=== PATIENT | female | born 1960 | race Caucasian/White ===

== ENCOUNTER 2020-02-15 17:53 | Outpatient (CLI) | payer MEDICAID, SELFPAY ==
[2020-02-15 18:37] LABS: Basophils # 0.1 10^3/uL (0.0-0.1); Basophils % 0.8 %; Eosinophils # 0.3 10^3/uL (0.0-0.8); Eosinophils % 3.3 %; Hematocrit 49.4 % (37.0-47.0); Hemoglobin 15.7 g/dL (11.5-15.3); Lymphocytes # 3.9 10^3/uL (0.8-4.8); Lymphocytes % 45.8 %; Mean Corpuscular HGB Conc 31.8 g/dL (30.0-36.0); Mean Corpuscular Hemoglobin 28.3 pg (28.0-34.0); Mean Platelet Volume 11.1 fL (7.4-10.4); Monocytes # 0.6 10^3/uL (0.2-0.9); Monocytes % 6.5 %; Neutrophils # 3.7 10^3/uL (1.8-7.7); Neutrophils % 43.5 %; Nucleated Red Blood Cells % 0 %; Platelet Count 261 10^3/cmm (130-400); Red Blood Count 5.55 10^6/uL (4.1-5.3); Red Cell Distribution Width 14.4 % (12.1-15.1); White Blood Count 8.5 10^3/uL (4.0-10.0)
[2020-02-15 19:16] LABS: C Reactive Protein 3.8 mg/L (0.0-4.9)
[2020-02-15 23:21] LABS: Erythrocyte Sedimentation Rate 16 mm/hr (0-15)
== END 2020-02-15 17:54 | disposition home or self-care (01) ==
LOC: LAB 17:53
PROVIDERS: PCP Family Medicine; Visit Provider Internal Medicine Infectious Disease
DX: M46.20 Osteomyelitis of vertebra, site unspecified (principal); I07.9 Rheumatic tricuspid valve disease, unspecified; R78.81 Bacteremia; B95.62 Methicillin resistant Staphylococcus aureus infection as the cause of diseases classified elsewhere
CPT/HCPCS: 36415; 85025; 85651; 86140; 87040

== ENCOUNTER 2020-05-22 16:10 | Inpatient (IN) | payer MEDICAID, SELFPAY ==
[2020-05-22] VITALS (8 sets, daily range): BP systolic 120–138; BP diastolic 80–84; PULSE 74–115; RESP 14–18; TEMP 36.5–37.1; O2SAT 92–100; BMI 26.2
--- NOTE | 2020-05-22 16:39 | CTR_ITS ---
PROCEDURE INFORMATION: Exam: CT Chest With Contrast Exam date and time: 05/22/2020 4:58 PM Age: 60 years old Clinical indication: Abdominal pain; Chest pain; Prior surgery; Surgery type: Cabg, appy; Additional info: Epigastric pain, unable to swallow TECHNIQUE: Imaging protocol: Computed tomography of the chest with intravenous contrast. Radiation optimization: All CT scans at this facility use at least one of these dose optimization techniques: automated exposure control; mA and/or kV adjustment per patient size (includes targeted exams where dose is matched to clinical indication); or iterative reconstruction. Contrast material: OMNI 300; Contrast volume: 95 ml; Contrast route: INTRAVENOUS (IV); COMPARISON: CTA Chest-Pulmonary Emb [id number] 06/28/2015 10:11:21 AM RADIATION DOSE METRICS: Total DLP (mGy-cm): 614.93 FINDINGS: Lungs: Tracheobronchial structures are patent. Stable mild to moderate paraseptal and centrilobular emphysematous changes in the upper lobes with bulla formation in the right upper lobe. No focal consolidation. No pulmonary edema. Interval development of a noncalcified nodule in the left lower lobe with an average measurement of 5 mm (series 3, image 29). Pleural space: No pleural effusion. No pneumothorax. Heart: Interval development of focal pericardial calcification over the left atrium (series 2, image 32). Stable moderate enlargement of the heart. Pulmonary arteries: Stable enlargement of the central pulmonary arteries, this may suggest pulmonary hypertension. Aorta: Mild atherosclerotic changes in the visualized arteries. No evidence for aortic aneurysm or aortic dissection. 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 Other arteries: The pulmonary arteries are unremarkable. Other veins: The pulmonary veins are unremarkable. Lymph nodes: Interval development of a large left supraclavicular lymph node mass in the left supraclavicular region that is partially visualized. This is anteriorly displacing the left internal jugular vein and medially displacing the left common carotid artery (series 2, image 3). This measures at least 2.7 cm in length and 2.7 x 3.7 cm in AP and transverse dimensions, respectively (series 602, image 34 and series 2, image 3). Enlarged subclavicular lymph nodes, the largest measures 3.0 x 2.1 cm (series 2, image 9). Enlarged left axillary lymph node measures 1.7 x 1.5 cm (series 2, image 14). Enlarged AP window measures 1.2 cm in short axis, and an enlarged lymph node posterior to the left mainstem bronchus measures 1.2 cm in short axis (series 2, images 16 and 23). Bones/joints: Multilevel degenerative changes of varying severity in the visualized spine. Stable old, mild compression deformity of T3. Mild kyphoscoliosis in the thoracic spine. No lytic or sclerotic bony lesions. Soft tissues: No acute abnormality in the extrathoracic soft tissues. IMPRESSION: 1. No acute cardiopulmonary process. 2. Interval development of enlarged left supraclavicular, left subclavicular, left axillary, and mediastinal lymph nodes concerning for metastatic foci. 3. Interval development of a noncalcified nodule in the left lower lobe with an average measurement of 5 mm. [facility] for incidental nodules are not indicated. Follow up per patient's medical condition. 4. Interval development of focal pericardial calcification over the left atrium. 5. Incidental/nonacute findings are listed in the report. COMMENTS: Urgent results were discussed with Rajni Bauman on 05/22/2020 at 8:08 PM CDT. PROCEDURE INFORMATION: Exam: CT Abdomen And Pelvis With Contrast Exam date and time: 05/22/2020 4:58 PM Age: 60 years old Clinical indication: Abdominal pain; Chest pain; Prior surgery; Surgery type: Cabg, appy; Additional info: Epigastric pain, unable to swallow TECHNIQUE: Imaging protocol: Computed tomography of the abdomen and pelvis with intravenous contrast. Sagittal and coronal reformatted images were created and reviewed. Radiation optimization: All CT scans at this facility use at least one of these dose optimization techniques: automated exposure control; mA and/or kV adjustment per patient size (includes targeted exams where dose is matched to clinical indication); or iterative reconstruction. Contrast material: OMNI 300; Contrast volume: 95 ml; Contrast route: INTRAVENOUS (IV); COMPARISON: CT abdomen pelvis w con* [id number] 07/12/2014 4:37 PM RADIATION DOSE METRICS: Total DLP (mGy-cm): 687.29 FINDINGS: Liver: Interval development of a mildly nodular contour of the liver, concerning for mild cirrhosis. Interval development of multiple hypodense lesions in all 8 segments of the liver. The largest lesion is at the junction of segments 4A and 4B in the medial left lobe of the liver, this measures 4.2 by 4.6 x 4.4 cm (series 601, image 44 and series 2, image 17). Gallbladder and bile ducts: The gallbladder is unremarkable. No biliary ductal dilatation. Pancreas: The pancreas is unremarkable. No pancreatic ductal dilatation. Spleen: The spleen is unremarkable. Adrenals: Interval development of a small lesion in the right adrenal gland suspicious for a metastatic focus measuring 1.1 x 0.9 cm (series 2, image 15). The left adrenal gland is unremarkable. Kidneys and ureters: Interval development of a small hypodense focus in the right kidney that is too small to characterize, however likely represents a small cyst. Indeterminate hyperdense focus in the right kidney. Hounsfield units show density greater than expected for simple fluid. This measures 1.5 x 1.8 cm, previously 1.1 x 0.9 cm (series 2, image 31). The left kidney is unremarkable. The right and left kidneys are unremarkable. The right and left ureters are unremarkable. Stomach and bowel: The stomach is collapsed, which can limit evaluation. There is focal asymmetric thickening with a masslike appearance along the wall of the lesser curvature of the stomach however, this extends superiorly to the level of the GE junction and inferiorly to just above the pancreas. Findings are concerning for a possible gastric neoplasm versus invasion of the stomach wall from lymphadenopathy in the lesser sac. This measures 5.9 x 4.4 x 3.3 cm (series 602, image 30, series 601, image 32, and series 2, image 14). Appendix: Appendix not definitely visualized. No inflammatory changes in the pericecal region however. Intraperitoneal space: There is diffuse bowel wall thickening, likely secondary to edema from ascites. Interval development of thickening of the peritoneal lining with extensive omental caking in the anterior abdomen, suspicious for metastatic deposits. There is also interval development of large volume ascites, findings may be due to portal hypertension. Possible malignant ascites cannot be ruled out. No free intraperitoneal air. No loculated fluid collections to suggest an abscess. Vasculature: Moderate atherosclerotic changes in the visualized arteries. No evidence for aortic aneurysm or aortic dissection. Hepatic veins, portal veins, splenic vein, and SMV are patent. Interval development of small caliber varices in the upper abdomen. Lymph nodes: Interval development of multiple enlarged lymph nodes in the abdomen. A lora hepatis lymph node measures up to 1.4 x 3.3 cm in diameter (series 2, image 20). Multiple enlarged retroperitoneal lymph nodes, the largest measures 1.8 x 2.0 cm (series 2, image 23). Bladder: The bladder is incompletely filled, which can limit evaluation. No focal abnormality in the bladder however. Reproductive: The uterus, right ovary, and left ovary are unremarkable. Stable findings consistent with a previous bilateral tubal ligation. Bones/joints: Mild degenerative changes at both the right and left hips. Moderate degenerative changes of the right and left sacroiliac joints. Multilevel degenerative changes of varying severity in the visualized spine. New sclerotic lesion in the left ischium concerning for a metastatic focus. Multilevel degenerative changes of varying severity in the visualized spine. Mild to moderate age-indeterminate compression deformities of the superior endplates of L4 and L5. Findings are new at L4 and have worsened at L5. Soft tissues: No acute abnormality in the extra-abdominal soft tissues. CT/CT chest abd pel w con* IMPRESSION: 1. Interval development of a masslike focus along the lesser curvature of the stomach, this could represent a primary gastric neoplasm versus invasion of the wall of the stomach from in the enlarged lesser sac lymph node. There is also interval development of additional lymphadenopathy in the abdomen, multiple hepatic lesions, a right adrenal lesion, and peritoneal thickening/omental caking. Findings are suspicious for a diffuse metastatic process. 2. Interval development of large volume ascites, this could be due to cirrhosis and portal hypertension, possible malignant ascites cannot be ruled out. 3. Interval development of a mildly nodular contour of the liver, concerning for mild cirrhosis. Interval development of small caliber varices in the upper abdomen suggesting portal hypertension. 4. Increase in size of an indeterminate hyperdense focus in the right kidney. Recommend attention to this area on follow-up imaging studies. 5. There is diffuse bowel wall thickening, likely secondary to edema from ascites. 6. New sclerotic lesion in the left ischium concerning for a metastatic focus. Recommend further evaluation with bone scan if this has not recently been performed. 7. Mild to moderate age-indeterminate compression deformities of the superior endplates of L4 and L5. Findings are new at L4 and have worsened at L5. Recommend correlation with symptoms of pain in these areas. 8. Incidental/nonacute findings are listed in the report. COMMENTS: 1. Urgent results were discussed with Rajni Bauman on 05/22/2020 at 8:08 PM CDT. 2. Consistent with the [employer]'s Incidental Findings Committee white paper (J Am Andrés Radiol 2018): Any incidental renal lesion less than 1.0 cm or classified as too small to characterize, or any incidental cystic renal lesion characterized as simple-appearing, is likely benign. No follow-up imaging is recommended for these lesions per consensus recommendations based on imaging criteria. Radiation Dose CTDIVOL = (mGy): DLP = 687.29~614.93 (mGy-cm)
--- NOTE | 2020-05-22 16:40 | ECG_ITS ---
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 Measurements Intervals [place] Rate: 106 P: 74 [place]: 144 QRS: 19 QRSD: 111 T: 67 QT: 329 QTc: 438 Interpretive Statements SINUS TACHYCARDIA LOW QRS VOLTAGE IN PRECORDIAL LEADS [QRS DEFLECTION < 1.0 mV IN CHEST LEADS] INCOMPLETE RIGHT BUNDLE BRANCH BLOCK [90+ ms QRS DURATION, TERMINAL R IN V1/V2, 40+ ms S IN I/aVL/V4/V5/V6] MODERATE ST DEPRESSION [0.05+ mV ST DEPRESSION] No previous ECG available for comparison Electronically Signed On 05-23-2020 17:24:55 CDT by Paula Neal M.D. [id number]
--- NOTE | 2020-05-22 16:40 | XRR_ITS ---
PROCEDURE INFORMATION: Exam: XR Chest, 1 View Exam date and time: 05/22/2020 5:32 PM Age: 60 years old Clinical indication: Other: Epigastric; Patient HX: Abd pain and swelling; Additional info: Epigastric pain TECHNIQUE: Imaging protocol: XR of the chest Views: Frontal portable upright view of the chest. COMPARISON: CR Chest 2 views* [id number] 12/09/2014 2:47 PM FINDINGS: Lungs: 9 cm right apical bulla redemonstrated. The lungs are otherwise peripherally clear bilaterally size. The pulmonary vasculature is normal. Pleural space: No pleural effusion. No pneumothorax. Heart/Mediastinum: InStable borderline cardiomegaly. Mediastinum: Stable. Diaphragm: The diaphragm is excluded bilaterally. Bones/joints: Stable. XR/XR chest 1V portable [id number] IMPRESSION: 1. Pulmonary emphysema. 2. The diaphragm is excluded, limiting assessment for pneumoperitoneum.
--- NOTE | 2020-05-22 16:41 | ED_ITS ---
HPI - Abdominal Pain General: Chief Complaint: Abdominal Pain Stated Complaint: sent by doc Time Seen by Provider: 05/22/20 16:27 History of Present Illness: HPI narrative: This patient is a 60-year-old female presenting with abdominal pain and vomiting. She said she has been having symptoms for a month. It started with nausea and dry heaves. She said she was trying to throw up so hard that she felt like she ripped something in her epigastric area. Since that time she is had progressive worsening of her symptoms where she is no longer able to tolerate anything including water. She said when she tries to drink water she feels like it gets down to her xiphoid area and get stuck. Within a short time she throws it back up. She has noticed a decrease in urination which she thinks is because she is not taking in very much. She has had bloating and distention of her abdomen. She has been very weak and tired. She denies fevers or cough. She denies chest pain. She said her doctor had ordered an ultrasound for later this week but she called them today because of the worsening symptoms and they told her to come to the ER. She denies any history of stomach problems or liver problems. She does say that she had hepatitis C but got treated for it several years ago. MD elicited complaint: abdominal pain Pertinent past history: other (Hep C, treated) Onset (ago): week(s) (4) Pain Consistency: constant Location: Epigastric Severity: moderate Quality: aching and fullness Associated Symptoms: Reports bloating, heartburn and vomiting (Unable to swallow); Denies chills and fever(s) Review of Systems General: Reports: 10 or more systems reviewed and unremarkable except in HPI and below Const: Reports: fatigue; Denies: fever(s), chills or malaise Eyes: Denies: change in vision ENMT: Denies: odynophagia Card: Denies: chest pain or swelling of feet/ankles Resp: Denies: dyspnea, productive cough or non-productive cough GI: Reports: vomiting (Unable to swallow), heartburn, early satiety and bloating : Reports: oliguria; Denies: flank pain or difficulty voiding Musc: Denies: neck pain or back pain Skin/Breast: Denies: rash Neuro: Denies: headache(s), numbness in extremities or weakness in extremities Donald/Lymph: Denies: easy bruising or easy bleeding PFS ED PFSH: Medical History Anxiety COPD (chronic obstructive pulmonary disease) Depression Gastric reflux Hepatitis C History of endocarditis History of MRSA infection HECTOR (obstructive sleep apnea) Pulmonary hypertension Sacral osteomyelitis Surgical History H/O foot surgery History of appendectomy Hx of tonsillectomy S/P CABG (coronary artery bypass graft) Family History Other CAD (coronary artery disease) Hypertension Social History Smoking and tobacco status: current every day smoker Alcohol intake: never Current gender identity: Female Physical Exam Const: COMMON NORMALS: no acute distress, patient oriented x3, no limitations and alert GENERAL APPEARANCE: cooperative and comfortable HENMT: HEAD & SCALP: normal to inspection FACE & SINUS: normal facial exam Eye: GENERAL EYE: appearance normal, both eyes and all related structures Neck/C-Spine: COMMON NORMALS: supple, no meningeal signs and no JVD Chest: COMMONS NORMALS: normal inspection of the chest Resp: COMMON NORMALS: normal respiratory effort, No use of accessory muscles and clear to auscultation bilaterally AUSCULTATION: clear to auscultation bilaterally Cardio: COMMON NORMALS: no JVD, regular rate, regular rhythm and No murmurs present (Cardio) RATE: regular rate RHYTHM: regular rhythm GI: INSPECTION: Yes abdominal distension and Yes Fluid wave present AUSCULTATION: Yes Hypoactive bowel sounds present PALPATION: Yes Firmness to palpation present (GI) and Yes Tenderness to palpation present (GI) PERCUSSION: Fluid wave present Back/Pelvis: COMMON NORMALS: thoracic and lumbar spine normal to inspection Extremity: COMMON NORMALS: normal to inspection Neuro: COMMON NORMALS: patient oriented x3, moves all extremities, no focal motor deficits and no sensory deficits noted SENSORIUM/ORIENTATION: Yes alert MENINGEAL SIGNS: Yes no meningeal signs Psych: COMMON NORMALS: mental status grossly normal, cooperative and normal affect Skin: COMMON NORMALS: no rashes or lesions noted and turgor normal GENERAL SKIN EXAM: no rashes or lesions noted and turgor normal Course ED course: Patient was given pain medicine and rested in the ED. She continued to have discomfort in her epigastrium. CT was done and I discussed the findings with the radiologist. She appears to have a metastatic process with no obvious primary. The stomach does have some thickening which could be a primary versus lymph node invasion of the stomach wall. There are extensive mets in the liver, adrenal, lymph nodes with omental caking and ascites. There is also some degree of portal hypertension. There is a small nodule in the left lower lobe of the lung. There are potentially lesions in the bone and kidney as well. She also has compression fractures at L4 and L5. 1 of those was present on a prior CT but is more advanced today. I told the patient of these findings and she got very upset. She is unable to have a calm discussion about it at this time. Order some Ativan and she understands that she will be admitted for further work-up. Vital Signs: Vital signs: Vital Signs Temperature 98.8 F 05/23/20 11:27 Pulse Rate 104 H 05/23/20 11:27 Respiratory Rate 20 H 05/23/20 13:22 Blood Pressure 123/86 05/23/20 11:27 Pulse Oximetry 88 L 05/23/20 11:27 MDM - Abdominal Pain MDM Narrative: Medical decision making narrative: Incarcerated hiatal hernia, esophageal stricture, ascites likely related to liver disease, Romana-Law tear, other mediastinal or abdominal mass, pancreatitis, bowel obstruction, cardiac, neoplastic. Lab Data: Labs: Lab Results 05/22/20 05/22/20 05/22/20 Range/Units 18:13 18:19 18:19 WBC 11.6 H (4.0-10.0) 10^3/ uL RBC 4.50 (4.1-5.3) 10^6/u L Hgb 12.5 (11.5-15.3) g/dL Hct 40.8 (37.0-47.0) % MCV 90.7 (81-99) fL MCH 27.8 L (28.0-34.0) pg MCHC 30.6 (30.0-36.0) g/dL RDW 13.0 (12.1-15.1) % Plt Count 440 H (130-400) 10^3/c mm MPV 10.0 (7.4-10.4) fL Neut % (Auto) 72.6 % Lymph % (Auto) 14.8 % Izard % (Auto) 8.3 % Eos % (Auto) 2.7 % Baso % (Auto) 0.6 % Neut # (Auto) 8.41 H (1.8-7.7) 10^3/u L Lymph # (Auto) 1.7 (0.8-4.8) 10^3/u L Izard # (Auto) 1.0 H (0.2-0.9) 10^3/u L Eos # (Auto) 0.3 (0.0-0.8) 10^3/u L Baso # (Auto) 0.1 (0.0-0.1) 10^3/u L Nucleated RBC % (a uto) 0 % Nucleated RBCs # 0.0 /100WBC Sodium 135 L (136-145) mmol/L Potassium 3.5 (3.5-5.1) mmol/L Chloride 95 L (98-107) mmol/L Carbon Dioxide 30 H (22-29) mmol/L Anion Gap 13.5 (5-19) BUN 6 (6-20) mg/dL Creatinine 0.9 (0.5-0.9) mg/dL GFR Calculation 64.3 L (90-130) mL/min Glucose 92 (65-115) mg/dL Calculated Osmolal ity 275 L (285-295) mOsm/k g Lactic Acid (0.5-2.2) mmol/L Calcium 8.7 (8.5-10.5) mg/dL Total Bilirubin 0.4 (0.15-1.2) mg/dL AST 43 H (0-32) U/L ALT 10 (0-33) U/L Alkaline Phosphata se 147 H (35-105) IU/L Troponin T Baselin e (0-10) ng/L Total Protein 6.4 L (6.6-8.7) g/dL Albumin 3.2 L (3.5-5.2) g/dL Globulin 3.2 (1.3-4.6) g/dL Lipase 14 (13-60) U/L Urine Color Dark yellow (Yellow) Urine Appearance Clear (CLEAR) Urine pH 5 (5-7) Ur Specific Gravit y 1.005 (1.005-1.030) Urine Protein Neg (Negative) Urine Glucose (UA) Norm (Normal) Urine Ketones Negative (Negative) Urine Blood Neg (Negative) Urine Nitrate Negative (Negative) Urine Bilirubin Neg (NEGATIVE) Urine Urobilinogen 1 H (Negative) mg/dL Ur Leukocyte Monique ase Negative (Negative) Ethyl Alcohol < 10 (0-10) mg/dL 05/22/20 05/22/20 Range/Units 18:19 18:19 WBC (4.0-10.0) 10^3/ uL RBC (4.1-5.3) 10^6/u L Hgb (11.5-15.3) g/dL Hct (37.0-47.0) % MCV (81-99) fL MCH (28.0-34.0) pg MCHC (30.0-36.0) g/dL RDW (12.1-15.1) % Plt Count (130-400) 10^3/c mm MPV (7.4-10.4) fL Neut % (Auto) % Lymph % (Auto) % Izard % (Auto) % Eos % (Auto) % Baso % (Auto) % Neut # (Auto) (1.8-7.7) 10^3/u L Lymph # (Auto) (0.8-4.8) 10^3/u L Izard # (Auto) (0.2-0.9) 10^3/u L Eos # (Auto) (0.0-0.8) 10^3/u L Baso # (Auto) (0.0-0.1) 10^3/u L Nucleated RBC % (a uto) % Nucleated RBCs # /100WBC Sodium (136-145) mmol/L Potassium (3.5-5.1) mmol/L Chloride (98-107) mmol/L Carbon Dioxide (22-29) mmol/L Anion Gap (5-19) BUN (6-20) mg/dL Creatinine (0.5-0.9) mg/dL GFR Calculation (90-130) mL/min Glucose (65-115) mg/dL Calculated Osmolal ity (285-295) mOsm/k g Lactic Acid 1.5 (0.5-2.2) mmol/L Calcium (8.5-10.5) mg/dL Total Bilirubin (0.15-1.2) mg/dL AST (0-32) U/L ALT (0-33) U/L Alkaline Phosphata se (35-105) IU/L Troponin T Baselin e 9 (0-10) ng/L Total Protein (6.6-8.7) g/dL Albumin (3.5-5.2) g/dL Globulin (1.3-4.6) g/dL Lipase (13-60) U/L Urine Color (Yellow) Urine Appearance (CLEAR) Urine pH (5-7) Ur Specific Gravit y (1.005-1.030) Urine Protein (Negative) Urine Glucose (UA) (Normal) Urine Ketones (Negative) Urine Blood (Negative) Urine Nitrate (Negative) Urine Bilirubin (NEGATIVE) Urine Urobilinogen (Negative) mg/dL Ur Leukocyte Monique ase (Negative) Ethyl Alcohol (0-10) mg/dL Discharge Plan Discharge Patient Disposition: Admitted As Inpatient Admit Provider: Paula Kahn Discharge Date/Time: 05/22/20 21:44 Coding Level of Care Code ED Cardiac Catheterization Technologist for [employer] Fwd Exam Comprehensive
[2020-05-22] MEDS: lactated ringers 500 ML 999 ML IV (17:23)
[2020-05-22] MEDS: morphine 4 mg/mL SDV 1 mL IVP (17:26)
[2020-05-22] MEDS: ondansetron 2 mg/ML SDV 2 mL 4 MG IVP (17:26)
[2020-05-22] MEDS: iohexol 300 mg/mL 100 mL Btl IV (17:35)
[2020-05-22] MEDS: HYDROmorphone 1 mg/mL INJ 1 mL 0.5 MG IVP (18:08)
[2020-05-22 18:25] LABS: Basophils # 0.1 10^3/uL (0.0-0.1); Basophils % 0.6 %; Eosinophils # 0.3 10^3/uL (0.0-0.8); Eosinophils % 2.7 %; Hematocrit 40.8 % (37.0-47.0); Hemoglobin 12.5 g/dL (11.5-15.3); Lymphocytes # 1.7 10^3/uL (0.8-4.8); Lymphocytes % 14.8 %; Mean Corpuscular HGB Conc 30.6 g/dL (30.0-36.0); Mean Corpuscular Hemoglobin 27.8 pg (28.0-34.0); Mean Corpuscular Volume 90.7 fL (81-99); Monocytes % 8.3 %; Neutrophils # 8.41 10^3/uL (1.8-7.7); Neutrophils % 72.6 %; Nucleated Red Blood Cells % 0 %; Platelet Count 440 10^3/cmm (130-400); White Blood Count 11.6 10^3/uL (4.0-10.0)
[2020-05-22] MEDS: iodixanol 320 mg/mL 100mL Btl IV (18:25)
[2020-05-22 18:26] LABS: Add Urine Microscopic? NO
[2020-05-22 18:29] LABS: Bilirubin Urine Neg (NEGATIVE); Blood Urine Neg (Negative); Glucose Urine UA Norm (Normal); Ketones Urine Negative (Negative); Leukocyte Esterase Urine Negative (Negative); Nitrate Urine Negative (Negative); Protein Urine Neg (Negative); Specific Gravity, Urine 1.005 (1.005-1.030); Urine Appearance Clear (CLEAR); Urine Color Dark Yellow (Yellow); Urobilinogen Urine 1 mg/dL (Negative); pH Urine 5 (5-7)
--- NOTE | 2020-05-22 18:40 | ECG_ITS ---
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 Measurements Intervals [place] Rate: 97 P: 75 SC: 145 QRS: 24 QRSD: 118 T: 73 QT: 349 QTc: 445 Interpretive Statements SINUS RHYTHM LOW QRS VOLTAGE IN PRECORDIAL LEADS [QRS DEFLECTION < 1.0 mV IN CHEST LEADS] INCOMPLETE RIGHT BUNDLE BRANCH BLOCK [90+ ms QRS DURATION, TERMINAL R IN V1/V2, 40+ ms S IN I/aVL/V4/V5/V6] MODERATE ST DEPRESSION [0.05+ mV ST DEPRESSION] Compared to ECG 05/22/2020 17:13:40 Sinus tachycardia no longer present ST (T wave) deviation still present Electronically Signed On 05-23-2020 17:29:10 CDT by Paula Neal M.D. [id number]
[2020-05-22 18:48] LABS: Lactic Sepsis W/Reflex 1.5 mmol/L (0.5-2.2)
[2020-05-22 18:49] LABS: Alanine Aminotransferase 10 U/L (0-33); Albumin Level 3.2 g/dL (3.5-5.2); Alkaline Phosphatase 147 IU/L (35-105); Anion Gap 13.5 (5-19); Aspartate Amino Transferase 43 U/L (0-32); Blood Urea Nitrogen 6 mg/dL (6-20); Calcium 8.7 mg/dL (8.5-10.5); Carbon Dioxide 30 mmol/L (22-29); Chloride 95 mmol/L (98-107); Globulin 3.2 g/dL (1.3-4.6); Glomerular Filtration Rate 64.3 mL/min (90-130); Glucose 92 mg/dL (65-115); Lipase 14 U/L (13-60); Osmolality Calculated 275 mOsm/kg (285-295); Potassium 3.5 mmol/L (3.5-5.1); Sodium 135 mmol/L (136-145); Total Bilirubin 0.4 mg/dL (0.15-1.2); Total Protein 6.4 g/dL (6.6-8.7)
[2020-05-22 18:50] LABS: Troponin(5th) Baseline 9 ng/L (0-10)
[2020-05-22 18:58] LABS: Alcohol Level < 10 mg/dL (0-10)
--- NOTE | 2020-05-22 20:36 | P.HP_ITS ---
Providers/Chief Complaint Primary Care Provider: Aury Carlos MD Chief Complaint: sent by doc History of Present Illness Sarahi Mneon is a 60 year old female who carries history of MRSA bacteremia, endocarditis with sacral osteomyelitis, hypertension, hepatitis C(treated remotely), smoker, CABG came in with chief complaint of painful swallowing. Patient is stating that since beginning of this year she has been feeling very lethargic and tired, normally she does not follow-up with PCPs, she has never undergone colonoscopy or screening mammograms. She was in her usual state of health until about 3 to 4 weeks ago when she started experiencing painful swallowing to solids food which gradually got worse and now she is not able to swallow anything(liquid plus solid), she has experienced weight loss, her last proper meal was about 2 to 3 weeks ago, she decided to come to the hospital because of worsening abdominal pain which she is describing in her epigastric region, it gets worse on intake of liquids as well, low urine output, she is feeling very dehydrated. She did not notice any swelling around her neck area. She has not noticed any blood in her stool. She is denying history of GI cancer in her family. She is stating that her swallowing is fine, she could swallow and chew her food without any difficulty but as soon as it reaches around her epigastric region it starts hurting and she regurgitates her food. when she arrived to the ED she was anticipating hiatal hernia surgical intervention but was devastated when she was told about the CT abdomen results. Patient wanted some time to wrap her head around the diagnosis of cancer and metastases, she went outside for a while with her son and came back in the room in 5 to 10 minutes, she was given 1 mg of IV Ativan, 2 mg of IV Dilaudid, she is very emotional, son is at the bedside as well. Dr. Walters and Dr. Yun consulted. Review of Systems Const: Reports: chills, body aches, change in appetite, change in weight, fatigue and malaise; Denies: fever(s) Eyes: Denies: change in vision ENMT: Reports: throat pain Card: Reports: chest pain; Denies: irregular heart rhythm, edema, lightheadedness, dyspnea on exertion or orthopnea Resp: Denies: dyspnea GI: Reports: abdominal pain, nausea, vomiting, dysphagia, heartburn, early satiety, constipation and bloating; Denies: diarrhea : Denies: flank pain Musc: Reports: neck pain Skin/Breast: Reports: lesions Neuro: Denies: headache(s) Psych: Reports: anxiety, depression, mood swings, panic attacks and irritability Endo: Denies: polyuria Donald/Lymph: Denies: easy bruising All/Imm: Denies: urticaria Medications/Allergies Home Medications Medication Instructions Recorded Confirmed Last Taken Type albuterol sulfate 2.5 mg INHALATION QID PRN #90 ml 05/09/20 05/22/20 Unknown Rx albuterol sulfate 90 mcg/actuation 2 puff INHALATION QID PRN #8.5 gm 05/09/20 05/22/20 Unknown Rx aerosol inhaler omeprazole magnesium 20 mg 20 mg PO BID #60 tab 05/09/20 05/22/20 05/22/20 Rx tablet,delayed release sucralfate 1 gram tablet 1 gm PO TID #90 tab 05/09/20 05/22/20 05/21/20 Rx tiotropium bromide 18 mcg capsule 1 cap INHALATION DAILY #30 inh 05/09/20 05/22/20 Unknown Rx with inhalation device bisacodyl 10 mg rectal suppository 10 mg OR DAILY PRN #12 each 05/16/20 05/22/20 05/20/20 Rx hyoscyamine sulfate 0.125 mg 0.125 mg PO QID #30 tab 05/16/20 05/22/20 05/22/20 Rx disintegrating tablet promethazine 25 mg tablet 25 mg PO TID PRN #30 tab 05/16/20 05/22/20 05/22/20 Rx Vitamin C 1 tab PO DAILY 05/22/20 05/22/20 Unknown History Zofran 8 mg PO Q8H PRN 05/22/20 05/22/20 Unknown History aspirin [Aspir-81] 81 mg PO DAILY 05/22/20 05/22/20 Unknown History multivitamin [Multiple Vitamins] 1 tab PO DAILY 05/22/20 05/22/20 Unknown History zinc 1 tab PO DAILY 05/22/20 05/22/20 Unknown History Allergies Allergy/AdvReac Type Severity Reaction Status Date / Time codeine Allergy NIGHT Verified 05/22/20 16:21 SWEATS/NIGHT BRAXTON valdecoxib [From Bextra] Allergy SEIZURES Verified 05/22/20 16:21 PFSH Acute PFSH: Medical History Anxiety COPD (chronic obstructive pulmonary disease) Depression Gastric reflux Hepatitis C History of endocarditis History of MRSA infection HECTOR (obstructive sleep apnea) Pulmonary hypertension Sacral osteomyelitis Surgical History H/O foot surgery History of appendectomy Hx of tonsillectomy S/P CABG (coronary artery bypass graft) Family History Other CAD (coronary artery disease) Hypertension Social History Smoking and tobacco status: current every day smoker Alcohol intake: never Current gender identity: Female Vitals/I&O/Wt Last Vital Signs Temp 97.7 F 05/22/20 16:16 Pulse 74 05/22/20 18:16 Resp 18 05/22/20 18:16 BP 120/80 05/22/20 18:16 Pulse Ox 100 05/22/20 18:18 Weight last 48 hrs Weight 67.132 kg Physical Exam Narrative: EXAM NARRATIVE: Middle-age female sitting in her wheelchair, very emotional, crying, son at the bedside She was given ample time to accumulate her thoughts Patient was able to mention above given detailed Left-sided supraclavicular lymphadenopathy, nontender Malnourished, dehydrated appearance S1, S2, no sign of heart failure, no murmur appreciated Abdomen tender to palpation around epigastric region, bowel sounds sluggish, distended abdomen, positive ascites Diminished breath sounds bilaterally otherwise no adventitious sounds Neurologically nonfocal exam, she is awake alert oriented x3 GCS 15, Patient is devastated after hearing about her CT results Data : 05/22/20 18:19 05/22/20 18:19 A&P Assessment and plan (1) Odynophagia: Status: Acute (2) Abdominal pain: Status: Acute Qualifiers: Abdominal location: epigastric Qualified Code(s): R10.13 - Epigastric pain (3) Depression: Status: Acute (4) COPD (chronic obstructive pulmonary disease): Status: Acute (5) Anxiety: Status: Acute (6) Supraclavicular lymphadenopathy: Status: Acute (7) Ascites: Status: Acute (8) Mediastinal lymphadenopathy: Status: Acute (9) Bone metastases: Status: Acute (10) Liver cirrhosis: Status: Acute (11) Compression fracture: Status: Acute Additional A&P Information Odynophagia CT abdomen revealed mass along lesser curvature of gastric sac with lymphadenopathy, with liver, adrenal, peritoneal,& bone metastases, I do suspect odynophagia secondary to lymphadenopathy compressing her esophagus Primary source seems to be gastric Left-sided supraclavicular lymphadenopathy, no iron deficiency anemia noted, no history of esophageal web, patient is endorsing history of endocarditis with MRSA in the past She has never undergone screening colonoscopies on mammogram for histopathological diagnosis, I do believe left-sided supraclavicular lymphadenopathy might be an accessible option for CT-guided biopsy, Patient is willing to undergo radio/chemotherapy, histopathological diagnostic studies I have consulted Dr. Walters as well to discuss options of esophageal stent versus PEG tube placement for nutrition evaluation(Dr. Walters will evaluate her in the morning, might plan for EGD as she might not tolerate barium swallow study) Dr. Yun consulted ( discussed options with Dr. Jama robledo, he would like to have general surgery weigh in on esophageal stent versus PEG, agreeable with core biopsy of left supraclavicular lymph node and placement of Mediport), Ascites secondary to liver cirrhosis due to metastatic lesions with underlying hepatitis C Patient is stating that she was treated for hepatitis C remotely Evidence of peritoneal carcinomatosis on imaging Would request coagulation profile, her bilirubin is normal slightly abnormal transaminases which could be falsely low due to cirrhosis Compression fracture of L4-L5 Patient complaining of back pain Analgesia with Dilaudid Antiemetics Ativan and Zofran Fluid resuscitation with D5 half-normal saline with 20 mEq KCl Patient is full code Son at the bedside, their questions were answered to their satisfaction, we discussed histopathological diagnosis, treatment options, stent versus PEG tube placement, prognostic factors, Attestations Medical Necessity Statement*: Anticipating stay in the hospital course more than 2 midnights, collaboration of general surgery oncology and medical team to devise a plan for her, she might get transferred out of this facility for higher level of care because of extensive metastases and multiple comorbidities Time Spent in Patient Care: (>than 50% of time spent in counselling and/or direct pt care on unit) . 90mins Coding Level of Care Code Acute Program Management Manager for [facility] Diagnoses Odynophagia R13.10 Abdominal pain R10.13 Abdominal location: epigastric Depression F32.9 COPD (chronic obstructive pulmonary disease) J44.9 Anxiety F41.9 Supraclavicular lymphadenopathy R59.0 Ascites R18.8 Mediastinal lymphadenopathy R59.0 Bone metastases C79.51 Liver cirrhosis K74.60 Compression fracture
[2020-05-22] MEDS: HYDROmorphone 1 mg/mL INJ 1 mL 2 MG IVP (21:09)
[2020-05-22] MEDS: LORazepam 2 mg/mL INJ 1 mL 1 MG IVP (21:09)
--- NOTE | 2020-05-22 21:18 | PC.NURSE ---
Report called to Rosanne PUENTES on 2N.
--- NOTE | 2020-05-22 21:26 | PC.NURSE ---
Patient is currently updating her family on her current health conditions. Son remains at bedside at this time. Spoke with Chiquita PUENTES from [facility] and they have confirmed that her son may go upstairs with her as long as he remains with her and is not attempting to switch in/out with other people.
[2020-05-22] MEDS: D5-NS 0.45% + KCL 20 mEq 20 MEQ/1,000 ML BAG 75 MEQ IV (22:42)
[2020-05-23] VITALS (14 sets, daily range): BP systolic 104–141; BP diastolic 68–91; PULSE 93–106; RESP 14–32; TEMP 36.7–37.6; O2SAT 88–96
[2020-05-23] MEDS: morphine 4 mg/mL SDV 1 mL 2 MG IVP (00:31)
[2020-05-23] MEDS: LORazepam 2 mg/mL INJ 1 mL IVP ×2 (01:10→07:09)
[2020-05-23] MEDS: HYDROmorphone 1 mg/mL INJ 1 mL 2 MG IVP ×5 (04:54→19:24)
[2020-05-23 07:31] LABS: INR 1.17 (0.8-1.2); Partial Thromboplastin Time 31.8 SECONDS (23.9-36.7)
[2020-05-23 07:32] LABS: Fibrinogen 421 mg/dL (174-498)
[2020-05-23 07:35] LABS: Platelet Count 450 10^3/cmm (130-400)
[2020-05-23 07:39] LABS: Alanine Aminotransferase 9 U/L (0-33); Alkaline Phosphatase 128 IU/L (35-105); Anion Gap 13.1 (5-19); Aspartate Amino Transferase 39 U/L (0-32); Blood Urea Nitrogen 5 mg/dL (6-20); Calcium 8.3 mg/dL (8.5-10.5); Carbon Dioxide 29 mmol/L (22-29); Chloride 99 mmol/L (98-107); Globulin 3.3 g/dL (1.3-4.6); Glomerular Filtration Rate 85.9 mL/min (90-130); Glucose 107 mg/dL (65-115); Osmolality Calculated 280 mOsm/kg (285-295); Potassium 4.1 mmol/L (3.5-5.1); Sodium 137 mmol/L (136-145); Total Bilirubin 0.3 mg/dL (0.15-1.2); Total Protein 6.3 g/dL (6.6-8.7)
[2020-05-23 07:47] LABS: Carcinoembryonic Antigen 181.2 ng/mL (0.0-4.7)
--- NOTE | 2020-05-23 10:46 | PC.CHAP ---
Pastoral Care Encounter/Spiritual Assessment Type of Contact [] Declined boiler repairman visit [] Patient/Family/Request visit [] Outpatient visit [x] Follow-up visit [] Physician referral [] Code/Alert [] Routine visit [] Staff referral [] Actively dying [] Patient sleeping [] Family support [] [] Out of room [] Palliative care [] [] Receiving care in room [] Pre-surgical visit [] Trauma [] Long length of stay [] ICU visit [x] Other: asleep Relational/Emotional Strength [] Patient feels connected with others/family/visitors/staff [] Distress [] Loneliness/isolation [] Abandonment Spirituality of Patient [] Person of Hilda [] Attends Orthodoxy of their Hilda [] Believes in Prayer [] Reads Bible or Zoroastrianism materials [] There are Spiritual issues to be addressed Foreman Or Supervisor And Operator Interventions [] Prayer [] Active listening [] Non-anxious presence [] Spiritual/emotional support [] Crisis/trauma care [] Spiritual counseling [] Bereavement support [] Provided bereavement packet [] Provided Bible/devotional materials [] Provided toy/stuffed animal, coloring book to patient or family member [] Provided Communion [] Anointing/Melvin [] Salvation [] Completed spiritual assessment [] Other: Impact on Illness or Injury [] Angry [] Fearful [] Anxious [] Often cries [] Exhaustion [] Unable to work [] Unable to attend uatsdin [] Unable to walk/stand [] Unable to read [] Unable to drive [] Unable to eat/drink [] Unable to sleep [] Unable to be with family [] Patient intubated [] Other: Summary asleep Time spent with patient 5 mins
[2020-05-23] MEDS: D5-NS 0.45% + KCL 20 mEq 20 MEQ/1,000 ML BAG 75 MEQ IV (13:20)
--- NOTE | 2020-05-23 13:20 | PC.NURSE ---
pt still in pain after receiving 2mg dilaudid at 0942, Dr Rivera notified and stated it was ok to give now and to change order to Dilaudid 2mg Q2 hours.
--- NOTE | 2020-05-23 14:32 | PC.NURSE ---
pt family is with the pt and was given permission per german white stating physician gave permission. pt son's name is cy frausto.
--- NOTE | 2020-05-23 16:17 | PM.CONSULT ---
Providers/Reason For Consult Consulting Physican/Specialty*: General Surgery Steven Walters MD Reason for Consult*: Apparent disseminated malignancy. Attending Physician: Hua Rivera Primary Care Provider: Aury Carlos MD History of Present Illness History of Present Illness Sarahi Menon is a 60 year old female who presented to the emergency room yesterday after a 3 - 4 week history of progressive dysphasia, abdominal discomfort and not feeling well. She apparently was in her normal state of health until a month ago when she started noticing trouble swallowing foods. She got to the point yesterday where she had a hard time keeping anything down; she feels like things get down to the lower esophagus and then have to come back. She has lost about 10 pounds over the past month because she has not been eating normally. She came into the emergency room yesterday just not feeling well. CAT scans of the chest/abdomen/pelvis revealed an apparent disseminated malignancy involving left supraclavicular/subclavicular lymph nodes, a left axillary lymph node, mediastinal lymph nodes, and diffuse changes throughout the abdomen including liver metastases, ascites, apparent omental caking, etc. The patient denies ever having endoscopy before. She has no known family history of upper or lower GI neoplasia. She denies any constitutional symptoms such as unexplained fevers, night sweats, etc. She does admit to the weight loss as above, however. The patient is asking if she can have some sips of water or ice chips, which she has apparently been tolerating prior to coming in. Review of Systems General: Reports: 10 or more systems reviewed and unremarkable except in HPI and below Const: Reports: change in weight; Denies: fever(s) GI: Reports: abdominal pain, nausea and dysphagia Psych: Reports: anxiety, depression and panic attacks Meds/Allergies Home Medications and Allergies Home Medications Medication Instructions Recorded Confirmed Last Taken Type albuterol sulfate 2.5 mg INHALATION QID PRN #90 ml 05/09/20 05/22/20 Unknown Rx albuterol sulfate 90 mcg/actuation 2 puff INHALATION QID PRN #8.5 gm 05/09/20 05/22/20 Unknown Rx aerosol inhaler omeprazole magnesium 20 mg 20 mg PO BID #60 tab 05/09/20 05/22/20 05/22/20 Rx tablet,delayed release sucralfate 1 gram tablet 1 gm PO TID #90 tab 05/09/20 05/22/20 05/21/20 Rx tiotropium bromide 18 mcg capsule 1 cap INHALATION DAILY #30 inh 05/09/20 05/22/20 Unknown Rx with inhalation device bisacodyl 10 mg rectal suppository 10 mg [place] DAILY PRN #12 each 05/16/20 05/22/20 05/20/20 Rx hyoscyamine sulfate 0.125 mg 0.125 mg PO QID #30 tab 05/16/20 05/22/20 05/22/20 Rx disintegrating tablet promethazine 25 mg tablet 25 mg PO TID PRN #30 tab 05/16/20 05/22/20 05/22/20 Rx Vitamin C 1 tab PO DAILY 05/22/20 05/22/20 Unknown History Zofran 8 mg PO Q8H PRN 05/22/20 05/22/20 Unknown History aspirin [Aspir-81] 81 mg PO DAILY 05/22/20 05/22/20 Unknown History multivitamin [Multiple Vitamins] 1 tab PO DAILY 05/22/20 05/22/20 Unknown History zinc 1 tab PO DAILY 05/22/20 05/22/20 Unknown History Allergies Allergy/AdvReac Type Severity Reaction Status Date / Time codeine Allergy NIGHT Verified 05/22/20 16:21 SWEATS/NIGHT BRAXTON valdecoxib [From Bextra] Allergy SEIZURES Verified 05/22/20 16:21 Current Medications Current Medications Generic Name Dose Route Start Last Admin Trade Name Freq PRN Reason Stop Dose Admin Potassium Chloride/Dextrose/Sod Cl 20 meq in 1,000 mls @ 75 mls/hr 05/22/20 21:51 05/23/20 13:20 D5-Ns 0.45% + Kcl 20 Meq IV 75 mls/hr .[id number] MAURICIO Administration Lorazepam 2 mg 05/22/20 21:51 05/23/20 07:09 Ativan IVP 2 mg Q4H PRN Administration vomiting PFSH Acute PFSH: Medical History (Updated 05/23/20 @ 16:18 by Steven Walters MD) Anxiety COPD (chronic obstructive pulmonary disease) Depression Gastric reflux Hepatitis C History of endocarditis History of MRSA infection HECTOR (obstructive sleep apnea) Pulmonary hypertension Sacral osteomyelitis Surgical History (Updated 05/23/20 @ 16:26 by Steven Walters MD) H/O foot surgery History of appendectomy History of heart surgery I had some type of heart surgery at age 6 Hx of tonsillectomy Family History Other CAD (coronary artery disease) Hypertension Social History Smoking and tobacco status: current every day smoker Alcohol intake: never Current gender identity: Female Vitals/I&O/Wt Last Vital Signs Temp 98.7 F 05/23/20 15:00 Pulse 106 H 05/23/20 15:00 Resp 18 05/23/20 15:00 BP 141/90 05/23/20 15:00 Pulse Ox 94 05/23/20 15:00 05/23/20 05/23/20 05/23/20 06:59 14:59 22:59 Intake Total 1000 / 1000 Output Total 600 / 600 Balance 1000 / 400 -600 / 400 Weight last 48 hrs Weight 148 lb Physical Exam Narrative: EXAM NARRATIVE: The patient was encountered in her hospital room. She does not appear to be comfortable and frequently will move around and moan a little. Her pupils seem equal. No carotid bruits are heard. The lungs seem clear anteriorly. The heart is regular but there seems to be a systolic murmur best heard at the left lower sternal border. I cannot feel an obvious lymph node in the left axilla but the patient is somewhat uncooperative in trying to reposition her body for me. The abdomen is protuberant but is soft. She has scattered tenderness throughout. I cannot feel any obvious masses. The extremities reveal no edema. Neurologically the patient appears to be grossly intact. Data Imaging^: CT Abd/Pel: Radiologist's impression: CT abdomen/pelvis 05/22/2020 iMPRESSION: 1. Interval development of a masslike focus along the lesser curvature of the stomach, this could represent a primary gastric neoplasm versus invasion of the wall of the stomach from in the enlarged lesser sac lymph node. There is also interval development of additional lymphadenopathy in the abdomen, multiple hepatic lesions, a right adrenal lesion, and peritoneal thickening/omental caking. Findings are suspicious for a diffuse metastatic process. 2. Interval development of large volume ascites, this could be due to cirrhosis and portal hypertension, possible malignant ascites cannot be ruled out. 3. Interval development of a mildly nodular contour of the liver, concerning for mild cirrhosis. Interval development of small caliber varices in the upper abdomen suggesting portal hypertension. 4. Increase in size of an indeterminate hyperdense focus in the right kidney. Recommend attention to this area on follow-up imaging studies. 5. There is diffuse bowel wall thickening, likely secondary to edema from ascites. 6. New sclerotic lesion in the left ischium concerning for a metastatic focus. Recommend further evaluation with bone scan if this has not recently been performed. 7. Mild to moderate age-indeterminate compression deformities of the superior endplates of L4 and L5. Findings are new at L4 and have worsened at L5. Recommend correlation with symptoms of pain in these areas. CT Chest: Radiologist's impression: CT chest 05/22/2020 iMPRESSION: 1. No acute cardiopulmonary process. 2. Interval development of enlarged left supraclavicular, left subclavicular, left axillary, and mediastinal lymph nodes concerning for metastatic foci. 3. Interval development of a noncalcified nodule in the left lower lobe with an average measurement of 5 mm. Fleischner follow up recommendations for incidental nodules are not indicated. Follow up per patient's medical condition. 4. Interval development of focal pericardial calcification over the left atrium. A&P Assessment and plan (1) Metastatic malignant neoplasm: CT reviewed. There is little question this is going to be a widely disseminated malignancy. The primary source is not clear, however. A percutaneous core needle biopsy has been ordered on the patient's supraclavicular lymph node. Regarding a potential surgical biopsy, if needed, it would appear that the left axillary lymph node versus a mini laparotomy with acquisition of abdominal tissue would be the 2 most likely procedures from my standpoint. I cannot feel her axillary adenopathy with any certainty, however. If we can get good results from a percutaneous biopsy, we may be able to avoid more of a formal surgical procedure. In the interim, I am going to allow the patient sips of water/ice chips as she requests. Status: Acute Consult Attestations Medical Necessity Statement: See admitting service's notation. Coding Level of Care Code Acute Account Resolution Expert for [facility] Diagnoses Metastatic malignant neoplasm C79.9
[2020-05-23 17:10] LABS: CA 125 566.7 U/mL (0-35)
--- NOTE | 2020-05-23 17:39 | PM.CONSULT ---
Providers/Reason For Consult Consulting Physican/Specialty*: medical oncology Reason for Consult*: suspected gastric cancer Attending Physician: Hua Rivera Primary Care Provider: Aury Carlos MD History of Present Illness History of Present Illness This is a 60 year old woman with CT evidence of widely spread metastatic disease, thought to most likely be gastric primary. She has a known history of coronary artery disease with previous coronary artery bypass surgery. She also has a history of treated hepatitis C and a history of MRSA bacteremia, endocarditis, and osteomyelitis. She was admitted to the hospital yesterday after presenting to the emergency room with a 4-week history of worsening dysphagia and odynophagia. Within the past several days prior to admission she had been unable to hold down any liquid or solid intake. At the same time she had also developed abdominal swelling/bloating. She reported a weight loss of [address] chest, abdomen, and pelvis showed interval development of left supraclavicular adenopathy measuring at least 2.7 x 2.7 x 3.7 cm and enlarged subclavicular lymph nodes, the largest measuring 3.0 x 2.1 cm. Also noted was less prominent left axillary and AP window adenopathy and an additional enlarged lymph node posterior to the left mainstem bronchus. The liver showed evidence of mild cirrhosis as well as multiple metastatic lesions, the largest measuring 4.2 x 4.6 x 4.4 cm. There was suspected right adrenal metastasis. There was a masslike appearance along the wall of the lesser curvature of the stomach extending superiorly to the level of the GE junction. Findings were concerning for possible gastric neoplasm versus invasion of the stomach wall from lymphadenopathy in the lesser sac. It measured 5.9 x 4.4 x 3.3 cm. An enlarged lora hepatis lymph node measured 1.4 x 3.3 cm there were additional enlarged retroperitoneal lymph nodes. There was interval development of thickening of the peritoneal lining with extensive omental caking in the anterior abdomen suspicious for metastatic deposits. There was interval development of a large volume of ascites. There was new age-indeterminate compression deformity at L4 and worsening of L5 compression deformity. Review of Systems Const: Reports: fever(s), change in appetite, change in weight and fatigue; Denies: chills, body aches, malaise, diaphoresis, change in sleep pattern, daytime sleepiness, snoring or other (no hot flashes) Eyes: Denies: change in vision ENMT: Reports: throat pain and odynophagia; Denies: hoarseness, oral sores, change in hearing or tinnitus Card: Reports: chest pain; Denies: palpitations, swelling of feet/ankles, lightheadedness, orthopnea or leg pain with exertion Resp: Reports: dyspnea and non-productive cough; Denies: wheezing, pain on inspiration or hemoptysis GI: Reports: abdominal pain, nausea, vomiting, dysphagia and heartburn; Denies: diarrhea, constipation, hematochezia or melena : Denies: dysuria, urinary frequency, urinary urgency, urinary hesitancy, urinary incontinence or hematuria Musc: Reports: back pain; Denies: neck pain, joint pain, joint stiffness or muscle cramps Skin/Breast: Denies: rash or new lesions Neuro: Denies: headache(s), numbness in extremities, sensory changes or dizziness Psych: Reports: anxiety and depression Donald/Lymph: Denies: easy bruising or easy bleeding Meds/Allergies Home Medications and Allergies Home Medications Medication Instructions Recorded Confirmed Last Taken Type albuterol sulfate 2.5 mg INHALATION QID PRN #90 ml 05/09/20 05/22/20 Unknown Rx albuterol sulfate 90 mcg/actuation 2 puff INHALATION QID PRN #8.5 gm 05/09/20 05/22/20 Unknown Rx aerosol inhaler omeprazole magnesium 20 mg 20 mg PO BID #60 tab 05/09/20 05/22/20 05/22/20 Rx tablet,delayed release sucralfate 1 gram tablet 1 gm PO TID #90 tab 05/09/20 05/22/20 05/21/20 Rx tiotropium bromide 18 mcg capsule 1 cap INHALATION DAILY #30 inh 05/09/20 05/22/20 Unknown Rx with inhalation device bisacodyl 10 mg rectal suppository 10 mg MN DAILY PRN #12 each 05/16/20 05/22/20 05/20/20 Rx hyoscyamine sulfate 0.125 mg 0.125 mg PO QID #30 tab 05/16/20 05/22/20 05/22/20 Rx disintegrating tablet promethazine 25 mg tablet 25 mg PO TID PRN #30 tab 05/16/20 05/22/20 05/22/20 Rx Vitamin C 1 tab PO DAILY 05/22/20 05/22/20 Unknown History Zofran 8 mg PO Q8H PRN 05/22/20 05/22/20 Unknown History aspirin [Aspir-81] 81 mg PO DAILY 05/22/20 05/22/20 Unknown History multivitamin [Multiple Vitamins] 1 tab PO DAILY 05/22/20 05/22/20 Unknown History zinc 1 tab PO DAILY 05/22/20 05/22/20 Unknown History Allergies Allergy/AdvReac Type Severity Reaction Status Date / Time codeine Allergy NIGHT Verified 05/22/20 16:21 SWEATS/NIGHT BRAXTON valdecoxib [From Bextra] Allergy SEIZURES Verified 05/22/20 16:21 Current Medications Current Medications Generic Name Dose Route Start Last Admin Trade Name Freq PRN Reason Stop Dose Admin Hydromorphone HCl 2 mg 05/23/20 13:19 05/23/20 16:35 Dilaudid Inj IVP 2 mg Q2H PRN Administration abd pain Potassium Chloride/Dextrose/Sod Cl 20 meq in 1,000 mls @ 75 mls/hr 05/22/20 21:51 05/23/20 13:20 D5-Ns 0.45% + Kcl 20 Meq IV 75 mls/hr .[id number] MAURICIO Administration Lorazepam 2 mg 05/22/20 21:51 05/23/20 07:09 Ativan IVP 2 mg Q4H PRN Administration vomiting PFSH Acute PFSH: Medical History (Updated 05/23/20 @ 18:19 by Helder Yun MD) Anxiety COPD (chronic obstructive pulmonary disease) Depression Gastric reflux Hepatitis C History of endocarditis History of MRSA infection HECTOR (obstructive sleep apnea) Pulmonary hypertension Sacral osteomyelitis Surgical History (Updated 05/23/20 @ 18:07 by Helder Yun MD) H/O foot surgery History of appendectomy History of heart surgery I had some type of heart surgery at age 6 Hx of tonsillectomy Family History Other CAD (coronary artery disease) Hypertension Social History Smoking and tobacco status: current every day smoker Alcohol intake: never Current gender identity: Female Vitals/I&O/Wt Last Vital Signs Temp 98.7 F 05/23/20 15:00 Pulse 106 H 05/23/20 15:00 Resp 22 H 05/23/20 16:35 BP 141/90 05/23/20 15:00 Pulse Ox 94 05/23/20 15:00 05/23/20 05/23/20 05/23/20 06:59 14:59 22:59 Intake Total 1000 / 1000 Output Total 600 / 600 Balance 1000 / 1000 -600 / 400 Weight last 48 hrs Weight 67.132 kg Physical Exam Narrative: EXAM NARRATIVE: She appears generally weak and she has lethargic at the time of this exam. Const: COMMON NORMALS: no acute distress HENMT: MOUTH: Normal oral and palatal mucosa present THROAT: posterior oropharynx normal Eye: COMMON NORMALS: conjunctivae normal and no scleral icterus CONJUNCTIVA: Yes conjunctivae normal Lymph: LYMPHATIC: No no lymphadenopathy noted (There is palpable left supraclavicular adenopathy. I do not feel any cervi) Resp: COMMON NORMALS: clear to auscultation bilaterally AUSCULTATION: clear to auscultation bilaterally Cardio: COMMON NORMALS: regular rate, regular rhythm, No gallops present (Cardio) and No rub (Cardio) RATE: regular rate RHYTHM: regular rhythm HEART SOUNDS: Murmur heart sound present (There is a II/ systolic murmur. ) GI: OTHER: Abdomen is moderately distended and firm. There is generalized abdominal tenderness, and there does appear to be ascites. Liver and spleen are not overtly enlarged. There is no abdominal mass noted. There is no inguinal adenopathy. : COMMON NORMALS: Yes no CVA tenderness BLADDER/KIDNEY EXAM: Yes no CVA tenderness Back/Pelvis: COMMON NORMALS: no CVA tenderness and no thoracic nor lumbar tenderness Extremity: NARRATIVE EXTREMITY EXAM: No edema. Pedal pulses are palpable bilaterally. Neuro: COMMON NORMALS: no focal motor deficits and no sensory deficits noted Skin: NARRATIVE SKIN EXAM: No evidence of skin eruption. No suspicious skin lesions noted. A&P Assessment and plan (1) Metastatic malignant neoplasm: Status: Acute (2) Intractable nausea and vomiting: Status: Acute (3) Liver cirrhosis: Status: Acute (4) Ascites: Status: Acute (5) Supraclavicular lymphadenopathy: Status: Acute (6) COPD (chronic obstructive pulmonary disease): Status: Acute Additional A&P Information Patient presents with CT evidence of widely extensive metastatic disease. This appears to be most likely from a gastric primary, though it has not been determined with certainty. She presents with intractable nausea/vomiting, which is somewhat suspicious for an obstructive lesion in the esophagus, but there is really no evidence for that by CT scan, and the vomiting may just be related to the gastric primary and peritoneal metastatic disease. I think it would be advisable to initially assess with EGD. If there is no evidence for esophageal obstruction and no indication for stenting, options for treatment would be limited to a trial of chemotherapy or symptomatic/supportive care only. She will need biopsy for documentation of tissue diagnosis and for appropriate pathological studies, and then may be done either by EGD or left supraclavicular lymph node biopsy. Given the extent of her metastatic disease and her overall poor performance status, her prognosis is very poor. 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
--- NOTE | 2020-05-23 18:25 | PC.NURSE ---
end of shift report: pt as been in pain rating a 7/10 and 8/10 even with receiving 2mg of dilaudid x3. she has son at bedside his name is cy. Dr Walters has scheduled an EGD tomorrow at 0730, Dr Yun has came by and seen the pt as well. Dr Walters has okayed the pt to have ice chips, but she will need to be NPO at midnight. Pt has not urinated this shift, but she has been sweating, which she states is her normal. Dr Rivera has been notified about not urinating this shift.
--- NOTE | 2020-05-23 19:22 | P.ANESASSM_ITS ---
Pre-Anesthetic Assessment Pre-Anesthetic Assessment: Height/Weight: Height 1.6 m Weight 67.132 kg Temp Pulse Resp BP Pulse Ox 98.7 F 106 H 22 H 141/90 94 05/23/20 15:00 05/23/20 15:00 05/23/20 16:35 05/23/20 15:00 05/23/20 15:00 Preop Diagnosis: Esophageal Cancer Proposed Procedure: Operation Date: 05/24/20 06:30 Proposed Procedures p EGD(Not Applicable) - Steven Walters MD Familial anesthetic complications: None Last intake: NPO after midnight, had been eating ice chips earlier Social: Social History: No alcohol and No tobacco Exam: Pre-Anes Outpt Exam: alert, oriented x 3, clear to auscultation bilaterally and regular rate & rhythm Airway: Cervical ROM: WNL MP: 3 Dentition: Other (missing teeth, poor dentition) Pulmonary: Pulmonary: COPD (2 L NC at night and prn during the day) Hepatic: Hepatic: Cirrohsis GI: GI: GERD Comments: metastatic gastric cancer odynophagia Musc/skel: Comments: 10 lb weight loss Anesthetic Plan: ASA status: 4 Anesthesia: MAC Risk of > 500 ml blood loss (7ml/kg in children): No Meds/Allergies Current Medications: Current Medications Generic Name Dose Route Start Last Admin Trade Name Freq PRN Reason Stop Dose Admin Hydromorphone HCl 2 mg 05/23/20 13:19 05/23/20 16:35 Dilaudid Inj IVP 2 mg Q2H PRN Administration abd pain Potassium Chloride /Dextrose/Sod Cl 20 meq in 1,000 m ls @ 75 mls/hr 05/22/20 21:51 05/23/20 13:20 D5-Ns 0.45% + Dung l 20 Meq IV 75 mls/hr .[id number] MAURICIO Administration Lorazepam 2 mg 05/22/20 21:51 05/23/20 07:09 Ativan IVP 2 mg Q4H PRN Administration vomiting PFSH Anesthesia PFSH: Medical History (Updated 05/23/20 @ 18:19 by Helder Yun MD) Anxiety COPD (chronic obstructive pulmonary disease) Depression Gastric reflux Hepatitis C History of endocarditis History of MRSA infection HECTOR (obstructive sleep apnea) Pulmonary hypertension Sacral osteomyelitis Surgical History (Updated 05/23/20 @ 18:07 by Helder Yun MD) H/O foot surgery History of appendectomy History of heart surgery I had some type of heart surgery at age 6 Hx of tonsillectomy Family History Other CAD (coronary artery disease) Hypertension Social History Smoking and tobacco status: current every day smoker Alcohol intake: never Current gender identity: Female Data Anesthesia CBC & Chem 7: 05/23/20 07:03 05/23/20 07:03 Other Labs: Laboratory Results - last 48 hr 05/22/20 05/22/20 05/22/20 18:13 18:19 18:19 WBC 11.6 H RBC 4.50 Hgb 12.5 Hct 40.8 MCV 90.7 MCH 27.8 L MCHC 30.6 RDW 13.0 Plt Count 440 H MPV 10.0 Neut % (Auto) 72.6 Lymph % (Auto) 14.8 Isabella % (Auto) 8.3 Eos % (Auto) 2.7 Baso % (Auto) 0.6 Neut # (Auto) 8.41 H Lymph # (Auto) 1.7 Isabella # (Auto) 1.0 H Eos # (Auto) 0.3 Baso # (Auto) 0.1 Nucleated RBC % (auto) 0 Nucleated RBCs # 0.0 PT INR APTT Fibrinogen Sodium 135 L Potassium 3.5 Chloride 95 L Carbon Dioxide 30 H Anion Gap 13.5 BUN 6 Creatinine 0.9 GFR Calculation 64.3 L Glucose 92 Calculated Osmolality 275 L Lactic Acid Calcium 8.7 Total Bilirubin 0.4 AST 43 H ALT 10 Alkaline Phosphatase 147 H Troponin T Baseline Total Protein 6.4 L Albumin 3.2 L Globulin 3.2 Lipase 14 Carcinoembryonic Ag CA 125 Antigen Urine Color Dark yellow Urine Appearance Clear Urine pH 5 Ur Specific [place] 1.005 Urine Protein Neg Urine Glucose (UA) Norm Urine Ketones Negative Urine Blood Neg Urine Nitrate Negative Urine Bilirubin Neg Urine Urobilinogen 1 H Ur Leukocyte Esterase Negative Ethyl Alcohol < 10 05/22/20 05/22/20 05/23/20 18:19 18:19 07:03 WBC RBC Hgb Hct MCV MCH MCHC RDW Plt Count MPV Neut % (Auto) Lymph % (Auto) Isabella % (Auto) Eos % (Auto) Baso % (Auto) Neut # (Auto) Lymph # (Auto) Isabella # (Auto) Eos # (Auto) Baso # (Auto) Nucleated RBC % (auto) Nucleated RBCs # PT INR APTT Fibrinogen Sodium 137 Potassium 4.1 Chloride 99 Carbon Dioxide 29 Anion Gap 13.1 BUN 5 L Creatinine 0.7 GFR Calculation 85.9 L Glucose 107 Calculated Osmolality 280 L Lactic Acid 1.5 Calcium 8.3 L Total Bilirubin 0.3 AST 39 H ALT 9 Alkaline Phosphatase 128 H Troponin T Baseline 9 Total Protein 6.3 L Albumin 3.0 L Globulin 3.3 Lipase Carcinoembryonic Ag CA 125 Antigen Urine Color Urine Appearance Urine pH Ur Specific [place] Urine Protein Urine Glucose (UA) Urine Ketones Urine Blood Urine Nitrate Urine Bilirubin Urine Urobilinogen Ur Leukocyte Esterase Ethyl Alcohol 05/23/20 05/23/20 05/23/20 07:03 07:03 07:03 WBC RBC Hgb Hct MCV MCH MCHC RDW Plt Count 450 H MPV Neut % (Auto) Lymph % (Auto) Isabella % (Auto) Eos % (Auto) Baso % (Auto) Neut # (Auto) Lymph # (Auto) Isabella # (Auto) Eos # (Auto) Baso # (Auto) Nucleated RBC % (auto) Nucleated RBCs # PT 15.30 H INR 1.17 APTT 31.8 Fibrinogen 421 Sodium Potassium Chloride Carbon Dioxide Anion Gap BUN Creatinine GFR Calculation Glucose Calculated Osmolality Lactic Acid Calcium Total Bilirubin AST ALT Alkaline Phosphatase Troponin T Baseline Total Protein Albumin Globulin Lipase Carcinoembryonic Ag 181.2 H CA 125 Antigen 566.7 H Urine Color Urine Appearance Urine pH Ur Specific [place] Urine Protein Urine Glucose (UA) Urine Ketones Urine Blood Urine Nitrate Urine Bilirubin Urine Urobilinogen Ur Leukocyte Esterase Ethyl Alcohol Cardiac Studies: No Data to Display
--- NOTE | 2020-05-23 19:42 | PM.PN ---
Subjective Subjective: Interval history: Has been in pain. Today frequently requesting for pain medication. When asked about where the pain is reports up and down in the center of her chest. Vitals/I&O/Wt Last Vital Signs Temp 98.7 F 05/23/20 15:00 Pulse 106 H 05/23/20 15:00 Resp 14 05/23/20 19:24 BP 141/90 05/23/20 15:00 Pulse Ox 94 05/23/20 15:00 05/23/20 05/23/20 05/23/20 06:59 14:59 22:59 Intake Total 1000 / 1000 Output Total 600 / 600 Balance 1000 / 1000 -600 / 400 Weight last 48 hrs Weight 67.132 kg Physical Exam Const: OTHER: She is somewhat somnolent, wakes up to voice, easily falls back asleep. When awake, complains of pain. HENMT: COMMON NORMALS: oropharynx normal Neck/C-Spine: COMMON NORMALS: no JVD OTHER: Left supraclavicular nodes. Resp: COMMON NORMALS: normal respiratory effort and clear to auscultation bilaterally AUSCULTATION: clear to auscultation bilaterally Cardio: COMMON NORMALS: no JVD and regular rhythm RHYTHM: regular rhythm GI: COMMON NORMALS: Normal to inspection, nondistended, normoactive bowel sounds present, Soft to palpation and non-tender PALPATION: Yes Soft to palpation Extremity: COMMON NORMALS: no joint enlargement and no pedal edema Neuro: COMMON NORMALS: moves all extremities Skin: COMMON NORMALS: no rashes or lesions noted GENERAL SKIN EXAM: no rashes or lesions noted Data : 05/23/20 07:03 05/23/20 07:03 A&P Assessment and plan (1) Odynophagia: Tentative plan for evaluation by EGD tomorrow. N.p.o. overnight. We will request to add PPI. Continue gentle IV hydration. Unfortunately with peritoneal carcinomatosis, ascites, history of cirrhosis, PEG or gastrostomy tube may not be an option. Status: Acute (2) Abdominal pain: She is complaining of upper abdominal and mid chest pain running up and down. Severe odynophagia due to which has not been eating or drinking. Has been requesting for quite a few pain medications today, and has been receiving Ativan as well. During my visit she is somewhat somnolent, wakes up to voice, but easily falls back asleep. Pain seems to be the bigger problem. Will reduce dose and frequency of benzodiazepine as this appears to be making her somnolent. Continue hydromorphone as needed. If mental status is depressed, or respiratory depression, instructed to hold pain medication. We will request for continuous pulse oximetry. Status: Acute Qualifiers: Abdominal location: epigastric Qualified Code(s): R10.13 - Epigastric pain (3) Metastatic malignant neoplasm: Origin is not clear, but possibly gastric. This appears to be contributing to her abdominal pain, poor appetite, nausea, vomiting, although the mass may not be expected to be causing such severe odynophagia. Does appear to have some lymphadenopathy in the chest, although not severe. CT-guided biopsy was ordered for today for tissue sample. This was requested to be changed by radiology to EUS guided and was booked for tomorrow as this cannot be done at bedside. If this is not successful, surgical biopsy may need to be considered. Appreciate surgical assessment with regards to possible site in the left axilla. Status: Acute (4) Depression: Status: Acute (5) COPD (chronic obstructive pulmonary disease): Not currently in exacerbation. Monitor oxygenation. Requested for continuous pulse oximetry. Albuterol as needed. Resume inhalers. Status: Acute (6) Anxiety: Status: Acute (7) Supraclavicular lymphadenopathy: Status: Acute (8) Ascites: With history of liver cirrhosis. History of hep C. Peritoneal carcinomatosis may be contributing. Status: Acute (9) Mediastinal lymphadenopathy: Status: Acute (10) Bone metastases: Status: Acute (11) Liver cirrhosis: History of hep C. Which appears treated in the past, initially unsuccessfully with above urine. Subsequent treatment details unknown, but appears to have cleared infection with negative RNA back in 2013. 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 Remote history of injection drug use She has never undergone screening colonoscopies on mammogram Compression fracture of L4-L5 Patient complaining of back pain Attestations Medical Necessity Statement*: Continue admission for assessment of management of suspected metastatic malignancy, severe pain and odynophagia with inability to take food or drink by mouth. 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
[2020-05-23 21:00] LABS: Troponin(5th) Baseline 7 ng/L (0-10)
[2020-05-23] MEDS: pantoprazole 40 mg SDV IVP (21:26)
--- NOTE | 2020-05-23 21:42 | ECG_ITS ---
[facility] Test Date: 2020-05-23 Pat Name: Sarahi Menon Department: Room: 275 Gender: Female Automotive Technician: : 1960 Requested By: Hua Rivera Order Number: [id number] Rossi MD: Riley Ma M.D. Measurements Intervals [place] Rate: 99 P: 62 IN: 152 QRS: 11 QRSD: 108 T: 70 QT: 334 QTc: 429 Interpretive Statements SINUS RHYTHM WITH OCCASIONAL VENTRICULAR PREMATURE COMPLEXES Compared to ECG 05/22/2020 18:48:35 Ventricular premature complex(es) now present Incomplete right bundle-branch block no longer present ST (T wave) deviation no longer present Electronically Signed On 05-24-2020 10:26:26 CDT by Riley Ma M.D. [id number]
[2020-05-23 22:50] LABS: Troponin 5 2HR 9.22 ng/L (0-10); Troponin 5 2HR Delta 2.22 ABS# (0-10)
[2020-05-24] VITALS (16 sets, daily range): BP systolic 108–157; BP diastolic 72–91; PULSE 78–105; RESP 16–24; TEMP 36.4–37.3; O2SAT 92–97
[2020-05-24] MEDS: HYDROmorphone 1 mg/mL INJ 1 mL 2 MG IVP ×3 (01:27→14:48)
[2020-05-24] MEDS: D5-NS 0.45% + KCL 20 mEq 20 MEQ/1,000 ML BAG 75 MEQ IV ×2 (01:36→17:21)
[2020-05-24 01:57] LABS: Basophils # 0.1 10^3/uL (0.0-0.1); Basophils % 0.7 %; Eosinophils # 0.3 10^3/uL (0.0-0.8); Eosinophils % 2.8 %; Hematocrit 41.6 % (37.0-47.0); Hemoglobin 12.6 g/dL (11.5-15.3); Lymphocytes # 1.7 10^3/uL (0.8-4.8); Mean Corpuscular HGB Conc 30.3 g/dL (30.0-36.0); Mean Corpuscular Hemoglobin 27.8 pg (28.0-34.0); Mean Corpuscular Volume 91.6 fL (81-99); Mean Platelet Volume 10.1 fL (7.4-10.4); Monocytes # 1.3 10^3/uL (0.2-0.9); Monocytes % 10.6 %; Neutrophils # 8.63 10^3/uL (1.8-7.7); Neutrophils % 70.8 %; Nucleated Red Blood Cells % 0 %; Platelet Count 412 10^3/cmm (130-400); Red Blood Count 4.54 10^6/uL (4.1-5.3); Red Cell Distribution Width 13.1 % (12.1-15.1); White Blood Count 12.2 10^3/uL (4.0-10.0)
[2020-05-24 02:13] LABS: Alanine Aminotransferase 10 U/L (0-33); Albumin Level 2.8 g/dL (3.5-5.2); Alkaline Phosphatase 133 IU/L (35-105); Anion Gap 13.3 (5-19); Aspartate Amino Transferase 39 U/L (0-32); Blood Urea Nitrogen 7 mg/dL (6-20); Calcium 8.3 mg/dL (8.5-10.5); Carbon Dioxide 26 mmol/L (22-29); Chloride 101 mmol/L (98-107); Globulin 3.4 g/dL (1.3-4.6); Glomerular Filtration Rate 85.9 mL/min (90-130); Glucose 112 mg/dL (65-115); Osmolality Calculated 279 mOsm/kg (285-295); Potassium 4.3 mmol/L (3.5-5.1); Sodium 136 mmol/L (136-145); Total Bilirubin 0.4 mg/dL (0.15-1.2); Total Protein 6.2 g/dL (6.6-8.7)
[2020-05-24 02:16] LABS: Troponin 5 6HR 7.48 ng/L (0-10); Troponin 5 6HR Delta 0.48 ng/L (0-12)
--- NOTE | 2020-05-24 06:13 | P.PN_ITS ---
Subjective Subjective: Interval history: The patient is still feeling poorly today. Vitals/I&O/Wt Last Vital Signs Temp 97.8 F 05/24/20 03:00 Pulse 95 05/24/20 03:00 Resp 18 05/24/20 03:00 BP 129/85 05/24/20 03:00 Pulse Ox 94 05/24/20 03:00 05/23/20 05/23/20 05/24/20 14:59 22:59 06:59 Intake Total 999 Output Total 600 / 600 Balance 1000 / 1430 -590 / 1430 1020 / 1430 Weight last 48 hrs Weight 148 lb Physical Exam Narrative: EXAM NARRATIVE: Exam essentially unchanged. Data : 05/24/20 01:42 05/24/20 01:42 A&P Assessment and plan (1) Metastatic malignant neoplasm: After discussing the patient's situation with Dr. Yun from oncology last night, we had decided to recommend an EGD for the patient to determine whether or not stenting of the esophagus was going to be necessary. I have discussed the procedure with the patient in some detail. She is aware that if biopsies of tissue are possible that we will probably try to do that. She is agreeable to proceeding. Status: Acute Attestations Medical Necessity Statement*: See admitting service's notation. 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
[2020-05-24] MEDS: ondansetron 2 mg/ML SDV 2 mL 4 MG IVP ×3 (08:43→22:55)
[2020-05-24] MEDS: pantoprazole 40 mg SDV IVP (08:55)
[2020-05-24] MEDS: LORazepam 2 mg/mL INJ 1 mL 1 MG IVP (12:07)
--- NOTE | 2020-05-24 12:08 | PC.NURSE ---
patient given morphine, zofran and protonix. He complaints of nausea and stomach pain not changed since the after first hour of rec the medication. she is restless and states she has not had a lot to eat but two days ago when she went to the bathroom she only had a small bowel movement. At 1210 gave patient Ativan for her restlessness. patient resting, eyes closed, breathing through her mouth, and appears to be in no distress, but will moan out occasionally. bed alarm set. tele on as ordered and hr 80's sr.
--- NOTE | 2020-05-24 14:08 | P.PN_ITS ---
Subjective Subjective: Interval history: States is doing so-so . Pain is mostly in the epigastrium. States has tolerated small sips of liquids. Vitals/I&O/Wt Last Vital Signs Temp 98.2 F 05/24/20 11:21 Pulse 97 05/24/20 11:21 Resp 16 05/24/20 11:21 BP 139/89 05/24/20 11:21 Pulse Ox 94 05/24/20 11:21 05/23/20 05/24/20 05/24/20 22:59 06:59 14:59 Intake Total 10 / 1010 1020 / 2030 Output Total 600 / 600 Balance -590 / 410 1020 / 1430 Weight last 48 hrs Weight 67.132 kg Physical Exam Const: OTHER: She is somewhat somnolent, wakes up to voice, easily falls back asleep. When awake, complains of pain. HENMT: COMMON NORMALS: oropharynx normal Neck/C-Spine: COMMON NORMALS: no JVD OTHER: Left supraclavicular nodes. Resp: COMMON NORMALS: normal respiratory effort and clear to auscultation bilaterally AUSCULTATION: clear to auscultation bilaterally Cardio: COMMON NORMALS: no JVD and regular rhythm RHYTHM: regular rhythm GI: COMMON NORMALS: Normal to inspection, nondistended, normoactive bowel sounds present, Soft to palpation and non-tender PALPATION: Yes Soft to palpation Extremity: COMMON NORMALS: no joint enlargement and no pedal edema Neuro: COMMON NORMALS: moves all extremities Skin: COMMON NORMALS: no rashes or lesions noted GENERAL SKIN EXAM: no victorina hes or lesions noted Data : 05/24/20 01:42 05/24/20 01:42 A&P Assessment and plan (1) Odynophagia: Discussed with surgeon regards to EGD finding. Discussed with her, no obstruction noted, no areas of ulceration or active inflammation. Mass appears to be close to GE junction, perhaps contributing to some symptoms. Discussed with her Alternative feeding options if she were not to tolerate oral diet or hydration, including TPN, PEG tube versus gastrostomy. Unfortunately none of these options are ideal as with gastrostomy or PEG tube difficulty may be secondary to omental caking, mesenteric and peritoneal carcinomatosis, as well as ascites which may complicate things, possibly causing leakage, with ascites possibly secondary to malignancy or also with underlying cirrhosis. TPN option also would not be ideal given increased risk of infection, difficulties in establishing disposition. She does verbalize understanding and expressed concern about these issues. She does state that she has been able to tolerate small sips of fluids here. Is agreeable to trying again sucralfate, and slow/gradual attempts for hydration, induration, possibly with addition of protein shake. Continue PPI. She is perhaps showing some improvement as today states was tolerating small sips. Continue gentle IV hydration. Discussed with surgery, okay for trial of liquids. We will add some protein shakes. Resume sucralfate. Oncologist will be discussing with her further regarding goals of care, as overall she does not have good prognosis. Status: Acute (2) Abdominal pain: Pain has been difficult to manage as she has been requesting for pain medicine enough to make her groggy and somnolent. She is more alert currently. We had cut down on Ativan dosing. We will try to decrease frequency of Dilaudid. Discussed with her concerns with regards to overly intensive pain control leading to alteration of mental status, decreasing mentation, risk of aspiration, respiratory depression. She verbalized understanding and agreement. Is agreeable with trying to limit pain control somewhat. During my visit she is somewhat somnolent, wakes up to voice, but easily falls back asleep. Pain seems to be the bigger problem. Will reduce dose and frequency of benzodiazepine as this appears to be making her somnolent. Continue hydromor phone as needed. If mental status is depressed, or respiratory depression, instructed to hold pain medication. We will request for continuous pulse oximetry. Status: Acute Qualifiers: Abdominal location: epigastric Qualified Code(s): R10.13 - Epigastric pain (3) Metastatic malignant neoplasm: Underwent EGD today with multiple biopsies taken from the mass in the stomach. Per discussion with oncology lymph node biopsy canceled for now. Given her overall condition here in the hospital, as well as advanced metastatic disease her overall prognosis likely is not good. Appreciate additional oncology follow-up, further discussions with regards to goals of care with options for possible palliation, versus possibly consideration of engagement of hospice care. Origin is not clear, but possibly gastric. This appears to be contributing to her abdominal pain, poor appetite, nausea, vomiting, although the mass may not be expected to be causing such severe odynophagia. Does appear to have some lymphadenopathy in the chest, although not severe. If surgical biopsy may be needed, consideration could be given to possible surgical biopsy of the lymph node site in the left axilla. Status: Acute (4) Depression: Status: Acute (5) COPD (chronic obstructive pulmonary disease): Not currently in exacerbation. Monitor oxygenation. Requested for continuous pulse oximetry. Albuterol as needed. Resume inhalers. Status: Acute (6) Anxiety: Status: Acute (7) Supraclavicular lymphadenopathy: Status: Acute (8) Ascites: With history of liver cirrhosis. History of hep C. Peritoneal carcinomatosis may be contributing. Status: Acute (9) Mediastinal lymphadenopathy: Status: Acute (10) Bone metastases: Status: Acute (11) Liver cirrhosis: History of hep C. Which appears treated in the past, initially unsuccessfully with above urine. Subsequent treatment details unknown, but appears to have cleared infection with negative RNA back in 2012. Will check ammonia level. 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 Coding Level of Care Code Acute Choke Reamer for [facility] Fwd Diagnoses Odynophagia R13.10 Abdominal pain R10.13 Abdominal location: epigastric Metastatic malignant neoplasm C79.9 Depression F32.9 COPD (chronic obstructive pulmonary disease) J44.9 Anxiety F41.9 Supraclavicular lymphadenopathy R59.0 Ascites R18.8 Mediastinal lymphadenopathy R59.0 Bone metastases C79.51 Liver cirrhosis K74.60 Compression fracture
[2020-05-24 16:10] LABS: Ammonia 34 umol/L (11-51)
[2020-05-24] MEDS: sucralfate 1 gm Tablet PO (17:23)
[2020-05-24] MEDS: HYDROmorphone 1 mg/mL INJ 1 mL IVP (22:56)
[2020-05-25] VITALS (14 sets, daily range): BP systolic 112–146; BP diastolic 73–90; PULSE 88–108; RESP 16–28; TEMP 36.6–37.2; O2SAT 83–97
[2020-05-25] MEDS: LORazepam 2 mg/mL INJ 1 mL 1 MG IVP ×2 (02:24→09:08)
[2020-05-25] MEDS: ondansetron 2 mg/ML SDV 2 mL 4 MG IVP ×3 (05:45→20:53)
[2020-05-25 06:08] LABS: Basophils # 0.1 10^3/uL (0.0-0.1); Basophils % 0.9 %; Eosinophils # 0.5 10^3/uL (0.0-0.8); Eosinophils % 4.2 %; Hematocrit 39.7 % (37.0-47.0); Hemoglobin 12.5 g/dL (11.5-15.3); Lymphocytes # 1.9 10^3/uL (0.8-4.8); Lymphocytes % 14.9 %; Mean Corpuscular HGB Conc 31.5 g/dL (30.0-36.0); Mean Corpuscular Volume 88.8 fL (81-99); Mean Platelet Volume 10.5 fL (7.4-10.4); Monocytes # 1.2 10^3/uL (0.2-0.9); Monocytes % 9.2 %; Neutrophils # 8.74 10^3/uL (1.8-7.7); Neutrophils % 69.1 %; Nucleated Red Blood Cells % 0 %; Platelet Count 441 10^3/cmm (130-400); Red Blood Count 4.47 10^6/uL (4.1-5.3); Red Cell Distribution Width 13.1 % (12.1-15.1); White Blood Count 12.7 10^3/uL (4.0-10.0)
[2020-05-25 06:31] LABS: Alanine Aminotransferase 10 U/L (0-33); Albumin Level 2.6 g/dL (3.5-5.2); Alkaline Phosphatase 149 IU/L (35-105); Anion Gap 12.3 (5-19); Aspartate Amino Transferase 48 U/L (0-32); Blood Urea Nitrogen 7 mg/dL (6-20); Calcium 8.6 mg/dL (8.5-10.5); Carbon Dioxide 27 mmol/L (22-29); Chloride 101 mmol/L (98-107); Globulin 2.9 g/dL (1.3-4.6); Glomerular Filtration Rate 64.3 mL/min (90-130); Glucose 114 mg/dL (65-115); Osmolality Calculated 279 mOsm/kg (285-295); Potassium 4.3 mmol/L (3.5-5.1); Sodium 136 mmol/L (136-145); Total Bilirubin 0.4 mg/dL (0.15-1.2); Total Protein 5.5 g/dL (6.6-8.7)
[2020-05-25] MEDS: HYDROmorphone 1 mg/mL INJ 1 mL IVP ×4 (07:32→20:52)
[2020-05-25] MEDS: albuterol 8 gm MDI 2 PUFF INHALATION (08:24)
[2020-05-25] MEDS: sucralfate 1 gm Tablet PO ×2 (09:07→17:45)
[2020-05-25] MEDS: pantoprazole 40 mg SDV IVP (09:08)
--- NOTE | 2020-05-25 12:10 | ANE.PACU2 ---
Inpatient post-anesthesia follow up: Airway intact: Yes Vital signs: Temperature 98 F Pulse Rate [Monito r] 115 Pulse Rate 105 Respiratory Rate 28 Blood Pressure [Le ft Arm] 138/84 Blood Pressure 136/89 Pulse Oximetry 94 Oxygen Delivery Me thod [ Nasal Cannula Current Rate & Del rupesh] Oxygen Delivery Me thod Nasal Cannula Oxygen Flow Rate [ Current Rate 2 & Delivery] Oxygen Flow Rate 3 Fraction of Inspir ed Oxygen Hydration adequate: Yes Nausea and vomiting: No Pain level: 8 Mental status: Baseline
--- NOTE | 2020-05-25 12:44 | P.PN_ITS ---
Subjective Subjective: Interval history: She is still bothered by pain in the upper abdomen. Has had some small amounts of oral intake, although it has been limited. Vitals/I&O/Wt Last Vital Signs Temp 98 F 05/25/20 11:28 Pulse 105 H 05/25/20 11:28 Resp 28 H 05/25/20 11:28 BP 136/89 05/25/20 11:28 Pulse Ox 94 05/25/20 11:28 05/24/20 05/25/20 05/25/20 22:59 06:59 14:59 Intake Total 200 / 1200 Output Total 800 / 800 500 / 1300 Balance -600 / 400 -500 / -100 Physical Exam Const: OTHER: Asleep, but wakes up easily to voice. HENMT: COMMON NORMALS: oropharynx normal Neck/C-Spine: COMMON NORMALS: no JVD OTHER: Left supraclavicular nodes. Resp: COMMON NORMALS: normal respiratory effort and clear to auscultation bilaterally AUSCULTATION: clear to auscultation bilaterally Cardio: COMMON NORMALS: no JVD and regular rhythm RHYTHM: regular rhythm GI: COMMON NORMALS: Normal to inspection, nondistended, normoactive bowel sounds present and Soft to palpation PALPATION: Yes Soft to palpation and Yes Tenderness to palpation present (GI) (Upper abdomen) Extremity: COMMON NORMALS: no joint enlargement and no pedal edema Neuro: COMMON NORMALS: moves all extremities Skin: COMMON NORMALS: no rashes or lesions noted GENERAL SKIN EXAM: no rashes or lesions noted Data : 05/25/20 05:11 05/25/20 05:11 A&P Assessment and plan (1) Odynophagia: Has had some small amounts of oral intake. Discussed with her regarding options for feeding if she is not able to tolerate food or drink by mouth, although no ideal option of unfortunately is present. She is agreeable to continue trying to see if she can improve oral intake. Continue full liquid diet. Ensure has been ordered as well. Discussed w pharmacy, will try to add viscous lidocaine. On EGD no obstruction noted, no areas of ulceration or active inflammation. Mass appears to be close to GE junction, perhaps contributing to symptoms. Alternative feeding options if she were not to tolerate oral diet or hydration, including TPN, PEG tube versus gastrostomy. Unfortunately none of these options are ideal as with gastrostomy or PEG tube difficulty may be secondary to omental caking, mesenteric and peritoneal carcinomatosis, as well as ascites which may complicate things, possibly causing leakage, with ascites possibly secondary to malignancy or also with underlying cirrhosis. TPN option also would not be ideal given increased risk of infection, difficulties in establishing disposition. Continue PPI. Sucralfate. Continue gentle IV hydration. We will try to decrease rate. Monitor I&O. Monitor for dehydration. Pending goals of care discussion with oncology depending on pathology results. Status: Acute (2) Abdominal pain: Pain has been difficult to manage as she has been requesting for pain medicine enough to make her groggy and somnolent. She is more alert currently. We had cut down on Ativan dosing. Decrease frequency of Dilaudid to every 4 hours as needed. Discussed with her concerns with regards to overly intensive pain control le ading to alteration of mental status, decreasing mentation, risk of aspiration, respiratory depression. She verbalized understanding and agreement. Is agreeable with trying to limit pain control somewhat. Status: Acute Qualifiers: Abdominal location: epigastric Qualified Code(s): R10.13 - Epigastric pain (3) Metastatic malignant neoplasm: Awaiting preliminary assessment by pathology which may allow additional discussion with regards to next steps, goals of care. Underwent EGD today with multiple biopsies taken from the mass in the stomach. Per discussion with oncology lymph node biopsy canceled for now. Given her overall condition here in the hospital, as well as advanced metastatic disease her overall prognosis likely is not good. Appreciate additional oncology follow-up, further discussions with regards to goals of care with options for possible palliation, versus possibly considerati on of engagement of hospice care. Origin is not clear, but possibly gastric. This appears to be contributing to her abdominal pain, poor appetite, nausea, vomiting, although the mass may not be expected to be causing such severe odynophagia. Does appear to have some lymphadenopathy in the chest, although not severe. If surgical biopsy may be needed, consideration could be given to possible kelvin gical biopsy of the lymph node site in the left axilla. Status: Acute (4) Depression: Status: Acute (5) COPD (chronic obstructive pulmonary disease): Not currently in exacerbation. Monitor oxygenation. Requested for continuous pulse oximetry. Albuterol as needed. Resume inhalers. Status: Acute (6) Anxiety: Status: Acute (7) Supraclavicular lymphadenopathy: Status: Acute (8) Ascites: With history of liver cirrhosis. History of hep C. Peritoneal carcinomatosis may be contributing. Status: Acute (9) Mediastinal lymphadenopathy: Status: Acute (10) Bone metastases: Status: Acute (11) Liver cirrhosis: History of hep C. Which appears treated in the past, initially unsuccessfully with above urine. Subsequent treatment details unknown, but appears to have cleared infection with negative RNA back in 2012. Will check ammonia level. 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 Coding Level of Care Code Acute Dobby Loom Fixer for [facility] Fwd Diagnoses Odynophagia R13.10 Abdominal pain R10.13 Abdominal location: epigastric Metastatic malignant neoplasm C79.9 Depression F32.9 COPD (chronic obstructive pulmonary disease) J44.9 Anxiety F41.9 Supraclavicular lymphadenopathy R59.0 Ascites R18.8 Mediastinal lymphadenopathy R59.0 Bone metastases C79.51 Liver cirrhosis K74.60 Compression fracture
[2020-05-25] MEDS: D5-NS 0.45% + KCL 20 mEq 20 MEQ/1,000 ML BAG 75 MEQ IV (15:40)
--- NOTE | 2020-05-25 18:39 | P.PN_ITS ---
Subjective Subjective: Interval history: The patient continues to have some abdominal pain. She thinks her swallowing may be a little bit better. The patient has decided that she wants to pursue adjuvant treatment. Dr. Yun has requested that I discuss a Port-A-Cath placement with her. The patient denies any history of IVs in her jugular or subclavian veins. She has no history of clavicular injury or clavicular surgery. Vitals/I&O/Wt Last Vital Signs Temp 98.4 F 05/25/20 17:21 Pulse 104 H 05/25/20 17:21 Resp 25 H 05/25/20 17:21 BP 127/82 05/25/20 17:21 Pulse Ox 95 05/25/20 17:21 05/25/20 05/25/20 05/25/20 06:59 14:59 22:59 Intake Total 1000 / 2200 50 / 150 100 / 150 Output Total 500 / 1300 100 / 300 200 / 300 Balance 500 / 900 -50 / -150 -100 / -150 Physical Exam Narrative: EXAM NARRATIVE: Clavicles are palpable bilaterally. Data : 05/25/20 05:11 05/25/20 05:11 A&P Assessment and plan (1) Metastatic malignant neoplasm: I discussed Port-A-Cath and Port-A-Cath placement with the patient in some detail. Risks of bleeding, infection, thrombosis, pneumothorax with possible need for chest tube/thoracic vent, etc. were all gone over. The patient seems to understand and is agreeable to proceeding with a Port-A-Cath placement tomorrow morning. I will make the patient n.p.o. after midnight tonight. She is scheduled for Port-A-Cath placement in the morning. Status: Acute Attestations Medical Necessity Statement*: See admitting service's notation. Coding Level of Care Code Acute Commercial Loan Coordinator for [facility] Diagnoses Metastatic malignant neoplasm C79.9
[2020-05-26] VITALS (11 sets, daily range): BP systolic 110–151; BP diastolic 65–87; PULSE 88–108; RESP 16–22; TEMP 36.6–36.8; O2SAT 92–98
--- NOTE | 2020-05-26 | XR_ITS ---
WS: [id number] Portable AP upright chest, 05/26/2020 Clinical Data: POST PORT PLACEMENT Comparison: Portable chest, 05/22/2020. Findings: No nodules, masses or effusions are seen. The heart is normal. The pulmonary vascularity is not increased. No pneumonia or pneumothorax is seen. The right Port-A-Cath is in good position. The right apical bleb remains the same. There are linear atelectatic changes over the surface of the left diaphragm. XR/XR chest 1V portable [id number] Impression: Satisfactory position right Port-A-Cath
--- NOTE | 2020-05-26 | SCC_ITS ---
Procedure Done: Port-A-Cath placement into the right subclavian vein with intraoperative fluoroscopy interpretation. 3.3 seconds of fluoroscopic guidance, for a cumulative dose of 0.53 mGy, was provided to Dr. Walters by the radiology department. C-arm images of the chest were saved for the patient's permanent record. MONTSE
[2020-05-26] MEDS: LORazepam 2 mg/mL INJ 1 mL 1 MG IVP ×2 (02:05→14:40)
[2020-05-26] MEDS: HYDROmorphone 1 mg/mL INJ 1 mL IVP ×4 (04:06→20:23)
[2020-05-26] MEDS: ondansetron 2 mg/ML SDV 2 mL 4 MG IVP ×3 (04:07→20:23)
[2020-05-26 05:08] LABS: Basophils # 0.1 10^3/uL (0.0-0.1); Basophils % 0.7 %; Eosinophils # 0.5 10^3/uL (0.0-0.8); Eosinophils % 3.5 %; Hemoglobin 12.6 g/dL (11.5-15.3); Lymphocytes # 1.5 10^3/uL (0.8-4.8); Mean Corpuscular HGB Conc 31.5 g/dL (30.0-36.0); Mean Corpuscular Hemoglobin 27.8 pg (28.0-34.0); Mean Corpuscular Volume 88.3 fL (81-99); Mean Platelet Volume 10.5 fL (7.4-10.4); Monocytes # 1.4 10^3/uL (0.2-0.9); Monocytes % 10.2 %; Neutrophils # 9.84 10^3/uL (1.8-7.7); Neutrophils % 72.3 %; Nucleated Red Blood Cells % 0 %; Platelet Count 447 10^3/cmm (130-400); Red Blood Count 4.53 10^6/uL (4.1-5.3); Red Cell Distribution Width 12.9 % (12.1-15.1); White Blood Count 13.6 10^3/uL (4.0-10.0)
[2020-05-26 05:46] LABS: Alanine Aminotransferase 11 U/L (0-33); Albumin Level 2.7 g/dL (3.5-5.2); Alkaline Phosphatase 161 IU/L (35-105); Anion Gap 14.1 (5-19); Aspartate Amino Transferase 42 U/L (0-32); Blood Urea Nitrogen 9 mg/dL (6-20); Calcium 8.3 mg/dL (8.5-10.5); Carbon Dioxide 27 mmol/L (22-29); Chloride 100 mmol/L (98-107); Globulin 3.3 g/dL (1.3-4.6); Glomerular Filtration Rate 73.7 mL/min (90-130); Glucose 122 mg/dL (65-115); Osmolality Calculated 281 mOsm/kg (285-295); Potassium 4.1 mmol/L (3.5-5.1); Sodium 137 mmol/L (136-145); Total Bilirubin 0.4 mg/dL (0.15-1.2)
--- NOTE | 2020-05-26 07:44 | SC_ITS ---
WS: [id number] C-arm fluoroscopy view of the right thorax, 05/26/2020 Clinical Data: port a cath Comparison: None. Findings: The Port-A-Cath has been inserted. The tip ends in the superior vena cava. SC/C-arm FL for CVA [id number] Impression: Insertion of right Port-A-Cath.
[2020-05-26] MEDS: heparin,porcine 1,000 unit/mL INJ 1 mL 2000 UNIT INJECTION (08:25)
--- NOTE | 2020-05-26 08:42 | P.OP_ITS ---
Operative Report Date of procedure: May 26, 2020 Pre-op Diagnosis: Disseminated malignancy. Post-op diagnosis: same Procedure Done: Port-A-Cath placement into the right subclavian vein with intraoperative fluoroscopy interpretation. Pathology: none sent Surgeon: Steven Walters Anesthesia: MAC Estimated blood loss (mL): 5 Complications: None. Condition: stable Disposition: PACU Procedure: The patient was brought to the Operating Room and was placed in a supine position on the operating room table. A monitored anesthetic was induced. The shoulders were extended by means of a posterior shoulder roll. The anterior surface of the chest and neck were prepped and draped in a sterile fashion. 1% lidocaine was used to anesthetize a small area underneath the right clavicle. The subclavian vein was accessed with a needle and syringe as evidenced by the return of dark nonpulsatile blood. The J-wire was passed down the needle and the needle was removed. The C-arm was positioned and showed the wire extending down the vena cava. A site just inferiorly on the chest wall was anesthetized using a combination of 1% lidocaine and 0.5% bupivacaine with 1:200,000 parts of epinephrine. A transverse incision was made and an inferior pocket was created in the subcutaneous layer using cautery in preparation for port placement. The Port-A-Cath tubing was passed from the incision through the subcutaneous layer to the exit point of the J-wire. The tubing was attached to the port and was cut to an appropriate length. The introducer and sheath were passed over the J-wire, and the introducer and J-wire were removed. The Port-A-Cath tubing was passed down the sheath, which was torn away. The C-arm was positioned and showed good placement of the Port-A-Cath tubing tip in the superior vena cava. The port aspirated easily and flushed well with hep flush solution. The port was sewn in place with some interrupted sutures of 3-0 PDS. The transverse incision was closed at the dermis using a single inverted suture of 3-0 Vicryl and the skin was approximated using a running subcuticular suture of 4-0 Vicryl. The small incision under the clavicle at the previous insertion site of the J wire was closed using a single inverted suture of 4-0 Vicryl. Benzoin and Steri-Strips were placed over the incisions and a sterile bandage followed. The patient was taken to the recovery area in stable condition p ostoperatively. INTRAOPERATIVE FLUOROSCOPY FINDINGS: Intraoperative fluoroscopic images of a Port-A-Cath placement were reviewed. An initial image reveals a J-wire entering the right subclavian vein and extending down the vena cava. Subsequent images reveal a Port-A-Cath on that side of the chest with its tubing tip in good location in the superior vena cava. No obvious pneumothorax is identified.
--- NOTE | 2020-05-26 08:53 | SUR.PHASEI ---
PT AWAKES TO VOICE REPOSITIONS SELF TO LT SIDE, PT SLEEPS IF NOT DISTURBED BUT ALERT AND COOPERATIVE WHEN AWAKENED DRESSING TO RT CHEST D/I, VSS
--- NOTE | 2020-05-26 09:15 | SUR.PHASEI ---
0910 PTTO ROOM AWAKES EASILY MOVES SELF TO BED WITH NO ASSIST DRESSING D/I PT CURLS UP ON RT SIDE O2 AT3LNC NO DISTRESS NOTED NURSE AT BEDSIDE
--- NOTE | 2020-05-26 09:42 | PC.RESP ---
SMOKING CESSATION AND PULMONARY REHAB INFORMATION SENT TO PATIENT.
--- NOTE | 2020-05-26 13:09 | PC.CHAP ---
Pastoral Care Encounter/Spiritual Assessment Type of Contact [] Declined supervisor hanging and trimming visit [] Patient/Family/Request visit [] Outpatient visit [] Follow-up visit [] Physician referral [] Code/Alert [] Routine visit [] Staff referral [] Actively dying [xx] Patient sleeping [] Family support [] [] Out of room [] Palliative care [] [] Receiving care in room [] Pre-surgical visit [] Trauma [] Long length of stay [] ICU visit [xx] Other: Follow up needed Relational/Emotional Strength [] Patient feels connected with others/family/visitors/staff [] Distress [] Loneliness/isolation [] Abandonment Spirituality of Patient [] Person of Hilda [] Attends Orthodox of their Hilda [] Believes in Prayer [] Reads Bible or Latter Day materials [] There are Spiritual issues to be addressed [employer] Developer Interventions [] Prayer [] Active listening [] Non-anxious presence [] Spiritual/emotional support [] Crisis/trauma care [] Spiritual counseling [] Bereavement support [] Provided bereavement packet [] Provided Bible/devotional materials [] Provided toy/stuffed animal, coloring book to patient or family member [] Provided Communion [] Anointing/[place] [] Salvation [] Completed spiritual assessment [] Other: Impact on Illness or Injury [] Angry [] Fearful [] Anxious [] Often cries [] Exhaustion [] Unable to work [] Unable to attend presybeterian [] Unable to walk/stand [] Unable to read [] Unable to drive [] Unable to eat/drink [] Unable to sleep [] Unable to be with family [] Patient intubated [] Other: Summary Follow up needed. Time spent with patient 2 minutes [employer] Developer Paulette Birch
--- NOTE | 2020-05-26 14:10 | PM.PN ---
Subjective Subjective: Interval history: She says she feels about the same. She is having pain mostly in about epigastric area, but reports some pain generalized in the abdomen. Vitals/I&O/Wt Last Vital Signs Temp 97.9 F 05/26/20 11:47 Pulse 104 H 05/26/20 11:47 Resp 17 05/26/20 11:47 BP 131/86 05/26/20 11:47 Pulse Ox 93 05/26/20 11:47 05/25/20 05/26/20 05/26/20 22:59 06:59 14:59 Intake Total 580 / 630 150 / 150 Output Total 750 / 850 Balance -170 / -220 150 / 150 Physical Exam Const: OTHER: Asleep, but wakes up easily to voice. HENMT: COMMON NORMALS: oropharynx normal Neck/C-Spine: COMMON NORMALS: no JVD OTHER: Left supraclavicular nodes. Resp: COMMON NORMALS: normal respiratory effort and clear to auscultation bilaterally AUSCULTATION: clear to auscultation bilaterally Cardio: COMMON NORMALS: no JVD and regular rhythm RHYTHM: regular rhythm GI: COMMON NORMALS: Normal to inspection, nondistended, normoactive bowel sounds present and Soft to palpation PALPATION: Yes Soft to palpation and Yes Tenderness to palpation present (GI) (Upper abdomen) Extremity: COMMON NORMALS: no joint enlargement and no pedal edema Neuro: COMMON NORMALS: moves all extremities Skin: COMMON NORMALS: no rashes or lesions noted GENERAL SKIN EXAM: no rashes or lesions noted Data : 05/26/20 04:35 05/26/20 04:35 A&P Assessment and plan (1) Odynophagia: S/p port placement. CLD resumed. Says she only took a few small sips of [employer] today. Requesting viscous lidocaine 20 min before meals. Discussed with patient, RN. Advance to full liquid diet if OK with surgery. On EGD no obstruction noted, no areas of ulceration or active inflammation. Mass appears to be close to GE junction, perhaps contributing to symptoms. Alternative feeding options if she were not to tolerate oral diet or hydration, including TPN, PEG tube versus gastrostomy. Unfortunately none of these options are ideal as with gastrostomy or PEG tube difficulty may be secondary to omental caking, mesenteric and peritoneal carcinomatosis, as well as ascites which may complicate things, possibly causing leakage, with ascites possibly secondary to malignancy or also with underlying cirrhosis. TPN option also would not be ideal given increased risk of infection, difficulties in establishing disposition. Continue PPI. Sucralfate. Continue gentle IV hydration. We will try to decrease rate. Monitor I&O. Monitor for dehydration. Pending goals of care discussion with oncology depending on pathology results. Status: Acute (2) Abdominal pain: Will reassess limited abdominal US to see if there is any accessible ascites for a sample. Discussed with her concerns with regards to overly intensive pain control leading to alteration of mental status, decreasing mentation, risk of aspiration, respiratory depression. She verbalized understanding and agreement. Is agreeable with trying to limit pain control somewhat. Discussed difficulties with pain management with her son. Given the extent of peritoneal carcinomatosis he understands weight will not be able to get rid of pain entirely, and the goal is to make symptoms more tolerable without risking causing altered mental status or respiratory depression, although she may still be at risk of both. He verbalized understanding. Status: Acute Qualifiers: Abdominal location: epigastric Qualified Code(s): R10.13 - Epigastric pain (3) Metastatic malignant neoplasm: Per discussion with oncology she has opted to proceed toward chemotherapy. Port has been placed today. Underwent EGD with multiple biopsies taken from the mass in the stomach which were positive for malignancy. Status: Acute (4) Depression: Status: Acute (5) COPD (chronic obstructive pulmonary disease): Not currently in exacerbation. Monitor oxygenation. Requested for continuous pulse oximetry. Albuterol as needed. Resume inhalers. Status: Acute (6) Anxiety: Status: Acute (7) Supraclavicular lymphadenopathy: Status: Acute (8) Ascites: With history of liver cirrhosis. History of hep C. Extensive peritoneal carcinomatosis. Status: Acute (9) Mediastinal lymphadenopathy: Status: Acute (10) Bone metastases: Status: Acute (11) Liver cirrhosis: History of hep C. Which appears treated in the past, initially unsuccessfully with above urine. Subsequent treatment details unknown, but appears to have cleared infection with negative RNA back in 2012. Ammonia level normal. 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 Disposition arrangements. Coding Level of Care Code Acute Spreader Box Operator for Chg Fwd Diagnoses Odynophagia R13.10 Abdominal pain R10.13 Abdominal location: epigastric Metastatic malignant neoplasm C79.9 Depression F32.9 COPD (chronic obstructive pulmonary disease) J44.9 Anxiety F41.9 Supraclavicular lymphadenopathy R59.0 Ascites R18.8 Mediastinal lymphadenopathy R59.0 Bone metastases C79.51 Liver cirrhosis K74.60 Compression fracture
--- NOTE | 2020-05-26 14:26 | US_ITS ---
WS: [id number] ULTRASOUND ABDOMEN LIMITED CLINICAL INFORMATION: Survey for ascites for poss paracenthesis COMPARISON: None. FINDINGS: 4 quadrant survey for ascites. Mild to moderate abdominal ascites which is increased since the prior CT May 24, 2020. Volume adequate for diagnostic/therapeutic paracentesis. US/US abdomen limited [id number] IMPRESSION: Adequate volume ascites for drainage
--- NOTE | 2020-05-26 14:55 | PC.NURSE ---
22g left forearm. new iv inserted.
--- NOTE | 2020-05-26 15:43 | US_ITS ---
WS: [id number] ULTRASOUND-GUIDED PARACENTESIS CLINICAL INFORMATION: ascites COMPARISON: None. Procedure Informed consent: The risks, benefits, and alternatives of the procedure were discussed with the michael ent. Verbal and written consent was obtained. Timeout: A timeout was performed to confirm the correct patient, procedure, and site. Preparation: A suitable skin site was identified. The patient was prepped and draped in usual sterile fashion. Lidocaine 1% was used for local anesthesia. Catheter: 4 [place] One-step Yueh catheter. Side: Left Lower quadrant. Fluid Volume: 3600 ml Color: Dark. Fluid sent for requested diagnostic tests. Remainder discarded safely. Complications: None. US/US paracentesis abd w [id number] IMPRESSION: Uncomplicated ultrasound-guided paracentesis. Removal of 3600 cc dark red fluid
[2020-05-26 16:14] LABS: INR 1.12 (0.8-1.2)
[2020-05-26 17:23] LABS: Body Fluid WBC 795 /uL; RBC, Body Fluid 128 10^3/uL (0-0)
[2020-05-26] MEDS: lidocaine 2% viscous 15 mL UDC 5 ML PO (18:03)
[2020-05-26 18:25] LABS: Apprearance, Body Fluid CLOUDY (CLEAR); Color, Body Fluid RED (PALE YELLOW); PATH Referral YES
[2020-05-27] VITALS (12 sets, daily range): BP systolic 107–132; BP diastolic 72–89; PULSE 95–109; RESP 16–22; TEMP 36.4–37.1; O2SAT 90–97
[2020-05-27] MEDS: HYDROmorphone 1 mg/mL INJ 1 mL IVP (04:45)
[2020-05-27] MEDS: ondansetron 2 mg/ML SDV 2 mL 4 MG IVP ×3 (04:46→18:22)
[2020-05-27] MEDS: D5-NS 0.45% + KCL 20 mEq 20 MEQ/1,000 ML BAG 75 MEQ IV (05:09)
[2020-05-27] MEDS: lidocaine 2% viscous 15 mL UDC 5 ML PO ×2 (06:27→16:44)
--- NOTE | 2020-05-27 08:33 | ANE.PACU2 ---
Inpatient post-anesthesia follow up: Airway intact: Yes Vital signs: Temperature 98.2 F Pulse Rate [Monito r] 115 Pulse Rate 98 Respiratory Rate 16 Blood Pressure [Le ft Arm] 138/84 Blood Pressure 132/89 Pulse Oximetry 96 Oxygen Delivery Me thod [ Nasal Cannula Current Rate & Del rupesh] Oxygen Delivery Me thod Nasal Cannula Oxygen Flow Rate [ Current Rate 2 & Delivery] Oxygen Flow Rate 4 Fraction of Inspir ed Oxygen Hydration adequate: Yes Nausea and vomiting: Yes Pain level: 6 Mental status: Baseline Additional Comments: continued nausea, which was present before port placement
[2020-05-27] MEDS: albuterol 8 gm MDI 2 PUFF INHALATION (08:35)
[2020-05-27] MEDS: sucralfate 1 gm Tablet PO ×2 (09:07→12:26)
[2020-05-27] MEDS: heparin 5,000 unit/mL INJ 1 mL 5000 UNIT SUBCUT ×3 (09:07→23:42)
[2020-05-27] MEDS: nicotine 21 mg Patch 1 PATCH TRANSDERMA (09:07)
[2020-05-27] MEDS: pantoprazole 40 mg SDV IVP (09:07)
[2020-05-27] MEDS: dronabinol 2.5 mg Capsule PO ×2 (12:26→16:45)
--- NOTE | 2020-05-27 12:38 | XRR_ITS ---
PROCEDURE INFORMATION: Exam: XR Chest, 1 View Exam date and time: 05/27/2020 2:36 PM Age: 60 years old Clinical indication: Shortness of breath; Additional info: Hypoxia TECHNIQUE: Imaging protocol: XR of the chest Views: 1 view. COMPARISON: CR XR chest 1V portable [id number] 05/26/2020 10:16 AM FINDINGS: Tubes, catheters and devices: There is a right subclavian port with tip in the superior vena cava. Lungs: There are emphysematous changes with a unchanged large bulla right upper lobe. Unchanged interstitial prominence/fibrosis with linear scarring lung bases. No vascular congestion or lobar consolidation. Pleural space: Unremarkable. No pleural effusion. No pneumothorax. Heart/Mediastinum: There is borderline cardiomegaly. Bones/joints: No acute abnormality. XR/XR chest 1V portable [id number] IMPRESSION: No active pulmonary disease. Chronic findings are noted as above.
--- NOTE | 2020-05-27 14:41 | PC.NURSE ---
This aid has been in the room on multiple occasions due to patient making multiple complaints of pain. Patient repeatedly complains of excruciating pain in lower abdomen and lower back. Patient continues to lay in the position on left side, with arms guarding lower abdomen. Primary nurse was notified and patient received pain medication. Following the administration of the pain medication, patient vomited, a minimal amount of foamy emesis. Primary nurse was notified, and it was explained to the patient why an additional dose of pain medication could not be given. When patient was asked by this aid, if any other pain management therapy could be used to make patient more comfortable, such as warm blankets, TV, music, or darkened lights the patient responded with, I wish you'd just end this. Physician and primary nurse were both notified of patients increasing pain and comment. Will continue to monitor.
[2020-05-27] MEDS: LORazepam 2 mg/mL INJ 1 mL 1 MG IVP (20:48)
--- NOTE | 2020-05-27 21:09 | PC.NURSE ---
PAIN Pt c/o tonight of alot of abdominal pain that she says has not been relieved all day after changed to po med. I should not have to hurt like this Says she doesn't even think she really got any the last time because every thing she takes by mouth today she spits back up most of it. Dr Kahn was called regarding pts c/o and request. Order placed for IV med to be resumed. Pt is happy with change
--- NOTE | 2020-05-27 21:20 | PM.PN ---
Subjective Subjective: Interval history: She has been having abdominal pain today. Reports she did not eat or drink anything due to discomfort. Has been having nausea. Vitals/I&O/Wt Last Vital Signs Temp 98.1 F 05/27/20 19:46 Pulse 102 H 05/27/20 19:46 Resp 22 H 05/27/20 19:46 BP 123/81 05/27/20 19:46 Pulse Ox 96 05/27/20 19:46 05/27/20 05/27/20 05/27/20 06:59 14:59 22:59 Intake Total 480 / 690 Balance 480 / -3210 Physical Exam Const: OTHER: Occasionally moaning. HENMT: COMMON NORMALS: oropharynx normal Neck/C-Spine: COMMON NORMALS: no JVD OTHER: Left supraclavicular nodes. Resp: COMMON NORMALS: normal respiratory effort and clear to auscultation bilaterally AUSCULTATION: clear to auscultation bilaterally Cardio: COMMON NORMALS: no JVD and regular rhythm RHYTHM: regular rhythm GI: COMMON NORMALS: Normal to inspection, nondistended, normoactive bowel sounds present and Soft to palpation PALPATION: Yes Soft to palpation and Yes Tenderness to palpation present (GI) (Upper abdomen) Extremity: COMMON NORMALS: no joint enlargement and no pedal edema Neuro: COMMON NORMALS: moves all extremities Skin: COMMON NORMALS: no rashes or lesions noted GENERAL SKIN EXAM: no rashes or lesions noted Data : 05/26/20 04:35 05/26/20 04:35 Micro: Microbiology 05/26/20 15:42 Blood Culture - Preliminary Blood NEGATIVE TO DATE 05/26/20 15:35 Blood Culture - Preliminary Blood NEGATIVE TO DATE 05/26/20 16:20 Gram Stain - Final Ascites Fluid A&P Assessment and plan (1) Odynophagia: Still reports poor appetite, reports having no oral intake, although I see 480 mL recorded. Is not really reporting odynophagia, has been complaining of abdominal pain today, requesting for more pain medications, although saturation was low earlier today, was somnolent, and so pain medication had to be held. Add dronabinol. Viscous lidocaine 20 min before meals. FLD. Continue PPI. Sucralfate. IV fluid was running at 100 mL/h for some reason, which is above what it was ordered. Discussed with RN to decrease down to 30 mL. On EGD no obstruction noted, no areas of ulceration or active inflammation. Mass appears to be close to GE junction, perhaps contributing to symptoms. Alternative feeding options if she were not to tolerate oral diet or hydration, including TPN, PEG tube versus gastrostomy. Unfortunately none of these options are ideal as with gastrostomy or PEG tube difficulty may be secondary to omental caking, mesenteric and peritoneal carcinomatosis, as well as ascites which may complicate things, possibly causing leakage, with ascites possibly secondary to malignancy or also with underlying cirrhosis. TPN option also would not be ideal given increased risk of infection, difficulties in establishing disposition. Status: Acute (2) Abdominal pain: Paracentesis was done by radiology. Gram stain negative. Cell counts not suggestive of acute infection. Discussed with her. Discussed with her concerns with regards to overly intensive pain control leading to alteration of mental status, decreasing mentation, risk of aspiration, respiratory depression. Today has been in and out of somnolence. Saturation was down into mid-high 80s despite oxygen, which had to be increased to 4 L. Switch Dilaudid to oral. Discussed difficulties with pain management with her son. Given the extent of peritoneal carcinomatosis he understands weight will not be able to get rid of pain entirely, and the goal is to make symptoms more tolerable without risking causing altered mental status or respiratory depression, although she may still be at risk of both. He verbalized understanding. Status: Acute Qualifiers: Abdominal location: epigastric Qualified Code(s): R10.13 - Epigastric pain (3) Metastatic malignant neoplasm: Per discussion with oncology she has opted to proceed toward chemotherapy. Port has been placed today. Underwent EGD with multiple biopsies taken from the mass in the stomach which were positive for malignancy. Status: Acute (4) Depression: She appears to be depressed in the hospital. When he is unable to get additional pain medication has made some comments to nursing staff including that she does not want to live anymore (while being walked to the restroom). Today she had an episode of small emesis and reported she had vomited up her Dilaudid tablet, and was asking for a new one. Tablet cannot be seen by nursing staff, and so when could not safely be given another one stated I wish you would just and this when additional pain control measures were offered. Discussed with psychiatrist. No recommendations for now. He will assess her. Status: Acute (5) COPD (chronic obstructive pulmonary disease): Not currently in exacerbation. Monitor oxygenation. Requested for continuous pulse oximetry. Albuterol as needed. Resume inhalers. Status: Acute (6) Anxiety: Status: Acute (7) Supraclavicular lymphadenopathy: Status: Acute (8) Ascites: With history of liver cirrhosis. History of hep C. Extensive peritoneal carcinomatosis. Paracentesis 05/26 not suggestive of SBP. Status: Acute (9) Mediastinal lymphadenopathy: Status: Acute (10) Bone metastases: Status: Acute (11) Liver cirrhosis: History of hep C. Which appears treated in the past, initially unsuccessfully with above urine. Subsequent treatment details unknown, but appears to have cleared infection with negative RNA back in 2012. Ammonia level normal. 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 Assessment of depression. Coding Level of Care Code Acute Education And Training Coordinator for Chg Fwd Diagnoses Odynophagia R13.10 Abdominal pain R10.13 Abdominal location: epigastric Metastatic malignant neoplasm C79.9 Depression F32.9 COPD (chronic obstructive pulmonary disease) J44.9 Anxiety F41.9 Supraclavicular lymphadenopathy R59.0 Ascites R18.8 Mediastinal lymphadenopathy R59.0 Bone metastases C79.51 Liver cirrhosis K74.60 Compression fracture
[2020-05-27] MEDS: HYDROmorphone 1 mg/mL INJ 1 mL 2 MG IVP (21:27)
[2020-05-28] VITALS (13 sets, daily range): BP systolic 110–139; BP diastolic 74–89; PULSE 18–120; RESP 16–22; TEMP 36.9–37.6; O2SAT 91–97
[2020-05-28] MEDS: HYDROmorphone 1 mg/mL INJ 1 mL 2 MG IVP (02:37)
[2020-05-28] MEDS: D5-NS 0.45% + KCL 20 mEq 20 MEQ/1,000 ML BAG 30 MEQ IV (04:18)
[2020-05-28 05:13] LABS: Basophils # 0.1 10^3/uL (0.0-0.1); Basophils % 0.7 %; Eosinophils # 0.4 10^3/uL (0.0-0.8); Eosinophils % 3.2 %; Hematocrit 41.9 % (37.0-47.0); Hemoglobin 12.7 g/dL (11.5-15.3); Lymphocytes # 1.9 10^3/uL (0.8-4.8); Lymphocytes % 13.8 %; Mean Corpuscular HGB Conc 30.3 g/dL (30.0-36.0); Mean Corpuscular Hemoglobin 26.8 pg (28.0-34.0); Mean Corpuscular Volume 88.6 fL (81-99); Mean Platelet Volume 10.2 fL (7.4-10.4); Monocytes # 1.3 10^3/uL (0.2-0.9); Monocytes % 9.6 %; Neutrophils # 9.48 10^3/uL (1.8-7.7); Neutrophils % 70.7 %; Nucleated Red Blood Cells % 0 %; Platelet Count 401 10^3/cmm (130-400); Red Blood Count 4.73 10^6/uL (4.1-5.3); Red Cell Distribution Width 12.9 % (12.1-15.1); White Blood Count 13.4 10^3/uL (4.0-10.0)
[2020-05-28 05:41] LABS: Alanine Aminotransferase 10 U/L (0-33); Albumin Level 2.6 g/dL (3.5-5.2); Alkaline Phosphatase 152 IU/L (35-105); Anion Gap 12.9 (5-19); Aspartate Amino Transferase 47 U/L (0-32); Blood Urea Nitrogen 7 mg/dL (6-20); Calcium 8.2 mg/dL (8.5-10.5); Carbon Dioxide 25 mmol/L (22-29); Chloride 97 mmol/L (98-107); Globulin 3.3 g/dL (1.3-4.6); Glomerular Filtration Rate 73.7 mL/min (90-130); Glucose 127 mg/dL (65-115); Osmolality Calculated 269 mOsm/kg (285-295); Potassium 3.9 mmol/L (3.5-5.1); Sodium 131 mmol/L (136-145); Total Bilirubin 0.3 mg/dL (0.15-1.2); Total Protein 5.9 g/dL (6.6-8.7)
--- NOTE | 2020-05-28 06:03 | PC.NURSE ---
SHIFT SUMMARY Did well after getting pain under control at beginning of shift. Was very miserable at start of night and c/o pain not being controlled all day. Says thinks fluid is starting to reaccumulate in her abdomen. Reports several loose BM's during day yesterday but none tonight. c/o feeling like everything she eats or drinks gets stuck in her throat/esophagus area and then she spits it up. Has actually sipped on cola and apple juice through night and has not thrown up but spits up alot of white foamy secretions. Reports a poor appetite.
[2020-05-28] MEDS: dronabinol 2.5 mg Capsule PO ×2 (06:29→16:27)
[2020-05-28] MEDS: sucralfate 1 gm Tablet PO ×3 (08:50→17:56)
[2020-05-28] MEDS: pantoprazole 40 mg SDV IVP (08:50)
[2020-05-28] MEDS: nicotine 21 mg Patch 1 PATCH TRANSDERMA (08:51)
[2020-05-28] MEDS: heparin 5,000 unit/mL INJ 1 mL 5000 UNIT SUBCUT ×2 (08:51→16:27)
[2020-05-28] MEDS: artificial tears Op Soln 15 mL Btl 1 DROP EYE-BOTH (12:20)
[2020-05-28] MEDS: LORazepam 2 mg/mL INJ 1 mL 1 MG IVP (12:20)
[2020-05-28] MEDS: morphine IR 15 mg Tablet 30 MG PO ×2 (13:48→18:01)
[2020-05-28] MEDS: ondansetron 2 mg/ML SDV 2 mL 4 MG IVP (13:53)
--- NOTE | 2020-05-28 16:46 | PM.PN ---
Subjective Subjective: Interval history: Today she is feeling slightly better. The time of my visit she is up at the sink brushing her teeth. Reports she was able to tolerate small amount of treatment with this morning, also bit of Jell-O. Discussed with her could try to add some Ensure during meals. She states prefers the chocolate flavor. Vitals/I&O/Wt Last Vital Signs Temp 98.7 F 05/28/20 16:08 Pulse 107 H 05/28/20 16:08 Resp 18 05/28/20 16:08 BP 110/74 05/28/20 16:08 Pulse Ox 96 05/28/20 16:08 05/28/20 05/28/20 05/28/20 06:59 14:59 22:59 Intake Total 200 / 1150 120 / 120 Output Total 800 / 800 Balance -600 / 350 120 / 120 Physical Exam Const: OTHER: Occasionally moaning. HENMT: COMMON NORMALS: oropharynx normal Neck/C-Spine: COMMON NORMALS: no JVD OTHER: Left supraclavicular nodes. Resp: COMMON NORMALS: normal respiratory effort and clear to auscultation bilaterally AUSCULTATION: clear to auscultation bilaterally Cardio: COMMON NORMALS: no JVD and regular rhythm RHYTHM: regular rhythm GI: COMMON NORMALS: Normal to inspection, nondistended, normoactive bowel sounds present and Soft to palpation PALPATION: Yes Soft to palpation and Yes Tenderness to palpation present (GI) (Upper abdomen) Extremity: COMMON NORMALS: no joint enlargement and no pedal edema Neuro: COMMON NORMALS: moves all extremities Skin: COMMON NORMALS: no rashes or lesions noted GENERAL SKIN EXAM: no rashes or lesions noted Data : 05/28/20 04:53 05/28/20 04:53 Micro: Microbiology 05/26/20 16:20 Gram Stain - Final Ascites Fluid Body Fluid Culture - Preliminary 05/26/20 15:42 Blood Culture - Preliminary Blood NEGATIVE TO DATE 05/26/20 15:35 Blood Culture - Preliminary Blood NEGATIVE TO DATE A&P Assessment and plan (1) Odynophagia: Today she is doing a little bit better. Did actually tolerate small amounts of oral intake, agreement with in the morning, then some Jell-O. Still on and off pain. We will try to transition her to Roxanol. She is being seen by psychiatry for depression as well. Dronabinol. Viscous lidocaine 20 min before meals. FLD. Continue PPI. Sucralfate. Overnight was started again on IV Dilaudid. Will switch to p.o. morphine in anticipation that may discharge home. DC IV fluid. Home oxygen evaluation. Per discussion with case management son would be staying with her to provide assistance. On EGD no obstruction noted, no areas of ulceration or active inflammation. Mass appears to be close to GE junction, perhaps contributing to symptoms. Alternative feeding options if she were not to tolerate oral diet or hydration, including TPN, PEG tube versus gastrostomy. Unfortunately none of these options are ideal as with gastrostomy or PEG tube difficulty may be secondary to omental caking, mesenteric and peritoneal carcinomatosis, as well as ascites which may complicate things, possibly causing leakage, with ascites possibly secondary to malignancy or also with underlying cirrhosis. TPN option also would not be ideal given increased risk of infection, difficulties in establishing disposition. Status: Acute (2) Abdominal pain: As above. Will provide naloxone prescription with oral morphine. Paracentesis was done by radiology. Gram stain negative. Cell counts not suggestive of acute infection. Discussed with her. We discussed concerns with regards to overly intensive pain control leading to alteration of mental status, decreasing mentation, risk of aspiration, respiratory depression. Today has been in and out of somnolence. Saturation was down into mid-high 80s despite oxygen, which had to be increased to 4 L. Switch Dilaudid to oral. Discussed difficulties with pain management with her son. Given the extent of peritoneal carcinomatosis he understands weight will not be able to get rid of pain entirely, and the goal is to make symptoms more tolerable without risking causing altered mental status or respiratory depression, although she may still be at risk of both. He verbalized understanding. Status: Acute Qualifiers: Abdominal location: epigastric Qualified Code(s): R10.13 - Epigastric pain (3) Metastatic malignant neoplasm: Per discussion with oncology she has opted to proceed toward chemotherapy. Port has been placed today. Underwent EGD with multiple biopsies taken from the mass in the stomach which were positive for malignancy. Status: Acute (4) Depression: She appears to be depressed in the hospital. When he is unable to get additional pain medication has made some comments to nursing staff including that she does not want to live anymore (while being walked to the restroom). Today she had an episode of small emesis and reported she had vomited up her Dilaudid tablet, and was asking for a new one. Tablet cannot be seen by nursing staff, and so when could not safely be given another one stated I wish you would just and this when additional pain control measures were offered. Psychiatry assessed her for depression this evening. She is safe to discharge home. She declined medical treatment, if anything would ask for some small dose benzodiazepine for anxiety. Encourage her to follow up with [facility]. Status: Acute (5) COPD (chronic obstructive pulmonary disease): Home oxygen assessment. Albuterol as needed. Resume inhalers. Status: Acute (6) Anxiety: Status: Acute (7) Supraclavicular lymphadenopathy: Status: Acute (8) Ascites: With history of liver cirrhosis. History of hep C. Extensive peritoneal carcinomatosis. Paracentesis 05/26 not suggestive of SBP. Status: Acute (9) Mediastinal lymphadenopathy: Status: Acute (10) Bone metastases: Status: Acute (11) Liver cirrhosis: History of hep C. Which appears treated in the past, initially unsuccessfully with above urine. Subsequent treatment details unknown, but appears to have cleared infection with negative RNA back in 2012. Ammonia level normal. 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 Coding Level of Care Code Acute Industrial Hygiene Technician for [employer] Fwd Diagnoses Odynophagia R13.10 Abdominal pain R10.13 Abdominal location: epigastric Metastatic malignant neoplasm C79.9 Depression F32.9 COPD (chronic obstructive pulmonary disease) J44.9 Anxiety F41.9 Supraclavicular lymphadenopathy R59.0 Ascites R18.8 Mediastinal lymphadenopathy R59.0 Bone metastases C79.51 Liver cirrhosis K74.60 Compression fracture
[2020-05-29] VITALS (9 sets, daily range): BP systolic 103–141; BP diastolic 67–97; PULSE 69–135; RESP 16–18; TEMP 36.7–37.2; O2SAT 92–96
[2020-05-29] MEDS: sodium chloride 0.9% 1,000 ML 999 ML IV (01:18)
[2020-05-29] MEDS: heparin 5,000 unit/mL INJ 1 mL 5000 UNIT SUBCUT ×3 (01:19→16:15)
[2020-05-29 04:37] LABS: Basophils # 0.2 10^3/uL (0.0-0.1); Basophils % 1.1 %; Eosinophils # 0.5 10^3/uL (0.0-0.8); Eosinophils % 3.7 %; Hematocrit 42.4 % (37.0-47.0); Hemoglobin 12.4 g/dL (11.5-15.3); Lymphocytes # 2.2 10^3/uL (0.8-4.8); Lymphocytes % 15.8 %; Mean Corpuscular HGB Conc 29.2 g/dL (30.0-36.0); Mean Corpuscular Hemoglobin 26.9 pg (28.0-34.0); Monocytes # 1.2 10^3/uL (0.2-0.9); Monocytes % 8.5 %; Nucleated Red Blood Cells % 0 %; Platelet Count 361 10^3/cmm (130-400); Red Blood Count 4.61 10^6/uL (4.1-5.3); White Blood Count 14.1 10^3/uL (4.0-10.0)
[2020-05-29 04:59] LABS: Alanine Aminotransferase 11 U/L (0-33); Albumin Level 2.6 g/dL (3.5-5.2); Alkaline Phosphatase 158 IU/L (35-105); Aspartate Amino Transferase 46 U/L (0-32); Blood Urea Nitrogen 7 mg/dL (6-20); Calcium 8.5 mg/dL (8.5-10.5); Carbon Dioxide 25 mmol/L (22-29); Chloride 101 mmol/L (98-107); Globulin 2.7 g/dL (1.3-4.6); Glomerular Filtration Rate 56.9 mL/min (90-130); Glucose 107 mg/dL (65-115); Osmolality Calculated 276 mOsm/kg (285-295); Sodium 135 mmol/L (136-145); Total Bilirubin 0.3 mg/dL (0.15-1.2); Total Protein 5.3 g/dL (6.6-8.7)
[2020-05-29 05:03] LABS: Anion Gap 13.7 (5-19); Potassium 4.7 mmol/L (3.5-5.1)
[2020-05-29] MEDS: morphine IR 15 mg Tablet 30 MG PO ×3 (06:02→20:17)
[2020-05-29] MEDS: dronabinol 2.5 mg Capsule PO ×2 (06:04→16:15)
[2020-05-29] MEDS: nicotine 21 mg Patch 1 PATCH TRANSDERMA (07:59)
[2020-05-29] MEDS: sucralfate 1 gm Tablet PO ×3 (07:59→16:19)
[2020-05-29] MEDS: pantoprazole 40 mg SDV IVP (09:16)
--- NOTE | 2020-05-29 09:34 | PM.PN ---
Subjective Subjective: Interval history: The patient underwent EGD with finding of mass lesion in the gastric cardia. Biopsy does show adenocarcinoma, though will be completed pathology report is not yet available. We had previously discussed treatment options, and she had indicated that she was interested in pursuing chemotherapy. She continues to have significant GI symptoms, but at this point she indicates that she does still want to try the chemotherapy. 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 She has indicated that she wants to try chemotherapy. The recommended treatment will be modified FOLFOX, but with addition of Herceptin if the tumor is found to be HER-2/diana positive. I reviewed anticipated side effects with the chemotherapy including the potential for nausea/vomiting, stomatitis, diarrhea, alopecia, fatigue, low blood counts, and neuropathy, among others. She is aware that the treatment is not curative and that the overall prognosis is poor. She will start her first cycle as an inpatient today. Attestations Medical Necessity Statement*: Not applicable. Coding Level of Care Code Acute Php Lamp Developer for Fred Jimenezd Diagnoses Malignant neoplasm of cardia C16.0
[2020-05-29] MEDS: albuterol 8 gm MDI 2 PUFF INHALATION (10:09)
[2020-05-29] MEDS: pantoprazole DR 40 mg Tablet PO (10:20)
[2020-05-29] MEDS: lidocaine 2% viscous 15 mL UDC 5 ML PO ×2 (10:20→16:15)
[2020-05-29] MEDS: dextrose 5% 250 ML 75 ML IV (11:50)
--- NOTE | 2020-05-29 16:19 | PM.PN ---
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 Did actually tolerate small amounts of oral intake, agreement with in the morning, then some Jell-O. Still on and off pain. We will try to transition her to Roxanol. She is being seen by psychiatry for depression as well. Dronabinol. Viscous lidocaine 20 min before meals. FLD. Continue PPI. Sucralfate. Overnight was started again on IV Dilaudid. Will switch to p.o. morphine in anticipation that may discharge home. DC IV fluid. Home oxygen evaluation. Per discussion with case management son would be staying with her to provide assistance. On EGD no obstruction noted, no areas of ulceration or active inflammation. Mass appears to be close to GE junction, perhaps contributing to symptoms. Alternative feeding options if she were not to tolerate oral diet or hydration, including TPN, PEG tube versus gastrostomy. Unfortunately none of these options are ideal as with gastrostomy or PEG tube difficulty may be secondary to omental caking, mesenteric and peritoneal carcinomatosis, as well as ascites which may complicate things, possibly causing leakage, with ascites possibly secondary to malignancy or also with underlying cirrhosis. TPN option also would not be ideal given increased risk of infection, difficulties in establishing disposition. Status: Acute (2) Abdominal pain: As above. Will provide naloxone prescription with oral morphine. Paracentesis was done by radiology. Gram stain negative. Cell counts not suggestive of acute infection. Discussed with her. We discussed concerns with regards to overly intensive pain control leading to alteration of mental status, decreasing mentation, risk of aspiration, respiratory depression. Today has been in and out of somnolence. Saturation was down into mid-high 80s despite oxygen, which had to be increased to 4 L. Switch Dilaudid to oral. Discussed difficulties with pain management with her son. Given the extent of peritoneal carcinomatosis he understands weight will not be able to get rid of pain entirely, and the goal is to make symptoms more tolerable without risking causing altered mental status or respiratory depression, although she may still be at risk of both. He verbalized understanding. Status: Acute Qualifiers: Abdominal location: epigastric Qualified Code(s): R10.13 - Epigastric pain (3) Metastatic malignant neoplasm: Per discussion with oncology she has opted to proceed toward chemotherapy. Port has been placed today. Underwent EGD with multiple biopsies taken from the mass in the stomach which were positive for malignancy. Status: Acute (4) Depression: She appears to be depressed in the hospital. When he is unable to get additional pain medication has made some comments to nursing staff including that she does not want to live anymore (while being walked to the restroom). Today she had an episode of small emesis and reported she had vomited up her Dilaudid tablet, and was asking for a new one. Tablet cannot be seen by nursing staff, and so when could not safely be given another one stated I wish you would just and this when additional pain control measures were offered. Psychiatry assessed her for depression this evening. She is safe to discharge home. She declined medical treatment, if anything would ask for some small dose benzodiazepine for anxiety. Encourage her to follow up with [facility]. Status: Acute (5) COPD (chronic obstructive pulmonary disease): Home oxygen assessment. Albuterol as needed. Resume inhalers. Status: Acute (6) Anxiety: Status: Acute (7) Supraclavicular lymphadenopathy: Status: Acute (8) Ascites: With history of liver cirrhosis. History of hep C. Extensive peritoneal carcinomatosis. Paracentesis 05/26 not suggestive of SBP. Status: Acute (9) Mediastinal lymphadenopathy: Status: Acute (10) Bone metastases: Status: Acute (11) Liver cirrhosis: History of hep C. Which appears treated in the past, initially unsuccessfully with above urine. Subsequent treatment details unknown, but appears to have cleared infection with negative RNA back in 2013. Ammonia level normal. 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 Remote history of injection drug use She has never undergone screening colonoscopies on mammogram Compression fracture of L4-L5 Patient complaining of back pain Plan for today: starting chemo today which will infuse over the next 48 hrs, assess for repeat paracentesis due to incrased abdominal sitension and discomfort Attestations Medical Necessity Statement*: starting chemo, increased abdomen discomfort Coding Level of Care Code Acute Forensic Pathologist for Chg Fwd Diagnoses Odynophagia R13.10 Abdominal pain R10.13 Abdominal location: epigastric Metastatic malignant neoplasm C79.9 Depression F32.9 COPD (chronic obstructive pulmonary disease) J44.9 Anxiety F41.9 Supraclavicular lymphadenopathy R59.0 Ascites R18.8 Mediastinal lymphadenopathy R59.0 Bone metastases C79.51 Liver cirrhosis K74.60 Compression fracture
[2020-05-29] MEDS: LORazepam 2 mg/mL INJ 1 mL 1 MG IVP (20:17)
[2020-05-30] VITALS (12 sets, daily range): BP systolic 108–128; BP diastolic 70–87; PULSE 87–128; RESP 16–20; TEMP 36.4–37.1; O2SAT 92–97
[2020-05-30] MEDS: heparin 5,000 unit/mL INJ 1 mL 5000 UNIT SUBCUT ×3 (02:06→15:26)
[2020-05-30] MEDS: morphine IR 15 mg Tablet 30 MG PO ×4 (03:00→20:20)
[2020-05-30] MEDS: dronabinol 2.5 mg Capsule PO ×2 (06:19→15:27)
[2020-05-30] MEDS: pantoprazole DR 40 mg Tablet PO (07:42)
[2020-05-30] MEDS: sucralfate 1 gm Tablet PO ×3 (07:42→16:57)
[2020-05-30] MEDS: nicotine 21 mg Patch 1 PATCH TRANSDERMA (07:42)
[2020-05-30] MEDS: albuterol 8 gm MDI 2 PUFF INHALATION (07:49)
[2020-05-30] MEDS: lidocaine 2% viscous 15 mL UDC 5 ML PO (11:08)
[2020-05-30] MEDS: LORazepam 2 mg/mL INJ 1 mL 1 MG IVP ×2 (12:03→20:21)
--- NOTE | 2020-05-30 15:46 | P.PN_ITS ---
Subjective Subjective: Interval history: Feels better today, pain is appropriately controlled. 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 Did actually tolerate small amounts of oral intake, agreement with in the morning, then some Jell-O. Still on and off pain. We will try to transition her to Roxanol. She is being seen by psychiatry for depression as well. Dronabinol. Viscous lidocaine 20 min before meals. FLD. Continue PPI. Sucralfate. Overnight was started again on IV Dilaudid. Will switch to p.o. morphine in anticipation that may discharge home. DC IV fluid. Home oxygen evaluation. Per discussion with case management son would be staying with her to provide assistance. On EGD no obstruction noted, no areas of ulceration or active inflammation. Mass appears to be close to GE junction, perhaps contributing to symptoms. Alternative feeding options if she were not to tolerate oral diet or hydration, including TPN, PEG tube versus gastrostomy. Unfortunately none of these options are ideal as with gastrostomy or PEG tube difficulty may be secondary to omental caking, mesenteric and peritoneal carcinomatosis, as well as ascites which may complicate things, possibly causing leakage, with ascites possibly secondary to malignancy or also with underlying cirrhosis. TPN option also would not be ideal given increased risk of infection, difficulties in establishing disposition. Status: Acute (2) Abdominal pain: As above. Will provide naloxone prescription with oral morphine. Paracentesis was done by radiology. Gram stain negative. Cell counts not suggestive of acute infection. Discussed with her. We discussed concerns with regards to overly intensive pain control leading to alteration of mental status, decreasing mentation, risk of aspiration, respi ratory depression. Today has been in and out of somnolence. Saturation was down into mid-high 80s despite oxygen, which had to be increased to 4 L. Switch Dilaudid to oral. Discussed difficulties with pain management with her son. Given the extent of peritoneal carcinomatosis he understands weight will not be able to get rid of pain entirely, and the goal is to make symptoms more tolerable without risking causing altered mental status or respiratory depression, although she may still be at risk of both. He verbalized understanding. Status: Acute Qualifiers: Abdominal location: epigastric Qualified Code(s): R10.13 - Epigastric pain (3) Metastatic malignant neoplasm: Per discussion with oncology she has opted to proceed toward chemotherapy. Port has been placed today. Underwent EGD with multiple biopsies taken from the mass in the stomach which were positive for malignancy. Status: Acute (4) Depression: She appears to be depressed in the hospital. When he is unable to get additional pain medication has made some comments to nursing staff including that she does not want to live anymore (while being walked to the restroom). Today she had an episode of small emesis and reported she had vomited up her Dilaudid tablet, and was asking for a new one. Tablet cannot be seen by nursing staff, and so when could not safely be given another one stated I wish you would just and this when additional pain control measures were offered. Psychiatry assessed her for depression this evening. She is safe to discharge home. She declined medical treatment, if anything would ask for some small dose benzodiazepine for anxiety. Encourage her to follow up with [facility]. Status: Acute (5) COPD (chronic obstructive pulmonary disease): Home oxygen assessment. Albuterol as needed. Resume inhalers. Status: Acute (6) Anxiety: Status: Acute (7) Supraclavicular lymphadenopathy: Status: Acute (8) Ascites: With history of liver cirrhosis. History of hep C. Extensive peritoneal carcinomatosis. Paracentesis 05/26 not suggestive of SBP. Status: Acute (9) Mediastinal lymphadenopathy: Status: Acute (10) Bone metastases: Status: Acute (11) Liver cirrhosis: History of hep C. Which appears treated in the past, initially unsuccessfully with above urine. Subsequent treatment details unknown, but appears to have cleared infection with negative RNA back in 2013. Ammonia level normal. 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 Will reevaluate for need for paracentesis once chemotherapy is completed if her platelets and hemoglobin counts remain normal. Attestations Medical Necessity Statement*: Ongoing chemo infusion currently, will need reassessmentfor paracentesis Coding Level of Care Code Acute Solar Pool Heating Installer for Chg Fwd Diagnoses Odynophagia R13.10 Abdominal pain R10.13 Abdominal location: epigastric Metastatic malignant neoplasm C79.9 Depression F32.9 COPD (chronic obstructive pulmonary disease) J44.9 Anxiety F41.9 Supraclavicular lymphadenopathy R59.0 Ascites R18.8 Mediastinal lymphadenopathy R59.0 Bone metastases C79.51 Liver cirrhosis K74.60 Compression fracture
[2020-05-30] MEDS: metoprolol tartrate 25 mg Tablet 12.5 MG PO (16:57)
--- NOTE | 2020-05-30 18:04 | PC.NURSE ---
SHIFT SUMMARY PATIENT HAS HAD NAUSEA ON AND OFF MOST OF THE DAY TODAY. NAUSEA MEDICATION ADMINISTERED. PAIN IS CONTROLLED. PATIENT HAS BEEN UP AMBULATING AROUND THE ROOM MULTIPLE TIMES TODAY. HEART RATE HAS BEEN ELEVATED FROM 110-120'S AND SUSTAINING. DR. LIPSCOMB NOTIFIED. 12.5MG OF METOPROLOL ADMINISTERED. PATIENT HAS HAD GOOD URINE OUTPUT. CURRENTLY RESTING IN BED AT THIS TIME.
[2020-05-31] VITALS (15 sets, daily range): BP systolic 98–115; BP diastolic 66–80; PULSE 99–124; RESP 12–24; TEMP 36.5–37.9; O2SAT 90–98
[2020-05-31] MEDS: heparin 5,000 unit/mL INJ 1 mL 5000 UNIT SUBCUT ×3 (02:29→16:19)
[2020-05-31] MEDS: morphine IR 15 mg Tablet 30 MG PO ×3 (05:27→23:00)
[2020-05-31] MEDS: dronabinol 2.5 mg Capsule PO ×2 (05:28→16:19)
[2020-05-31] MEDS: sucralfate 1 gm Tablet PO ×3 (07:50→18:04)
[2020-05-31] MEDS: nicotine 21 mg Patch 1 PATCH TRANSDERMA (07:50)
[2020-05-31] MEDS: pantoprazole DR 40 mg Tablet PO (07:50)
[2020-05-31] MEDS: LORazepam 2 mg/mL INJ 1 mL 1 MG IVP (08:07)
[2020-05-31] MEDS: albuterol 8 gm MDI 2 PUFF INHALATION (08:35)
--- NOTE | 2020-05-31 15:30 | P.PN_ITS ---
Subjective Subjective: Interval history: Patient still with chemotherapy, significsantly worsened nausea and pain today. Medications: Reviewed: Yes Vitals/I&O/Wt Last Vital Signs Temp 98.8 F 05/31/20 11:13 Pulse 113 H 05/31/20 11:13 Resp 18 05/31/20 11:55 BP 98/66 05/31/20 11:13 Pulse Ox 94 05/31/20 14:43 05/31/20 05/31/20 05/31/20 06:59 14:59 22:59 Intake Total 480 / 480 Output Total 400 / 400 Balance 80 / 80 Physical Exam Narrative: EXAM NARRATIVE: GEN: Awake, alert and oriented, no acute distress CVS: S1S2 N RS: CTA B/L Abd: Soft, distended, non tender , bs+ CANDLE WRAPPER: no focal neuro deficits Data : 05/29/20 04:22 05/29/20 04:22 Micro: Microbiology 05/26/20 16:20 Gram Stain - Final Ascites Fluid Body Fluid Culture - Final A&P Assessment and plan (1) Odynophagia: Today she is doing a little bit better. Did actually tolerate small amounts of oral intake, agreement with in the morning, then some Jell-O. Still on and off pain. We will try to transition her to Roxanol. She is being seen by psychiatry for depression as well. Dronabinol. Viscous lidocaine 20 min before meals. FLD. Continue PPI. Sucralfate. Overnight was started again on IV Dilaudid. Will switch to p.o. morphine in anticipation that may discharge home. DC IV fluid. Home oxygen evaluation. Per discussion with case management son would be staying with her to provide assistance. On EGD no obstruction noted, no areas of ulceration or active inflammation. Mass appears to be close to GE junction, perhaps contributing to symptoms. Alternative feeding options if she were not to tolerate oral diet or hydration, including TPN, PEG tube versus gastrostomy. Unfortunately none of these options are ideal as with gastrostomy or PEG tube difficulty may be secondary to omental caking, mesenteric and peritoneal carcinomatosis, as well as ascites which may complicate things, possibly causing leakage, with ascites possibly secondary to malignancy or also with underlying cirrhosis. TPN option also would not be ideal given increased risk of infection, difficulties in establishing disposition. Status: Acute (2) Abdominal pain: Will plan for paracentesis once chemo is completed Status: Acute Qualifiers: Abdominal location: epigastric Qualified Code(s): R10.13 - Epigastric pain (3) Metastatic malignant neoplasm: Per discussion with oncology she has opted to proceed toward chemotherapy. Port has been placed today. Underwent EGD with multiple biopsies taken from the mass in the stomach which were positive for malignancy. Status: Acute (4) Depression: She appears to be depressed in the hospital. When he is unable to get additional pain medication has made some comments to nursing staff including that she does not want to live anymore (while being walked to the restroom). Today she had an episode of small emesis and reported she had vomited up her Dilaudid tablet, and was asking for a new one. Tablet cannot be seen by nursing staff, and so when could not safely be given another one stated I wish you would just and this when additional pain control measures were offered. Psychiatry assessed her for depression this evening. She is safe to discharge home. She declined medical treatment, if anything would ask for some small dose benzodiazepine for anxiety. Encourage her to follow up with [facility] [place]. Status: Acute (5) COPD (chronic obstructive pulmonary disease): Home oxygen assessment. Albuterol as needed. Resume inhalers. Status: Acute (6) Anxiety: Status: Acute (7) Supraclavicular lymphadenopathy: Status: Acute (8) Ascites: With history of liver cirrhosis. History of hep C. Extensive peritoneal carcinomatosis. Paracentesis 05/26 not suggestive of SBP. Status: Acute (9) Mediastinal lymphadenopathy: Status: Acute (10) Bone metastases: Status: Acute (11) Liver cirrhosis: History of hep C. Which appears treated in the past, initially unsuccessfully with above urine. Subsequent treatment details unknown, but appears to have cleared infection with negative RNA back in 2012. Ammonia level normal. 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 Pain is worsened, poorly controlled at this time, worse than previous days. Incrase dilaudid, ativan has been added per oncology recommendations. Once chemo is completed, will reassess for paracentesis of counts are stable Attestations Medical Necessity Statement*: completeing chemo today, worsening pain Coding Level of Care Code Acute Tumbler Operator for Chg Fwd Diagnoses Odynophagia R13.10 Abdominal pain R10.13 Abdominal location: epigastric Metastatic malignant neoplasm C79.9 Depression F32.9 COPD (chronic obstructive pulmonary disease) J44.9 Anxiety F41.9 Supraclavicular lymphadenopathy R59.0 Ascites R18.8 Mediastinal lymphadenopathy R59.0 Bone metastases C79.51 Liver cirrhosis K74.60 Compression fracture
[2020-05-31] MEDS: cefTRIAXone 1,000 MG in sodium chloride 0.9% (plus) 50 ML 100 MG IV (16:25)
[2020-05-31] MEDS: metoprolol tartrate 25 mg Tablet PO (18:04)
--- NOTE | 2020-05-31 18:16 | PC.NURSE ---
SHIFT SUMMARY PTS NAUSEA HAS BEEN BETTER TODAY. PTS PAIN WAS NOT UNDER CONTROL THIS MORNING. THIS NURSE ADMINISTERED MORPHINE, DILAUDID, AND ATIVAN. PAIN AND NAUSEA HAS BEEN CONTROLLED SINCE THAT TIME. PT HAS BEEN TIRED AND SORE TODAY. PT WAS UP TO WALK WITH THIS NURSE AND A STUDENT NURSE AND STATED SHE FELT BETTER AFTER MOVING AROUND. CHEMO FINISHED AROUND 1620. PT HAS BEEN RESTING. PAIN AND NAUSEA BOTH APPEAR TO BE CONTROLLED AT THIS TIME.
[2020-06-01] VITALS (14 sets, daily range): BP systolic 90–104; BP diastolic 62–71; PULSE 77–127; RESP 14–20; TEMP 36.7–37.5; O2SAT 90–97
--- NOTE | 2020-06-01 | US_ITS ---
WS: [id number] Limited abdomen ultrasound. HISTORY: Epigastric pain. Evaluate for ascites. Moderate amount of ascites in all 4 quadrants. There are numerous hypodense areas in the liver suspic ious for metastatic disease. The largest measures 2.8 cm. US/US abdomen lmt fluid [id number] IMPRESSION: Moderate amount of ascites. Suspect hepatic metastasis.
[2020-06-01] MEDS: heparin 5,000 unit/mL INJ 1 mL 5000 UNIT SUBCUT ×2 (01:37→08:41)
[2020-06-01] MEDS: morphine IR 15 mg Tablet 30 MG PO ×2 (06:21→10:17)
[2020-06-01] MEDS: pantoprazole DR 40 mg Tablet PO (08:39)
[2020-06-01] MEDS: dronabinol 2.5 mg Capsule PO ×2 (08:39→16:51)
[2020-06-01] MEDS: metoprolol tartrate 25 mg Tablet PO ×2 (08:40→16:51)
[2020-06-01] MEDS: sucralfate 1 gm Tablet PO ×3 (08:40→16:51)
[2020-06-01] MEDS: nicotine 21 mg Patch 1 PATCH TRANSDERMA (08:40)
[2020-06-01] MEDS: lanolin oint 7 gm 1 APPLIC TOPICAL (08:41)
[2020-06-01] MEDS: cefTRIAXone 1,000 MG in sodium chloride 0.9% (plus) 50 ML 100 MG IV (11:35)
--- NOTE | 2020-06-01 11:56 | PC.CHAP ---
Pastoral Care Encounter/Spiritual Assessment Type of Contact [] Declined meat dresser visit [] Patient/Family/Request visit [] Outpatient visit [] Follow-up visit [] Physician referral [] Code/Alert [X] Routine visit [] Staff referral [] Actively dying [] Patient sleeping [] Family support [] [] Out of room [] Palliative care [] [x] Receiving care in room [] Pre-surgical visit [] Trauma [] Long length of stay [] ICU visit [] Other: Relational/Emotional Strength [x] Patient feels connected with others/family/visitors/staff [] Distress [] Loneliness/isolation [] Abandonment Spirituality of Patient [x] Person of Hilda [] Attends Roman Catholic of their Hilda [x] Believes in Prayer [] Reads Bible or Presybeterian materials [] There are Spiritual issues to be addressed Dumper Mold Cleaner Interventions [x] Prayer [x] Active listening [x] Non-anxious presence [x] Spiritual/emotional support [] Crisis/trauma care [x] Spiritual counseling [] Bereavement support [] Provided bereavement packet [] Provided Bible/devotional materials [] Provided toy/stuffed animal, coloring book to patient or family member [] Provided Communion [] Anointing/[place] [] Salvation [x] Completed spiritual assessment [] Other: Impact on Illness or Injury [] Angry [] Fearful [x] Anxious [] Often cries [] Exhaustion [x] Unable to work [] Unable to attend church [] Unable to walk/stand [] Unable to read [] Unable to drive [] Unable to eat/drink [] Unable to sleep [] Unable to be with family [] Patient intubated [] Other: Summary In pain was not able to communicate on chemo Time spent with patient 10 mins
--- NOTE | 2020-06-01 16:47 | PM.PN ---
Subjective Subjective: Interval history: Completed chemo yesterday. Pain is relatively better today, however continues to complain of abdominal distention and pain. Better controlled with Dilaudid. 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 Albuterol as needed. Resume inhalers. Status: Acute (6) Anxiety: Status: Acute (7) Supraclavicular lymphadenopathy: Status: Acute (8) Ascites: With history of liver cirrhosis. History of hep C. Extensive peritoneal carcinomatosis. Paracentesis 05/26 not suggestive of SBP. 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 Remote history of injection drug use Compression fracture of L4-L5 Planned for IR guided paracentesis tomorrow to relive abdominal distension if platelet counts are stable and adequate Attestations Medical Necessity Statement*: optimizing pain management, planned for US guided paracentesis Coding Level of Care Code Acute Finishing Supervisor Plastic Sheets for Chg Fwd Diagnoses Odynophagia R13.10 Abdominal pain R10.13 Abdominal location: epigastric Metastatic malignant neoplasm C79.9 Depression F32.9 COPD (chronic obstructive pulmonary disease) J44.9 Anxiety F41.9 Supraclavicular lymphadenopathy R59.0 Ascites R18.8 Mediastinal lymphadenopathy R59.0 Bone metastases C79.51 Liver cirrhosis K74.60 Compression fracture
[2020-06-01] MEDS: sodium chloride 0.9% 1,000 ML 50 ML IV (20:41)
[2020-06-01] MEDS: morphine 4 mg/mL SDV 1 mL 1 MG IVP (20:41)
--- NOTE | 2020-06-01 21:26 | PC.NURSE ---
Spoke with patient's son, Adrian Menon. He has several questions that he would like to discuss with the doctor. He has requested that a doctor call him tomorrow if possible. Patient signed consent to discuss her medical condition with said son. Adrian's phone number is [phone].
[2020-06-02] VITALS (12 sets, daily range): BP systolic 94–121; BP diastolic 62–87; PULSE 85–99; RESP 17–22; TEMP 36.4–36.9; O2SAT 90–96
[2020-06-02] MEDS: morphine 4 mg/mL SDV 1 mL 2 MG IVP ×3 (03:28→15:11)
[2020-06-02 05:25] LABS: Basophils % 0.2 %; Eosinophils # 0.2 10^3/uL (0.0-0.8); Eosinophils % 1.6 %; Hematocrit 31.8 % (37.0-47.0); Hemoglobin 9.8 g/dL (11.5-15.3); Lymphocytes # 1.1 10^3/uL (0.8-4.8); Lymphocytes % 11.6 %; Mean Corpuscular HGB Conc 30.8 g/dL (30.0-36.0); Mean Corpuscular Hemoglobin 27.5 pg (28.0-34.0); Mean Corpuscular Volume 89.1 fL (81-99); Mean Platelet Volume 10.8 fL (7.4-10.4); Monocytes # 0.1 10^3/uL (0.2-0.9); Monocytes % 1.2 %; Neutrophils # 7.94 10^3/uL (1.8-7.7); Neutrophils % 84.5 %; Nucleated Red Blood Cells % 0 %; Platelet Count 298 10^3/cmm (130-400); Red Blood Count 3.57 10^6/uL (4.1-5.3); Red Cell Distribution Width 13.2 % (12.1-15.1); White Blood Count 9.4 10^3/uL (4.0-10.0)
[2020-06-02 05:34] LABS: Alanine Aminotransferase 24 U/L (0-33); Alkaline Phosphatase 188 IU/L (35-105); Aspartate Amino Transferase 78 U/L (0-32); Blood Urea Nitrogen 10 mg/dL (6-20); Calcium 8.1 mg/dL (8.5-10.5); Carbon Dioxide 32 mmol/L (22-29); Chloride 96 mmol/L (98-107); Globulin 2.9 g/dL (1.3-4.6); Glomerular Filtration Rate 102.7 mL/min (90-130); Glucose 134 mg/dL (65-115); Osmolality Calculated 274 mOsm/kg (285-295); Sodium 133 mmol/L (136-145); Total Bilirubin 0.3 mg/dL (0.15-1.2); Total Protein 4.9 g/dL (6.6-8.7)
--- NOTE | 2020-06-02 07:00 | US_ITS ---
WS: [id number] ULTRASOUND-GUIDED THERAPEUTIC PARACENTESIS Procedure, risks, and complications have been explained to the patient. Consent is obtained. Utilizing aseptic technique and 1% buffered lidocaine, a small dermatome was made through which a 5 F rench Yueh catheter was inserted. Approximately 1700 ml of light red peritoneal fluid was obtained wi thout difficulty. No complications encountered. US/US paracentesis abd w [id number] IMPRESSION: Uncomplicated paracentesis yielding 1700 ml of peritoneal fluid.
[2020-06-02] MEDS: pantoprazole DR 40 mg Tablet PO (09:34)
[2020-06-02] MEDS: metoprolol tartrate 25 mg Tablet PO (09:34)
[2020-06-02] MEDS: dronabinol 2.5 mg Capsule PO ×2 (09:34→18:06)
[2020-06-02] MEDS: nicotine 21 mg Patch 1 PATCH TRANSDERMA (09:34)
[2020-06-02] MEDS: LORazepam 2 mg/mL INJ 1 mL 1 MG IVP ×2 (09:35→18:06)
[2020-06-02] MEDS: sucralfate 1 gm Tablet PO ×3 (10:04→18:06)
--- NOTE | 2020-06-02 11:48 | PC.NURSE ---
Nurse notified of pain levels.
[2020-06-02] MEDS: cefTRIAXone 1,000 MG in sodium chloride 0.9% (plus) 50 ML 100 MG IV (14:18)
--- NOTE | 2020-06-02 14:33 | PC.CHAP ---
Pastoral Care Encounter/Spiritual Assessment Type of Contact [] Declined finishing machine tender visit [] Patient/Family/Request visit [] Outpatient visit [] Follow-up visit [] Physician referral [] Code/Alert [] Routine visit [] Staff referral [] Actively dying [x] Patient sleeping [] Family support [] [] Out of room [] Palliative care [] [] Receiving care in room [] Pre-surgical visit [] Trauma [] Long length of stay [] ICU visit [] Other: Relational/Emotional Strength [] Patient feels connected with others/family/visitors/staff [] Distress [] Loneliness/isolation [] Abandonment Spirituality of Patient [] Person of Hilda [] Attends Lutheran of their Hilda [] Believes in Prayer [] Reads Bible or Baptist materials [] There are Spiritual issues to be addressed Comsec Manager Interventions [] Prayer [] Active listening [] Non-anxious presence [] Spiritual/emotional support [] Crisis/trauma care [] Spiritual counseling [] Bereavement support [] Provided bereavement packet [] Provided Bible/devotional materials [] Provided toy/stuffed animal, coloring book to patient or family member [] Provided Communion [] Anointing/[place] [] Salvation [] Completed spiritual assessment [] Other: Impact on Illness or Injury [] Angry [] Fearful [] Anxious [] Often cries [] Exhaustion [] Unable to work [] Unable to attend moravian [] Unable to walk/stand [] Unable to read [] Unable to drive [] Unable to eat/drink [] Unable to sleep [] Unable to be with family [] Patient intubated [] Other: Summary Patient was sleeping at the time of the finishing machine tender visit. Patient appears to be resting comfortably. Patient visit attempted by Comsec Manager Renaldo Luevano. Time spent with patient 3 minutes
[2020-06-02] MEDS: sodium chloride 0.9% 1,000 ML 50 ML IV (15:12)
--- NOTE | 2020-06-02 15:59 | PM.PN ---
Subjective Subjective: Interval history: Continues to be fairly weak. Strength is somewhat improved over yesterday and patient is ambulating from bed to bathroom. Underwent paracentesis this morning with removal of 1.7 L of fluid. Pain is persisting but improving. Leukocytosis has resolved. Overnight had a transient drop in blood pressure to 80 systolic. Medications: Reviewed: Yes Vitals/I&O/Wt Last Vital Signs Temp 98.0 F 06/02/20 15:47 Pulse 92 06/02/20 15:47 Resp 17 06/02/20 15:47 BP 96/62 06/02/20 15:47 Pulse Ox 90 06/02/20 15:47 06/02/20 06/02/20 06/02/20 06:59 14:59 22:59 Intake Total 240 / 1960 1000 / 1000 Output Total 400 / 400 800 / 800 Balance -160 / 1560 200 / 200 Physical Exam Narrative: EXAM NARRATIVE: GEN: Awake, alert and oriented, conversant CVS: S1S2 N RS: CTA B/L Abd: Soft, nt/nd , bs+ ENVIRONMENT COORDINATOR: no focal neuro deficits EXT: malnourished, deconditioned Data : 06/02/20 04:31 06/02/20 04:31 A&P Assessment and plan (1) Odynophagia: Status: Acute (2) Abdominal pain: Will plan for paracentesis once chemo is completed Status: Acute Qualifiers: Abdominal location: epigastric Qualified Code(s): R10.13 - Epigastric pain (3) Metastatic malignant neoplasm: Status: Acute (4) Depression: Status: Acute (5) COPD (chronic obstructive pulmonary disease): Home oxygen assessment. Albuterol as needed. Resume inhalers. Status: Acute (6) Anxiety: Status: Acute (7) Supraclavicular lymphadenopathy: Status: Acute (8) Ascites: Status: Acute (9) Mediastinal lymphadenopathy: Status: Acute (10) Bone metastases: Status: Acute (11) Liver cirrhosis: Status: Acute (12) Compression fracture: Status: Acute Additional A&P Information Ms. Menon is a 60-year-old lady was recently discovered to have widely spread metastatic disease thought to be secondary to a gastric primary after presenting with worsening dysphagia and odynophagia for 4 weeks and admitted on 05/22/2020. This is a new diagnosis for her after undergoing endoscopy on May 24. Biopsy returned with gastric adenocarcinoma. #Widely metastatic gastric cancer. -Underwent EGD on May 24, findings with malignant mass at gastric cardia. No evidence of active bleeding at the time of scope. Subsequently biopsy returned with gastric adenocarcinoma. -She was seen by oncology during the current admission and it was decided to start her on chemotherapy with oxaliplatin and leucovorin after placement of a Port-A-Cath in the right subclavian on May 26. -She received therapy starting on 05/29 over the next 46 hours. -Course notable for intense nausea and pain now this is improved with ativan and morphine. Patient is currently comfortable on exam today. Currently tolerating p.o. intake with a full liquid diet. Will advance her diet today to GI soft and then to regular if she is able to tolerate. - Alternative feeding options if she were not to tolerate oral diet or hydration, including TPN, PEG tube versus gastrostomy. Unfortunately none of these options are ideal as with gastrostomy or PEG tube difficulty may be secondary to omental caking, mesenteric and peritoneal carcinomatosis, as well as ascites which may complicate. #Gross abdominal ascites: Underwent paracentesis on May 26 initially with fluid RBC 128, WBC 795, predominant mononuclear infiltrate. Subsequently cytology returned with atypical cells. Most likely to be related to malignancy. She has subsequently had an additional paracentesis today with removal of 1.6 L of fluid. This does seem to help with her pain somewhat. Added empiric ceftriaxone additionally due to her rising white blood cell count, resolved after starting empiric therapy. #Malnourished and deconditioned as a result of advanced #Intractable pain due to metastatic gastric cancer #Past history of hepatitis C with liver cirrhosis. #History of COPD: Continue inhalers and supplemental O2 as needed #Past history of coronary artery disease and CABG: Continue aspirin, added metoprolol 25 mg p.o. twice daily for tachycardia. Last echo from December 2017 with LVEF 65%, no WMA. 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, not currently an active issue Attestations Medical Necessity Statement*: Patient is currently significantly malnourished and deconditioned, we will attempt to advance her diet today, pain is still suboptimally controlled, plan to switch IV opiates to p.o., discharge in the upcoming 24 to 48 hours Coding Level of Care Code Acute Quality Process Auditor for Chg Fwd Diagnoses Odynophagia R13.10 Abdominal pain R10.13 Abdominal location: epigastric Metastatic malignant neoplasm C79.9 Depression F32.9 COPD (chronic obstructive pulmonary disease) J44.9 Anxiety F41.9 Supraclavicular lymphadenopathy R59.0 Ascites R18.8 Mediastinal lymphadenopathy R59.0 Bone metastases C79.51 Liver cirrhosis K74.60 Compression fracture
[2020-06-03] VITALS (14 sets, daily range): BP systolic 100–144; BP diastolic 66–86; PULSE 83–96; RESP 16–24; TEMP 36.4–36.7; O2SAT 93–96
[2020-06-03] MEDS: morphine 4 mg/mL SDV 1 mL 2 MG IVP ×4 (00:21→13:29)
[2020-06-03] MEDS: metoprolol tartrate 25 mg Tablet PO ×2 (08:48→17:03)
[2020-06-03] MEDS: sucralfate 1 gm Tablet PO ×3 (08:48→17:03)
[2020-06-03] MEDS: dronabinol 2.5 mg Capsule PO (08:48)
[2020-06-03] MEDS: nicotine 21 mg Patch 1 PATCH TRANSDERMA (08:49)
[2020-06-03] MEDS: pantoprazole DR 40 mg Tablet PO (08:49)
[2020-06-03] MEDS: LORazepam 2 mg/mL INJ 1 mL 1 MG IVP (09:22)
[2020-06-03] MEDS: sodium chloride 0.9% 1,000 ML 50 ML IV (12:01)
[2020-06-03] MEDS: cefTRIAXone 1,000 MG in sodium chloride 0.9% (plus) 50 ML 100 MG IV (12:01)
--- NOTE | 2020-06-03 15:40 | PM.PN ---
Subjective Subjective: Interval history: BP better today. Patient still complaining of pain, remains in bed most of the day. Did not participate much with PT as she felt exhausted. moved from bed to bedside. Previously she was able to ambulate to the bathroom independently. 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 Albuterol as needed. Resume inhalers. Status: Acute (6) Anxiety: Status: Acute (7) Supraclavicular lymphadenopathy: Status: Acute (8) Ascites: Status: Acute (9) Mediastinal lymphadenopathy: Status: Acute (10) Bone metastases: Status: Acute (11) Liver cirrhosis: Status: Acute (12) Compression fracture: Status: Acute Additional A&P Information Ms. Menon is a 60-year-old lady was recently discovered to have widely spread metastatic disease thought to be secondary to a gastric primary after presenting with worsening dysphagia and odynophagia for 4 weeks and admitted on 05/22/2020. This is a new diagnosis for her after undergoing endoscopy on May 24. Biopsy returned with gastric adenocarcinoma. #Widely metastatic gastric cancer. -Underwent EGD on May 24, findings with malignant mass at gastric cardia. No evidence of active bleeding at the time of scope. Subsequently biopsy returned with gastric adenocarcinoma. -She was seen by oncology during the current admission and it was decided to start her on chemotherapy with oxaliplatin and leucovorin after placement of a Port-A-Cath in the right subclavian on May 26. -She received therapy starting on 05/29 over the next 46 hours. -Course notable for intense nausea and pain now this is improved with ativan and morphine. Hospital course has been notable for tense deconditioning and generalized weakness. -Not taking much p.o. intake today. Only drinking some smoothies and Ensure at this time. Encouraged to continue try to advance to GI soft diet - Alternative feeding options if she were not to tolerate oral diet or hydration, including TPN, PEG tube versus gastrostomy. Unfortunately none of these options are ideal as with gastrostomy or PEG tube difficulty may be secondary to omental caking, mesenteric and peritoneal carcinomatosis, as well as ascites which may complicate. #Gross abdominal ascites: Underwent paracentesis on May 26 initially with fluid RBC 128, WBC 795, predominant mononuclear infiltrate. Subsequently cytology returned with atypical cells. Most likely to be related to malignancy. She has subsequently had an additional paracentesis on June 02 with removal of 1.6 L of fluid. This does seem to help with her pain somewhat. Added empiric ceftriaxone additionally due to her rising white blood cell count, resolved after starting empiric therapy. #Malnourished and deconditioned as a result of advanced malignancy. Exercise tolerance has been reduced gradually during the course of admission did not participate with PT much today. #Intractable pain due to metastatic gastric cancer #Past history of hepatitis C with liver cirrhosis. #History of COPD: Continue inhalers and supplemental O2 as needed #Past history of coronary artery disease and CABG: Continue aspirin, added metoprolol 25 mg p.o. twice daily for tachycardia. Last echo from December 2017 with LVEF 65%, no WMA. 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 Home health services have been arranged to help as much as possible. Attestations Medical Necessity Statement*: Started chemo this admission, severe deconditioning and weakness thereafter. Encouraged to continue participating with PT, plan discharge in the upcoming 24 to 48 hours. Coding Level of Care Code Acute Retail Personal Banker for Chg Fwd Diagnoses Odynophagia R13.10 Abdominal pain R10.13 Abdominal location: epigastric Metastatic malignant neoplasm C79.9 Depression F32.9 COPD (chronic obstructive pulmonary disease) J44.9 Anxiety F41.9 Supraclavicular lymphadenopathy R59.0 Ascites R18.8 Mediastinal lymphadenopathy R59.0 Bone metastases C79.51 Liver cirrhosis K74.60 Compression fracture
[2020-06-03] MEDS: HYDROcodone-acetaminophen 10-325 mg Tablet 1 TAB PO (17:03)
--- NOTE | 2020-06-03 18:17 | PC.NURSE ---
shift summary patient has required pain medication all day, she has not ate or drink much of anything today, she has gotten up to the bathroom at least 3 times today, she refuses to keep a hat in the toilet for measuring. fiction and nonfiction prose writer has offered many food and drink items pt has refused. c/o tummy pain . she says it feels like a stabbing and cramping. therapy tried to encouraged her to be up in chair. patient has been in bed all day.
[2020-06-03] MEDS: morphine IR 15 mg Tablet PO (20:00)
[2020-06-03] MEDS: LORazepam 2 mg/mL INJ 1 mL 0.5 MG IVP (23:20)
--- NOTE | 2020-06-03 23:28 | PC.NURSE ---
Patient had a few beats of V Tach at 2317. Patient is Asymptomatic and states she feels okay other than the pain in her abdomen. Copy of strip is in patients chart. Will continue to monitor.
[2020-06-04] VITALS (14 sets, daily range): BP systolic 97–125; BP diastolic 61–78; PULSE 66–86; RESP 15–93; TEMP 36.5–37.3; O2SAT 88–96
--- NOTE | 2020-06-04 01:20 | PC.NURSE ---
This nurse administered prescribed dose of Morphine 15mg 1Tab PO Q6 PRN at 20:00 on 06/03/2020. Medication was pulled from [facility] at 1950 and taken directly to patient room to be administered. Patient' son, Guzman Lisa, was present at the time patient received morphine. Medication was scanned and administered to patient. Medication scan did not save to the mar.
[2020-06-04] MEDS: morphine IR 15 mg Tablet PO ×4 (02:45→21:06)
[2020-06-04 04:25] LABS: Basophils % 0.6 %; Eosinophils # 0.5 10^3/uL (0.0-0.8); Eosinophils % 6.5 %; Hematocrit 30.4 % (37.0-47.0); Hemoglobin 9.4 g/dL (11.5-15.3); Lymphocytes # 1.6 10^3/uL (0.8-4.8); Mean Corpuscular HGB Conc 30.9 g/dL (30.0-36.0); Mean Corpuscular Hemoglobin 27.1 pg (28.0-34.0); Mean Corpuscular Volume 87.6 fL (81-99); Mean Platelet Volume 10.5 fL (7.4-10.4); Monocytes # 0.1 10^3/uL (0.2-0.9); Monocytes % 1.9 %; Neutrophils # 4.72 10^3/uL (1.8-7.7); Neutrophils % 67.6 %; Nucleated Red Blood Cells % 0 %; Platelet Count 328 10^3/cmm (130-400); Red Blood Count 3.47 10^6/uL (4.1-5.3); Red Cell Distribution Width 13.1 % (12.1-15.1)
[2020-06-04 04:48] LABS: Alanine Aminotransferase 13 U/L (0-33); Albumin Level 2.7 g/dL (3.5-5.2); Alkaline Phosphatase 146 IU/L (35-105); Anion Gap 10.8 (5-19); Aspartate Amino Transferase 37 U/L (0-32); Blood Urea Nitrogen 4 mg/dL (6-20); Calcium 8.3 mg/dL (8.5-10.5); Carbon Dioxide 29 mmol/L (22-29); Chloride 103 mmol/L (98-107); Globulin 2.4 g/dL (1.3-4.6); Glomerular Filtration Rate 126.7 mL/min (90-130); Glucose 90 mg/dL (65-115); Osmolality Calculated 283 mOsm/kg (285-295); Potassium 3.8 mmol/L (3.5-5.1); Sodium 139 mmol/L (136-145); Total Bilirubin 0.2 mg/dL (0.15-1.2); Total Protein 5.1 g/dL (6.6-8.7)
[2020-06-04] MEDS: sucralfate 1 gm Tablet PO ×3 (08:45→16:07)
[2020-06-04] MEDS: metoprolol tartrate 25 mg Tablet PO ×2 (08:45→16:06)
[2020-06-04] MEDS: sodium chloride 0.9% 1,000 ML 50 ML IV (08:46)
[2020-06-04] MEDS: pantoprazole DR 40 mg Tablet PO (08:46)
[2020-06-04] MEDS: nicotine 21 mg Patch 1 PATCH TRANSDERMA (08:46)
[2020-06-04] MEDS: cefTRIAXone 1,000 MG in sodium chloride 0.9% (plus) 50 ML 100 MG IV (12:02)
--- NOTE | 2020-06-04 14:31 | P.DS_ITS ---
Discharge Providers Date of Admission: 05/22/20 20:31 Date of Discharge: June 04, 2020 Attending Provider at Admission: Paula Kahn MD Attending Provider at Discharge: Monica Warner MD Primary Care Provider: Aury Carlos MD Diagnoses at Discharge Discharge Diagnosis (1) Odynophagia: Status: Acute (2) Abdominal pain: Status: Acute Qualifiers: Abdominal location: epigastric Qualified Code(s): R10.13 - Epigastric pain (3) Metastatic malignant neoplasm: Status: Acute (4) Depression: Status: Acute (5) COPD (chronic obstructive pulmonary disease): Status: Acute (6) Anxiety: Status: Acute (7) Supraclavicular lymphadenopathy: Status: Acute (8) Ascites: Status: Acute (9) Mediastinal lymphadenopathy: Status: Acute (10) Bone metastases: Status: Acute (11) Liver cirrhosis: Status: Acute (12) Compression fracture: Status: Acute Reason for Visit Reason for Visit: ODYNOPHAGIA ABDOMINAL PAIN Hospital Course Discharge Summary: Ms. Menon is a 60-year-old lady was recently discovered to have widely spread metastatic disease thought to be secondary to a gastric primary after presenting with worsening dysphagia and odynophagia for 4 weeks and admitted on 05/22/2020. This is a new diagnosis for her after undergoing endoscopy on May 24. Biopsy returned with gastric adenocarcinoma. Details of admission/hospital course as below. Hospital course has been marked for initiation of chemo, paracentesisdifficult to control pain and significant deconditining. On day of discharge, she is starting to feel improved, ambulating short distance within the room, has a returning appetite, wishes to eat regular food. #Widely metastatic gastric cancer. -Underwent EGD on May 24, findings with malignant mass at gastric cardia. No evidence of active bleeding at the time of scope. Subsequently biopsy returned with gastric adenocarcinoma. -She was seen by oncology during the current admission and it was decided to start her on chemotherapy with oxaliplatin and leucovorin after placement of a Port-A-Cath in the right subclavian on May 26. -She received chemotherapy starting on 05/29 over the next 46 hours. -Course notable for intense nausea and pain now this is improved with ativan and morphine. Hospital course has been notable for deconditioning and generalized weakness. -Not taking much p.o. intake, however now reports improvin appetite, eating regular diet since overnight #Gross abdominal ascites: Underwent paracentesis on May 26 initially with fluid RBC 128, WBC 795, predominant mononuclear infiltrate. Subsequently cytology returned with atypical cells. Most likely to be related to malignancy. She has subsequently had an additional paracentesis on June 02 with removal of 1.6 L of fluid. This does seem to help with her pain somewhat. Added empiric ceftriaxone additionally due to her rising white blood cell count, resolved after starting empiric therapy. Stopping at day 5 today. #Malnourished and deconditioned as a result of advanced malignancy. Exercise tolerance has been reduced gradually during the course of admission #Intractable pain due to metastatic gastric cancer, will be discharged on oral morphine and ativan, referral to pain management clinic as outpatient #Past history of hepatitis C with liver cirrhosis. #History of COPD: Continue inhalers and supplemental O2 as needed. Home 02 eval done #Past history of coronary artery disease and CABG: Continue aspirin, added metoprolol 25 mg p.o. twice daily for tachycardia. Last echo from December 2017 with LVEF 65%, no WMA. 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 Home health services have been arranged to help as much as possible. Physical Exam Narrative: EXAM NARRATIVE: GEN: Awake, alert and oriented, no acute distress CVS: S1S2 N RS: CTA B/L Abd: Soft, distended, non tende, BS+ [employer] SAL[employer] SERV[employer] OFFICER: no focal neuro deficits Discharge Data Data Completed and Pending: Completed Studies During Hospitalization Category Date Time Status CT chest abd pel w con* Urgent Cat Scan 05/22/20 16:39 Completed XR chest 1V lora ble [id number] Routine Exams 05/26/20 Completed XR chest 1V lora ble [id number] Stat Exams 05/22/20 16:40 Completed XR chest 1V lora ble [id number] Stat Exams 05/27/20 12:38 Completed Pathology: Surgic al [PTH] Routine Pth 05/24/20 06:49 Com[place] abdomen limite d [id number] Routine Ultrasound 05/26/20 14:26 [place] [id number] Routine Ultrasound 06/01/20 [place] w [id number] Routine Ultrasound 05/26/20 15:43 [place] w [id number] Routine Ultrasound 06/02/20 07:00 Completed Labs from last 24 hours 06/04/20 06/04/20 03:37 03:37 WBC 7.0 RBC 3.47 L Hgb 9.4 L Hct 30.4 L MCV 87.6 MCH 27.1 L MCHC 30.9 RDW 13.1 Plt Count 328 MPV 10.5 H Neut % (Auto) 67.6 Lymph % (Auto) 23.0 [place] % (Auto) 1.9 Eos % (Auto) 6.5 Baso % (Auto) 0.6 Neut # (Auto) 4.72 Lymph # (Auto) 1.6 [place] # (Auto) 0.1 L Eos # (Auto) 0.5 Baso # (Auto) 0.0 Nucleated RBC % (a uto) 0 Nucleated RBCs # 0.0 Sodium 139 Potassium 3.8 Chloride 103 Carbon Dioxide 29 Anion Gap 10.8 BUN 4 L Creatinine 0.5 GFR Calculation 126.7 Glucose 90 Calculated Osmolal ity 283 L Calcium 8.3 L Total Bilirubin 0.2 AST 37 H ALT 13 Alkaline Phosphata se 146 H Total Protein 5.1 L Albumin 2.7 L Globulin 2.4 Vitals: Last Vital Signs Temp 97.9 F 06/04/20 12:00 Pulse 66 06/04/20 12:00 Resp 16 06/04/20 12:00 BP 101/68 06/04/20 12:00 Pulse Ox 94 06/04/20 12:00 Discharge Plan Discharge Patient Disposition: Home Health Service Condition: Stable Prescriptions: New dronabinol 2.5 mg Capsule 2.5 mg PO BIDAC Qty: 60 RF: 0 morphine 20 mg/5 mL (4 mg/mL) solution 20 mg PO Q6H PRN (Reason: pain) Qty: 100 RF: 0 Ativan 0.5 mg tablet 0.25 mg PO Q8H PRN (Reason: anxiety) 7 Days Qty: 20 RF: 0 Lidocaine Viscous 2 % Solution 5 ml PO TIDAC 15 Days Qty: 15 RF: 0 nicotine 21 mg/24 hr Patch 24 Hour 1 patch transdermal DAILY Qty: 30 RF: 0 Narcan 4 mg/actuation spray,non-aerosol 4 mg INTRANASAL Q2M PRN (Reason: opioid overdose) Qty: 2 RF: 0 Isopto Tears 0.5 % Drops 1 drp eye-both Q4H PRN (Reason: Dry Eye(S)) Qty: 0 RF: 0 metoprolol tartrate 25 mg Tablet 25 mg PO BID 30 Days Qty: 60 RF: 0 Continued omeprazole magnesium [Prilosec OTC] 20 mg tablet,delayed release (DR/EC) 20 mg PO BID Qty: 60 RF: 1 sucralfate [Carafate] 1 gram tablet 1 gm PO TID Qty: 90 RF: 2 albuterol sulfate [Ventolin HFA] 90 mcg/actuation HFA aerosol inhaler 2 puff INHALATION QID PRN (Reason: shortness of breath or wheezing) Qty: 8.5 RF: 3 albuterol sulfate 2.5 mg /3 mL (0.083 %) solution for nebulization 2.5 mg INHALATION QID PRN (Reason: bronchospasm) Qty: 90 RF: 4 Spiriva with HandiHaler 18 mcg capsule, w/inhalation device 1 cap INHALATION DAILY Qty: 30 RF: 6 bisacodyl [Dulcolax (bisacodyl)] 10 mg suppository 10 mg MA DAILY PRN (Reason: constipation) Qty: 12 RF: 1 promethazine 25 mg tablet 25 mg PO TID PRN (Reason: nausea and vomiting) Qty: 30 RF: 0 hyoscyamine sulfate [Anaspaz] 0.125 mg tablet,disintegrating 0.125 mg PO QID Qty: 30 RF: 0 Multiple Vitamins Tablet 1 tab PO DAILY RF: 0 Aspir-81 81 mg Tablet,Delayed Release (Dr/Ec) 81 mg PO DAILY RF: 0 Vitamin C 1 tab PO DAILY RF: 0 zinc 1 tab PO DAILY RF: 0 Zofran 8 mg tablet 8 mg PO Q8H PRN (Reason: Nausea) RF: 0 Discharge Orders: Discharge Order (Routine); Ordered 06/04/20 Ordered By: Monica Warner Referrals: [facility] [Other] [facility] [Provider Group] - 1 week (Depression) Helder Yun MD [Hospitalist] - 4-7 days Aury Carlos MD [Primary Care Provider] - 4-7 days Discharge Diet: Advance as tolerated and Full LIquid Discharge Activity: Increase activity as tolerated and Oxygen as instructed Patient Instructions: GI Discharge Instructions Activity Restrictions/Additional Instructions: Continue full liquid diet, take smaller meals, spaced out through the day. Viscous lidocaine as prescribed to numb the pain with swallowing if needed. If pain improves may discontinue this medication. Dronabinol (Marinol) is prescribed to help with her appetite. Please be cautious with pain medications and anxiety medications as they may lead to change in mental status, sleepiness, and some severe cases lethargy, respiratory suppression which may be life-threatening. Naloxone prescription w as given which may be given by a family member in case of breathing suppression caused from toxicity of opioid. Please follow-up with behavioral health care providers regarding depression. If you feel your depression is worsening or you have any thoughts of harming yourself or suicide, please seek medical attention immediately. If you experience any fevers, more severe abdominal pain, inability to tolerate any food or drink at all, fever, worsening abdominal distention, or any other abnormal symptoms, please seek medical attention without delay. Discharge Attestations Time Spent in Discharge Care*: greater than 30 min Quality Metrics Clinical Quality Measures During this hospital stay, did patient experience: None Coding Level of Care Code Acute Case Briefer for Chg Fwd Diagnoses Odynophagia R13.10 Abdominal pain R10.13 Abdominal location: epigastric Metastatic malignant neoplasm C79.9 Depression F32.9 COPD (chronic obstructive pulmonary disease) J44.9 Anxiety F41.9 Supraclavicular lymphadenopathy R59.0 Ascites R18.8 Mediastinal lymphadenopathy R59.0 Bone metastases C79.51 Liver cirrhosis K74.60 Compression fracture
--- NOTE | 2020-06-04 21:37 | PC.NURSE ---
Patient portable O2 was not delivered this evening [facility]. Patient was given a trial of being off the O@ in room while up and patient did well with saturation staying 95% or above. See Charge Nurse for more details.
--- NOTE | 2020-06-04 21:39 | PC.NURSE ---
Patient Discharge Patient discharge out ER by [facility], with DC paperwork, by HOME HEALTH PHYSICAL THERAPIST with all belongings. Patient did not have portable O2 but was offered the choice to stay tonight and wait until tomorrow after the O2 was delivered. The patient decided to leave tonight with her son and go home. Patient does have O2 at home. See charge nurse note
--- NOTE | 2020-06-04 23:29 | PC.NURSE ---
Addendum entered by Chioma Krishna RN 06/04/20 23:36: I called [employer] back & he said his boss says they need an ABG before he can bring the portable. I told Koko this was unacceptable, the patient has been waiting on her portable O2 since 5pm & she just wants to go home. He said he would contact someone to bring it in the morning. Original Note: At 1999 I called [facility] to check on Patients portable oxygen. I spoke to Koko who said he would call the person I need to talk to & they will call me back shortly. I then received a call from [facility] who said Mrs Menon was not a patient of theirs. I then called Koko back
--- NOTE | 2020-06-06 14:15 | PC.SOCIAL ---
Call placed to [facility] and was told for [facility] for any home system or portable O2 ordered requires an ABG. If overnight only requires overnight pulse ox. Will update CM staff regarding these guidelines. [facility] rep will call Dr Carlos to see if an order for ABG can be given since patient is wanting the portable still. This nurse has called to update patient.
== END 2020-06-04 21:40 | disposition home health service (06) | DRG 543 ==
LOC: ER 16:27 → MEDSURG 20:43
PROVIDERS: Emergency Medicine; Internal Medicine; Physician Assistant; Surgery; Admitting Provider Internal Medicine; Family Provider Family Medicine; PCP Family Medicine; Visit Provider Student in an Organized Health Care Education/Training Program
PROC: 0DJ08ZZ Inspection of Upper Intestinal Tract, Via Natural or Artificial Opening Endoscopic (ICD-10-PCS; CPT 43235; principal; 2020-05-24 06:30)
PROC: 0JH63WZ Insertion of Totally Implantable Vascular Access Device into Chest Subcutaneous Tissue and Fascia, Percutaneous Approach (ICD-10-PCS; principal; 2020-05-26 08:10)
DX: C79.51 Secondary malignant neoplasm of bone (principal); M48.56XA Collapsed vertebra, not elsewhere classified, lumbar region, initial encounter for fracture; C78.6 Secondary malignant neoplasm of retroperitoneum and peritoneum; C16.0 Malignant neoplasm of cardia; J44.9 Chronic obstructive pulmonary disease, unspecified; R13.10 Dysphagia, unspecified; F41.8 Other specified anxiety disorders; R59.0 Localized enlarged lymph nodes; K74.60 Unspecified cirrhosis of liver; D49.0 Neoplasm of unspecified behavior of digestive system; I25.10 Atherosclerotic heart disease of native coronary artery without angina pectoris; Z95.1 Presence of aortocoronary bypass graft; Z79.82 Long term (current) use of aspirin; Z86.14 Personal history of Methicillin resistant Staphylococcus aureus infection; I27.20 Pulmonary hypertension, unspecified; I35.0 Nonrheumatic aortic (valve) stenosis; G47.33 Obstructive sleep apnea (adult) (pediatric); F17.210 Nicotine dependence, cigarettes, uncomplicated
CPT/HCPCS: 12345; 36415; 36591; 43239; 49083; 71045; 71260; 74177; 76705; 77001; 80053; 80307; 80500; 81003; 82042; 82140; 82378; 83605; 83690; 84484; 85025; 85049; 85384; 85610; 85730; 86304; 87040; 87070; 87075; 87205; 88305; 89050; 93005; 94640; 96365; 96367; 96368; 96372; 96375; 96413; 96415; 97161; 97530; 99283; C1788; C9113; J0640; J0690; J0696; J1100; J1170; J1642; J1644; J2060; J2270; J2405; J2469; J2704; J3010; J3490; J3535; J7030; J7050; J7611; J9190; J9263; P9047; Q0167; Q9967

== ENCOUNTER 2020-06-12 11:30 | Outpatient (CLI) | payer MEDICAID, SELFPAY ==
[2020-06-12] MEDS: sodium chloride 0.9% 1,000 ML 999 ML IV (13:46)
[2020-06-12 13:53] LABS: Alanine Aminotransferase 11 U/L (0-33); Albumin Level 3.7 g/dL (3.5-5.2); Alkaline Phosphatase 268 IU/L (35-105); Anion Gap 15.8 (5-19); Aspartate Amino Transferase 34 U/L (0-32); Blood Urea Nitrogen 5 mg/dL (6-20); Calcium 8.9 mg/dL (8.5-10.5); Carbon Dioxide 27 mmol/L (22-29); Chloride 98 mmol/L (98-107); Globulin 3.4 g/dL (1.3-4.6); Glomerular Filtration Rate 126.7 mL/min (90-130); Glucose 125 mg/dL (65-115); Osmolality Calculated 281 mOsm/kg (285-295); Potassium 3.8 mmol/L (3.5-5.1); Sodium 137 mmol/L (136-145); Total Bilirubin 0.3 mg/dL (0.15-1.2); Total Protein 7.1 g/dL (6.6-8.7)
[2020-06-12 13:54] LABS: Basophils # 0.1 10^3/uL (0.0-0.1); Basophils % 0.9 %; Eosinophils # 0.2 10^3/uL (0.0-0.8); Eosinophils % 3.8 %; Hematocrit 32.9 % (37.0-47.0); Hemoglobin 10.1 g/dL (11.5-15.3); Lymphocytes # 1.7 10^3/uL (0.8-4.8); Lymphocytes % 28.6 %; Mean Corpuscular HGB Conc 30.7 g/dL (30.0-36.0); Mean Corpuscular Hemoglobin 27.6 pg (28.0-34.0); Mean Corpuscular Volume 89.9 fL (81-99); Monocytes # 0.8 10^3/uL (0.2-0.9); Monocytes % 13.9 %; Neutrophils # 3.02 10^3/uL (1.8-7.7); Neutrophils % 52.5 %; Nucleated Red Blood Cells % 0 %; Platelet Count 431 10^3/cmm (130-400); Red Blood Count 3.66 10^6/uL (4.1-5.3); White Blood Count 5.8 10^3/uL (4.0-10.0)
[2020-06-12 14:50] VITALS: RESP 19; O2SAT 98
[2020-06-12] MEDS: morphine 4 mg/mL SDV 1 mL IV (14:50)
[2020-06-12 15:24] VITALS: RESP 18; O2SAT 97
[2020-06-12] MEDS: morphine 4 mg/mL SDV 1 mL SUBCUT (15:24)
[2020-06-12 23:27] LABS: INR 1.08 (0.8-1.2)
--- NOTE | 2020-06-18 13:37 | ONC FU_ITS ---
[facility] Patient Note Patient: Sarahi Menon Unit #: [id number]: 1960 Dictated By: Alina TaylorDate of Visit: Jun 12, 2020 Onc MED Follow-Up/Prog Note Chief Complaint: Gastric Cancer-metastatic History of Present Illness: Ms. Menon is a 60-year-old female who presented to [facility] on May 22, 2020 after a 4-week history of worsening dysphagia and odynophagia. Prior to her admission she had been unable to hold down any liquid or solid intake. She also developed abdominal swelling/bloating and had reported a weight loss of 20 pounds. Her work-up CT of the chest abdomen pelvis showed interval development of left supraclavicular adenopathy measuring at least 2.7 x 2.7 x 3.7 cm and enlarged supraclavicular lymph nodes largest measuring 3.0 x 2.1 cm. Also noted was less prominent left axillary and AP window adenopathy with an additional enlarged lymph node posterior to the left main bronchus. The liver showed mild cirrhosis as well as multiple metastatic lesions the largest measuring 4.2 x 4.6 x 4.4 cm. There was suspected right adrenal metastasis. There was masslike appearance along the wall of the lesser curvature of the stomach superiorly to the level of the GE junction. Findings were concerning for possible gastric neoplasm versus invasion of the stomach wall from lymphadenopathy in the lesser sac. It measured 5.9 x 4.4 x 3.3 cm. An enlarged lora hepatus lymph node measured 1.4 x 3.3 cm there was additional enlarged retroperitoneal lymph nodes. There was interval development of thickening at the peritoneal lining with extensive omental caking in the anterior abdomen suspicious for metastatic deposits. There was interval development of a large volume of ascites. There was new, age indeterminate compression deformity at L4 and worsening of L5 compression deformity. She was seen as an inpatient by Dr. Yun and an EGD was recommended. There was no evidence for esophageal obstruction and no indication for stenting a trial of chemotherapy or symptomatic/supportive care could be pursued. Her overall prognosis was determined to be poor. Ms. Menon underwent EGD on 05/24/2020. These findings were consistent with a malignant mass at the gastric cardia. There was no active bleeding at the time of the scope. The biopsy returned with gastric adenocarcinoma. She did have a Port-A-Cath placement in the right subclavian on May 26, 2020 and chemotherapy with FOLFOX began on 05/29/2020. She had significant problems with us abdominal ascites and underwent paracentesis on May 26, 2021 and again on June 02 with the removal of 1.7 L of fluid. Ms. Menon is here today for follow-up. She was discharged from [facility] on 06/04/2020. She has had slow recovery. A marginal performance status. She states she feels like she needs a paracentesis again. She has a poor appetite. She is agreeable to appetite stimulant at this time. We will see if we can get Marinol covered for her. She states she feels she needs a paracentesis because she is been having some stomach pain in her stomach off and on. States this happened before and was relieved with the paracentesis. She denies any fever or chills. She denies mouth sores, sore throat or difficulty swallowing. She does not recall if she had any cold-induced peripheral neuropathy after the chemotherapy but denies having any at present. She states her bowels are but she is not eating a lot right now. She does not feel constipated. She denies diarrhea. She states her breathing is about the same. She denies any new pain. Her ECOG is 2. She is having what sounds to be like symptoms of gastritis as well. Past Medical History: Chronic obstructive pulmonary disease Coronary artery disease Depression Endocarditis Gastroesophageal reflux disease Hepatitis C MRSA bactermia HECTOR-obstructive sleep apnea Pulmonary HTN Sacral osteomyelitis Past Surgical History: Appendectomy Foot surgery Heart surgery at age 6 Tonsillectomy Right subclavian Port-A-Cath per Dr. Walters/[facility] in 2019 Allergies: Bextra and codeine. Medications: LORazepam 0.5 - 1 Tablet (of 1 mg) Oral t.i.d. PRN Metoprolol Tartrate 1 Tablet (of 25 mg) Oral b.i.d. Morphine Sulfate 5 mL (of 20 mg/5mL) Solution Oral q 6 hours PRN Nicotine 1 Patch(es) (of 21-14-7 mg/24hr) Kit Transdermal daily Prochlorperazine Maleate 1 Tablet (of 10 mg) Oral q 4 hours PRN Family History: Social History: Ms. Menon is legally . Ms. Menon no longer smokes. She is a former drinker. currently trying to quit smoking. Pt states she was a habitual drinker 11-12 years ago. Review Of Symptoms: Constitutional Denies fevers, chills, night sweats. Tired and poor appetite. Allergic/Immunologic No reactions. Eyes Denies significant visual changes. No diplopia. No amaurosis. ENMT Denies changes in hearing, sore throat, mouth sores, difficulty or changes in swallowing ability, and/or sinus drainage. Hematologic/Lymphatic Denies easy bruising or bleeding. The patient denies any tender or palpable lymph nodes. Respiratory Denies new or worsening dyspnea on exertion, chest pain, cough or hemoptysis. Denies orthopnea. Cardiovascular Denies anginal chest pain, palpitations or orthopnea. Gastrointestinal Denies worsening nausea, vomiting, diarrhea, GI bleeding, or constipation. Denies change in bowel habits and/or stool color, no heartburn or early satiety. Nausea controlled at present. Genitourinary (F) No hematuria, hesitancy, incontinence, vaginal bleeding, discharge or other problems with urination. Musculoskeletal Denies joint pain, swelling or redness. No decreased range of motion. Integumentary Denies chronic rashes, inflammation, ulcerations or skin changes. Neurologic Denies headache, blurred vision, and no areas of focal weakness or numbness. Normal gait. No sensory problems. Psychiatric Denies insomnia, depression, zenon or mood swings. Vital Signs: Performed on Jun 12, 2020 11:41 Height - 63.00 in Weight - 135.0 lbs (LOW) BSA - 1.64 sq.m BMI - 23.91 Temperature - 98.5 F Pulse - 109 /min (HIGH) Respiration - 18 /min BP - 124/83 mm(hg) O2 Sat - 94 % (LOW) Pain - 7,2 - Ambulatory/capable of all self-care, unable to perform any work activities. Up and about more than 50% of waking hours. (ECOG) Physical Examination: Constitutional Alert, oriented, no acute distress. Skin pink, warm and dry. Obviously does not feel well Head Normocephalic; atraumatic. Eyes Conjunctivae and sclerae are clear and without icterus. Pupils are reactive and equal. ENMT No oral exudates, ulcers, masses, thrush or mucositis. Oropharynx clear. Tongue normal. Neck Supple without masses or thyromegaly. No jugular venous distension. Hematologic/Lymphatic No petechiae or purpura. No tender or palpable lymph nodes in the cervical or supraclavicular areas. Respiratory Lungs are clear to auscultation without rhonchi or wheezing. Cardiovascular Regular rate and rhythm of heart without murmurs,clicks, gallops or rubs. Chest Chest is symmetric without chest wall deformities. Right side port a cath insertion site healing well. Abdomen Non-tender, non-distended, no masses. Good bowel sounds noted in all quads. No guarding or rebound tenderness. No pulsatile masses. Appears to have moderate ascites. Back/Spine Non-tender to palpation. Extremities No visible deformities, no cyanosis, clubbing or edema. Musculoskeletal No tenderness or swelling, normal range of motion without obvious weakness. Integumentary No rashes or lesions. Neurologic No sensory or motor deficits, normal cerebellar function, normal gait. Psychiatric Alert and oriented times three. Coherent speech. Verbalizes understanding of our discussions today. Laboratory:Test performed on Jun 12, 2020 12:43 Magnesium 2.0 mg/dL Sodium 137 mmol/L Potassium 3.8 mmol/L Chloride 98 mmol/L CO2 27 mmol/L Anion Gap 15.8 BUN 5 mg/dL Creatinine 0.5 mg/dL Cr Clearance (Est) 129.9800 mL/min eGFR 126.7 mL/min Glucose 125 mg/dL Calcium 8.9 mg/dL Osmolality - Calculated 281 mOsm/kg Protein, Total 7.1 g/dL Albumin 3.7 g/dL Globulin 3.4 g/dL Bilirubin, Total 0.3 mg/dL ALT (SGPT) 11 U/L AST (SGOT) 34 U/L Alkaline Phosphatase 268 IU/L PT 14.20 SECONDS WBC 5.8 10 3/uL INR 1.08 RBC 3.66 10 6/uL HGB 10.1 g/dL HCT 32.9 % MCV 89.9 fL MCH 27.6 pg MCHC 30.7 g/dL RDW 14.0 % Platelet Count 431 10 3/cmm MPV 10.0 fL Neutrophils 3.02 10 3/uL Lymphocytes 1.7 10 3/uL Monocytes 0.8 10 3/uL Eosinophils 0.2 10 3/uL Basophils 0.1 10 3/uL Neutrophil % 52.5 % Lymphocyte % 28.6 % Monocyte % 13.9 % Eosinophil % 3.8 % Basophils % 0.9 % NRBC % 0 % Impression: 1. Metastatic gastric cancer 2. CAD with CABG 3. Hx of treated Hepatitis C 4. HX MRSA bacteremia, endocarditis, osteomyelitis. 5. COPD 6. Liver cirrhosis Ms. Menon is a 60-year-old female who presented to [facility] on May 22, 2020 after a 4-week history of worsening dysphagia and odynophagia. Prior to her admission she had been unable to hold down any liquid or solid intake. She also developed abdominal swelling/bloating and had reported a weight loss of 20 pounds. Her work-up CT of the chest abdomen pelvis showed interval development of left supraclavicular adenopathy measuring at least 2.7 x 2.7 x 3.7 cm and enlarged supraclavicular lymph nodes largest measuring 3.0 x 2.1 cm. Also noted was less prominent left axillary and AP window adenopathy with an additional enlarged lymph node posterior to the left main bronchus. The liver showed mild cirrhosis as well as multiple metastatic lesions the largest measuring 4.2 x 4.6 x 4.4 cm. There was suspected right adrenal metastasis. There was masslike appearance along the wall of the lesser curvature of the stomach superiorly to the level of the GE junction. Findings were concerning for possible gastric neoplasm versus invasion of the stomach wall from lymphadenopathy in the lesser sac. It measured 5.9 x 4.4 x 3.3 cm. An enlarged lora hepatus lymph node measured 1.4 x 3.3 cm there was additional enlarged retroperitoneal lymph nodes. There was interval development of thickening at the peritoneal lining with extensive omental caking in the anterior abdomen suspicious for metastatic deposits. There was interval development of a large volume of ascites. There was new, age indeterminate compression deformity at L4 and worsening of L5 compression deformity. She was seen as an inpatient by Dr. Yun and an EGD was recommended. There was no evidence for esophageal obstruction and no indication for stenting a trial of chemotherapy or symptomatic/supportive care could be pursued. Her overall prognosis was determined to be poor. Ms. Menon underwent EGD on 05/24/2020. These findings were consistent with a malignant mass at the gastric cardia. There was no active bleeding at the time of the scope. The biopsy returned with gastric adenocarcinoma. She did have a Port-A-Cath placement in the right subclavian on May 26, 2020 and chemotherapy with FOLFOX began on 05/29/2020. She had significant problems with us abdominal ascites and underwent paracentesis on May 26, 2021 and again on June 02 with the removal of 1.6 L of fluid. Ms Menon was discharged from [facility] on 06/04/2020. Plan: 1. Referral for ultrasound guided paracentesis for ascites associated with gastric cancer. Her last paracentesis was on 06/02/2020 and removed 1700 mL 2. Pursue PA for Marinol 2.5 mg 1 or 2 tablets up to three times daily for appetite and nausea/vomiting. 3. Resume Prilosec 20 mg once or twice daily. 4. Labs from today were reviewed in detail and discussed with Ms. Menon and her family and a copy was given to her. WBC 5.8, hemoglobin 10.1, platelets 4 and 31,000 ANC is 3000 potassium 3.8 creatinine 0.5 LFTs are normal alk phos is 268. 5. We will plan to have her return on Friday or Friday of next week for consideration of cycle 2 FOLFOX. I had not plan on repeating her labs as she is essentially recovered from her first cycle with today's labs. However we can draw them but not wait for treatment based on results. 6. Continue current pain regimen with liquid morphine seems to be controlling her pain well presently. 7. Ms. Menon was instructed to contact us prior to her appointment next week if any questions or problems arise. 8. She requires supportive care as needed which may include hydration, antiemetics, paracentesis and pain control. Signed By: Alina Taylor-AMANDA, AOMAJORP Helder Yun MD <<Signature on File>>
== END 2020-06-12 11:31 | disposition home or self-care (01) ==
LOC: ONCMED 11:35
PROVIDERS: PCP Family Medicine; Visit Provider Internal Medicine Medical Oncology
DX: C16.9 Malignant neoplasm of stomach, unspecified (principal); C78.7 Secondary malignant neoplasm of liver and intrahepatic bile duct; R11.2 Nausea with vomiting, unspecified; R18.8 Other ascites; I25.10 Atherosclerotic heart disease of native coronary artery without angina pectoris; J44.9 Chronic obstructive pulmonary disease, unspecified; K74.60 Unspecified cirrhosis of liver; Z86.19 Personal history of other infectious and parasitic diseases; Z95.1 Presence of aortocoronary bypass graft; Z87.891 Personal history of nicotine dependence; Z79.891 Long term (current) use of opiate analgesic
CPT/HCPCS: 80053; 83735; 85025; 85610; 96361; 96365; 96367; 96372; 99214; J1100; J2270; J2405; J3490; J7030

== ENCOUNTER → 2020-06-14 10:39 | Day surgery (SDC) | payer MEDICAID, SELFPAY ==
--- NOTE | 2020-06-14 11:19 | US_ITS ---
WS: [id number] Abdominal ultrasound, limited. History: Evaluate for ascites. Comparison: None. All 4 quadrants are imaged by ultrasound to evaluate for ascites. Very tiny amount of free fluid note d in the lower abdomen. Insufficient for paracentesis. Coarsened echotexture and areas of decreased attenuation within the liver suspicious for metastatic d isease. Also noted on the prior study the 2019. US/US abdomen limited [id number] IMPRESSION: Insufficient ascites for paracentesis.
[2020-06-14 11:20] VITALS: BP 134/74; PULSE 96; RESP 16; TEMP 37.1; O2SAT 94; BMI 24.4
--- NOTE | 2020-06-14 12:18 | PC.NURSE ---
Paracentesis canceled The ultra sound images showed no significant pocket of fluid. Dr. Maravilla canceled the procedure based on the images. Paulette Agosto was called and a message was left on her phone regarding e current findings. The patient ambulated herself to the parking lot attended by the nursing staff.
== END ==
PROVIDERS: PCP Family Medicine; Visit Provider Radiology Diagnostic Radiology
DX: R18.8 Other ascites (principal); Z53.9 Procedure and treatment not carried out, unspecified reason
CPT/HCPCS: 49083; 76705

== ENCOUNTER 2020-06-16 10:20 | Outpatient (CLI) | payer MEDICAID, SELFPAY ==
[2020-06-16 11:34] LABS: Basophils # 0.1 10^3/uL (0.0-0.1); Basophils % 0.8 %; Eosinophils # 0.2 10^3/uL (0.0-0.8); Hematocrit 38.6 % (37.0-47.0); Hemoglobin 11.7 g/dL (11.5-15.3); Lymphocytes # 2.6 10^3/uL (0.8-4.8); Mean Corpuscular HGB Conc 30.3 g/dL (30.0-36.0); Mean Corpuscular Volume 89.1 fL (81-99); Mean Platelet Volume 10.2 fL (7.4-10.4); Monocytes # 1.2 10^3/uL (0.2-0.9); Monocytes % 18.4 %; Neutrophils # 2.21 10^3/uL (1.8-7.7); Neutrophils % 34.8 %; Nucleated Red Blood Cells % 0 %; Platelet Count 565 10^3/cmm (130-400); Red Blood Count 4.33 10^6/uL (4.1-5.3); Red Cell Distribution Width 14.6 % (12.1-15.1); White Blood Count 6.4 10^3/uL (4.0-10.0)
[2020-06-16 11:56] LABS: Alanine Aminotransferase 11 U/L (0-33); Albumin Level 3.7 g/dL (3.5-5.2); Alkaline Phosphatase 379 IU/L (35-105); Anion Gap 16.4 (5-19); Aspartate Amino Transferase 44 U/L (0-32); Carbon Dioxide 27 mmol/L (22-29); Chloride 98 mmol/L (98-107); Globulin 4.1 g/dL (1.3-4.6); Glucose 97 mg/dL (65-115); Potassium 4.4 mmol/L (3.5-5.1); Sodium 137 mmol/L (136-145); Total Bilirubin 0.4 mg/dL (0.15-1.2); Total Protein 7.8 g/dL (6.6-8.7)
[2020-06-16 12:28] LABS: Blood Urea Nitrogen 7 mg/dL (6-20); Calcium 9.4 mg/dL (8.5-10.5); Osmolality Calculated 282 mOsm/kg (285-295)
[2020-06-16 12:48] LABS: Glomerular Filtration Rate 102.7 mL/min (90-130)
== END 2020-06-16 10:21 | disposition home or self-care (01) ==
LOC: ONCMED 11:37
PROVIDERS: PCP Family Medicine; Visit Provider Nurse Practitioner
DX: C16.0 Malignant neoplasm of cardia (principal); Z51.81 Encounter for therapeutic drug level monitoring; Z79.899 Other long term (current) drug therapy
CPT/HCPCS: 80053; 85025

== ENCOUNTER 2020-06-19 05:42 | Outpatient (CLI) | payer MEDICAID, SELFPAY ==
[2020-06-19 10:40] VITALS: RESP 18; O2SAT 98
[2020-06-19] MEDS: dextrose 5% 250 ML 75 ML IV (10:40)
[2020-06-19] MEDS: morphine 4 mg/mL SDV 1 mL IVP (10:40)
[2020-06-19 11:30] VITALS: RESP 18; O2SAT 97
[2020-06-19] MEDS: morphine 4 mg/mL SDV 1 mL SUBCUT (11:30)
[2020-06-19] MEDS: LORazepam 2 mg/mL INJ 1 mL 0.5 MG IVP (13:20)
[2020-06-19 13:22] VITALS: RESP 18; O2SAT 96
[2020-06-19] MEDS: morphine 4 mg/mL SDV 1 mL 6 MG SUBCUT (13:22)
[2020-06-19] MEDS: OLANZapine 10 mg TABLET PO (13:27)
[2020-06-19 16:03] LABS: INR 1.02 (0.8-1.2)
--- NOTE | 2020-06-25 15:23 | ONC FU_ITS ---
[facility] Patient Note Patient: Sarahi Menon Unit #: [id number]: 1960 Dictated By: Alina TaylorDate of Visit: Jun 19, 2020 Onc MED Follow-Up/Prog Note Chief Complaint: Gastric Cancer-metastatic History of Present Illness: Ms. Menon is a 60-year-old female who presented to [facility] on May 22, 2020 after a 4-week history of worsening dysphagia and odynophagia. Prior to her admission she had been unable to hold down any liquid or solid intake. She also developed abdominal swelling/bloating and had reported a weight loss of 20 pounds. Her work-up CT of the chest abdomen pelvis showed interval development of left supraclavicular adenopathy measuring at least 2.7 x 2.7 x 3.7 cm and enlarged supraclavicular lymph nodes largest measuring 3.0 x 2.1 cm. Also noted was less prominent left axillary and AP window adenopathy with an additional enlarged lymph node posterior to the left main bronchus. The liver showed mild cirrhosis as well as multiple metastatic lesions the largest measuring 4.2 x 4.6 x 4.4 cm. There was suspected right adrenal metastasis. There was masslike appearance along the wall of the lesser curvature of the stomach superiorly to the level of the GE junction. Findings were concerning for possible gastric neoplasm versus invasion of the stomach wall from lymphadenopathy in the lesser sac. It measured 5.9 x 4.4 x 3.3 cm. An enlarged lora hepatus lymph node measured 1.4 x 3.3 cm there was additional enlarged retroperitoneal lymph nodes. There was interval development of thickening at the peritoneal lining with extensive omental caking in the anterior abdomen suspicious for metastatic deposits. There was interval development of a large volume of ascites. There was new, age indeterminate compression deformity at L4 and worsening of L5 compression deformity. She was seen as an inpatient by Dr. Yun and an EGD was recommended. There was no evidence for esophageal obstruction and no indication for stenting a trial of chemotherapy or symptomatic/supportive care could be pursued. Her overall prognosis was determined to be poor. Ms. Menon underwent EGD on 05/24/2020. These findings were consistent with a malignant mass at the gastric cardia. There was no active bleeding at the time of the scope. The biopsy returned with gastric adenocarcinoma. She did have a Port-A-Cath placement in the right subclavian on May 26, 2020 and chemotherapy with FOLFOX began on 05/29/2020. She had significant problems with us abdominal ascites and underwent paracentesis on May 26, 2021 and again on June 02 with the removal of 1.7 L of fluid. Ms. Menon is here today for follow-up. She was discharged from [facility] [place]04[place]. She has had slow recovery. She continues to have a marginal performance status. She states she feels like she needs a paracentesis again. She was referred fro ultrasound guided paracentesis last week and they did not find a pocket to drain . She feels like it has gotten bigger and woud like to try again for a paracentesis. She states she has not gottent the Marinol yet and has not heard anything on it. She is still having nausea and poor appetite. She denies any new pain but states she just hurts all over-especially her abdomen. She denies any fever or chills. She is had no rashes. She denies any neuropathy symptoms. 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 We did discuss that so she is aware of it for the cycle. She denies diarrhea or constipation. She has been advised to try to use the Compazine as needed for nausea. She has not had an MRI of the head that she is aware of. She denies any claustrophobia at this time. Her ECOG 2. Past Medical History: Chronic obstructive pulmonary disease Coronary artery disease Depression Endocarditis Gastroesophageal reflux disease Hepatitis C MRSA bactermia HECTOR-obstructive sleep apnea Pulmonary HTN Sacral osteomyelitis Past Surgical History: Appendectomy Foot surgery Heart surgery at age 6 Tonsillectomy Right subclavian Port-A-Cath per Dr. Walters/OM in 2019 Allergies: Bextra and codeine. Medications: Albuterol Sulfate 1 Puff(s) (of (2.5 mg/3ml) 0.083%) Nebulization solution Inhalation PRN LORazepam 0.5 - 1 Tablet (of 1 mg) Oral t.i.d. PRN Metoprolol Tartrate 1 Tablet (of 25 mg) Oral b.i.d. Morphine Sulfate 5 mL (of 20 mg/5mL) Solution Oral q 6 hours PRN Nicotine 1 Patch(es) (of 21-14-7 mg/24hr) Kit Transdermal daily Spiriva HandiHaler 1 Capsule (of 18 mcg) Inhalation daily Family History: Social History: Ms. Menon is legally . Ms. Menon no longer smokes. She is a former drinker. currently trying to quit smoking. Pt states she was a habitual drinker 11-12 years ago. Review Of Symptoms: Constitutional Denies fevers, chills, night sweats. Tired and poor appetite. Allergic/Immunologic No reactions. Eyes Denies significant visual changes. No diplopia. No amaurosis. ENMT Denies changes in hearing, sore throat, mouth sores, difficulty or changes in swallowing ability, and/or sinus drainage. Hematologic/Lymphatic Denies easy bruising or bleeding. The patient denies any tender or palpable lymph nodes. Respiratory Denies new or worsening dyspnea on exertion, chest pain, cough or hemoptysis. Denies orthopnea. Cardiovascular Denies anginal chest pain, palpitations or orthopnea. Gastrointestinal Denies worsening nausea, vomiting, diarrhea, GI bleeding, or constipation. Denies change in bowel habits and/or stool color, no heartburn or early satiety. Nausea controlled at present. Genitourinary (F) No hematuria, hesitancy, incontinence, vaginal bleeding, discharge or other problems with urination. Musculoskeletal Denies joint pain, swelling or redness. No decreased range of motion. Integumentary Denies chronic rashes, inflammation, ulcerations or skin changes. Neurologic Denies headache, blurred vision, and no areas of focal weakness or numbness. Normal gait. No sensory problems. Psychiatric Denies insomnia, depression, zenon or mood swings. Vital Signs: Performed on Jun 19, 2020 09:57 Height - 63.00 in Weight - 136.2 lbs (HIGH) BSA - 1.64 sq.m BMI - 24.13 Temperature - 97.0 F (LOW) Pulse - 108 /min (HIGH) Respiration - 16 /min BP - 123/77 mm(hg) O2 Sat - 93 % (LOW) Pain - 9,2 - Ambulatory/capable of all self-care, unable to perform any work activities. Up and about more than 50% of waking hours. (ECOG) Physical Examination: Constitutional Alert, oriented, no acute distress. Skin pink, warm and dry. Obviously does not feel well Head Normocephalic; atraumatic. Eyes Conjunctivae and sclerae are clear and without icterus. Pupils are reactive and equal. Neck Supple without masses or thyromegaly. No jugular venous distension. Hematologic/Lymphatic No petechiae or purpura. No tender or palpable lymph nodes in the cervical or supraclavicular areas. Respiratory Lungs are clear to auscultation without rhonchi or wheezing. Cardiovascular Regular rate and rhythm of heart without murmurs,clicks, gallops or rubs. Chest Chest is symmetric without chest wall deformities. Right side port a cath insertion site healing well. Back/Spine Non-tender to palpation. Extremities No visible deformities, no cyanosis, clubbing or edema. Musculoskeletal No tenderness or swelling, normal range of motion without obvious weakness. Integumentary No rashes or lesions. Neurologic No sensory or motor deficits, normal cerebellar function, slow gait. Psychiatric Alert and oriented times three. Coherent speech. Verbalizes understanding of our discussions today. Laboratory:Test performed on Jun 19, 2020 15:18 PT 13.70 SECONDS INR 1.02 Test performed on Jun 16, 2020 09:02 Glucose 97 mg/dL BUN 7 mg/dL Creatinine 0.6 mg/dL Cr Clearance (Est) 108.31 mL/min Sodium 137 mmol/L Potassium 4.4 mmol/L Chloride 98 mmol/L CO2 27 mmol/L Calcium 9.4 mg/dL Protein, Total 7.8 g/dL Albumin 3.7 g/dL Globulin 3.7 g/dL Bilirubin, Total 0.4 mg/dL Alkaline Phosphatase 379 IU/L AST (SGOT) 44 IU/L ALT (SGPT) 11 IU/L WBC 6.4 10^9/L RBC 4.33 10^12/L HGB 11.7 g/dL HCT 38.6 % MCV 89.1 fl MCH 27 pg MCHC 30.3 g/dL RDW 14.6 % Platelet Count 565 10^9/L Neutrophils (Gran) 2.21 10^9/L Lymphocytes 2.6 10^9/L Monocytes 1.2 10^9/L Eosinophils 0.2 10^9/L Basophils 0.1 10^9/L mpression: 1. Metastatic gastric cancer 2. CAD with CABG 3. Hx of treated Hepatitis C 4. HX MRSA bacteremia, endocarditis, osteomyelitis. 5. COPD 6. Liver cirrhosis Ms. Menon is a 60-year-old female who presented to [facility] on May 22, 2020 after a 4-week history of worsening dysphagia and odynophagia. Prior to her admission she had been unable to hold down any liquid or solid intake. She also developed abdominal swelling/bloating and had reported a weight loss of 20 pounds. Her work-up CT of the chest abdomen pelvis showed interval development of left supraclavicular adenopathy measuring at least 2.7 x 2.7 x 3.7 cm and enlarged supraclavicular lymph nodes largest measuring 3.0 x 2.1 cm. Also noted was less prominent left axillary and AP window adenopathy with an additional enlarged lymph node posterior to the left main bronchus. The liver showed mild cirrhosis as well as multiple metastatic lesions the largest measuring 4.2 x 4.6 x 4.4 cm. There was suspected right adrenal metastasis. There was masslike appearance along the wall of the lesser curvature of the stomach superiorly to the level of the GE junction. Findings were concerning for possible gastric neoplasm versus invasion of the stomach wall from lymphadenopathy in the lesser sac. It measured 5.9 x 4.4 x 3.3 cm. An enlarged lora hepatus lymph node measured 1.4 x 3.3 cm there was additional enlarged retroperitoneal lymph nodes. There was interval development of thickening at the peritoneal lining with extensive omental caking in the anterior abdomen suspicious for metastatic deposits. There was interval development of a large volume of ascites. There was new, age indeterminate compression deformity at L4 and worsening of L5 compression deformity. She was seen as an inpatient by Dr. Yun and an EGD was recommended. There was no evidence for esophageal obstruction and no indication for stenting a trial of chemotherapy or symptomatic/supportive care could be pursued. Her overall prognosis was determined to be poor. Ms. Menon underwent EGD on 05/24/2020. These findings were consistent with a malignant mass at the gastric cardia. There was no active bleeding at the time of the scope. The biopsy returned with gastric adenocarcinoma. She did have a Port-A-Cath placement in the right subclavian on May 26, 2020 and chemotherapy with FOLFOX began on 05/29/2020. She had significant problems with us abdominal ascites and underwent paracentesis on May 26, 2021 and again on June 02 with the removal of 1.6 L of fluid. Ms Menon was discharged from [facility] [place]04[place]. She has tolerated one cycle of FOLFOX well overall. Plan: 1. Referral again this week for ultrasound guided paracentesis for ascites associated with gastric cancer. Her last paracentesis was on 06/02/2020 and removed 1700 mL 2. Followup on [place] for Marinol 2.5 mg 1 or 2 tablets up to three times daily for appetite and nausea/vomiting. 3. Proceed with cycle 2 FOLFOX 4. Labs from today were reviewed in detail and discussed with Ms. Menon and a copy was given to her. WBC 6.4, hemoglobin 11.7, platelets 565,000 ANC is 2200 potassium 4.4 creatinine 0.6 alk phos is 379. 5. We will plan to have her return in 2 weeks with CBC, CMP for consideration of cycle 3 FOLFOX. 6. Continue current pain medication is liquid morphine but she states it does not last long and she is no longer having swallowing problems. We will have her try MS Contin low dose BID and breakthrough with MSIR 15 mg 1 every 2-4 hours prn pain. 7. Ms. Menon was instructed to contact us prior to her [facility] appointment if any questions or problems arise. 8. She requires supportive care as needed which may include hydration, antiemetics, paracentesis and pain control. 9. I have asked for an MRI of the brain for followup staging and evaluation of persistent nausea/poor performance status. Signed By: Alina Taylor-, AOWesley Yun MD<<Signature on File>>
== END 2020-06-19 05:43 | disposition home or self-care (01) ==
PROVIDERS: PCP Family Medicine; Visit Provider Nurse Practitioner
DX: Z51.11 Encounter for antineoplastic chemotherapy (principal); C16.0 Malignant neoplasm of cardia; C78.7 Secondary malignant neoplasm of liver and intrahepatic bile duct; R11.0 Nausea; R51 Headache; R18.8 Other ascites; Z87.891 Personal history of nicotine dependence; Z79.899 Other long term (current) drug therapy
CPT/HCPCS: 85610; 96367; 96368; 96375; 96376; 96413; 96415; 96416; 99214; J0640; J1100; J2060; J2270; J2469; J9190; J9263

== ENCOUNTER 2020-06-27 11:00 | Outpatient (RCR) | payer MEDICAID, SELFPAY ==
--- NOTE | 2020-06-21 09:41 | US_ITS ---
WS: [id number] ULTRASOUND-GUIDED PARACENTESIS CLINICAL INFORMATION: ESOPHAGEAL CANCER W/LIVER METS/ASCITES COMPARISON: None. US/US abdomen lmt fluid [id number] IMPRESSION: Small volume ascites. Inadequate volume for paracentesis.
--- NOTE | 2020-06-27 11:28 | MR_ITS ---
WS: [id number] MRI BRAIN WITHOUT CONTRAST HISTORY: HEADACHES/NAUSEA/METASTATIC ESOPHAGEAL CANCER COMPARISON: None available. TECHNIQUE: Diffusion imaging, multiplanar T1, T2 and FLAIR imaging obtained. Unable to obtain IV access. No evidence for acute infarct or hemorrhage. Rouse-white matter differentiation is normal. Mild atrophy and chronic microvascular ischemic disease. There are numerous scattered T2 and FLAIR si gnal hyperintensities around the ventricles. No mass effect or midline shift. Ventricles and extra-axial spaces are normal. No inferior displacement of cerebellar tonsils. The appearance of the sella turcica and pituitary. Th ere is decreased signal in the clivus. Cannot exclude metastatic disease. Posterior fossa is also unremarkable. Dural venous sinuses and [place] of [place] demonstrate no abnormality on this unenhanced studies. Paranasal sinuses: Clear. Mastoid air cells: Normal. Calvarium and scalp: Intact. MR/MR head wo con* [id number] IMPRESSION: 1. No evidence for an acute infarct. No mass effect. 2. Cannot completely exclude metastatic disease without IV contrast. There are no space-occupying lesions with mass effect. 3. Mild decreased T1 signal in the clivus. Indeterminate for metastatic diseas e.
== END 2020-06-28 23:59 | disposition home or self-care (01) ==
LOC: RADSHAW 11:00
PROVIDERS: PCP Family Medicine; Visit Provider Nurse Practitioner
DX: C15.9 Malignant neoplasm of esophagus, unspecified (principal); C79.9 Secondary malignant neoplasm of unspecified site; R51 Headache; R11.0 Nausea; R18.8 Other ascites
CPT/HCPCS: 70551; 76705; 96523

== ENCOUNTER 2020-07-26 14:41 | Emergency (ER) | payer MEDICAID, SELFPAY ==
[2020-07-26 14:42] VITALS: BP 122/79; PULSE 102; RESP 18; TEMP 36.9; O2SAT 94; BMI 21.9
--- NOTE | 2020-07-26 14:56 | CT_ITS ---
WS: [id number] CT THORACIC SPINE HISTORY: ? compression fracture TECHNIQUE: Contiguous 2.5 mm axial images are reviewed to thoracic spine. Images are reformatted in s agittal and coronal planes. All CT scans at [facility] use at least one of these dose opt imization techniques: automated exposure control; mA and/or kV adjustment per patient size (includes targeted exams where dose is matched to clinical indication); or iterative reconstruction. DLP: 918.47 mGy.cm COMPARISON: 05/22/2020 Moderate increase in thoracic kyphosis. Mild RIGHT curvature. There is very mild anterior wedging of T4 which is chronic. There are numerous new sclerotic foci throughout the visualized lower cervical a nd thoracic spine and the visualized sternum consistent with metastatic bone disease. These blastic l esions were not present on 05/22/2020. No compression upon the central thoracic cord. Large bulla at the RIGHT apex. There is extensive emphysematous changes. Groundglass attenuation thro ughout both lungs. There is motion artifact degrading the image quality of the lungs. Although incompletely visualized highly suspicious for LEFT supraclavicular or axillary adenopathy. P ulmonary artery size is markedly enlarged measuring 3.5 cm. Liver is enlarged. Cannot exclude metasta tic disease to the liver due to variable density. CT/CT thoracic spin wo con* [id number] IMPRESSION: 1. New extensive osteoblastic metastatic disease to the lower cervical and ent rich thoracic spine and portions of the sternum as visualized. New since 05/22/20 20. 2. No cord compression. 3. No new compression fracture. 4. Suspect LEFT axillary/supraclavicular lymphadenopathy but this area has onl y been partially included on this examination. 5. Pulmonary hypertension and emphysema.
--- NOTE | 2020-07-26 14:56 | XR_ITS ---
WS: [id number] Exam: XR chest 1V portable [id number] Date/Time of Exam: 07/26/2020 3:09 PM Reason For Exam: syncope Comparison 06/27/2020. The lungs are hyperinflated. Ill-defined nodular densities along the lower right rib cage that may re present healing rib lesions or pleural nodularity. Nodular pleural thickening also seen in the left base. Heart size is normal. A right subclavian port ends at the cavoatrial junction. Signs of previou s cardiac surgery. No pleural effusions or pneumothorax. The mediastinum is not widened. Old left cla vicle fracture. XR/XR chest 1V portable [id number] IMPRESSION: 1. No acute consolidating infiltrate or pneumothorax. 2. Ill-defined nodular densities along the lower right rib cage that may repres ent healing rib fractures or pleural nodularity. Pleural thickening also seen along the lower left pleural cavity.
[2020-07-26 15:35] LABS: Basophils # 0.1 10^3/uL (0.0-0.1); Basophils % 0.8 %; Eosinophils # 0.1 10^3/uL (0.0-0.8); Eosinophils % 2.4 %; Hematocrit 39.6 % (37.0-47.0); Hemoglobin 11.8 g/dL (11.5-15.3); Lymphocytes % 16.2 %; Mean Corpuscular HGB Conc 29.8 g/dL (30.0-36.0); Mean Corpuscular Hemoglobin 27.1 pg (28.0-34.0); Mean Platelet Volume 10.1 fL (7.4-10.4); Monocytes # 0.9 10^3/uL (0.2-0.9); Monocytes % 15.2 %; Neutrophils # 3.82 10^3/uL (1.8-7.7); Neutrophils % 64.7 %; Nucleated Red Blood Cells % 0 %; Platelet Count 357 10^3/cmm (130-400); Red Blood Count 4.35 10^6/uL (4.1-5.3); Red Cell Distribution Width 18.6 % (12.1-15.1); White Blood Count 5.9 10^3/uL (4.0-10.0)
[2020-07-26 15:55] LABS: Alanine Aminotransferase 6 U/L (0-33); Albumin Level 3.6 g/dL (3.5-5.2); Alkaline Phosphatase 249 IU/L (35-105); Anion Gap 15.2 (5-19); Aspartate Amino Transferase 36 U/L (0-32); Blood Urea Nitrogen 6 mg/dL (6-20); Calcium 9.9 mg/dL (8.5-10.5); Carbon Dioxide 27 mmol/L (22-29); Chloride 98 mmol/L (98-107); Globulin 3.8 g/dL (1.3-4.6); Glomerular Filtration Rate 102.7 mL/min (90-130); Glucose 113 mg/dL (65-115); Osmolality Calculated 280 mOsm/kg (285-295); Potassium 4.2 mmol/L (3.5-5.1); Sodium 136 mmol/L (136-145); Total Bilirubin 0.5 mg/dL (0.15-1.2); Total Protein 7.4 g/dL (6.6-8.7)
[2020-07-26 16:08] VITALS: BP 122/78; PULSE 83; RESP 18; O2SAT 92
[2020-07-26] MEDS: ondansetron 2 mg/ML SDV 2 mL 4 MG IM (16:12)
[2020-07-26 16:13] VITALS: RESP 20
[2020-07-26] MEDS: HYDROmorphone 1 mg/mL INJ 1 mL 0.5 MG IM (16:13)
--- NOTE | 2020-07-26 16:18 | ED_ITS ---
HPI - Back Pain/Injury General: Chief Complaint: Back Pain/Injury Stated Complaint: schmid sent over/pain in lower back Time Seen by Provider: 07/26/20 15:16 History of Present Illness: HPI Narrative: 60-year-old female who is a history of gastric CA with multiple metastasis including to the liver bone and pelvis, mediastinal and abdominal lymphadenopathy. She was sent here today from radiation oncology she had an episode of vomiting and felt a popping sensation in upper back and is severe pain she has been receiving palliative chemo and radiation. She does have a port in place she denies any recent illness or flulike symptoms cough or shortness of breath. MD elicited complaint: back pain Onset (ago): day(s) (1) Timing: constant Severity: severe Similar Symptoms Previously: Yes Quality: sharp Location: thoracic spine Radiation: none Exacerbating factors: none Relieving factors: none Context: other (History of metastatic adeno CA the GI tract with bony mets) Associated symptoms: Reports no associated symptoms; Deny abdominal pain, chills, dysuria, fatigue, fever(s), nausea, urinary urgency or vomiting Treatments prior to arrival: prescription analgesics Work related injury: No Review of Systems Const: Denies: fever(s), chills, body aches, change in appetite, fatigue or malaise ENMT: Denies: throat pain, ear or mastoid pain, nasal discharge or nasal congestion Card: Denies: chest pain, edema, dyspnea on exertion or orthopnea Resp: Denies: dyspnea, productive cough or non-productive cough GI: Denies: abdominal pain, nausea, vomiting, hematemesis, coffee ground emesis, diarrhea, constipation, bloating, hematochezia or melena : Denies: flank pain, difficulty voiding, dysuria, urinary frequency or urinary urgency Skin/Breast: Denies: rash or pruritus PFSH ED PFSH: Medical History Anxiety COPD (chronic obstructive pulmonary disease) Depression Gastric reflux Hepatitis C History of endocarditis History of MRSA infection HECTOR (obstructive sleep apnea) Pulmonary hypertension Sacral osteomyelitis Surgical History H/O foot surgery History of appendectomy History of heart surgery I had some type of heart surgery at age 6 Hx of tonsillectomy Family History Other CAD (coronary artery disease) Hypertension Social History Smoking and tobacco status: current every day smoker Alcohol intake: never Current gender identity: Female Physical Exam Const: COMMON NORMALS: no acute distress GENERAL APPEARANCE: cooperative and comfortable ORIENTATION/CONSCIOUSNESS: Yes awake, Yes oriented to person, Yes oriented to place and Yes oriented to time HENMT: COMMON NORMALS: normocephalic, atraumatic and hearing grossly normal bilaterally HEAD & SCALP: normocephalic and atraumatic Neck/C-Spine: COMMON NORMALS: no JVD Resp: COMMON NORMALS: normal respiratory effort, No retractions, No use of accessory muscles and clear to auscultation bilaterally AUSCULTATION: clear to auscultation bilaterally Cardio: COMMON NORMALS: no JVD, regular rate, regular rhythm and No murmurs present (Cardio) RATE: regular rate RHYTHM: regular rhythm GI: COMMON NORMALS: Soft to palpation and No hepatosplenomegaly present AUSCULTATION: Yes normoactive bowel sounds PALPATION: Yes Soft to palpation, No Tenderness to palpation present (GI), No Guarding due to palpation present (GI) and Yes No hepatosplenomegaly present Extremity: COMMON NORMALS: normal to inspection, capillary refill normal, no clubbing, cyanosis or edema, no calf tenderness and no pedal edema Neuro: SENSORIUM/ORIENTATION: Yes oriented to person, Yes oriented to place and Yes oriented to time Skin: COMMON NORMALS: no rashes or lesions noted GENERAL SKIN EXAM: no rashes or lesions noted Course Vital Signs: Vital signs: Vital Signs Temperature 97.6 F 07/26/20 17:32 Pulse Rate 83 07/26/20 17:32 Respiratory Rate 16 07/26/20 17:32 Blood Pressure 120/70 07/26/20 17:32 Pulse Oximetry 95 07/26/20 17:32 MDM - Back Pain/Injury MDM Narrative: Medical decision making narrative: Discussed findings with the patient we will go ahead and discharge her home there is new metastasis but no new fractures. We will go ahead and discharge her home have her follow-up with oncology return for his further problems. Patient reports she has adequate oral pain medications at home. Lab Data: Labs: Lab Results 07/26/20 07/26/20 Range/Units 15:27 15:27 WBC 5.9 (4.0-10.0) 10^3/ uL RBC 4.35 (4.1-5.3) 10^6/u L Hgb 11.8 (11.5-15.3) g/dL Hct 39.6 (37.0-47.0) % MCV 91.0 (81-99) fL MCH 27.1 L (28.0-34.0) pg MCHC 29.8 L (30.0-36.0) g/dL RDW 18.6 H (12.1-15.1) % Plt Count 357 (130-400) 10^3/c mm MPV 10.1 (7.4-10.4) fL Neut % (Auto) 64.7 % Lymph % (Auto) 16.2 % Alcorn % (Auto) 15.2 % Eos % (Auto) 2.4 % Baso % (Auto) 0.8 % Neut # (Auto) 3.82 (1.8-7.7) 10^3/u L Lymph # (Auto) 1.0 (0.8-4.8) 10^3/u L Alcorn # (Auto) 0.9 (0.2-0.9) 10^3/u L Eos # (Auto) 0.1 (0.0-0.8) 10^3/u L Baso # (Auto) 0.1 (0.0-0.1) 10^3/u L Nucleated RBC % (a uto) 0 % Nucleated RBCs # 0.0 /100WBC Sodium 136 (136-145) mmol/L Potassium 4.2 (3.5-5.1) mmol/L Chloride 98 (98-107) mmol/L Carbon Dioxide 27 (22-29) mmol/L Anion Gap 15.2 (5-19) BUN 6 (6-20) mg/dL Creatinine 0.6 (0.5-0.9) mg/dL GFR Calculation 102.7 (90-130) mL/min Glucose 113 (65-115) mg/dL Calculated Osmolal ity 280 L (285-295) mOsm/k g Calcium 9.9 (8.5-10.5) mg/dL Total Bilirubin 0.5 (0.15-1.2) mg/dL AST 36 H (0-32) U/L ALT 6 (0-33) U/L Alkaline Phosphata se 249 H (35-105) IU/L Total Protein 7.4 (6.6-8.7) g/dL Albumin 3.6 (3.5-5.2) g/dL Globulin 3.8 (1.3-4.6) g/dL Discharge Plan Discharge Patient Disposition: Home Clinical Impression: Malignant neoplasm of cardia, Metastatic malignant neoplasm, Cancer associated pain, Metastasis to spinal column Condition: Stable Prescriptions: No Action albuterol sulfate [Ventolin HFA] 90 mcg/actuation HFA aerosol inhaler 2 puff INHALATION QID PRN (Reason: shortness of breath or wheezing) Qty: 8.5 RF: 3 albuterol sulfate 2.5 mg /3 mL (0.083 %) solution for nebulization 2.5 mg INHALATION QID PRN (Reason: bronchospasm) Qty: 90 RF: 4 Spiriva with HandiHaler 18 mcg capsule, w/inhalation device 1 cap INHALATION DAILY Qty: 30 RF: 6 lorazepam [Ativan] 1 mg tablet 1 mg PO Q8H PRN (Reason: anxiety) Qty: 30 RF: 2 multivitamin [Multiple Vitamins] Tablet 1 tab PO DAILY RF: 0 Vitamin C 1 tab PO DAILY RF: 0 zinc 1 tab PO DAILY RF: 0 dronabinol 2.5 mg Capsule 2.5 mg PO BIDAC Qty: 60 RF: 0 nicotine 21 mg/24 hr Patch 24 Hour 1 patch transdermal DAILY Qty: 30 RF: 0 Narcan 4 mg/actuation spray,non-aerosol 4 mg INTRANASAL Q2M PRN (Reason: opioid overdose) Qty: 2 RF: 0 Discharge Orders: Discharge Order (Routine); Ordered 07/26/20 Ordered By: Joseph Walden Referrals: Aury Carlos MD [Primary Care Provider] - Activity Restrictions/Additional Instructions: Follow-up with oncology as previously scheduled Discharge Date/Time: 07/26/20 17:34 Coding Level of Care Code ED Transformer Stock Clerk for Chg Fwd Exam Comprehensive
[2020-07-26 17:18] VITALS: BP 120/70; PULSE 87; RESP 18; O2SAT 94
[2020-07-26 17:19] VITALS: RESP 18
[2020-07-26] MEDS: HYDROmorphone 1 mg/mL INJ 1 mL IM (17:19)
[2020-07-26 17:32] VITALS: BP 120/70; PULSE 83; RESP 16; TEMP 36.4; O2SAT 95
== END 2020-07-26 17:34 | disposition home or self-care (01) ==
PROVIDERS: Nurse Practitioner Family; Emergency Provider Family Medicine; PCP Family Medicine
DX: G89.3 Neoplasm related pain (acute) (chronic) (principal); C16.0 Malignant neoplasm of cardia; C79.51 Secondary malignant neoplasm of bone; J44.9 Chronic obstructive pulmonary disease, unspecified; Z86.19 Personal history of other infectious and parasitic diseases; F17.210 Nicotine dependence, cigarettes, uncomplicated
CPT/HCPCS: 12345; 71045; 72128; 80053; 85025; 96372; 99281; 99283; J1170; J2405

== ENCOUNTER 2020-07-28 09:00 | Outpatient (RCR) | payer MEDICAID, SELFPAY ==
[2020-06-29 10:07] LABS: Basophils # 0.1 10^3/uL (0.0-0.1); Basophils % 0.9 %; Eosinophils # 0.2 10^3/uL (0.0-0.8); Eosinophils % 2.5 %; Hematocrit 36.2 % (37.0-47.0); Hemoglobin 10.8 g/dL (11.5-15.3); Lymphocytes # 1.7 10^3/uL (0.8-4.8); Lymphocytes % 23.9 %; Mean Corpuscular HGB Conc 29.8 g/dL (30.0-36.0); Mean Corpuscular Hemoglobin 26.9 pg (28.0-34.0); Mean Corpuscular Volume 90.3 fL (81-99); Mean Platelet Volume 10.8 fL (7.4-10.4); Monocytes # 0.9 10^3/uL (0.2-0.9); Monocytes % 12.9 %; Neutrophils % 59.2 %; Nucleated Red Blood Cells % 0 %; Platelet Count 299 10^3/cmm (130-400); Red Blood Count 4.01 10^6/uL (4.1-5.3); Red Cell Distribution Width 16.4 % (12.1-15.1); White Blood Count 6.9 10^3/uL (4.0-10.0)
[2020-06-29 10:47] LABS: Alanine Aminotransferase 11 U/L (0-33); Albumin Level 3.6 g/dL (3.5-5.2); Alkaline Phosphatase 326 IU/L (35-105); Anion Gap 13.4 (5-19); Aspartate Amino Transferase 42 U/L (0-32); Blood Urea Nitrogen 4 mg/dL (6-20); Calcium 10.1 mg/dL (8.5-10.5); Carbon Dioxide 28 mmol/L (22-29); Chloride 97 mmol/L (98-107); Globulin 3.4 g/dL (1.3-4.6); Glomerular Filtration Rate 85.9 mL/min (90-130); Glucose 116 mg/dL (65-115); Magnesium 2.1 mg/dL (1.7-2.3); Osmolality Calculated 276 mOsm/kg (285-295); Potassium 4.4 mmol/L (3.5-5.1); Sodium 134 mmol/L (136-145); Total Bilirubin 0.5 mg/dL (0.15-1.2)
[2020-06-29 11:22] LABS: Erythrocyte Sedimentation Rate 76 mm/hr (0-15)
[2020-07-05 10:54] LABS: Basophils # 0.1 10^3/uL (0.0-0.1); Basophils % 0.8 %; Eosinophils # 0.3 10^3/uL (0.0-0.8); Eosinophils % 3.8 %; Hematocrit 35.9 % (37.0-47.0); Lymphocytes # 1.9 10^3/uL (0.8-4.8); Lymphocytes % 29.3 %; Mean Corpuscular HGB Conc 30.6 g/dL (30.0-36.0); Mean Corpuscular Hemoglobin 27.3 pg (28.0-34.0); Mean Corpuscular Volume 89.1 fL (81-99); Mean Platelet Volume 10.6 fL (7.4-10.4); Monocytes # 0.9 10^3/uL (0.2-0.9); Monocytes % 13.6 %; Neutrophils # 3.43 10^3/uL (1.8-7.7); Neutrophils % 52.2 %; Nucleated Red Blood Cells % 0 %; Platelet Count 330 10^3/cmm (130-400); Red Blood Count 4.03 10^6/uL (4.1-5.3); Red Cell Distribution Width 16.9 % (12.1-15.1); White Blood Count 6.6 10^3/uL (4.0-10.0)
[2020-07-05 11:09] LABS: Alanine Aminotransferase 10 U/L (0-33); Albumin Level 3.7 g/dL (3.5-5.2); Alkaline Phosphatase 356 IU/L (35-105); Anion Gap 14.2 (5-19); Aspartate Amino Transferase 41 U/L (0-32); Blood Urea Nitrogen 8 mg/dL (6-20); Calcium 9.5 mg/dL (8.5-10.5); Carbon Dioxide 28 mmol/L (22-29); Chloride 97 mmol/L (98-107); Globulin 3.6 g/dL (1.3-4.6); Glomerular Filtration Rate 126.7 mL/min (90-130); Glucose 123 mg/dL (65-115); Magnesium 2.1 mg/dL (1.7-2.3); Osmolality Calculated 280 mOsm/kg (285-295); Potassium 4.2 mmol/L (3.5-5.1); Sodium 135 mmol/L (136-145); Total Bilirubin 0.5 mg/dL (0.15-1.2); Total Protein 7.3 g/dL (6.6-8.7)
[2020-07-05] MEDS: sodium chloride 0.9% 1,000 ML 999 ML IV (12:10)
[2020-07-05 13:15] VITALS: RESP 19; O2SAT 97
[2020-07-05] MEDS: morphine 4 mg/mL SDV 1 mL 5 MG IV (13:15)
[2020-07-06] MEDS: dextrose 5% 250 ML 75 ML (11:05)
[2020-07-06] MEDS: OLANZapine 10 mg TABLET PO (11:35)
--- NOTE | 2020-07-09 15:14 | ONC FU_ITS ---
[facility] Patient Note Patient: Sarahi Menon Unit #: [id number]: 1960 Dictated By: Alina TaylorDate of Visit: Jul 05, 2020 Onc MED Follow-Up/Prog Note Chief Complaint: Gastric Cancer-metastatic History of Present Illness: Ms. Menon is a 60-year-old female who presented to [facility] on May 22, 2020 after a 4-week history of worsening dysphagia and odynophagia. Prior to her admission she had been unable to hold down any liquid or solid intake. She also developed abdominal swelling/bloating and had reported a weight loss of 20 pounds. Her work-up CT of the chest abdomen pelvis showed interval development of left supraclavicular adenopathy measuring at least 2.7 x 2.7 x 3.7 cm and enlarged supraclavicular lymph nodes largest measuring 3.0 x 2.1 cm. Also noted was less prominent left axillary and AP window adenopathy with an additional enlarged lymph node posterior to the left main bronchus. The liver showed mild cirrhosis as well as multiple metastatic lesions the largest measuring 4.2 x 4.6 x 4.4 cm. There was suspected right adrenal metastasis. There was masslike appearance along the wall of the lesser curvature of the stomach superiorly to the level of the GE junction. Findings were concerning for possible gastric neoplasm versus invasion of the stomach wall from lymphadenopathy in the lesser sac. It measured 5.9 x 4.4 x 3.3 cm. An enlarged lora hepatus lymph node measured 1.4 x 3.3 cm there was additional enlarged retroperitoneal lymph nodes. There was interval development of thickening at the peritoneal lining with extensive omental caking in the anterior abdomen suspicious for metastatic deposits. There was interval development of a large volume of ascites. There was new, age indeterminate compression deformity at L4 and worsening of L5 compression deformity. She was seen as an inpatient by Dr. Yun and an EGD was recommended. There was no evidence for esophageal obstruction and no indication for stenting a trial of chemotherapy or symptomatic/supportive care could be pursued. Her overall prognosis was determined to be poor. Ms. Menon underwent EGD on 05/24/2020. These findings were consistent with a malignant mass at the gastric cardia. There was no active bleeding at the time of the scope. The biopsy returned with gastric adenocarcinoma. She did have a Port-A-Cath placement in the right subclavian on May 26, 2020 and chemotherapy with FOLFOX began on 05/29/2020. She had significant problems with us abdominal ascites and underwent paracentesis on May 26, 2021 and again on June 02 with the removal of 1.7 L of fluid. Ms. Menon is here today for follow-up. She was discharged from [facility] on 06/04/2020. She has had slow recovery. She continues to have a marginal performance status. We were able to proceed with cycle 2 FOLFOX on June 19, 2020. We had requested MRI of the head due to her persistent nausea. however apparently they were unable to obtain IV access and was given without contrast. An attempt was made to obtain an MRI of the head with contrast on 06/27/2020. She has had very minimal improvement in overall performance status. She has had multiple ultrasounds for possible ultrasound-guided paracentesis however both attempts have been met with unable to find enough fluid to drain. She has had increase in her pain medication and states that it seemed to be working better. Currently her morphine continuous release is 30 mg every 12 hours immediate release is also 30 mg every 2-4 hours. She states she is having severwe left shoulder pain . She indicates the pain is upper chest wall/axilla/shoulder by pointing to where the pain is. She describes it as a burning/sharp/achy pain. It does get better with the pain medication but comes back frequently. She states it hurts worse when she tries to move her arm. She denies any redness or swelling in the area. She states the pain is been there for some time but is worsened over the last couple of days. She denies any other new concerns today. She denies any fever or chills. She is had no signs or symptoms of infection. She continues to have very marginal performance status and appetite. She denies any new pain. She has persistent nausea but thinks it is may be slightly better. Her ECOG is 3. Past Medical History: Chronic obstructive pulmonary disease Coronary artery disease Depression Endocarditis Gastroesophageal reflux disease Hepatitis C MRSA bactermia HECTOR-obstructive sleep apnea Pulmonary HTN Sacral osteomyelitis Past Surgical History: Appendectomy Foot surgery Heart surgery at age 6 Tonsillectomy Right subclavian Port-A-Cath per Dr. Walters/OM in 2019 Allergies: Bextra and codeine. Medications: Albuterol Sulfate 1 Puff(s) (of (2.5 mg/3ml) 0.083%) Nebulization solution Inhalation PRN LORazepam 0.5 - 1 Tablet (of 1 mg) Oral t.i.d. PRN Metoprolol Tartrate 1 Tablet (of 25 mg) Oral b.i.d. Morphine Sulfate 5 mL (of 20 mg/5mL) Solution Oral q 6 hours PRN Nicotine 1 Patch(es) (of 21-14-7 mg/24hr) Kit Transdermal daily Spiriva HandiHaler 1 Capsule (of 18 mcg) Inhalation daily Family History: Social History: Ms. Menon is legally . Ms. Menon no longer smokes. She is a former drinker. currently trying to quit smoking. Pt states she was a habitual drinker 11-12 years ago. Review Of Symptoms: Constitutional Denies fevers, chills, night sweats. Tired and poor appetite. Allergic/Immunologic No reactions. Eyes Denies significant visual changes. No diplopia. No amaurosis. ENMT Denies changes in hearing, sore throat, mouth sores, difficulty or changes in swallowing ability, and/or sinus drainage. Hematologic/Lymphatic Denies easy bruising or bleeding. The patient denies any tender or palpable lymph nodes. Respiratory Denies new or worsening dyspnea on exertion, chest pain, cough or hemoptysis. Denies orthopnea. Cardiovascular Denies anginal chest pain, palpitations or orthopnea. Gastrointestinal Denies worsening nausea, vomiting, diarrhea, GI bleeding, or constipation. Denies change in bowel habits and/or stool color, no heartburn or early satiety. Nausea controlled at present. Genitourinary (F) No hematuria, hesitancy, incontinence, vaginal bleeding, discharge or other problems with urination. Musculoskeletal Denies joint pain, swelling or redness. No decreased range of motion. Integumentary Denies chronic rashes, inflammation, ulcerations or skin changes. Neurologic Denies headache, blurred vision, and no areas of focal weakness or numbness. Normal gait. No sensory problems. Psychiatric Denies insomnia, depression, zenon or mood swings. Vital Signs: Performed on Jul 05, 2020 11:15 Height - 63.00 in Weight - 132.4 lbs (LOW) BSA - 1.62 sq.m BMI - 23.45 Temperature - 98.6 F Pulse - 94 /min Respiration - 24 /min BP - 125/80 mm(hg) O2 Sat - 97 % Pain - 8,3 - Capable of only limited self-care, confined to bed or chair more than 50% of waking hours. (ECOG) Physical Examination: Constitutional Alert, oriented, no acute distress. Skin pink, warm and dry. Obviously does not feel well, but will overall looks better than last visit. Head Normocephalic; atraumatic. Eyes Conjunctivae and sclerae are clear and without icterus. Pupils are reactive and equal. Neck Supple without masses or thyromegaly. No jugular venous distension. Hematologic/Lymphatic No petechiae or purpura. No tender or palpable lymph nodes in the cervical or supraclavicular areas. Respiratory Lungs are clear to auscultation without rhonchi or wheezing. Cardiovascular Regular rate and rhythm of heart without murmurs,clicks, gallops or rubs. Chest Chest is symmetric without chest wall deformities. Right side port a cath insertion site is unremarkable. Abdomen Non-tender, non-distended, no masses. Good bowel sounds noted in all quads. No guarding or rebound tenderness. No pulsatile masses. Appears to have moderate ascites. Back/Spine Non-tender to palpation. Extremities No visible deformities, no cyanosis, clubbing or edema. Musculoskeletal No tenderness or swelling, normal range of motion without obvious weakness. Integumentary No rashes or lesions. Neurologic No sensory or motor deficits, normal cerebellar function, slow gait. Psychiatric Alert and oriented times three. Coherent speech. Verbalizes understanding of our discussions today. Laboratory:Test performed on Jul 05, 2020 10:32 Magnesium 2.1 mg/dL Sodium 135 mmol/L Potassium 4.2 mmol/L Chloride 97 mmol/L CO2 28 mmol/L Anion Gap 14.2 BUN 8 mg/dL Creatinine 0.5 mg/dL Cr Clearance (Est) 116.28 mL/min eGFR 126.7 mL/min Glucose 123 mg/dL Osmolality - Calculated 280 mOsm/kg Calcium 9.5 mg/dL Protein, Total 7.3 g/dL Albumin 3.7 g/dL Globulin 3.6 g/dL Bilirubin, Total 0.5 mg/dL ALT (SGPT) 10 U/L AST (SGOT) 41 U/L Alkaline Phosphatase 356 IU/L WBC 6.6 10 3/uL RBC 4.03 10 6/uL HGB 11.0 g/dL HCT 35.9 % MCV 89.1 fL MCH 27.3 pg MCHC 30.6 g/dL RDW 16.9 % Platelet Count 330 10 3/cmm MPV 10.6 fL Neutrophils 3.43 10 3/uL Lymphocytes 1.9 10 3/uL Monocytes 0.9 10 3/uL Eosinophils 0.3 10 3/uL Basophils 0.1 10 3/uL Neutrophil % 52.2 % Lymphocyte % 29.3 % Monocyte % 13.6 % Eosinophil % 3.8 % Basophils % 0.8 % NRBC % 0 % Test performed on Jun 19, 2020 15:18 PT 13.70 SECONDS INR 1.02 Impression: 1. Metastatic gastric cancer 2. CAD with CABG 3. Hx of treated Hepatitis C 4. HX MRSA bacteremia, endocarditis, osteomyelitis. 5. COPD 6. Liver cirrhosis Ms. Menon is a 60-year-old female who presented to [facility] on May 22, 2020 after a 4-week history of worsening dysphagia and odynophagia. Prior to her admission she had been unable to hold down any liquid or solid intake. She also developed abdominal swelling/bloating and had reported a weight loss of 20 pounds. Her work-up CT of the chest abdomen pelvis showed interval development of left supraclavicular adenopathy measuring at least 2.7 x 2.7 x 3.7 cm and enlarged supraclavicular lymph nodes largest measuring 3.0 x 2.1 cm. Also noted was less prominent left axillary and AP window adenopathy with an additional enlarged lymph node posterior to the left main bronchus. The liver showed mild cirrhosis as well as multiple metastatic lesions the largest measuring 4.2 x 4.6 x 4.4 cm. There was suspected right adrenal metastasis. There was masslike appearance along the wall of the lesser curvature of the stomach superiorly to the level of the GE junction. Findings were concerning for possible gastric neoplasm versus invasion of the stomach wall from lymphadenopathy in the lesser sac. It measured 5.9 x 4.4 x 3.3 cm. An enlarged lora hepatus lymph node measured 1.4 x 3.3 cm there was additional enlarged retroperitoneal lymph nodes. There was interval development of thickening at the peritoneal lining with extensive omental caking in the anterior abdomen suspicious for metastatic deposits. There was interval development of a large volume of ascites. There was new, age indeterminate compression deformity at L4 and worsening of L5 compression deformity. She was seen as an inpatient by Dr. Yun and an EGD was recommended. There was no evidence for esophageal obstruction and no indication for stenting a trial of chemotherapy or symptomatic/supportive care could be pursued. Her overall prognosis was determined to be poor. Ms. Menon underwent EGD on 05/24/2020. These findings were consistent with a malignant mass at the gastric cardia. There was no active bleeding at the time of the scope. The biopsy returned with gastric adenocarcinoma. She did have a Port-A-Cath placement in the right subclavian on May 26, 2020 and chemotherapy with FOLFOX began on 05/29/2020. She had significant problems with us abdominal ascites and underwent paracentesis on May 26, 2021 and again on June 02 with the removal of 1.6 L of fluid. Ms Menon was discharged from [facility] on 06/04/2020. She has tolerated FOLFOX with expected side effects and only slight improvement in her performance status. She now has left chestwall/shoulder pain that impairs her quality of life and ADL's. She has response to pain medication but the pain is persistent. See #4 below. Plan: 1.Proceed with cycle 3 FOLFOX, however she wants to wait till tomorrow she wants to talk to her kids today she states they are wanting her to pursue homeopathic treatment instead of actual chemotherapy. She states she wants to pursue chemotherapy and does need to clarify this with them. She wants to do her treatment tomorrow and not today. 2. She is agreeable to hydration and nausea meds today however. We will also give her some IV pain medicine for relief of her shoulder pain. 3. Referral to [facility] for assistance with labs, hydration monitoring and chemotherapy pump removal on Friday. She will need PRN hydration through the week as well. 4. She presents with significantly worsening left shoulder/chest wall pain. It is noted that on her CT from April 2020 there was a large left supraclavicular lymph node mass in the left supraclavicular region. It was anteriorly displacing the left internal jugular vein and medially displacing the left common carotid artery. At that time was 2.7 x 2.7 x 3.7 in AP and transverse dimensions. Also enlarged supraclavicular lymph nodes the largest measuring 3.0 x 2.1 cm enlarged left axillary lymph node measuring 1.5 x 1.5 cm enlarged AP window measuring 1.2 cm in short axis and an enlarged lymph node posterior to the left night mainstem bronchus measuring 1.2 cm in short axis. Request referral for ration oncology for consideration of radiation therapy for palliative relief of shoulder pain. 5. Labs from today were reviewed in detail and discussed with Ms. Menon and a copy was given to her. WBC 6.6, hemoglobin 11.0, platelets 330,000 ANC is 3400 potassium 4.2 creatinine 0.5 alk phos is 356. 5. We will plan to have her return in 2 weeks with CBC, CMP for consideration of cycle 4 FOLFOX. 6. Continue current pain medication MS Contin 30 mg BID and breakthrough with MSIR 30 mg every 2-4 hours prn pain. 7. Ms. Menon was instructed to contact us prior to her followup appointment if any questions or problems arise. 8. She requires supportive care as needed which may include hydration, antiemetics, paracentesis and pain control. 9. I have asked for an MRI of the brain for followup staging and evaluation of persistent nausea/poor performance status. Signed By: Alina Taylor-, [facility] Helder Yun MD <<Signature on File>>
--- NOTE | 2020-07-12 | CT_ITS ---
Radiation Therapy Planning CT images; total exam DLP: 731.39 mGy-cm MTDD
--- NOTE | 2020-07-12 17:24 | N.ONRAD NP_ITS ---
Radiation Oncology New Patient Visit Patient: Sarahi Menon MR#: [id number] : 1960> Age: 60> Sex: Female> Dictated by: Dr. Lexx Alicia Date of Service: 07/12/2020 Referring Physician(s) : Dr. Yun Diagnosis: Widely metastatic gastric cancer with painful left axillary, left supraclavicular, and left cervical neck adenopathy Radiotherapy to date: Summary > No prior radiation therapy. Chief Complaint / History of Present Illness: The patient is a 60-year-old female who presented in April 2020 with dysphagia/odynophagia and was subsequently diagnosed with widely metastatic gastric cancer (biopsy-proven on 05/24/2020 from a gastric cardia biopsy revealing poorly differentiated tubular adenocarcinoma consistent with gastric primary). The patient was treated with FOLFOX chemotherapy (initiated 05/29/2020) and she has been twice to treated with paracentesis secondary to abdominal ascites (05/26/2020 and 06/02/2020). The patient is seen today for a progressive and debilitating left axillary mass which limits her range of motion in her left shoulder, and the pain radiates from her left neck down to her left arm. She is taking 20 mg twice daily of extended release oxycodone, coupled with 2 doses per day of 15 mg of immediate release oxycodone for breakthrough pain relief. On physical exam today, the patient is tearful, and she has obvious range of motion limitations. Current Medications: Albuterol Sulfate, dexamethasone, fluorouracil, leucovorin Calcium, lidocaine-Prilocaine, lORazepam, metoprolol Tartrate, morphine Sulfate, nicotine, oxaliplatin, oxyCODONE HCl, oxyCODONE HCl ER, palonosetron HCl, prochlorperazine Maleate, spiriva HandiHaler. Allergies: codeine and Bextra. Medical History: - Chronic obstructive pulmonary disease, - coronary artery disease, - depression, - endocarditis, - gastroesophageal reflux disease, - hepatitis C, - mRSA bactermia, - Brandy-obstructive sleep apnea, - pulmonary HTN, - sacral osteomyelitis. No history of collagen vascular disease. No previous radiation therapy. Surgical History: Appendectomy, foot surgery, heart surgery at age 6, right subclavian Port-A-Cath per Dr. Walters/PHILIP on 05/26/2020 and tonsillectomy. Family History: Social History: Last screened on 07/05/2020 - Yes - but has quit. Last screened on 07/05/2020 - Past drinker. Current Complaints / Review of Systems: . Vital Signs: Performed on 07/12/2020 3:33 PM BMI - 23.595 kg/m2 (high), Height - 63.00 in, Weight - 133.2 lbs, Temperature - 98.4 f, Pulse - 88, Respiration - 20, O2 Sat - 94 % (low), Pain - 9 and BP - 110/ 78 mm(hg). Physical Exam: GENERAL:??? The patient is alert, and in no acute distress. HEENT:??? Head is normocephalic. Face is symmetric. External ocular movements are intact. Sclera and conjunctivae are non erythematous. NECK:??? Trachea is midline.??? Thyroid is not enlarged by palpation.??? LYMPH NODES:???Palpable left cervical adenopathy is appreciated along with left supraclavicular adenopathy. LUNGS:??? Clear to auscultation bilaterally. Respiratory movement is unlabored. HEART:??? Regular rate and rhythm. EXTREMITIES:???The patient has severe range of motion limitations in her left arm. NEUROLOGIC:??? Gait and station are normal.??? The patient is well coordinated and strength is equal bilaterally. SHANK CUTTER:??? Cranial nerves II-XII are intact and without focal deficits.??? Psych: Affect is normal. Skin: The patient has clinical exam findings consistent with a candidal infection within the inframammary folds of her bilateral breast, and left axilla. Performance Status: 3 - Capable of only limited self-care, confined to bed or chair more than 50% of waking hours. 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 Lab: Test performed on 07/05/2020 10:32 AM RBC - 4.03 10 6/ul (low), HGB - 11.0 g/dl (low), HCT - 35.9 % (low), MCH - 27.3 pg (low), RDW - 16.9 % (high), MPV - 10.6 fl (high), Sodium - 135 mmol/l (low), Chloride - 97 mmol/l (low), Glucose - 123 mg/dl (high), Osmolality - Calculated - 280 mosm/kg (low), AST (SGOT) - 41 u/l (high) and Alkaline Phosphatase - 356 iu/l (high). Imaging: Her most recent MRI of the brain (06/27/2020 revealed mild decreased T1 signal in the clivus which was indeterminate for metastatic disease. Prior to the procedure, the gyroscopic engineering technician was unable to obtain IV access therefore gadolinium could not be used. Thus metastatic disease could not be radiographically excluded with this MRI study. Patient's most recent CT of the chest abdomen pelvis (05/22/2020) revealed a 3.7 cm adenopathy within the left supraclavicular lymph node, a 3 cm left subclavicular lymph node, a 1.7 cm left axillary lymph node, mediastinal adenopathy, a 5 mm noncalcified nodule in the left lower lobe of lung, a masslike focus along the lesser curvature of the stomach, retroperitoneal adenopathy, multiple hepatic lesions, a right adrenal lesion, peritoneal thickening/omental caking, large volume ascites, a sclerotic lesion in the left ischium concerning for metastatic disease, compression deformities at L4/L5, and an indeterminant hyperdense focus in the right kidney. Impression: The patient is a 60-year-old female who presented with odynophagia/dysphagia and was subsequently diagnosed with widely metastatic adenocarcinoma of the stomach in April 2020. The patient has been initiated on FOLFOX chemotherapy (04/2020) and to date, she has received 2 paracentesis treatments secondary to abdominal ascites. The patient is severely symptomatic with respect to her left axillary mass, left supraclavicular mass, and left cervical adenopathy. Plan: Palliative radiation therapy to the left axillary mass, left subclavian adenopathy, left supraclavicular adenopathy, and left cervical neck adenopathy. I plan to prescribe 33 Gy/11 fractions and begin treatment planning today. Signed by: 07/12/2020 5:23:06 PM <<Signature on File>> Time spent with patient: CPT Code: CPT Code:
[2020-07-13 13:14] LABS: Basophils # 0.1 10^3/uL (0.0-0.1); Basophils % 0.9 %; Eosinophils # 0.2 10^3/uL (0.0-0.8); Hematocrit 33.3 % (37.0-47.0); Hemoglobin 9.9 g/dL (11.5-15.3); Lymphocytes # 2.4 10^3/uL (0.8-4.8); Lymphocytes % 41.9 %; Mean Corpuscular HGB Conc 29.7 g/dL (30.0-36.0); Mean Corpuscular Hemoglobin 27.7 pg (28.0-34.0); Mean Corpuscular Volume 93.3 fL (81-99); Mean Platelet Volume 11.5 fL (7.4-10.4); Monocytes # 0.6 10^3/uL (0.2-0.9); Monocytes % 10.4 %; Neutrophils # 2.37 10^3/uL (1.8-7.7); Neutrophils % 41.7 %; Nucleated Red Blood Cells % 0.4 %; Platelet Count 227 10^3/cmm (130-400); Red Blood Count 3.57 10^6/uL (4.1-5.3); Red Cell Distribution Width 16.7 % (12.1-15.1); White Blood Count 5.7 10^3/uL (4.0-10.0)
[2020-07-13 13:36] LABS: Alanine Aminotransferase 9 U/L (0-33); Albumin Level 3.2 g/dL (3.5-5.2); Alkaline Phosphatase 215 IU/L (35-105); Anion Gap 13.1 (5-19); Aspartate Amino Transferase 20 U/L (0-32); Blood Urea Nitrogen 8 mg/dL (6-20); Calcium 9.1 mg/dL (8.5-10.5); Carbon Dioxide 30 mmol/L (22-29); Chloride 100 mmol/L (98-107); Globulin 3.2 g/dL (1.3-4.6); Glomerular Filtration Rate 102.7 mL/min (90-130); Glucose 86 mg/dL (65-115); Osmolality Calculated 286 mOsm/kg (285-295); Potassium 4.1 mmol/L (3.5-5.1); Sodium 139 mmol/L (136-145); Total Bilirubin 0.2 mg/dL (0.15-1.2); Total Protein 6.4 g/dL (6.6-8.7)
[2020-07-18 12:47] LABS: Basophils % 0.6 %; Eosinophils # 0.2 10^3/uL (0.0-0.8); Eosinophils % 3.3 %; Hematocrit 37.5 % (37.0-47.0); Hemoglobin 10.9 g/dL (11.5-15.3); Lymphocytes # 2.2 10^3/uL (0.8-4.8); Lymphocytes % 35.1 %; Mean Corpuscular HGB Conc 29.1 g/dL (30.0-36.0); Mean Corpuscular Hemoglobin 27.1 pg (28.0-34.0); Mean Corpuscular Volume 93.3 fL (81-99); Mean Platelet Volume 10.9 fL (7.4-10.4); Monocytes # 0.8 10^3/uL (0.2-0.9); Monocytes % 13.3 %; Neutrophils # 2.99 10^3/uL (1.8-7.7); Neutrophils % 47.2 %; Nucleated Red Blood Cells % 0 %; Platelet Count 193 10^3/cmm (130-400); Red Blood Count 4.02 10^6/uL (4.1-5.3); Red Cell Distribution Width 19.2 % (12.1-15.1); White Blood Count 6.3 10^3/uL (4.0-10.0)
[2020-07-18 13:47] LABS: Alanine Aminotransferase 9 U/L (0-33); Albumin Level 3.6 g/dL (3.5-5.2); Alkaline Phosphatase 262 IU/L (35-105); Anion Gap 13.3 (5-19); Aspartate Amino Transferase 28 U/L (0-32); Blood Urea Nitrogen 6 mg/dL (6-20); Calcium 9.6 mg/dL (8.5-10.5); Carbon Dioxide 29 mmol/L (22-29); Chloride 99 mmol/L (98-107); Globulin 3.4 g/dL (1.3-4.6); Glomerular Filtration Rate 64.3 mL/min (90-130); Glucose 90 mg/dL (65-115); Osmolality Calculated 281 mOsm/kg (285-295); Potassium 4.3 mmol/L (3.5-5.1); Sodium 137 mmol/L (136-145); Total Bilirubin 0.4 mg/dL (0.15-1.2)
--- NOTE | 2020-07-18 16:18 | ONCRAD TMN_ITS ---
Radiation Oncology Weekly Treatment Management Patient: Sinan Mcclain MR#: [id number] : 1960 Age: 60 Sex: Female Dictated by: Dr. Lexx Alicia Date of Service: 07/18/2020 Referring Physician(s) : Diagnosis: R11.2 - Nausea with vomiting, unspecified, Diagnosed 06/13/2020 (Active) Widely metastatic gastric cancer with painful left axillary, left supraclavicular, and left cervical neck adenopathy Radiotherapy to date: Course: LT SCLV [id number], Treatment Site: LT [id number], Ref. ID: [id number], Energy: 15X/6X, Dose/Fx (cGy): 300, #Fx: , Dose Correction (cGy): 0, Total Dose (cGy): 300, Start Date: 07/18/2020, Elapsed Days: 0 Reason for visit: The patient is being seen today as part of their regularly scheduled weekly on treatment visits to assess for acute toxicities from radiotherapy. Interim History: The patient now reports new right hip pain that started a few weeks ago and is progressively getting worse. I will obtain a bone scan to further work this up. She reports that her bowels are functioning adequately. Current Medications: Albuterol Sulfate, dexamethasone, fluorouracil, leucovorin Calcium, lidocaine-Prilocaine, lORazepam, metoprolol Tartrate, morphine Sulfate, nicotine, oxaliplatin, oxyCODONE HCl, oxyCODONE HCl ER, oxyCODONE HCl ER, palonosetron HCl, prochlorperazine Maleate, spiriva HandiHaler. Allergies: codeine and Bextra. Vital Signs: Performed on 07/18/2020 3:23 PM BMI - 23.383 kg/m2 (high), Height - 63.00 in, Weight - 132.0 lbs, Temperature - 96.3 f, Pulse - 88, Respiration - 20, O2 Sat - 95 % (low), Pain - 6 and BP - 113/ 65 mm(hg). Physical Exam: Appears stable, no skin erythema or desquamation. Performance Status: 3 - Capable of only limited self-care, confined to bed or chair more than 50% of waking hours. (ECOG) Lab: None pending in Radiation Oncology. Test performed on 07/13/2020 11:48 AM RBC - 3.57 10^12/l (low), HGB - 9.9 g/dl (low), HCT - 33.3 % (low), MCHC - 29.7 g/dl (low), RDW - 16.7 % (high), Albumin - 3.2 g/dl (low) and Alkaline Phosphatase - 215 iu/l (high). Imaging: Radiation therapy imaging related to accurate target localization (i.e. KV, MV and CBCT) was reviewed. Appropriate changes, if any, were made to ensure treatment accuracy. Plan: The patient is tolerating therapy reasonably well. Radiotherapy will continue as planned. A bone scan was ordered. The patient was also encouraged to increase her pain medication that has already been prescribed. CPT: 58972 Signed by: Dr. Lexx Alicia 07/18/2020 4:16:15 PM
[2020-07-20 13:07] LABS: Basophils % 0.6 %; Eosinophils # 0.1 10^3/uL (0.0-0.8); Eosinophils % 1.1 %; Hematocrit 32.9 % (37.0-47.0); Lymphocytes # 0.9 10^3/uL (0.8-4.8); Lymphocytes % 13.4 %; Mean Corpuscular HGB Conc 30.4 g/dL (30.0-36.0); Mean Corpuscular Hemoglobin 27.7 pg (28.0-34.0); Mean Corpuscular Volume 91.1 fL (81-99); Mean Platelet Volume 10.3 fL (7.4-10.4); Monocytes # 0.8 10^3/uL (0.2-0.9); Monocytes % 11.3 %; Neutrophils # 4.83 10^3/uL (1.8-7.7); Nucleated Red Blood Cells % 0 %; Platelet Count 174 10^3/cmm (130-400); Red Blood Count 3.61 10^6/uL (4.1-5.3); Red Cell Distribution Width 18.6 % (12.1-15.1); White Blood Count 6.6 10^3/uL (4.0-10.0)
[2020-07-20 13:38] LABS: Carcinoembryonic Antigen 85.8 ng/mL (0.0-4.7)
[2020-07-20 13:49] LABS: Alanine Aminotransferase 7 U/L (0-33); Albumin Level 3.3 g/dL (3.5-5.2); Alkaline Phosphatase 265 IU/L (35-105); Anion Gap 13.8 (5-19); Aspartate Amino Transferase 25 U/L (0-32); Blood Urea Nitrogen 7 mg/dL (6-20); Calcium 9.2 mg/dL (8.5-10.5); Carbon Dioxide 27 mmol/L (22-29); Chloride 96 mmol/L (98-107); Globulin 3.3 g/dL (1.3-4.6); Glomerular Filtration Rate 126.7 mL/min (90-130); Glucose 115 mg/dL (65-115); Osmolality Calculated 275 mOsm/kg (285-295); Potassium 3.8 mmol/L (3.5-5.1); Sodium 133 mmol/L (136-145); Total Bilirubin 0.7 mg/dL (0.15-1.2); Total Protein 6.6 g/dL (6.6-8.7)
--- NOTE | 2020-07-24 08:29 | ONC FU_ITS ---
Dr. Yun Patient Follow-Up Note Patient: Sarahi Menon Unit #: [id number]: 1960 Dicatated By: Helder Yun M.D.Date of Visit:Jul 20, 2020 Onc Med Follow-up/Prog Note Chief Complaint: Gastric cancer. 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 On 05/22/2020 she was admitted to the hospital after presenting to the emergency room with pain and difficulty swallowing. CT scans of the chest, abdomen, and pelvis showed evidence of widespread malignancy including masslike focus along the lesser curvature of the stomach, along with left supraclavicular, left axillary, mediastinal, and abdominal lymphadenopathy, multiple metastatic lesions in the liver, and suspected right adrenal metastasis. There was a large volume of ascites. A new sclerotic lesion in the left ischium was suspicious for a metastatic focus. Her EGD on 05/24/2020 showed a partially obstructing, malignant appearing mass in the gastric cardia. Pathology showed poorly differentiated tubular adenocarcinoma, consistent with gastric primary. HER-2/diana and PD-L1 testing were requested, those results were not reported. At the time she was very symptomatic, to the point that she was virtually unable to eat. However, she had indicated that she did want to attempt treatment. As such, she underwent placement of Port-A-Cath venous access device and she then began cycle 1 of modified FOLFOX chemotherapy on 05/29/2020. She was able to tolerate treatment with acceptable toxicity, and she continued with cycle 2 on 06/19/2020 and with cycle 3 on 07/06/2020. She has multiple medical illnesses including coronary artery disease with previous coronary artery bypass, COPD, pulmonary hypertension, and obstructive sleep apnea. She has history of MRSA bacteremia, bacterial endocarditis, and osteomyelitis, and she also has a history of treated hepatitis C. She has been a smoker. She does not drink alcohol. She is seen for a follow-up visit. She has not been feeling good since her last chemotherapy treatment. Her energy is very low and she says it is now hard to get around. She has very limited activity. ECOG score is 3. Her appetite is not good. She is just eating a little bit here and there. She does appear to be getting some benefit, though, with Marinol at 5 mg 3 times daily. She has not had fever. She sometimes has sweating. She does not complain of cough. She has shortness of breath and she sometimes has chest pain. She continues to have a lot of nausea. She had been vomiting on at least a daily basis, but that has been slowing down some. Bowel and bladder function have been okay. She says she is in constant pain including the left shoulder, left lateral rib area, and right hip. She is limping on her right leg. Today she also has been having pain in her tailbone. She has had headache and dizziness. She has just a little bit of numbness/tingling. She has had ongoing problems with anxiety and depression. Medications: Albuterol Sulfate 1 Puff(s) (of (2.5 mg/3ml) 0.083%) Nebulization solution Inhalation PRN, LORazepam 0.5 - 1 Tablet (of 1 mg) Oral t.i.d. PRN, Metoprolol Tartrate 1 Tablet (of 25 mg) Oral b.i.d., Nicotine 1 Patch(es) (of 21-14-7 mg/24hr) Kit Transdermal daily, oxyCODONE HCl 2 - 4 Tablet (of 15 mg) Oral q 4 hours PRN, oxyCODONE HCl ER 2 - 4 Tablet (of 20 mg) Tablet ER 12 HR Abuse-Deterrent Oral q 12 hours, Spiriva HandiHaler 1 Capsule (of 18 mcg) Inhalation daily Allergies: Bextra and codeine. Review of Systems: Constitutional - She has very low energy and her activity is very limited. Appetite is poor. She is eating just a little bit here and there. She has not had fever. She sometimes has sweating at night. ECOG score is 3, ENMT - No sinus congestion/drainage. No mouth sores. No sore throat or difficulty swallowing, Hematologic/Lymphatic - No abnormal bruising or bleeding, Respiratory - She has some shortness of breath. No cough. No pleuritic pain or hemoptysis, Cardiovascular - She sometimes has chest pain. No palpitations, Gastrointestinal - She is having nausea and she was having vomiting at least daily. It has slowed down now. She occasionally has acid reflux. No diarrhea or constipation. No blood in the stool or black stools, Genitourinary (F) - No dysuria or hematuria. No urinary frequency. No urgency or incontinence, Musculoskeletal - She is having constant pain. The most significant is in the right hip, left shoulder, and left lateral rib area. Today she also has been having pain in her tailbone. She says she is limping on her right leg, Integumentary - No skin rash, Neurologic - She has headache and she has dizziness. She has a little bit of numbness/tingling. No other focal neurologic symptoms, Psychiatric - She has anxiety/depression. She has not been sleeping well. She says she wakes up a lot. Vital Signs: Performed on Jul 20, 2020 11:55 Height - 63.00 in Weight - 132.2 lbs (HIGH) BSA - 1.62 sq.m BMI - 23.42 Temperature - 98.4 F Pulse - 87 /min Respiration - 18 /min BP - 124/73 mm(hg) O2 Sat - 96 % Pain - 8 Physical Examination: Constitutional - She appears generally weak, Eyes - Sclerae nonicteric. Conjunctivae clear, ENMT - No lesions noted in the oral cavity, Hematologic/Lymphatic - There is tenderness in the left supraclavicular area. This time we do not feel any cervical, clavicular, or axillary adenopathy, Respiratory - Lungs are clear with good air movement bilaterally, Cardiovascular - Heart rhythm is regular. There is a II/ systolic murmur. There is no gallop or rub noted, Abdomen - Soft and non-tender. Liver and spleen are not enlarged. There is no abdominal mass or ascites noted and there is no inguinal adenopathy, Extremities - No edema, Neurologic - No focal neurologic deficits noted. Lab/Imaging: Test performed on Jul 20, 2020 12:59 Sodium 133 mmol/L Potassium 3.8 mmol/L Chloride 96 mmol/L CO2 27 mmol/L Anion Gap 13.8 BUN 7 mg/dL Creatinine 0.5 mg/dL Cr Clearance (Est) 116.2800 mL/min eGFR 126.7 mL/min Glucose 115 mg/dL Osmolality - Calculated 275 mOsm/kg Calcium 9.2 mg/dL Protein, Total 6.6 g/dL Albumin 3.3 g/dL Globulin 3.3 g/dL Bilirubin, Total 0.7 mg/dL ALT (SGPT) 7 U/L AST (SGOT) 25 U/L Alkaline Phosphatase 265 IU/L WBC 6.6 10 3/uL RBC 3.61 10 6/uL HGB 10.0 g/dL HCT 32.9 % MCV 91.1 fL MCH 27.7 pg MCHC 30.4 g/dL RDW 18.6 % Platelet Count 174 10 3/cmm MPV 10.3 fL Neutrophils 4.83 10 3/uL Lymphocytes 0.9 10 3/uL Monocytes 0.8 10 3/uL Eosinophils 0.1 10 3/uL Basophils 0.0 10 3/uL Neutrophil % 73.0 % Lymphocyte % 13.4 % Monocyte % 11.3 % Eosinophil % 1.1 % Basophils % 0.6 % NRBC % 0 % CEA 85.8 ng/mL Impression: 1. 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 2. She underwent EGD with gastric biopsy on 05/24/2020. HER-2/diana and PD-L1 studies were requested, but not reported. 3. She began trial of palliative chemotherapy with modified FOLFOX on 05/29/2020. Her other medical illnesses include: 4. Coronary artery disease with previous coronary artery bypass surgery. 5. COPD. 6. Pulmonary hypertension. 7. Obstructive sleep apnea. 8. GERD. 9. History of MRSA bacteremia, bacterial endocarditis, and osteomyelitis. 10. History of treated hepatitis C. 11. Anxiety/depression. She is now completed 3 cycles of modified FOLFOX chemotherapy. She has been able to tolerated with acceptable toxicity, though she has ongoing problems with nausea/anorexia, and she comes in now with increased weakness/fatigue and increasing pain at multiple sites. She has not yet been evaluated for response. Plan: Her further chemotherapy will be delayed pending restaging CT scans. In the meantime, I will check with pathology regarding the HER-2/diana and PD-L1 studies. If material is available, I also will request a next generation sequencing. I also will have her try increasing Marinol to 10 mg 3 times daily. Signed By: Helder Yun M.D. <<Signature on File>>
--- NOTE | 2020-07-26 19:33 | ONCRAD TMN_ITS ---
Radiation Oncology Weekly Treatment Management Patient: Sarahi Menon MR#: [id number] : 1960 Age: 60 Sex: Female Dictated by: Dr. Lexx Alicia Date of Service: 07/25/2020 Referring Physician(s) : Diagnosis: Widely metastatic gastric cancer with painful left axillary, left supraclavicular, and left cervical neck adenopathy. Treatment plan: Palliative radiation therapy to a total dose of 33 Gy in 11 fractions to the left axilla, left supraclavicular lymph nodes, and left shoulder. Radiotherapy to date: Course: LT SCLV [id number], Treatment Site: LT [id number], Ref. ID: [id number], Energy: 15X/6X, Dose/Fx (cGy): 300, #Fx: , Dose Correction (cGy): 0, Total Dose (cGy): 1,800, Start Date: 07/18/2020, Elapsed Days: 7 Reason for visit: The patient is being seen today as part of their regularly scheduled weekly on treatment visits to assess for acute toxicities from radiotherapy. Interim History: The patient reports that her pain has reduced in her left arm, and she has increased mobility in her left arm. Current Medications: Albuterol Sulfate, dexamethasone, dronabinol, fluorouracil, hYDROmorphone HCl, leucovorin Calcium, lidocaine-Prilocaine, lORazepam, metoprolol Tartrate, nicotine, oxaliplatin, oxyCODONE HCl, oxyCODONE HCl ER, oxyCODONE HCl ER, palonosetron HCl, prochlorperazine Maleate, spiriva HandiHaler. Allergies: codeine and Bextra. Current Complaints/Review of Systems: Constitutional - Complains of no appetite. Complains of severe fatigue. Complains of night sweats which occur every night. Complains of change in weight in which she is down about 8 lbs. since last OTV. Denies fever. ENMT - Denies dysphagia. Neck - Complains of neck pain and decreased range of motion. Integumentary - Has no redness to the area of treatment. Respiratory - Complains of chronic dyspnea. Complains of mild wheezing. Denies cough. Vital Signs: Performed on 07/25/2020 2:43 PM BMI - 22.072 kg/m2, Height - 63.00 in, Weight - 124.6 lbs, Temperature - 98.4 f, Pulse - 85, Respiration - 20, O2 Sat - 97 %, Pain - 8 and BP - 136/ 84 mm(hg). Physical Exam: Appears stable, no skin erythema or desquamation. Performance Status: 3 - Capable of only limited self-care, confined to bed or chair more than 50% of waking hours. (ECOG) Lab: None pending in Radiation Oncology. Test performed on 07/20/2020 12:59 PM RBC - 3.61 10 6/ul (low), HGB - 10.0 g/dl (low), HCT - 32.9 % (low), MCH - 27.7 pg (low), RDW - 18.6 % (high), Sodium - 133 mmol/l (low), Chloride - 96 mmol/l (low), Osmolality - Calculated - 275 mosm/kg (low), Albumin - 3.3 g/dl (low), Alkaline Phosphatase - 265 iu/l (high) and CEA - 85.8 ng/ml (high). Imaging: Radiation therapy imaging related to accurate target localization (i.e. KV, MV and CBCT) was reviewed. Appropriate changes, if any, were made to ensure treatment accuracy. Impression: The patient is a 60-year-old female with widely metastatic gastric cancer with painful left axillary, left supraclavicular, and left cervical neck adenopathy. In addition, a recent CT (07/27/2020) revealed widely metastatic cancer with osseous involvement along the cervical and thoracic spine. Due to the medical condition as described above coupled with severe scoliosis, this patient requires elevation of the head/upper body greater than 30 degrees for most of the time with frequent changes in body position. Therefore, it is medically necessary that this patient have a semi-electric hospital bed. Plan: Radiotherapy will continue as planned. I will submit an order for the patient to obtain a hospital bed or equivalent for home use. CPT: 07425 Signed by: Dr. Lexx Alicia 07/27/2020 11:35:26 AM
--- NOTE | 2020-07-28 09:13 | NM_ITS ---
WS: [id number] NUCLEAR MEDICINE WHOLE BODY BONE SCAN HISTORY: WIDELY METASTATIC GASTRIC CANCER COMPARISON: Prior thoracic spine CT 07/26/2020. CT chest, abdomen and pelvis 05/22/2020. TECHNIQUE: The patient was injected with 24.4 mCi of Technetium 99m HDP and serial whole-body scintig berkley have been performed with anterior and posterior images. There is extensive scattered uptake throughout the osseous skeleton. Metastatic involvement of the sk ull, upper extremities, spine, ribs, pelvis and bilateral lower extremities. Very intense uptake invo lving the LEFT medial clavicle. There is soft tissue uptake noted in normal uptake within the kidneys. NM/NM bone scan whole body* [id number] IMPRESSION: Diffuse osseous metastatic bone disease.
== END 2020-07-29 23:59 | disposition home or self-care (01) ==
LOC: ONCMED 09:00
PROVIDERS: Internal Medicine Medical Oncology; Nurse Practitioner; PCP Family Medicine; Visit Provider Radiology Radiation Oncology
DX: Z51.0 Encounter for antineoplastic radiation therapy (principal); Z51.11 Encounter for antineoplastic chemotherapy; C16.0 Malignant neoplasm of cardia; C78.7 Secondary malignant neoplasm of liver and intrahepatic bile duct; C77.8 Secondary and unspecified malignant neoplasm of lymph nodes of multiple regions; C79.71 Secondary malignant neoplasm of right adrenal gland; J44.9 Chronic obstructive pulmonary disease, unspecified; I25.10 Atherosclerotic heart disease of native coronary artery without angina pectoris; F41.8 Other specified anxiety disorders; K21.9 Gastro-esophageal reflux disease without esophagitis; G47.33 Obstructive sleep apnea (adult) (pediatric); G89.3 Neoplasm related pain (acute) (chronic); R18.8 Other ascites; K74.60 Unspecified cirrhosis of liver; F17.210 Nicotine dependence, cigarettes, uncomplicated; F10.21 Alcohol dependence, in remission; I27.20 Pulmonary hypertension, unspecified; Z79.891 Long term (current) use of opiate analgesic; Z79.51 Long term (current) use of inhaled steroids; Z86.19 Personal history of other infectious and parasitic diseases
CPT/HCPCS: 36591; 77300; 77301; 77336; 77338; 77386; 78306; 80053; 82378; 83735; 85025; 85651; 86140; 96361; 96365; 96367; 96368; 96375; 96413; 96415; 96416; 99213; 99214; A9561; J0640; J1100; J1453; J2270; J2405; J2469; J3490; J7030; J9190; J9263

== ENCOUNTER 2020-07-31 07:19 | Outpatient (RCR) | payer MEDICAID, SELFPAY | END 2020-08-01 06:00 | disposition home or self-care (01) | LOC: ONCMED 07:19 | PROVIDERS: PCP Family Medicine; Visit Provider Radiology Radiation Oncology | DX: C16.0 Malignant neoplasm of cardia (principal); C79.51 Secondary malignant neoplasm of bone | CPT/HCPCS: 77386 ==

== ENCOUNTER 2020-08-01 09:01 | Outpatient (CLI) | payer MEDICAID, SELFPAY ==
--- NOTE | 2020-08-01 09:13 | CTR_ITS ---
PROCEDURE INFORMATION: Exam: CT Chest With Contrast Exam date and time: 08/01/2020 9:15 AM Age: 60 years old Clinical indication: Condition or disease; Other: Gastric cancer; Follow-up oncological assessment; Prior surgery; Surgery type: Heart, c section TECHNIQUE: Imaging protocol: Computed tomography of the chest with intravenous contrast. Radiation optimization: All CT scans at this facility use at least one of these dose optimization techniques: automated exposure control; mA and/or kV adjustment per patient size (includes targeted exams where dose is matched to clinical indication); or iterative reconstruction. Contrast material: OMNI 300; Contrast volume: 95 ml; Contrast route: INTRAVENOUS (IV); COMPARISON: CT chest abd pel w con* 05/22/2020 6:19 PM RADIATION DOSE METRICS: Total DLP (mGy-cm): 1534.07 FINDINGS: Lungs: Large bulla right upper lobe are unchanged. There is severe emphysematous changes. There is unchanged mild ground-glass opacity in the lungs that may reflect mild pneumonitis. No new airspace consolidation. There is an unchanged 5 mm subpleural nodule medial left lower lobe image 30. No airspace consolidation. Pleural space: There is increasing left pleural based nodule/pleural thickening measuring 7 mm in thickness today compared to 3 mm previously image 34. Heart: Unremarkable. No cardiomegaly. No pericardial effusion. Mediastinal space: A small hiatal hernia is present. There is unchanged mild circumferential thickening of the distal esophageal wall that may reflect lack of distention or esophagitis. Aorta: Unremarkable. No aortic aneurysm. Lymph nodes: The lymph node just lateral to the left carotid artery visualized previously is smaller now measuring 2.0 x 1.7 cm were previously it was 2.7 x 3.7 cm There is left axillary adenopathy with the largest lymph node in the left axilla that was previously measured now measuring 3.0 x 2.6 cm compared to the prior exam where it measured 3.0 x 2.1. There is no right axillary adenopathy. The previously visualized lymph node in the aortopulmonary window image 19 today measures 11 mm in short axis compared to 12 mm previously. The previously visualized enlarged lymph node posterior to the left mainstem bronchus image 25 now measures 1 cm in short axis compared to 1.2 cm previously. No new or progressive mediastinal or hilar adenopathy is identified. Bones/joints: New since the prior exam is extensive diffuse bony metastatic disease with sclerotic lesions throughout the visualized skeleton. There is a pathologic fracture of the distal 3rd left clavicle. An expansile lesion of the lateral right 4th rib with pathologic fracture is identified. New probable pathologic fractures are also noted involving the left 7th 8th and 9th ribs. No new compression fracture in the thoracic spine. Chronic compression fracture deformities and degenerative changes are again noted. Soft tissues: Unremarkable. IMPRESSION: 1. Improving adenopathy compared to the prior exam. No new or enlarging lymph nodes. 2. Unchanged 5 mm subpleural nodule left lower lobe. There is a larger left sided pleural base nodule/pleural thickening. 3. New extensive bony metastatic disease with sclerotic lesions involving all bones of the entire visualized skeleton with multiple new pathologic fractures. PROCEDURE INFORMATION: Exam: CT Abdomen And Pelvis With Contrast Exam date and time: 08/01/2020 9:15 AM Age: 60 years old Clinical indication: Condition or disease; Other: Gastric cancer; Follow-up oncological assessment; Prior surgery; Surgery type: Heart, c section TECHNIQUE: Imaging protocol: Computed tomography of the abdomen and pelvis with intravenous contrast. Radiation optimization: All CT scans at this facility use at least one of these dose optimization techniques: automated exposure control; mA and/or kV adjustment per patient size (includes targeted exams where dose is matched to clinical indication); or iterative reconstruction. Contrast material: OMNI 300; Contrast volume: 95 ml; Contrast route: INTRAVENOUS (IV); COMPARISON: CT chest abd pel w con* 05/22/2020 6:19 PM RADIATION DOSE METRICS: Total DLP (mGy-cm): 1534.07 FINDINGS: Liver: Multiple masses are again identified in the liver. The previously visualized mass in the left lobe of the liver now measures 4.4 x 6.4 x 8.1 cm where previously it was 4.2 x 4.6 x 4.2 cm. Some of the previously visualized nodules in the liver are smaller for example in the right lobe of the liver image 17 there is a nodule that measures 2.2 x 2.1 cm today that previously measured 3.0 by 2.7 cm. At this level on the prior exam, there are at least 4 additional nodules in the right lobe of the liver on the prior exam and these are barely visualized this subtle hypodensities with the largest measuring about 1 cm in size that previously measured 1.8 cm. The liver has a finely nodular contour, consistent with cirrhosis. Gallbladder and bile ducts: Normal. No calcified stones. No ductal dilation. Pancreas: Normal. No ductal dilation. Spleen: Normal. No splenomegaly. Adrenal glands: There is unchanged mild nodular thickening of the right adrenal gland measuring 1.1 cm in size. Kidneys and ureters: There is no evidence of hydronephrosis. There is a 1.6 cm lower pole unchanged indeterminate lesion lower pole right kidney. There is no evidence of renal calcifications. Stomach and bowel: The previously visualized masslike enlargement of the lesser curvature of the stomach identified previously has decreased in size series 3, image 17 measuring 3.2 x 3.5 x 3.7 cm where previously it measured 5.9 x 4.9 x 3.3 cm. There is no evidence of intestinal perforation or obstruction. There is no evidence of colitis/diverticulitis. Appendix: No evidence of appendicitis. Intraperitoneal space: There is a small amount of ascites improved compared to the prior exam. The extensive omental caking and carcinomatosis continues but is decreasing in thickness and density. On image 44 series 3 the thickness is about 2.5 cm or previously it was about 3.3 cm. Vasculature: Unremarkable.No abdominal aortic aneurysm. Lymph nodes: There is retroperitoneal adenopathy including the 1.6 cm short axis left periaortic lymph node image 37 that previously measured 2.0 cm. No new or increasing adenopathy. Urinary bladder: There is nonspecific bladder wall thickening. This may be related to incomplete distention. Reproductive: Unremarkable as visualized. Bones/joints: New since the prior exam is extensive bony metastatic disease with sclerotic lesions throughout the entire visualized skeleton. There is unchanged fracture deformity of L4 on L5. No new bony fracture in the lumbar spine or pelvis. Soft tissues: Unremarkable. Other findings: No loculated fluid collection or abscess. CT/CT chest abd pel w con* IMPRESSION: 1. Mixed response of the metastatic disease in the liver. Some of the lesions are smaller and the largest mass is larger. Some of the nodules are barely visualized on this exam. 2. Improving retroperitoneal adenopathy and improving mass/adenopathy along the lesser curvature of the stomach. 3. Unchanged 1.6 cm indeterminate lesion lower pole right kidney. 4. Continued but decreasing omental carcinomatosis. Decreasing ascites. 5. New extensive diffuse bony metastatic disease without pathologic fracture. Radiation Dose CTDIVOL = (mGy): DLP = 1534.07~1534.07 (mGy-cm)
[2020-08-01] MEDS: iohexol 300 mg/mL 100 mL Btl IV (13:32)
== END 2020-08-01 09:02 | disposition home or self-care (01) ==
LOC: RAD 09:05 → ONCMED 11:04
PROVIDERS: PCP Family Medicine; Visit Provider Internal Medicine Medical Oncology
DX: R59.0 Localized enlarged lymph nodes (principal); C16.0 Malignant neoplasm of cardia; C78.02 Secondary malignant neoplasm of left lung; C79.51 Secondary malignant neoplasm of bone
CPT/HCPCS: 71260; 74177; Q9967

== ENCOUNTER 2020-08-03 10:50 | Outpatient (CLI) | payer MEDICAID, SELFPAY ==
--- NOTE | 2020-08-03 10:57 | USCV_ITS ---
Sinan Sarahi Age: 60 Gender: F : 1960 Exam Date: 08/03/2020 11:07 Ordering Phys: Helder Yun MD Technologist: Charmaine Correa Exam Location: [facility] [place] Indication: MALIG NEOPLASM OF CARDIA STAGE 4B BP: / HR: 89 Rhythm: Sinus Technical Quality: Adequate MEASUREMENTS (Male / Female) Normal Values 2D ECHO LV Diastolic Diameter PLAX 3.9 cm 4.2 - 5.9 / 3.9 - 5.3 cm LV Systolic Diameter PLAX 2.6 cm LV Chamber Size 2.9 cm IVS Diastolic Thickness 1.0 cm 0.6 - 1.0 / 0.6 - 0.9 cm IVS Systolic Thickness 1.3 cm LVPW Diastolic Thickness 0.9 cm 0.6 - 1.0 / 0.6 - 0.9 cm LVPW Systolic Thickness 1.6 cm RV Chamber Size 3.8 cm LVOT Diameter 2.0 cm LV Ejection Fraction 2D Teich 64.0 % LA Diameter 3.4 cm LA Width 2.8 cm LA Height 5.0 cm RA Width 4.0 cm RA Height 4.3 cm Aorta at Sinotubular Diameter 2.4 cm M-MODE LV Diastolic Diameter MM 4.4 cm 4.2 - 5.9 / 3.9 - 5.3 cm LV Systolic Diameter MM 3.1 cm LV Ejection Fraction MM Teich 56.2 % IVS Diastolic Thickness MM 0.8 cm 0.6 - 1.0 / 0.6 - 0.9 cm IVS Systolic Thickness MM 1.0 cm LVPW Diastolic Thickness MM 0.9 cm 0.6 - 1.0 / 0.6 - 0.9 cm LVPW Systolic Thickness MM 1.2 cm RV Diastolic Diameter MM 2.3 cm Aortic Annulus Diameter 2.4 cm LA Ao Ratio MM 1.9 MV E Point Septal Separation 0.5 cm DOPPLER AV Peak Velocity 152.0 cm/s LVOT Peak Velocity 119.0 cm/s AV Area Cont Eq vti 2.0 cm squared AV Area Cont Eq pk 2.5 cm squared MV Area PHT 4.6 cm squared Mitral E to A Ratio 1.0 MV E' Velocity 34.5 cm/s Mitral E to MV E' Ratio 4.9 Mitral E to LV E' Lateral Ratio 4.7 Mitral E to LV E' Septal Ratio 5.1 TR Peak Velocity 271.1 cm/s TR Peak Gradient 29.4 mmHg TR Mean Velocity 230.1 cm/s TR Mean Gradient 22.0 mmHg TR Velocity Time Integral 78.7 cm TV Peak E Velocity 70.0 cm/s Right Atrial Pressure 3.0 mmHg Pulmonary Artery Systolic Pressu 32.4 mmHg PV Peak Velocity 164.0 cm/s FINDINGS Left Ventricle Normal left ventricular cavity size. Normal left ventricular systolic function. No regional wall motion abnormalities. Left ventricular ejection fraction is estimated at 56 %. Grade II/IV diastolic dysfunction, moderately elevated filling pressures. Right Ventricle The right ventricle is normal in size and function. Right Atrium The right atrium is normal in size. Left Atrium The left atrium is normal in size. Mitral Valve Mildly thickened mitral valve. No mitral valve stenosis. Mild mitral valve regurgitation. Aortic Valve Moderate aortic valve calcification. No aortic valve stenosis. Tricuspid Valve Mild tricuspid valve regurgitation. Pulmonic Valve Structurally normal pulmonic valve without significant stenosis. There is no pulmonic regurgitation. Pericardium Normal pericardium without effusion. Aorta Normal ascending aorta dimension. CONCLUSIONS 1-Normal left ventricular cavity size. Normal left ventricular systolic function. No regional wall motion abnormalities. Left ventricular ejection fraction is estimated at 56 %. Grade II/IV diastolic dysfunction, moderately elevated filling pressures. 2-Mildly thickened mitral valve. No mitral valve stenosis. Mild mitral valve regurgitation. 3-Moderate aortic valve calcification. No aortic valve stenosis. 4-Mild tricuspid valve regurgitation. 5-There is no pericardial effusion. 6-Pulmonary artery systolic pressure is within normal limits. 7-Due to poor quality images cannot compare with prior exam Paula Neal MD (Electronically Signed) Final Date: 03 August 2020 20:03 S
== END 2020-08-03 10:51 | disposition home or self-care (01) ==
PROVIDERS: PCP Family Medicine; Visit Provider Internal Medicine Medical Oncology
DX: C16.0 Malignant neoplasm of cardia (principal); I08.3 Combined rheumatic disorders of mitral, aortic and tricuspid valves
CPT/HCPCS: 93306

== ENCOUNTER 2020-08-10 07:45 | Outpatient (RCR) | payer MEDICAID, SELFPAY ==
[2020-08-01 14:40] LABS: Basophils # 0.1 10^3/uL (0.0-0.1); Basophils % 0.8 %; Eosinophils # 0.2 10^3/uL (0.0-0.8); Eosinophils % 3.2 %; Hemoglobin 10.3 g/dL (11.5-15.3); Lymphocytes # 1.3 10^3/uL (0.8-4.8); Lymphocytes % 17.1 %; Mean Corpuscular HGB Conc 30.3 g/dL (30.0-36.0); Mean Corpuscular Hemoglobin 26.8 pg (28.0-34.0); Mean Corpuscular Volume 88.5 fL (81-99); Mean Platelet Volume 10.2 fL (7.4-10.4); Monocytes # 0.8 10^3/uL (0.2-0.9); Monocytes % 10.1 %; Neutrophils # 5.13 10^3/uL (1.8-7.7); Neutrophils % 67.9 %; Nucleated Red Blood Cells % 0 %; Platelet Count 297 10^3/cmm (130-400); Red Blood Count 3.84 10^6/uL (4.1-5.3); Red Cell Distribution Width 17.6 % (12.1-15.1); White Blood Count 7.6 10^3/uL (4.0-10.0)
[2020-08-01 15:01] LABS: Alanine Aminotransferase 7 U/L (0-33); Albumin Level 3.2 g/dL (3.5-5.2); Alkaline Phosphatase 183 IU/L (35-105); Anion Gap 11.9 (5-19); Aspartate Amino Transferase 39 U/L (0-32); Blood Urea Nitrogen 9 mg/dL (6-20); Calcium 9.5 mg/dL (8.5-10.5); Carbon Dioxide 29 mmol/L (22-29); Chloride 95 mmol/L (98-107); Globulin 3.5 g/dL (1.3-4.6); Glomerular Filtration Rate 163.9 mL/min (90-130); Glucose 108 mg/dL (65-115); Osmolality Calculated 273 mOsm/kg (285-295); Potassium 3.9 mmol/L (3.5-5.1); Sodium 132 mmol/L (136-145); Total Bilirubin 0.3 mg/dL (0.15-1.2); Total Protein 6.7 g/dL (6.6-8.7)
[2020-08-03 13:05] VITALS: RESP 18; O2SAT 96
[2020-08-03] MEDS: HYDROmorphone 1 mg/mL INJ 1 mL 4 MG IV (13:05)
[2020-08-03] MEDS: sodium chloride 0.9% 250 ML 75 ML IV (13:25)
[2020-08-03] MEDS: acetaminophen 325 mg Tablet 650 MG PO (13:25)
--- NOTE | 2020-08-07 08:29 | ONC FU_ITS ---
Dr. Yun Patient Follow-Up Note Patient: Sarahi Menon Unit #: [id number]: 1960 Dicatated By: Helder Yun M.D.Date of Visit:Aug 03, 2020 Onc Med Follow-up/Prog Note Chief Complaint: Gastric cancer. 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 On 05/22/2020 she was admitted to the hospital after presenting to the emergency room with pain and difficulty swallowing. CT scans of the chest, abdomen, and pelvis showed evidence of widespread malignancy including masslike focus along the lesser curvature of the stomach, along with left supraclavicular, left axillary, mediastinal, and abdominal lymphadenopathy, multiple metastatic lesions in the liver, and suspected right adrenal metastasis. There was a large volume of ascites. A new sclerotic lesion in the left ischium was suspicious for a metastatic focus. Her EGD on 05/24/2020 showed a partially obstructing, malignant appearing mass in the gastric cardia. Pathology showed poorly differentiated tubular adenocarcinoma, consistent with gastric primary. HER-2/diana and PD-L1 testing were requested, those results were initally not available. At the time she was very symptomatic, to the point that she was virtually unable to eat. However, she had indicated that she did want to attempt treatment. As such, she underwent placement of Port-A-Cath venous access device and she then began cycle 1 of modified FOLFOX chemotherapy on 05/29/2020. She was able to tolerate treatment with acceptable toxicity, and she continued with cycle 2 on 06/19/2020 and with cycle 3 on 07/06/2020. During that time, results of HER-2/diana testing became available, and the tumor did show overexpression of HER-2/diana, 3+ by IHC. She has multiple medical illnesses including coronary artery disease with previous coronary artery bypass, COPD, pulmonary hypertension, and obstructive sleep apnea. She has history of MRSA bacteremia, bacterial endocarditis, and osteomyelitis, and she also has a history of treated hepatitis C. She has been a smoker. She does not drink alcohol. INTERIM HISTORY: On 07/18/2020 she began palliative radiation to the left supraclavicular area due to worsening pain associated with her metastatic disease. She completed treatment on 08/01/2020 to a total dose of 3300 cGy. During that time, her pain had continued to worsen. A bone scan on 07/28/2020 showed evidence of diffuse osseous metastatic disease with involvement of the skull, upper extremities, spine, ribs, pelvis, and bilateral lower extremities. There is very intense uptake involving the left medial clavicle. Restaging CT scans of the chest, abdomen, and pelvis on 08/01/2020 showed improving adenopathy compared to the prior exam with no new or enlarging lymph nodes. A left-sided pleural effusion was noted to have increased, and there was new extensive bony metastatic disease noted involving all bones of the entire visualized skeleton with multiple new pathologic fractures. There was mixed response of metastatic disease in the liver. There was improved retroperitoneal adenopathy and mass/adenopathy along the lesser curvature of the stomach. There was continued but decreased omental carcinomatosis and decreased ascites. She is seen for a follow-up visit. She has not been feeling good. Her main complaint is that she has a lot of pain. She hurts all over, the worst is still in the area of the left shoulder. She is very weak and she does not have much activity. ECOG score is 3. Appetite is poor, she is eating a little. She does not have fever. She does have episodes of sweating. She was having shortness of breath, but her breathing is okay now. She does not complain of cough. She does have some chest pain. She continues to have some nausea. She has a little heartburn. She also has constipation, but not real bad. Bladder function remains adequate. She has headache and she sometimes has dizziness. She still has some numbness/tingling in her toes. Medications: Albuterol Sulfate 1 Puff(s) (of (2.5 mg/3ml) 0.083%) Nebulization solution Inhalation PRN, Dronabinol 1 Capsule (of 10 mg) Oral t.i.d., HYDROmorphone HCl 3 Tablet (of 4 mg) Oral q 4 hours PRN, LORazepam 0.5 - 1 Tablet (of 1 mg) Oral t.i.d. PRN, Metoprolol Tartrate 1 Tablet (of 25 mg) Oral b.i.d., Nicotine 1 Patch(es) (of 21-14-7 mg/24hr) Kit Transdermal daily, oxyCODONE HCl ER 2 Tablet (of 60 mg) Tablet ER 12 HR Abuse-Deterrent Oral b.i.d., Spiriva HandiHaler 1 Capsule (of 18 mcg) Inhalation daily Allergies: Bextra and codeine. Review of Systems: Constitutional - She is very weak and she does not have much activity. Appetite is not good, she is eating a little. She has not had fever. She does have some sweating. ECOG score is 3, ENMT - No sinus congestion. She has a little bit of runny nose. No mouth sores. No sore throat or difficulty swallowing, Hematologic/Lymphatic - No abnormal bruising or bleeding, Respiratory - She has had shortness of breath, but her breathing is better now. No cough. She does have a little chest pain. No hemoptysis, Cardiovascular - No angina pain. No palpitations, Gastrointestinal - She sometimes has nausea. She has a little heartburn. She has constipation, but not real bad. No blood in the stool or black stools, Genitourinary (F) - No dysuria or hematuria. No urinary frequency. No urgency or incontinence, Musculoskeletal - She is having a lot of pain. It has fairly generalized. The worst is in the left shoulder, Integumentary - No skin rash, Neurologic - She has been having headaches. She sometimes has dizziness. She has numbness/tingling in her toes, Psychiatric - She has having depression. She has difficulty sleeping. Vital Signs: Performed on Aug 03, 2020 17:56 Height - 63.00 in Temperature - 98 F (LOW) Pulse - 82 /min Respiration - 20 /min BP - 118/74 mm(hg) O2 Sat - 94 % (LOW) Pain - 0 Fatigue - 0 Performed on Aug 03, 2020 12:13 Height - 63.00 in Weight - 123.2 lbs (LOW) BSA - 1.57 sq.m BMI - 21.82 Temperature - 98.4 F Pulse - 95 /min Respiration - 22 /min BP - 119/69 mm(hg) O2 Sat - 97 % Pain - 9 Physical Examination: Constitutional - She appears generally weak, Eyes - Sclerae nonicteric. Conjunctivae clear, ENMT - No lesions noted in the oral cavity, Hematologic/Lymphatic - No cervical, clavicular, or axillary adenopathy, Respiratory - Lungs sound clear, Cardiovascular - Heart rhythm is regular. There is a II/ systolic murmur. There is no gallop or rub noted, Abdomen - Distended with apparent ascites. Liver is not overtly enlarged. Spleen is not palpable. There is no abdominal mass noted. There is no inguinal adenopathy, Extremities - No edema, Integumentary - No skin eruption, Neurologic - No focal neurologic deficits noted. Lab/Imaging: Test performed on Jul 31, 2020 13:30 Creatinine 0.5 mg/dL Cr Clearance (Est) 109.43 mL/min Test performed on Jul 20, 2020 12:59 Sodium 133 mmol/L Potassium 3.8 mmol/L Chloride 96 mmol/L CO2 27 mmol/L Anion Gap 13.8 BUN 7 mg/dL eGFR 126.7 mL/min Glucose 115 mg/dL Osmolality - Calculated 275 mOsm/kg Calcium 9.2 mg/dL Protein, Total 6.6 g/dL Albumin 3.3 g/dL Globulin 3.3 g/dL Bilirubin, Total 0.7 mg/dL ALT (SGPT) 7 U/L AST (SGOT) 25 U/L Alkaline Phosphatase 265 IU/L WBC 6.6 10 3/uL RBC 3.61 10 6/uL HGB 10.0 g/dL HCT 32.9 % MCV 91.1 fL MCH 27.7 pg MCHC 30.4 g/dL RDW 18.6 % Platelet Count 174 10 3/cmm MPV 10.3 fL Neutrophils 4.83 10 3/uL Lymphocytes 0.9 10 3/uL Monocytes 0.8 10 3/uL Eosinophils 0.1 10 3/uL Basophils 0.0 10 3/uL Neutrophil % 73.0 % Lymphocyte % 13.4 % Monocyte % 11.3 % Eosinophil % 1.1 % Basophils % 0.6 % NRBC % 0 % CEA 85.8 ng/mL Impression: 1. 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 2. She underwent EGD with gastric biopsy on 05/24/2020. HER-2/diana and PD-L1 studies were requested, but not reported. 3. She began trial of palliative chemotherapy with modified FOLFOX on 05/29/2020. Her other medical illnesses include: 4. Coronary artery disease with previous coronary artery bypass surgery. 5. COPD. 6. Pulmonary hypertension. 7. Obstructive sleep apnea. 8. GERD. 9. History of MRSA bacteremia, bacterial endocarditis, and osteomyelitis. 10. History of treated hepatitis C. 11. Anxiety/depression. She completed 3 cycles of modified FOLFOX chemotherapy. She was able to tolerated with acceptable toxicity. During that time, her tremor was determined to have overexpression of HER-2/diana (3+ by IHC). However, her pain in the left supraclavicular/left shoulder area had continued to worsen, and she was given palliative radiation to that area, completed on 08/01/2020 to a total dose of 3300 cGy. She does appear to have some response and symptomatic improvement with the radiation. However, her further staging with bone scan shows extensive, widespread bony metastatic disease. Her restaging CT scans show some areas of improvement in the abdominal area, but with a mixed response in the liver and with evidence of new and extensive bony metastatic disease. Plan: The patient remains highly motivated to continue some form of treatment, though her disease has clearly progressed and her overall prognosis is poor. Nonetheless, with the IHC studies showing evidence of overexpression of HER-2/diana, she will be given further chemotherapy with weekly carboplatin/paclitaxel in combination with Herceptin. In the meantime, she will continue symptomatic management for her pain, which is becoming problematic, as her insurance carrier is restricting the dosages of her opiate pain medication. Signed By: Helder Yun M.D. <<Signature on File>>
== END 2020-08-11 09:00 | disposition home or self-care (01) ==
LOC: ONCMED 07:45
PROVIDERS: Internal Medicine Medical Oncology; PCP Family Medicine; Visit Provider Nurse Practitioner
DX: Z51.12 Encounter for antineoplastic immunotherapy (principal); C16.0 Malignant neoplasm of cardia; C79.51 Secondary malignant neoplasm of bone; G89.3 Neoplasm related pain (acute) (chronic); M25.512 Pain in left shoulder; I25.10 Atherosclerotic heart disease of native coronary artery without angina pectoris; J44.9 Chronic obstructive pulmonary disease, unspecified; I27.20 Pulmonary hypertension, unspecified; Z92.3 Personal history of irradiation; Z95.1 Presence of aortocoronary bypass graft; G47.33 Obstructive sleep apnea (adult) (pediatric); K21.9 Gastro-esophageal reflux disease without esophagitis; F41.8 Other specified anxiety disorders; Z86.14 Personal history of Methicillin resistant Staphylococcus aureus infection; Z86.19 Personal history of other infectious and parasitic diseases; Z79.899 Other long term (current) drug therapy; Z79.891 Long term (current) use of opiate analgesic
CPT/HCPCS: 36591; 77014; 77336; 77386; 80053; 85025; 96367; 96375; 96413; 96415; 96417; 99214; J1100; J1170; J1200; J2469; J3490; J7030; J7050; J9045; J9267; J9355

== ENCOUNTER 2020-08-11 09:20 | Emergency (ER) | payer MEDICAID, SELFPAY ==
[2020-08-11] VITALS (9 sets, daily range): BP systolic 108–130; BP diastolic 62–85; PULSE 77–98; RESP 16–18; TEMP 36.6–37; O2SAT 94–99; BMI 24.7
--- NOTE | 2020-08-11 09:45 | CT_ITS ---
WS: [id number] CT ABDOMEN PELVIS TECHNIQUE: Contrast-enhanced CT of the abdomen and pelvis with coronal and sagittal reformatted image s. CLINICAL INFORMATION: poss bowel obs COMPARISON: CT August 01, 2020 DLP: 385.[address] scans at [facility] use at least one of these dose optimization techniques: automat ed exposure control; mA and/or kV adjustment per patient size (includes targeted exams where dose is matched to clinical indication); or iterative reconstruction. FINDINGS: A few air-fluid levels in normal caliber small bowel loops in the pelvis. No evidence of high-grade s mall or large bowel obstruction. Persistent air within the colon. No significant bowel distention. Hepatomegaly with diffuse hepatic disease unchanged since the recent examination. This is worse in th e left hepatic lobe. Normal gallbladder appears unchanged. Normal spleen. Normal GE junction. Normal adrenal glands. Normal renal parenchymal enhancement. No hydronephrosis. Stable low-attenuation cysti c lesion in lower pole right kidney measuring 13 mm. Normal caliber abdominal aorta. Aortic calcification. Small amount of free fluid in the pelvis. Diffu se bladder wall thickening. Persistent peritoneal carcinomatosis. Stable masslike lesion along the le sser curvature the stomach. Stable lymphadenopathy in the upper abdomen, periaortic, and retroperiton eal unchanged from the recent examination. Aortocaval lymphadenopathy unchanged. No inguinal lymphade nopathy. Diffuse osseous metastatic disease with mild compression superior endplates L4 and L5 unchanged. CT/CT abdomen pelvis w con* [id number] IMPRESSION: 1. No evidence of high-grade small or large bowel obstruction. 2. A few air-fluid levels in normal caliber small bowel in the pelvis. Persist ent air within the colon. 3. Small amount of free fluid in the pelvis. 4. Otherwise no significant changes since August 01, 2020. 5. Cirrhotic liver with metastatic disease 6. Gastric neoplasm along the lesser curve of the stomach. 7. Extensive upper abdominal periaortic, retroperitoneal, and aortocaval lymph adenopathy. 8. Peritoneal carcinomatosis is persistent but improved since April 2020. 9. Advanced multifocal osseous metastatic disease.
--- NOTE | 2020-08-11 09:47 | ED_ITS ---
HPI - Abdominal Pain General: Chief Complaint: Abdominal Pain Stated Complaint: Numbness/Unable to use Bathroom/Chemo Related Time Seen by Provider: 08/11/20 09:37 Source: patient Mode of arrival: ambulatory Limitations: no limitations History of Present Illness: HPI narrative: Pt states she started a new chemo fpr gastric cancer and has not been able to have BM for almost a week. Pt woke up with n/v today. Pt c/o abd pain that is worse today. pt denies fever. pt denies chest pain or sob. Associated Symptoms: Denies chills, diarrhea, dysuria, fever(s), hematuria, hematemesis and syncope Review of Systems Const: Denies: fever(s) or chills Eyes: Denies: change in vision, blurry vision, blind spots, photophobia, eye discomfort, eye discharge, eye redness, floaters or seeing flashes ENMT: Denies: throat pain, uvular edema, enlarged tonsils, odynophagia, hoarseness, mouth pain, swelling of lips/tongue, oral sores, bleeding gums, dental pain, dry mouth, ear or mastoid pain, ear discharge, change in hearing, tinnitus, disequilibrium, nasal discharge, nasal congestion, post nasal drip or sinus pain Card: Denies: syncope Resp: Denies: dyspnea, productive cough, non-productive cough, wheezing, stridor, pain on inspiration, change in phlegm color, hemoptysis or chest congestion GI: Denies: hematemesis or diarrhea : Denies: dysuria or hematuria Musc: Denies: neck pain, back pain, extremity pain, extremity swelling, joint pain, joint swelling, joint redness, joint warmth or deformity Skin/Breast: Denies: rash, pruritus, erythema, sores, new lesions, changes in skin color or dry skin Neuro: Denies: headache(s), numbness in extremities, weakness in extremities, sensory changes, lack of coordination, difficulty walking, frequent falls, dizziness, vertigo, confusion, behavioral changes, Slurred speech present, difficulty communicating thoughts or seizure-like activity Psych: Denies: anxiety, depression, suicidal ideation or homicidal ideation Endo: Denies: polyuria, polydipsia, tired all the time, cold intolerance, excessive sweating, flushing, hot flashes or heat intolerance Donald/Lymph: Denies: easy bruising, easy bleeding, petechiae, purpura, enlarged lymph nodes or tender lymph nodes All/Imm: Denies: urticaria, throat swelling, tongue swelling, facial swelling, acute wheezing or itchy eyes PFSH ED PFSH: Medical History (Updated 08/11/20 @ 15:19 by Radha Mcintyre) Anxiety COPD (chronic obstructive pulmonary disease) Depression Gastric reflux Hepatitis C History of endocarditis History of MRSA infection HECTOR (obstructive sleep apnea) Pulmonary hypertension Sacral osteomyelitis Surgical History H/O foot surgery History of appendectomy History of heart surgery I had some type of heart surgery at age 6 Hx of tonsillectomy Family History Other CAD (coronary artery disease) Hypertension Social History Smoking and tobacco status: current every day smoker Alcohol intake: never Current gender identity: Female Physical Exam Const: COMMON NORMALS: no acute distress, patient oriented x3 and alert GENERAL APPEARANCE: cooperative, comfortable, well kempt and well developed; not ill appearing ORIENTATION/CONSCIOUSNESS: Yes awake, Yes oriented to person, Yes oriented to place and Yes oriented to time HENMT: COMMON NORMALS: normocephalic, atraumatic, hearing grossly normal bilaterally, external ears normal, EAC's normal, TM's normal bilaterally, Normal external nose present, Normal nasal mucous membranes and turbinates present and moist oral mucous membranes HEAD & SCALP: normal to inspection, normocephalic and atraumatic FACE & SINUS: normal facial exam, sinuses nontender and face symmetric NOSE: Normal external nose present, Normal nares present, Normal nasal mucous membranes and turbinates present, No nasal discharge present and Abnormal external nose present EXTERNAL EAR: Yes external ears normal and Yes mastoids normal EXTERNAL AUDITORY CANAL: EAC's normal TYMPANIC MEMBRANE: TM's normal bilaterally MOUTH: Normal oral and palatal mucosa present, lip normal, tongue normal and Normal salivary glands and ducts present THROAT: no uvular edema Eye: COMMON NORMALS: Equal, round and reactive pupils present, EOMs intact bilaterally, conjunctivae normal, no scleral icterus and no papilledema GENERAL EYE: appearance normal, both eyes and all related structures EYELID: eyelids normal CONJUNCTIVA: Yes conjunctivae normal SCLERA: sclerae normal CORNEA: Yes corneas normal PUPIL: Yes Equal, round and reactive pupils present DIRECT OPHTHALMOSCOPY: Yes no papilledema Neck/C-Spine: COMMON NORMALS: full ROM, no lymphadenopathy, supple, no meninge al signs, no JVD and Thyroid normal GENERAL: Yes normal visual inspection and Yes trachea midline THYROID: Thyroid normal CERVICAL SPINE: Yes cervical ROM normal Lymph: LYMPHATIC: no lymphadenopathy noted and no lymphedema noted Chest: COMMONS NORMALS: normal inspection of the chest and normal palpation of entire chest wall Resp: COMMON NORMALS: normal respiratory effort, No retractions, No use of accessory muscles and clear to auscultation bilaterally EFFORT & INSPECTION: Yes able to speak in complete sentences and Yes symmetric chest movement AUSCULTATION: clear to auscultation bilaterally Cardio: COMMON NORMALS: no JVD, regular rate and regular rhythm RATE: regular rate RHYTHM: regular rhythm GI: COMMON NORMALS: No hepatosplenomegaly present, no masses and no bruits; negative for Soft to palpation and negative for non-tender INSPECTION: Yes normal to inspection AUSCULTATION: Yes normoactive bowel sounds PALPATION: No Soft to palpation and Yes No hepatosplenomegaly present PERCUSSION: normal to percussion RECTAL EXAM: deferred : COMMON NORMALS: Yes normal external appearance, Yes normal appearance of the vagina, Yes normal appearance of the cervix, Yes normal bimanual exam, Yes No adnexal tenderness and Yes no masses BIMANUAL EXAM - VAGINA & UTERUS: Yes normal bimanual exam Back/Pelvis: COMMON NORMALS: thoracic and lumbar spine normal to inspection, no thoracic nor lumbar tenderness, thoraco-lumbar ROM normal and straight leg raise negative bilaterally THORACIC SPINE/UPPER BACK: Yes normal to inspection LUMBAR SPINE/LOWER BACK: Yes normal to inspection Extremity: COMMON NORMALS: normal to inspection, full ROM and capillary refill normal GENERAL: Yes normal exam except as noted Neuro: COMMON NORMALS: patient oriented x3, CN's II-XII intact bilaterally, moves all extremities, no focal motor deficits, no sensory deficits noted, deep tendon reflexes 2+ bilaterally and gait normal SENSORIUM/ORIENTATION: Yes alert, Yes oriented to person, Yes oriented to place and Yes oriented to time MENINGEAL SIGNS: Yes no meningeal signs CRANIAL NERVES: Yes CN normal except as noted SPEECH: speech normal GAIT: Yes Normal gait present SENSORY EXAM: Yes extremities MOTOR EXAM: 5/5 motor strength present throughout Psych: COMMON NORMALS: mental status grossly normal, Normal thought process present, cooperative, normal affect, speech normal, activity/motor behavior normal, denies hallucinations, denies homicidal ideation and denies suicidal ideation APPEARANCE: Yes grossly normal and Yes well kempt ATTITUDE: Yes calm ACTIVITY/MOTOR BEHAVIOR: Yes appropriate eye contact SPEECH: Yes normal speech THOUGHT PROCESS: Normal thought process present THOUGHT CONTENT: Yes Normal thought content present ATTENTION/CONCENTRATION: Yes attention grossly intact MEMORY/COGNITION: Yes memory grossly intact INSIGHT: Good insight present (Psych) JUDGEMENT: Good judgement present (Psych) Skin: COMMON NORMALS: no rashes or lesions noted, no wounds, turgor normal, no jaundice, no petechiae and no mottling GENERAL SKIN EXAM: no rashes or lesions noted and turgor normal Course Vital Signs: Vital signs: Vital Signs Temperature 98.6 F 08/11/20 09:43 Pulse Rate 80 08/11/20 15:00 Respiratory Rate 18 08/11/20 15:08 Blood Pressure 117/67 08/11/20 15:00 Pulse Oximetry 99 08/11/20 15:00 MDM - Abdominal Pain MDM Narrative: Medical decision making narrative: Pt presents with constipation and abd pain. Pt has gastric cancer w bony mets. Pt was started on new chemo recently. Given patients hx and PE I did order CT which revealed T ABDOMEN PELVIS TECHNIQUE: Contrast-enhanced CT of the abdomen and pelvis with coronal and sagittal reformatted images. CLINICAL INFORMATION: poss bowel obs COMPARISON: CT August 01, 2020 DLP: 385.[address] scans at [facility] use at least one of these dose optimization techniques: automated exposure control; mA and/or kV adjustment per patient size (includes targeted exams where dose is matched to clinical indication); or iterative reconstruction. FINDINGS: A few air-fluid levels in normal caliber small bowel loops in the pelvis. No evidence of high-grade small or large bowel obstruction. Persistent air within the colon. No significant bowel distention. Hepatomegaly with diffuse hepatic disease unchanged since the recent examination. This is worse in the left hepatic lobe. Normal gallbladder appears unchanged. Normal spleen. Normal GE junction. Normal adrenal glands. Normal renal parenchymal enhancement. No hydronephrosis. Stable low-attenuation cystic lesion in lower pole right kidney measuring 13 mm. Normal caliber abdominal aorta. Aortic calcification. Small amount of free fluid in the pelvis. Diffuse bladder wall thickening. Persistent peritoneal carcinomatosis. Stable masslike lesion along the lesser curvature the stomach. Stable lymphadenopathy in the upper abdomen, periaortic, and retroperitoneal unchanged from the recent examination. Aortocaval lymphadenopathy unchanged. No inguinal lymphadenopathy. Diffuse osseous metastatic disease with mild compression superior endplates L4 and L5 unchanged. CT/CT abdomen pelvis w con* [id number] IMPRESSION: 1. No evidence of high-grade small or large bowel obstruction. 2. A few air-fluid levels in normal caliber small bowel in the pelvis. Persistent air within the colon. 3. Small amount of free fluid in the pelvis. 4. Otherwise no significant changes since August 01, 2020. 5. Cirrhotic liver with metastatic disease 6. Gastric neoplasm along the lesser curve of the stomach. 7. Extensive upper abdominal periaortic, retroperitoneal, and aortocaval lymphadenopathy. 8. Peritoneal carcinomatosis is persistent but improved since April 2020. 9. Advanced multifocal osseous metastatic disease. Pt did c/o a numbness sensation around her anus. Pt states this started after she started chemo and has not worsened. Pt had good anal sphincter tone. Pt is NVI distally. Pts labs are consistent with baseline. Pt has an appointment with oncology on friday and I advised to keep that appointment Pt was given an enema here in the ER and did have clinical improvement Pt states she get constipated easily due to her pain meds At this point I do not feel any further testing is indicated and feel patient is appropriate to be discharged Lab Data: Labs: Lab Results 08/11/20 08/11/20 08/11/20 Range/Units 10:47 10:47 11:00 WBC 5.6 (4.0-10.0) 10^3/ uL RBC 3.60 L (4.1-5.3) 10^6/u L Hgb 9.5 L (11.5-15.3) g/dL Hct 32.2 L (37.0-47.0) % MCV 89.4 (81-99) fL MCH 26.4 L (28.0-34.0) pg MCHC 29.5 L (30.0-36.0) g/dL RDW 17.0 H (12.1-15.1) % Plt Count 199 (130-400) 10^3/c mm MPV 11.0 H (7.4-10.4) fL Neut % (Auto) 71.9 % Lymph % (Auto) 12.4 % [place] % (Auto) 13.8 % Eos % (Auto) 0.5 % Baso % (Auto) 0.5 % Neut # (Auto) 3.99 (1.8-7.7) 10^3/u L Lymph # (Auto) 0.7 L (0.8-4.8) 10^3/u L [place] # (Auto) 0.8 (0.2-0.9) 10^3/u L Eos # (Auto) 0.0 (0.0-0.8) 10^3/u L Baso # (Auto) 0.0 (0.0-0.1) 10^3/u L Nucleated RBC % (a uto) 0 % Nucleated RBCs # 0.0 /100WBC Sodium 135 L (136-145) mmol/L Potassium 4.1 (3.5-5.1) mmol/L Chloride 94 L (98-107) mmol/L Carbon Dioxide 29 (22-29) mmol/L Anion Gap 16.1 (5-19) BUN 7 (6-20) mg/dL Creatinine 0.4 L (0.5-0.9) mg/dL GFR Calculation 163.9 H (90-130) mL/min Glucose 106 (65-115) mg/dL Calculated Osmolal ity 278 L (285-295) mOsm/k g Calcium 9.3 (8.5-10.5) mg/dL Total Bilirubin 0.4 (0.15-1.2) mg/dL AST 23 (0-32) U/L ALT 6 (0-33) U/L Alkaline Phosphata se 217 H (35-105) IU/L Total Protein 6.8 (6.6-8.7) g/dL Albumin 3.3 L (3.5-5.2) g/dL Globulin 3.5 (1.3-4.6) g/dL Lipase 8 L (13-60) U/L Urine Color Yellow (Yellow) Urine Appearance Clear (CLEAR) Urine pH 5 (5-7) Ur Specific Gravit y 1.015 (1.005-1.030) Urine Protein Neg (Negative) Urine Glucose (UA) Norm (Normal) Urine Ketones Negative (Negative) Urine Blood Neg (Negative) Urine Nitrate Negative (Negative) Urine Bilirubin Neg (Negative) Urine Urobilinogen Norm (Negative) mg/dL Ur Leukocyte Monique ase Negative (Negative) Discharge Plan Discharge Patient Disposition: Home Clinical Impression: Cancer associated pain Constipation Qualifiers: Constipation type: drug induced constipation Qualified Code(s): K59.03 - Drug induced constipation Condition: Stable Prescriptions: No Action albuterol sulfate [Ventolin HFA] 90 mcg/actuation HFA aerosol inhaler 2 puff INHALATION QID PRN (Reason: shortness of breath or wheezing) Qty: 8.5 RF: 3 albuterol sulfate 2.5 mg /3 mL (0.083 %) solution for nebulization 2.5 mg INHALATION QID PRN (Reason: bronchospasm) Qty: 90 RF: 4 Spiriva with HandiHaler 18 mcg capsule, w/inhalation device 1 cap INHALATION DAILY Qty: 30 RF: 6 lorazepam [Ativan] 1 mg tablet 1 mg PO Q8H PRN (Reason: anxiety) Qty: 30 RF: 2 multivitamin [Multiple Vitamins] Tablet 1 tab PO DAILY RF: 0 Vitamin C 1 tab PO DAILY RF: 0 zinc 1 tab PO DAILY RF: 0 nicotine 21 mg/24 hr Patch 24 Hour 1 patch transdermal DAILY Qty: 30 RF: 0 Narcan 4 mg/actuation spray,non-aerosol 4 mg INTRANASAL Q2M PRN (Reason: opioid overdose) Qty: 2 RF: 0 dexamethasone 4 mg Tablet 20 mg PO BID RF: 0 dronabinol 10 mg Capsule 10 mg PO TID RF: 0 Dilaudid 4 mg Tablet 4 mg PO Q6H PRN (Reason: Pain) RF: 0 oxycodone 30 mg Tablet Extended Release 12 Hr 30 mg PO BID RF: 0 Discharge Orders: Discharge Order (Routine); Ordered 08/11/20 Ordered By: Radha Mcintyre Referrals: Aury Carlos MD [Primary Care Provider] - Discharge Diet: Advance as tolerated Discharge Activity: Increase activity as tolerated Activity Restrictions/Additional Instructions: Please use stool softeners Please follow up with oncologist as scheduled Please return to the ER with any worsening of symptoms Coding Level of Care Code ED Onboarding Specialist for Chg Fwd Exam Comprehensive
[2020-08-11] MEDS: ondansetron 2 mg/ML SDV 2 mL 4 MG IVP (10:51)
[2020-08-11] MEDS: HYDROmorphone 1 mg/mL INJ 1 mL IVP ×2 (10:51→15:08)
[2020-08-11 10:55] LABS: Basophils % 0.5 %; Eosinophils % 0.5 %; Hematocrit 32.2 % (37.0-47.0); Hemoglobin 9.5 g/dL (11.5-15.3); Lymphocytes # 0.7 10^3/uL (0.8-4.8); Lymphocytes % 12.4 %; Mean Corpuscular HGB Conc 29.5 g/dL (30.0-36.0); Mean Corpuscular Hemoglobin 26.4 pg (28.0-34.0); Mean Corpuscular Volume 89.4 fL (81-99); Monocytes # 0.8 10^3/uL (0.2-0.9); Monocytes % 13.8 %; Neutrophils # 3.99 10^3/uL (1.8-7.7); Neutrophils % 71.9 %; Nucleated Red Blood Cells % 0 %; Platelet Count 199 10^3/cmm (130-400); White Blood Count 5.6 10^3/uL (4.0-10.0)
[2020-08-11 11:10] LABS: Add Urine Microscopic? NO
[2020-08-11 11:14] LABS: Bilirubin Urine Neg (Negative); Blood Urine Neg (Negative); Glucose Urine UA Norm (Normal); Ketones Urine Negative (Negative); Leukocyte Esterase Urine Negative (Negative); Nitrate Urine Negative (Negative); Protein Urine Neg (Negative); Specific Gravity, Urine 1.015 (1.005-1.030); Urine Appearance Clear (CLEAR); Urine Color Yellow (Yellow); Urobilinogen Urine Norm (Negative); pH Urine 5 (5-7)
[2020-08-11 11:21] LABS: Alanine Aminotransferase 6 U/L (0-33); Albumin Level 3.3 g/dL (3.5-5.2); Alkaline Phosphatase 217 IU/L (35-105); Anion Gap 16.1 (5-19); Aspartate Amino Transferase 23 U/L (0-32); Blood Urea Nitrogen 7 mg/dL (6-20); Calcium 9.3 mg/dL (8.5-10.5); Carbon Dioxide 29 mmol/L (22-29); Chloride 94 mmol/L (98-107); Creatinine Clr Calc Pharmacy 137.5636; Globulin 3.5 g/dL (1.3-4.6); Glomerular Filtration Rate 163.9 mL/min (90-130); Glucose 106 mg/dL (65-115); Lipase 8 U/L (13-60); Osmolality Calculated 278 mOsm/kg (285-295); Potassium 4.1 mmol/L (3.5-5.1); Sodium 135 mmol/L (136-145); Total Bilirubin 0.4 mg/dL (0.15-1.2); Total Protein 6.8 g/dL (6.6-8.7)
[2020-08-11] MEDS: iohexol 300 mg/mL 100 mL Btl IV (12:50)
[2020-08-11] MEDS: Fleet Enema 133 mL Enema PR (15:08)
== END 2020-08-11 16:02 | disposition home or self-care (01) ==
PROVIDERS: Emergency Provider Registered Nurse; PCP Family Medicine
DX: K59.03 Drug induced constipation (principal); G89.3 Neoplasm related pain (acute) (chronic); C16.9 Malignant neoplasm of stomach, unspecified; J44.9 Chronic obstructive pulmonary disease, unspecified; Z86.19 Personal history of other infectious and parasitic diseases; F17.210 Nicotine dependence, cigarettes, uncomplicated; Z79.899 Other long term (current) drug therapy
CPT/HCPCS: 12345; 74177; 80053; 81003; 83690; 85025; 96361; 96374; 96375; 99283; J1170; J2405; Q9967

== ENCOUNTER 2020-08-23 05:44 | Outpatient (RCR) | payer MEDICAID, SELFPAY ==
[2020-08-17 08:27] LABS: Basophils # 0.1 10^3/uL (0.0-0.1); Basophils % 2.1 %; Eosinophils # 0.2 10^3/uL (0.0-0.8); Eosinophils % 6.6 %; Hematocrit 34.7 % (37.0-47.0); Hemoglobin 10.2 g/dL (11.5-15.3); Lymphocytes # 0.7 10^3/uL (0.8-4.8); Mean Corpuscular HGB Conc 29.4 g/dL (30.0-36.0); Mean Corpuscular Hemoglobin 26.9 pg (28.0-34.0); Mean Corpuscular Volume 91.6 fL (81-99); Mean Platelet Volume 10.4 fL (7.4-10.4); Monocytes # 0.4 10^3/uL (0.2-0.9); Monocytes % 15.6 %; Neutrophils # 1.13 10^3/uL (1.8-7.7); Neutrophils % 46.5 %; Nucleated Red Blood Cells % 0 %; Platelet Count 316 10^3/cmm (130-400); Red Blood Count 3.79 10^6/uL (4.1-5.3); Red Cell Distribution Width 18.2 % (12.1-15.1); White Blood Count 2.4 10^3/uL (4.0-10.0)
[2020-08-17 08:54] LABS: Alanine Aminotransferase 7 U/L (0-33); Albumin Level 3.4 g/dL (3.5-5.2); Alkaline Phosphatase 300 IU/L (35-105); Blood Urea Nitrogen 5 mg/dL (6-20); Calcium 9.4 mg/dL (8.5-10.5); Carbon Dioxide 27 mmol/L (22-29); Chloride 101 mmol/L (98-107); Globulin 3.9 g/dL (1.3-4.6); Glomerular Filtration Rate 126.7 mL/min (90-130); Glucose 105 mg/dL (65-115); Osmolality Calculated 288 mOsm/kg (285-295); Sodium 140 mmol/L (136-145); Total Bilirubin 0.3 mg/dL (0.15-1.2); Total Protein 7.3 g/dL (6.6-8.7)
[2020-08-17 09:04] LABS: Anion Gap 16.6 (5-19); Aspartate Amino Transferase 28 U/L (0-32); Potassium 4.6 mmol/L (3.5-5.1)
[2020-08-17] MEDS: methylnaltrexone 12 /0.6 mL INJ 12 MG SUBCUT (10:30)
[2020-08-21 08:31] LABS: Basophils # 0.1 10^3/uL (0.0-0.1); Eosinophils # 0.2 10^3/uL (0.0-0.8); Hematocrit 34.7 % (37.0-47.0); Hemoglobin 10.3 g/dL (11.5-15.3); Lymphocytes # 1.9 10^3/uL (0.8-4.8); Lymphocytes % 18.9 %; Mean Corpuscular HGB Conc 29.7 g/dL (30.0-36.0); Mean Corpuscular Hemoglobin 27.5 pg (28.0-34.0); Mean Corpuscular Volume 92.5 fL (81-99); Mean Platelet Volume 10.1 fL (7.4-10.4); Monocytes % 10.4 %; Nucleated Red Blood Cells % 0 %; Platelet Count 329 10^3/cmm (130-400); Red Blood Count 3.75 10^6/uL (4.1-5.3); Red Cell Distribution Width 19.4 % (12.1-15.1); White Blood Count 9.9 10^3/uL (4.0-10.0)
--- NOTE | 2020-08-21 08:42 | ONC FU_ITS ---
[facility] Patient Note Patient: Sarahi Menon Unit #: [id number]: 1960 Dictated By: Alina TaylorDate of Visit: Aug 17, 2020 Onc MED Follow-Up/Prog Note Chief Complaint: Gastric cancer. 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 On 05/22/2020 she was admitted to the hospital after presenting to the emergency room with pain and difficulty swallowing. CT scans of the chest, abdomen, and pelvis showed evidence of widespread malignancy including masslike focus along the lesser curvature of the stomach, along with left supraclavicular, left axillary, mediastinal, and abdominal lymphadenopathy, multiple metastatic lesions in the liver, and suspected right adrenal metastasis. There was a large volume of ascites. A new sclerotic lesion in the left ischium was suspicious for a metastatic focus. Her EGD on 05/24/2020 showed a partially obstructing, malignant appearing mass in the gastric cardia. Pathology showed poorly differentiated tubular adenocarcinoma, consistent with gastric primary. HER-2/diana and PD-L1 testing were requested, those results were initally not available. At the time she was very symptomatic, to the point that she was virtually unable to eat. However, she had indicated that she did want to attempt treatment. As such, she underwent placement of Port-A-Cath venous access device and she then began cycle 1 of modified FOLFOX chemotherapy on 05/29/2020. She was able to tolerate treatment with acceptable toxicity, and she continued with cycle 2 on 06/19/2020 and with cycle 3 on 07/06/2020. During that time, results of HER-2/diana testing became available, and the tumor did show overexpression of HER-2/diana, 3+ by IHC. She has multiple medical illnesses including coronary artery disease with previous coronary artery bypass, COPD, pulmonary hypertension, and obstructive sleep apnea. She has history of MRSA bacteremia, bacterial endocarditis, and osteomyelitis, and she also has a history of treated hepatitis C. She has been a smoker. She does not drink alcohol. INTERIM HISTORY: On 07/18/2020 she began palliative radiation to the left supraclavicular area due to worsening pain associated with her metastatic disease. She completed treatment on 08/01/2020 to a total dose of 3300 cGy. During that time, her pain had continued to worsen. A bone scan on 07/28/2020 showed evidence of diffuse osseous metastatic disease with involvement of the skull, upper extremities, spine, ribs, pelvis, and bilateral lower extremities. There is very intense uptake involving the left medial clavicle. Restaging CT scans of the chest, abdomen, and pelvis on 08/01/2020 showed improving adenopathy compared to the prior exam with no new or enlarging lymph nodes. A left-sided pleural effusion was noted to have increased, and there was new extensive bony metastatic disease noted involving all bones of the entire visualized skeleton with multiple new pathologic fractures. There was mixed response of metastatic disease in the liver. There was improved retroperitoneal adenopathy and mass/adenopathy along the lesser curvature of the stomach. There was continued but decreased omental carcinomatosis and decreased ascites. Ms. Fulton is here today for follow-up. She states she really does not feel much better than she did at her last visit. She still having trouble eating but her biggest concern is constipation. She did not come for day 8 treatment because she felt sick and presented to the ER for constipation. Obstruction was ruled out. She states her bowels have not moved well for the last 6 days. She is trying stool softeners and [id number] laxative. Her daughter states that they did buy mag citrate but has not tried it yet. She has had some nausea but relates that to her bowels. She denies any urinary complaints. She denies any fever or chills. She has had no Covid symptoms or known exposure. She denies any pending test. She states that her energy is poor. Although she states her pain is controlled. Her ECOG is 3. Past Medical History: Chronic obstructive pulmonary disease Coronary artery disease Depression Endocarditis Gastroesophageal reflux disease Hepatitis C MRSA bactermia HECTOR-obstructive sleep apnea Pulmonary HTN Sacral osteomyelitis Past Surgical History: Appendectomy Foot surgery Heart surgery at age 6 Tonsillectomy Right subclavian Port-A-Cath per Dr. Walters/[facility] [place] in 2019 Allergies: Bextra and codeine. Medications: Albuterol Sulfate 1 Puff(s) (of (2.5 mg/3ml) 0.083%) Nebulization solution Inhalation PRN Dronabinol 1 Capsule (of 10 mg) Oral t.i.d. HYDROmorphone HCl 3 Tablet (of 4 mg) Oral q 4 hours PRN LORazepam 0.5 - 1 Tablet (of 1 mg) Oral t.i.d. PRN Metoprolol Tartrate 1 Tablet (of 25 mg) Oral b.i.d. Nicotine 1 Patch(es) (of 21-14-7 mg/24hr) Kit Transdermal daily oxyCODONE HCl ER 2 Tablet (of 60 mg) Tablet ER 12 HR Abuse-Deterrent Oral b.i.d. Spiriva HandiHaler 1 Capsule (of 18 mcg) Inhalation daily Family History: Social History: Ms. Menon is legally and she is an unknown. Ms. Menon no longer smokes. She is a former drinker. currently trying to quit smoking. Pt states she was a habitual drinker 11-12 years ago. Review Of Symptoms: Constitutional Denies fevers, chills, night sweats. Tired and poor appetite. Allergic/Immunologic No reactions. Eyes Denies significant visual changes. No diplopia. No amaurosis. ENMT Denies changes in hearing, sore throat, mouth sores, difficulty or changes in swallowing ability, and/or sinus drainage. Hematologic/Lymphatic Denies easy bruising or bleeding. The patient denies any tender or palpable lymph nodes. Respiratory Denies new or worsening dyspnea on exertion, chest pain, cough or hemoptysis. Denies orthopnea. Cardiovascular Denies anginal chest pain, palpitations or orthopnea. Gastrointestinal Denies worsening nausea, vomiting, diarrhea, GI bleeding. Denies heartburn or early satiety. Nausea controlled at present. Constipation as above. Genitourinary (F) No hematuria, hesitancy, incontinence, vaginal bleeding, discharge or other problems with urination. Musculoskeletal Denies joint pain, swelling or redness. No decreased range of motion. Integumentary Denies chronic rashes, inflammation, ulcerations or skin changes. Neurologic Denies headache, blurred vision, and no areas of focal weakness or numbness. Wheelchair for mobility-gait not assessed. No sensory problems. Psychiatric Denies insomnia, depression, zenon or mood swings. Vital Signs: Performed on Aug 17, 2020 09:08 Height - 63.00 in Weight - 124.4 lbs (HIGH) BSA - 1.58 sq.m BMI - 22.04 Temperature - 97.8 F (LOW) Pulse - 71 /min Respiration - 16 /min BP - 128/75 mm(hg) O2 Sat - 94 % (LOW) Pain - 6,3 - Capable of only limited self-care, confined to bed or chair more than 50% of waking hours. (ECOG) Physical Examination: Constitutional Alert, oriented, no acute distress. Skin pink, warm and dry. Obviously does not feel well, but will overall looks better than last visit. Head Normocephalic; atraumatic. Eyes Conjunctivae and sclerae are clear and without icterus. Pupils are reactive and equal. Neck Supple without masses or thyromegaly. No jugular venous distension. Hematologic/Lymphatic No petechiae or purpura. No tender or palpable lymph nodes in the cervical or supraclavicular areas. Respiratory Lungs are clear to auscultation without rhonchi or wheezing. Cardiovascular Regular rate and rhythm of heart without murmurs,clicks, gallops or rubs. Chest Chest is symmetric without chest wall deformities. Right side port a cath insertion site is unremarkable. Abdomen Non-tender, non-distended, no masses. Good bowel sounds noted in all quads. No guarding or rebound tenderness. No pulsatile masses. Back/Spine Non-tender to palpation. Extremities No visible deformities, no cyanosis, clubbing or edema. Musculoskeletal No tenderness or swelling, normal range of motion without obvious weakness. Integumentary No rashes or lesions. Neurologic No sensory or motor deficits, normal cerebellar function, in wheelchair today. Psychiatric Alert and oriented times three. Coherent speech. Verbalizes understanding of our discussions today. Laboratory:Test performed on Aug 17, 2020 08:10 Sodium 140 mmol/L Potassium 4.6 mmol/L Chloride 101 mmol/L CO2 27 mmol/L Anion Gap 16.6 BUN 5 mg/dL Creatinine 0.5 mg/dL Cr Clearance (Est) 109.4300 mL/min eGFR 126.7 mL/min Glucose 105 mg/dL Osmolality - Calculated 288 mOsm/kg Calcium 9.4 mg/dL Protein, Total 7.3 g/dL Albumin 3.4 g/dL Globulin 3.9 g/dL Bilirubin, Total 0.3 mg/dL ALT (SGPT) 7 U/L AST (SGOT) 28 U/L Alkaline Phosphatase 300 IU/L WBC 2.4 10 3/uL RBC 3.79 10 6/uL HGB 10.2 g/dL HCT 34.7 % MCV 91.6 fL MCH 26.9 pg MCHC 29.4 g/dL RDW 18.2 % Platelet Count 316 10 3/cmm MPV 10.4 fL Neutrophils 1.13 10 3/uL Lymphocytes 0.7 10 3/uL Monocytes 0.4 10 3/uL Eosinophils 0.2 10 3/uL Basophils 0.1 10 3/uL Neutrophil % 46.5 % Lymphocyte % 28.0 % Monocyte % 15.6 % Eosinophil % 6.6 % Basophils % 2.1 % NRBC % 0 % Test performed on Aug 17, 2020 00:00 Manual Diff DUPLICATE Test performed on Jul 20, 2020 12:59 CEA 85.8 ng/mL Test performed on Jul 13, 2020 11:48 Manual Lymphocytes 41.9 % Manual Monocytes 10.4 % Manual Eosinophils 4.0 % Manual Basophils 0.9 % NRBCs 0.0 /100 WBC Test performed on Jul 05, 2020 10:32 Magnesium 2.1 mg/dL Test performed on Jun 19, 2020 15:18 PT 13.70 SECONDS INR 1.02 Impression: 1. 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 2. She underwent EGD with gastric biopsy on 05/24/2020. HER-2/diana and PD-L1 studies were requested, but not reported. 3. She began trial of palliative chemotherapy with modified FOLFOX on 05/29/2020. Her other medical illnesses include: 4. Coronary artery disease with previous coronary artery bypass surgery. 5. COPD. 6. Pulmonary hypertension. 7. Obstructive sleep apnea. 8. GERD. 9. History of MRSA bacteremia, bacterial endocarditis, and osteomyelitis. 10. History of treated hepatitis C. 11. Anxiety/depression. She completed 3 cycles of modified FOLFOX chemotherapy. She was able to tolerated with acceptable toxicity. During that time, her tremor was determined to have overexpression of HER-2/diana (3+ by IHC). However, her pain in the left supraclavicular/left shoulder area had continued to worsen, and she was given palliative radiation to that area, completed on 08/01/2020 to a total dose of 3300 cGy. She does appear to have some response and symptomatic improvement with the radiation. However, her further staging with bone scan shows extensive, widespread bony metastatic disease. Her restaging CT scans show some areas of improvement in the abdominal area, but with a mixed response in the liver and with evidence of new and extensive bony metastatic disease. Ms Menon remains highly motivated to continue some form of treatment, though her disease has clearly progressed and her overall prognosis is poor. Nonetheless, with the IHC studies showing evidence of overexpression of HER-2/diana, she will be given further chemotherapy with weekly carboplatin/paclitaxel in combination with Herceptin. Ms. Menon began her first cycle of carboplatinum paclitaxel trastuzumab on 08/03/2020. She was unable to come for day 8 treatment because she was sick and presented to the emergency room later for constipation and a bowel obstruction was ruled out. She is here today for consideration of day 15 treatment. Plan: 1. Hold cycle 1 day 15 due to chemotherapy induced neutropenia. Her ANC today is 1130. White count is 2.4 platelets 316 hemoglobin is 10.2. Today's labs were reviewed in detail and discussed with Mrs. Menon and a copy was given to her. 2. We will give her Relistor 12 mg and also call in a prescription for her. She may take that every other day. We will see if this relieves her constipation. 3. She will receive Neupogen today and tomorrow for plans to treat her next week if her counts are adequate. 4. She was given 1 case of Glucerna for nutritional support. 5. She is requesting portable oxygen. She does have extensive metastatic disease and warrants home oxygen which she already has but does need portable for transport to Dr. Office visits and personal care. Her O2 sat on room air today was 88%. 6. We will plan to see her back in 1 week with CBC CMP and follow-up for consideration of her next chemotherapy. We will plan to change her to a 2-week treatment plan and support her with Neulasta. 7. Ms. Menon was instructed to contact us in the interim should questions or problems arise. Signed By: Alina Taylor-, [facility] Helder Yun MD <<Signature on File>>
[2020-08-21 08:44] LABS: Neutrophils % 67.7 %
[2020-08-21 08:53] LABS: Alanine Aminotransferase 6 U/L (0-33); Albumin Level 3.4 g/dL (3.5-5.2); Alkaline Phosphatase 353 IU/L (35-105); Anion Gap 15.2 (5-19); Aspartate Amino Transferase 25 U/L (0-32); Blood Urea Nitrogen 11 mg/dL (6-20); Calcium 9.3 mg/dL (8.5-10.5); Carbon Dioxide 28 mmol/L (22-29); Chloride 99 mmol/L (98-107); Globulin 3.3 g/dL (1.3-4.6); Glomerular Filtration Rate 85.9 mL/min (90-130); Glucose 179 mg/dL (65-115); Osmolality Calculated 290 mOsm/kg (285-295); Potassium 4.2 mmol/L (3.5-5.1); Sodium 138 mmol/L (136-145); Total Bilirubin 0.2 mg/dL (0.15-1.2); Total Protein 6.7 g/dL (6.6-8.7)
--- NOTE | 2020-08-21 09:42 | ONC FU_ITS ---
[facility] Patient Note Patient: Saraih Menon Unit #: [id number]: 1960 Dictated By: Alina TaylorDate of Visit: Aug 21, 2020 Onc MED Follow-Up/Prog Note Chief Complaint: Gastric cancer. 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 On 05/22/2020 she was admitted to the hospital after presenting to the emergency room with pain and difficulty swallowing. CT scans of the chest, abdomen, and pelvis showed evidence of widespread malignancy including masslike focus along the lesser curvature of the stomach, along with left supraclavicular, left axillary, mediastinal, and abdominal lymphadenopathy, multiple metastatic lesions in the liver, and suspected right adrenal metastasis. There was a large volume of ascites. A new sclerotic lesion in the left ischium was suspicious for a metastatic focus. Her EGD on 05/24/2020 showed a partially obstructing, malignant appearing mass in the gastric cardia. Pathology showed poorly differentiated tubular adenocarcinoma, consistent with gastric primary. HER-2/diana and PD-L1 testing were requested, those results were initally not available. At the time she was very symptomatic, to the point that she was virtually unable to eat. However, she had indicated that she did want to attempt treatment. As such, she underwent placement of Port-A-Cath venous access device and she then began cycle 1 of modified FOLFOX chemotherapy on 05/29/2020. She was able to tolerate treatment with acceptable toxicity, and she continued with cycle 2 on 06/19/2020 and with cycle 3 on 07/06/2020. During that time, results of HER-2/diana testing became available, and the tumor did show overexpression of HER-2/diana, 3+ by IHC. She has multiple medical illnesses including coronary artery disease with previous coronary artery bypass, COPD, pulmonary hypertension, and obstructive sleep apnea. She has history of MRSA bacteremia, bacterial endocarditis, and osteomyelitis, and she also has a history of treated hepatitis C. She has been a smoker. She does not drink alcohol. INTERIM HISTORY: On 07/18/2020 she began palliative radiation to the left supraclavicular area due to worsening pain associated with her metastatic disease. She completed treatment on 08/01/2020 to a total dose of 3300 cGy. During that time, her pain had continued to worsen. A bone scan on 07/28/2020 showed evidence of diffuse osseous metastatic disease with involvement of the skull, upper extremities, spine, ribs, pelvis, and bilateral lower extremities. There is very intense uptake involving the left medial clavicle. Restaging CT scans of the chest, abdomen, and pelvis on 08/01/2020 showed improving adenopathy compared to the prior exam with no new or enlarging lymph nodes. A left-sided pleural effusion was noted to have increased, and there was new extensive bony metastatic disease noted involving all bones of the entire visualized skeleton with multiple new pathologic fractures. There was mixed response of metastatic disease in the liver. There was improved retroperitoneal adenopathy and mass/adenopathy along the lesser curvature of the stomach. There was continued but decreased omental carcinomatosis and decreased ascites. Ms. Fulton is here today for follow-up. She presented last week for day 15 treatment after missing day 8 due to feeling bad . At that point she also ended up in the emergency room with severe constipation and bowel obstruction was ruled out. Her treatment was held on cycle 1 day 15 due to chemotherapy-induced neutropenia. She was given Neupogen for 2 days and she is here today for reassessment. She states she feels about the same as last week. She has had no further pain. She states her bowels were relieved using mag citrate. She did not use the Relistor. She states she is planning on doing another dose later today of the mag citrate and cleaning out good . Her appetite is about the same. She denies fever or chills. She denies cough. She has chronic lower extremity edema in the left leg she states it, comes and goes. She has no pain in legs there is no warmth or redness. She indicates that she does not want to do treatment today but wants to do tomorrow because my mother is with me not want her to wait that long . However she also did tell the chemotherapy nurse that she wanted to do radiation on her right hip. She did not discuss this with me as well visit with her about that tomorrow. Her ECOG remains at 3. Past Medical History: Chronic obstructive pulmonary disease Coronary artery disease Depression Endocarditis Gastroesophageal reflux disease Hepatitis C MRSA bactermia HECTOR-obstructive sleep apnea Pulmonary HTN Sacral osteomyelitis Past Surgical History: Appendectomy Foot surgery Heart surgery at age 6 Tonsillectomy Right subclavian Port-A-Cath per Dr. Walters/OM in 2019 Allergies: Bextra and codeine. Medications: Albuterol Sulfate 1 Puff(s) (of (2.5 mg/3ml) 0.083%) Nebulization solution Inhalation PRN Dronabinol 1 Capsule (of 10 mg) Oral t.i.d. HYDROmorphone HCl 3 Tablet (of 4 mg) Oral q 4 hours PRN LORazepam 0.5 - 1 Tablet (of 1 mg) Oral t.i.d. PRN Metoprolol Tartrate 1 Tablet (of 25 mg) Oral b.i.d. Nicotine 1 Patch(es) (of 21-14-7 mg/24hr) Kit Transdermal daily oxyCODONE HCl ER 2 Tablet (of 60 mg) Tablet ER 12 HR Abuse-Deterrent Oral b.i.d. Spiriva HandiHaler 1 Capsule (of 18 mcg) Inhalation daily Family History: Social History: Ms. Menon is legally and she is an unknown. Ms. Menon no longer smokes. She is a former drinker. currently trying to quit smoking. Pt states she was a habitual drinker 11-12 years ago. Review Of Symptoms: Constitutional Denies fevers, chills, night sweats. Tired and poor appetite. Allergic/Immunologic No reactions. Eyes Denies significant visual changes. No diplopia. No amaurosis. ENMT Denies changes in hearing, sore throat, mouth sores, difficulty or changes in swallowing ability, and/or sinus drainage. Hematologic/Lymphatic Denies easy bruising or bleeding. The patient denies any tender or palpable lymph nodes. Respiratory Denies new or worsening dyspnea on exertion, chest pain, cough or hemoptysis. Denies orthopnea. Cardiovascular Denies anginal chest pain, palpitations or orthopnea. Gastrointestinal Denies worsening nausea, vomiting, diarrhea, GI bleeding. Denies heartburn or early satiety. Nausea controlled at present. Constipation improved with mag citrate. Genitourinary (F) No hematuria, hesitancy, incontinence, vaginal bleeding, discharge or other problems with urination. Musculoskeletal Denies joint pain, swelling or redness. No decreased range of motion. Integumentary Denies chronic rashes, inflammation, ulcerations or skin changes. Neurologic Denies headache, blurred vision, and no areas of focal weakness or numbness. Wheelchair for mobility-gait not assessed. No sensory problems. Psychiatric Denies insomnia, depression, zenon or mood swings. Vital Signs: Performed on Aug 21, 2020 09:06 Height - 63.00 in Weight - 124.8 lbs (HIGH) BSA - 1.58 sq.m BMI - 22.11 Temperature - 97.6 F (LOW) Pulse - 86 /min Respiration - 24 /min BP - 104/69 mm(hg) O2 Sat - 92 % (LOW) Pain - 7,3 - Capable of only limited self-care, confined to bed or chair more than 50% of waking hours. (ECOG) Physical Examination: Constitutional Alert, oriented, no acute distress. Skin pink, warm and dry. Obviously does not feel well, but no acute distress. She is more alert than last visit. Head Normocephalic; atraumatic. Eyes Conjunctivae and sclerae are clear and without icterus. Pupils are reactive and equal. Hematologic/Lymphatic No petechiae or purpura. No tender or palpable lymph nodes in the cervical or supraclavicular areas. Respiratory Lungs were noted to have faint bilateral basal crackles but clear with deep breathing. No wheezing. Cardiovascular Regular rate and rhythm of heart with soft systolic murmur but no clicks, gallops or rubs. Chest Chest is symmetric without chest wall deformities. Right side port a cath insertion site is unremarkable. Abdomen Non-tender, non-distended, no masses. Good bowel sounds noted in all quads. No guarding or rebound tenderness. No pulsatile masses. Back/Spine Non-tender to palpation. Extremities No visible deformities, no cyanosis, clubbing or edema. Musculoskeletal No tenderness or swelling, normal range of motion without obvious weakness. Integumentary No rashes or lesions. Neurologic No sensory or motor deficits, normal cerebellar function, in wheelchair today. Psychiatric Alert and oriented times three. Coherent speech. Verbalizes understanding of our discussions today. Laboratory:Test performed on Aug 21, 2020 08:18 Sodium 138 mmol/L Potassium 4.2 mmol/L Chloride 99 mmol/L CO2 28 mmol/L Anion Gap 15.2 BUN 11 mg/dL Creatinine 0.7 mg/dL Cr Clearance (Est) 78.1600 mL/min eGFR 85.9 mL/min Glucose 179 mg/dL Osmolality - Calculated 290 mOsm/kg Calcium 9.3 mg/dL Protein, Total 6.7 g/dL Albumin 3.4 g/dL Globulin 3.3 g/dL Bilirubin, Total 0.2 mg/dL ALT (SGPT) 6 U/L AST (SGOT) 25 U/L Alkaline Phosphatase 353 IU/L WBC 9.9 10 3/uL RBC 3.75 10 6/uL HGB 10.3 g/dL HCT 34.7 % MCV 92.5 fL MCH 27.5 pg MCHC 29.7 g/dL RDW 19.4 % Platelet Count 329 10 3/cmm MPV 10.1 fL Neutrophils 6.10 10 3/uL Lymphocytes 1.9 10 3/uL Monocytes 1.0 10 3/uL Eosinophils 0.2 10 3/uL Basophils 0.1 10 3/uL Neutrophil % 67.7 % Lymphocyte % 18.9 % Monocyte % 10.4 % Eosinophil % 2.0 % Basophils % 1.0 % NRBC % 0 % Test performed on Aug 17, 2020 00:00 Manual Diff DUPLICATE Test performed on Jul 20, 2020 12:59 CEA 85.8 ng/mL Test performed on Jul 13, 2020 11:48 Manual Lymphocytes 41.9 % Manual Monocytes 10.4 % Manual Eosinophils 4.0 % Manual Basophils 0.9 % NRBCs 0.0 /100 WBC Test performed on Jul 05, 2020 10:32 Magnesium 2.1 mg/dL Test performed on Jun 19, 2020 15:18 PT 13.70 SECONDS INR 1.02 Impression: 1. 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 2. She underwent EGD with gastric biopsy on 05/24/2020. HER-2/diana and PD-L1 studies were requested, but not reported. 3. She began trial of palliative chemotherapy with modified FOLFOX on 05/29/2020. Her other medical illnesses include: 4. Coronary artery disease with previous coronary artery bypass surgery. 5. COPD. 6. Pulmonary hypertension. 7. Obstructive sleep apnea. 8. GERD. 9. History of MRSA bacteremia, bacterial endocarditis, and osteomyelitis. 10. History of treated hepatitis C. 11. Anxiety/depression. She completed 3 cycles of modified FOLFOX chemotherapy. She was able to tolerated with acceptable toxicity. During that time, her tremor was determined to have overexpression of HER-2/diana (3+ by IHC). However, her pain in the left supraclavicular/left shoulder area had continued to worsen, and she was given palliative radiation to that area, completed on 08/01/2020 to a total dose of 3300 cGy. She does appear to have some response and symptomatic improvement with the radiation. However, her further staging with bone scan shows extensive, widespread bony metastatic disease. Her restaging CT scans show some areas of improvement in the abdominal area, but with a mixed response in the liver and with evidence of new and extensive bony metastatic disease. Ms Menon remains highly motivated to continue some form of treatment, though her disease has clearly progressed and her overall prognosis is poor. Nonetheless, with the IHC studies showing evidence of overexpression of HER-2/diana, she will be given further chemotherapy with weekly carboplatin/paclitaxel in combination with Herceptin. Ms. Menon began her first cycle of carboplatinum paclitaxel trastuzumab on 08/03/2020. She was unable to come for day 8 treatment because she was sick and presented to the emergency room later for constipation and a bowel obstruction was ruled out. She presented for day 15 of cycle 1 last week and was neutropenic. She was supported with 2 doses of Neupogen and is here today for reassessment. Her blood counts have recovered and she has tolerated the Neupogen well. We will plan to proceed with treatment however she wants to wait till tomorrow. Plan: 1. Proceed with cycle 2-day 1 carboplatin paclitaxel and Herceptin. The Herceptin will be 2-week dosing as her plan will now change to day 1 and 15. 2. Continue current antiemetic therapy as it generally controls her nausea well. 3. Labs from today were reviewed in detail and discussed with Ms. Menon and a copy was given to her. WBC 9.9, hemoglobin 10.3, platelets 229,000 ANC is 6100 creatinine 0.7 potassium 4.2 LFTs are normal alk phos is 353. 4. We will support her with Neulasta in between treatments given she has extensive disease and extensive bony metastatic disease. She has chemotherapy-induced neutropenia on day 15 of cycle 1. 5. We will plan to see her back in 2 weeks with CBC CMP and follow-up for consideration of cycle 2-day 15 chemotherapy. 6. Ms. Menon was instructed to contact us in the interim should questions or problems arise. Signed By: Alina Taylor-, AOCNP Helder Yun MD <<Signature on File>>
[2020-08-22] MEDS: acetaminophen 325 mg Tablet 650 MG PO (09:10)
[2020-08-22] MEDS: sodium chloride 0.9% 250 ML 75 ML IV (09:10)
[2020-08-23] MEDS: acetaminophen 325 mg Tablet 650 MG PO (09:55)
[2020-08-23] MEDS: pegfilgrastim 6 mg/0.6 mL Kit (onpro) SUBCUT (13:00)
== END 2020-08-28 23:59 | disposition home or self-care (01) ==
LOC: ONCMED 05:44
PROVIDERS: Nurse Practitioner; PCP Family Medicine; Visit Provider Internal Medicine Medical Oncology
DX: Z51.12 Encounter for antineoplastic immunotherapy (principal); Z51.11 Encounter for antineoplastic chemotherapy; C16.0 Malignant neoplasm of cardia; C79.51 Secondary malignant neoplasm of bone; D70.1 Agranulocytosis secondary to cancer chemotherapy; T45.1X5A Adverse effect of antineoplastic and immunosuppressive drugs, initial encounter; I25.10 Atherosclerotic heart disease of native coronary artery without angina pectoris; J44.9 Chronic obstructive pulmonary disease, unspecified; I27.20 Pulmonary hypertension, unspecified; G47.33 Obstructive sleep apnea (adult) (pediatric); K21.9 Gastro-esophageal reflux disease without esophagitis; F41.8 Other specified anxiety disorders; Z86.14 Personal history of Methicillin resistant Staphylococcus aureus infection; Z86.19 Personal history of other infectious and parasitic diseases; Z79.899 Other long term (current) drug therapy; Z99.81 Dependence on supplemental oxygen
CPT/HCPCS: 36415; 36591; 80053; 85025; 96367; 96372; 96413; 96417; 99214; J1100; J1200; J1442; J2212; J2469; J2505; J3490; J7030; J7050; J9045; J9267; J9355

== ENCOUNTER 2020-09-28 05:45 | Outpatient (RCR) | payer MEDICAID, SELFPAY ==
--- NOTE | 2020-09-05 16:18 | ONC FU_ITS ---
[facility] Patient Note Patient: Sarahi Menon Unit #: [id number]: 1960 Dictated By: Alina TaylorDate of Visit: Aug 29, 2020 Onc MED Follow-Up/Prog Note Chief Complaint: Gastric cancer. 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 On 05/22/2020 she was admitted to the hospital after presenting to the emergency room with pain and difficulty swallowing. CT scans of the chest, abdomen, and pelvis showed evidence of widespread malignancy including masslike focus along the lesser curvature of the stomach, along with left supraclavicular, left axillary, mediastinal, and abdominal lymphadenopathy, multiple metastatic lesions in the liver, and suspected right adrenal metastasis. There was a large volume of ascites. A new sclerotic lesion in the left ischium was suspicious for a metastatic focus. Her EGD on 05/24/2020 showed a partially obstructing, malignant appearing mass in the gastric cardia. Pathology showed poorly differentiated tubular adenocarcinoma, consistent with gastric primary. HER-2/diana and PD-L1 testing were requested, those results were initally not available. At the time she was very symptomatic, to the point that she was virtually unable to eat. However, she had indicated that she did want to attempt treatment. As such, she underwent placement of Port-A-Cath venous access device and she then began cycle 1 of modified FOLFOX chemotherapy on 05/29/2020. She was able to tolerate treatment with acceptable toxicity, and she continued with cycle 2 on 06/19/2020 and with cycle 3 on 07/06/2020. During that time, results of HER-2/diana testing became available, and the tumor did show overexpression of HER-2/diana, 3+ by IHC. She has multiple medical illnesses including coronary artery disease with previous coronary artery bypass, COPD, pulmonary hypertension, and obstructive sleep apnea. She has history of MRSA bacteremia, bacterial endocarditis, and osteomyelitis, and she also has a history of treated hepatitis C. She has been a smoker. She does not drink alcohol. INTERIM HISTORY: On 07/18/2020 she began palliative radiation to the left supraclavicular area due to worsening pain associated with her metastatic disease. She completed treatment on 08/01/2020 to a total dose of 3300 cGy. During that time, her pain had continued to worsen. A bone scan on 07/28/2020 showed evidence of diffuse osseous metastatic disease with involvement of the skull, upper extremities, spine, ribs, pelvis, and bilateral lower extremities. There is very intense uptake involving the left medial clavicle. Restaging CT scans of the chest, abdomen, and pelvis on 08/01/2020 showed improving adenopathy compared to the prior exam with no new or enlarging lymph nodes. A left-sided pleural effusion was noted to have increased, and there was new extensive bony metastatic disease noted involving all bones of the entire visualized skeleton with multiple new pathologic fractures. There was mixed response of metastatic disease in the liver. There was improved retroperitoneal adenopathy and mass/adenopathy along the lesser curvature of the stomach. There was continued but decreased omental carcinomatosis and decreased ascites. Ms. Menon is here today for an unscheduled followup. She called in concerned with scalp nodules. She states they are getting worse and are uncomfortable at times. She states she has had 1 lesion for a while but has never opened or drained. She states she thinks it may be getting more tender and may be a little bigger. However she does have some new nodules scattered along the scalp as well. She states she has had some headaches off and on but no vision changes. She denies any nausea or vomiting. She states her appetite is the same as always is not really good some days and better on others. She denies any fever or chills. She denies any trauma or bumping her head . She states that she is just weak in general but no worse than what has been normal for her. She denies any diarrhea or constipation. She continues to utilize wheelchair for ambulation due to generalized weakness. Her ECOG remains at 3. Past Medical History: Chronic obstructive pulmonary disease Coronary artery disease Depression Endocarditis Gastroesophageal reflux disease Hepatitis C MRSA bactermia HECTOR-obstructive sleep apnea Pulmonary HTN Sacral osteomyelitis Past Surgical History: Appendectomy Foot surgery Heart surgery at age 6 Tonsillectomy Right subclavian Port-A-Cath per Dr. Walters/[facility] [place] Allergies: Bextra and codeine. Medications: Albuterol Sulfate 1 Puff(s) (of (2.5 mg/3ml) 0.083%) Nebulization solution Inhalation PRN Dronabinol 1 Capsule (of 10 mg) Oral t.i.d. HYDROmorphone HCl 3 Tablet (of 4 mg) Oral q 4 hours PRN LORazepam 0.5 - 1 Tablet (of 1 mg) Oral t.i.d. PRN Metoprolol Tartrate 1 Tablet (of 25 mg) Oral b.i.d. Nicotine 1 Patch(es) (of 21-14-7 mg/24hr) Kit Transdermal daily oxyCODONE HCl ER 2 Tablet (of 60 mg) Tablet ER 12 HR Abuse-Deterrent Oral b.i.d. Spiriva HandiHaler 1 Capsule (of 18 mcg) Inhalation daily Family History: Social History: Ms. Menon is legally and she is an unknown. Ms. Menon no longer smokes. She is a former drinker. currently trying to quit smoking. Pt states she was a habitual drinker 11-12 years ago. Review Of Symptoms: Constitutional Denies fevers, chills, night sweats. Significant fatigue and poor appetite some days and better other days. Allergic/Immunologic No reactions. Eyes Denies significant visual changes. No diplopia. No amaurosis. ENMT Denies changes in hearing, sore throat, mouth sores, difficulty or changes in swallowing ability, and/or sinus drainage. Hematologic/Lymphatic Denies easy bruising or bleeding. The patient denies any tender or palpable lymph nodes. Respiratory Denies new or worsening dyspnea on exertion, chest pain, cough or hemoptysis. Denies orthopnea. Cardiovascular Denies anginal chest pain, palpitations or orthopnea. Gastrointestinal Denies worsening nausea, vomiting, diarrhea, GI bleeding. Denies heartburn or early satiety. Nausea controlled at present. Constipation improved with mag citrate. Genitourinary (F) No hematuria, hesitancy, incontinence, vaginal bleeding, discharge or other problems with urination. Musculoskeletal Denies joint pain, swelling or redness. No decreased range of motion. New knots on scalp. Integumentary Denies chronic rashes, inflammation, ulcerations or skin changes. Neurologic Denies headache, blurred vision, and no areas of focal weakness or numbness. Wheelchair for mobility-gait not assessed. No sensory problems. Psychiatric Denies insomnia, depression, zenon or mood swings. Vital Signs: Performed on Aug 29, 2020 12:06 Height - 63.00 in Weight - 124.4 lbs (LOW) BSA - 1.58 sq.m BMI - 22.04 Temperature - 99.4 F (HIGH) Pulse - 103 /min (HIGH) Respiration - 18 /min BP - 140/83 mm(hg) O2 Sat - 94 % (LOW) Pain - 9,3 - Capable of only limited self-care, confined to bed or chair more than 50% of waking hours. (ECOG) Physical Examination: Constitutional Alert, oriented, no acute distress. Skin pink, warm and dry. Head Normocephalic; atraumatic. She does have 3 nodules on her scalp that are firm, not discolored or open. There is no discharge or odor. The nodules are approximately 2 cm in diameter and are anterior and posterior. Eyes Conjunctivae and sclerae are clear and without icterus. Pupils are reactive and equal. Neck Supple without masses or thyromegaly. No jugular venous distension. Hematologic/Lymphatic No petechiae or purpura. No tender or palpable lymph nodes in the cervical or supraclavicular areas. Respiratory Lungs were clear with deep breathing. No wheezing. Cardiovascular Regular rate and rhythm of heart with soft systolic murmur but no clicks, gallops or rubs. Chest Chest is symmetric without chest wall deformities. Right side port a cath insertion site is unremarkable. Abdomen Non-tender, non-distended, no masses. Good bowel sounds noted in all quads. No guarding or rebound tenderness. No pulsatile masses. Back/Spine Non-tender to palpation. Extremities No visible deformities, no cyanosis, clubbing or edema. Musculoskeletal No tenderness or swelling, normal range of motion without obvious weakness. Integumentary No rashes or lesions. Neurologic No sensory or motor deficits, normal cerebellar function, in wheelchair today. Psychiatric Alert and oriented times three. Coherent speech. Verbalizes understanding of our discussions today. Laboratory:Test performed on Aug 21, 2020 08:18 Sodium 138 mmol/L Potassium 4.2 mmol/L Chloride 99 mmol/L CO2 28 mmol/L Anion Gap 15.2 BUN 11 mg/dL Creatinine 0.7 mg/dL Cr Clearance (Est) 78.1600 mL/min eGFR 85.9 mL/min Glucose 179 mg/dL Osmolality - Calculated 290 mOsm/kg Calcium 9.3 mg/dL Protein, Total 6.7 g/dL Albumin 3.4 g/dL Globulin 3.3 g/dL Bilirubin, Total 0.2 mg/dL ALT (SGPT) 6 U/L AST (SGOT) 25 U/L Alkaline Phosphatase 353 IU/L WBC 9.9 10 3/uL RBC 3.75 10 6/uL HGB 10.3 g/dL HCT 34.7 % MCV 92.5 fL MCH 27.5 pg MCHC 29.7 g/dL RDW 19.4 % Platelet Count 329 10 3/cmm MPV 10.1 fL Neutrophils 6.10 10 3/uL Lymphocytes 1.9 10 3/uL Monocytes 1.0 10 3/uL Eosinophils 0.2 10 3/uL Basophils 0.1 10 3/uL Neutrophil % 67.7 % Lymphocyte % 18.9 % Monocyte % 10.4 % Eosinophil % 2.0 % Basophils % 1.0 % NRBC % 0 % Test performed on Aug 17, 2020 00:00 Manual Diff DUPLICATE Test performed on Jul 20, 2020 12:59 CEA 85.8 ng/mL Test performed on Jul 13, 2020 11:48 Manual Lymphocytes 41.9 % Manual Monocytes 10.4 % Manual Eosinophils 4.0 % Manual Basophils 0.9 % NRBCs 0.0 /100 WBC Test performed on Jul 05, 2020 10:32 Magnesium 2.1 mg/dL Test performed on Jun 19, 2020 15:18 PT 13.70 SECONDS INR 1.02 Impression: 1. 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 2. She underwent EGD with gastric biopsy on 05/24/2020. HER-2/diana and PD-L1 studies were requested, but not reported. 3. She began trial of palliative chemotherapy with modified FOLFOX on 05/29/2020. Her other medical illnesses include: 4. Coronary artery disease with previous coronary artery bypass surgery. 5. COPD. 6. Pulmonary hypertension. 7. Obstructive sleep apnea. 8. GERD. 9. History of MRSA bacteremia, bacterial endocarditis, and osteomyelitis. 10. History of treated hepatitis C. 11. Anxiety/depression. She completed 3 cycles of modified FOLFOX chemotherapy. She was able to tolerated with acceptable toxicity. During that time, her tremor was determined to have overexpression of HER-2/diana (3+ by IHC). However, her pain in the left supraclavicular/left shoulder area had continued to worsen, and she was given palliative radiation to that area, completed on 08/01/2020 to a total dose of 3300 cGy. She does appear to have some response and symptomatic improvement with the radiation. However, her further staging with bone scan shows extensive, widespread bony metastatic disease. Her restaging CT scans show some areas of improvement in the abdominal area, but with a mixed response in the liver and with evidence of new and extensive bony metastatic disease. Ms Menon remains highly motivated to continue some form of treatment, though her disease has clearly progressed and her overall prognosis is poor. Nonetheless, with the IHC studies showing evidence of overexpression of HER-2/diana, she will be given further chemotherapy with weekly carboplatin/paclitaxel in combination with Herceptin. Ms. Menon began her first cycle of carboplatinum paclitaxel trastuzumab on 08/03/2020. She was unable to come for day 8 treatment because she was sick and presented to the emergency room later for constipation and a bowel obstruction was ruled out. She presented for day 15 of cycle 1 last week and was neutropenic. She was supported with 2 doses of Neupogen and is here today for reassessment. Her blood counts have recovered and she has tolerated the Neupogen well. She has completed cycle 2-day 1 on 08/23/2020. Plan: 1. Metastatic gastric cardia HER 2 Diana + cancer with headaches and scalp nodules: I have requested an MRI of the head. In the past and apparently when she went for the MRI that the specimen technician was unable to get an IV for contrast and therefore was aborted and never rescheduled. She needs an MRI of her head to complete staging for stage IVb gastric cardia adenocarcinoma and headaches, as well as the scalp nodules. I have asked that she come to our office prior to going to MRI so we can obtain IV access for her to avoid or boarding it again due to lack of IV access. 2. Persistent Pain in left supraclavicular/left shoulder area: We will refill her pain medication she states it is controlling her pain adequately. Dr. Yun will authorize prescriptions for her hydromorphone and oxycodone extended release. 3. Followup plan: We will see her back next week as scheduled she is due for cycle 2-day 15 treatment at that time but she will have a CBC CMP prior to that. Hopefully will have the ride of the head before that 3. Ms. Menon was instructed to contact us in the interim should questions or problems arise. Signed By: Alina Taylor-, AOCNP Helder Yun MD <<Signature on File>>
--- NOTE | 2020-09-06 09:11 | MR_ITS ---
WS: [id number] MRI BRAIN WITH AND WITHOUT CONTRAST HISTORY: PERSISTENT HEADACHES;NAUSEA;NEW NODULE ON SCALP COMPARISON: 06/27/2020 TECHNIQUE: Multiplanar imaging performed through the brain with Prohance 13 ml's IV. Quality of this examination is limited by motion. No acute infarcts are seen. Rouse-white matter differentiation is well preserved. There are several sc attered T2 and FLAIR signal hyperintensities throughout the white matter. These hyperintensities is h ave increased since 09/06/2020. There are numerous enhancing metastatic lesions throughout the brain. Supratentorial and infratentori al areas of enhancement are identified. Largest lesions measure about 7 mm. The largest lesion is in the RIGHT anterior limb of the internal capsule. No midline shift or mass effect. Paranasal sinuses: Minimal mucosal thickening in the RIGHT maxillary sinus. LEFT mastoid air cell eff usion. Mastoid air cells: LEFT mastoid air cell effusion. Calvarium and scalp: Areas of mild enhancement in the calvarium. Suspicious for metastatic site invol ving the LEFT frontal, LEFT parietal and RIGHT frontal bone. MR/MR head wo/w con [id number] IMPRESSION: 1. Interval development of numerous subcentimeter metastatic lesions throughou t the supratentorial and infratentorial brain. 2. No acute infarct. 3. Likely metastatic lesions in the calvarium.
[2020-09-13 10:54] LABS: Basophils # 0.1 10^3/uL (0.0-0.1); Basophils % 1.2 %; Eosinophils # 0.1 10^3/uL (0.0-0.8); Eosinophils % 1.5 %; Hematocrit 34.2 % (37.0-47.0); Hemoglobin 10.1 g/dL (11.5-15.3); Lymphocytes # 0.5 10^3/uL (0.8-4.8); Lymphocytes % 5.7 %; Mean Corpuscular HGB Conc 29.5 g/dL (30.0-36.0); Mean Corpuscular Hemoglobin 27.6 pg (28.0-34.0); Mean Corpuscular Volume 93.4 fL (81-99); Mean Platelet Volume 9.8 fL (7.4-10.4); Monocytes # 0.2 10^3/uL (0.2-0.9); Monocytes % 2.2 %; Neutrophils # 7.89 10^3/uL (1.8-7.7); Neutrophils % 86.1 %; Nucleated Red Blood Cells % 0 %; Platelet Count 313 10^3/cmm (130-400); Red Blood Count 3.66 10^6/uL (4.1-5.3); Red Cell Distribution Width 20.3 % (12.1-15.1); White Blood Count 9.2 10^3/uL (4.0-10.0)
[2020-09-13 11:13] LABS: Alanine Aminotransferase 6 U/L (0-33); Albumin Level 3.4 g/dL (3.5-5.2); Alkaline Phosphatase 319 IU/L (35-105); Anion Gap 16.8 (5-19); Aspartate Amino Transferase 44 U/L (0-32); Blood Urea Nitrogen 8 mg/dL (6-20); Calcium 9.6 mg/dL (8.5-10.5); Carbon Dioxide 26 mmol/L (22-29); Chloride 98 mmol/L (98-107); Globulin 3.7 g/dL (1.3-4.6); Glomerular Filtration Rate 126.7 mL/min (90-130); Glucose 209 mg/dL (65-115); Osmolality Calculated 288 mOsm/kg (285-295); Potassium 3.8 mmol/L (3.5-5.1); Sodium 137 mmol/L (136-145); Total Bilirubin 0.4 mg/dL (0.15-1.2); Total Protein 7.1 g/dL (6.6-8.7)
--- NOTE | 2020-09-13 11:58 | ONCRAD EPV_ITS ---
Radiation Oncology Established Patient Note Patient: Sarahi Menon MR#: [id number] : 1960 Attending Physician: Miko Wilburn M.D. Date of Service: 09/13/2020 Sarahi Menon was seen in consultation this morning for evaluation regarding cranial radiotherapy for the management of her metastatic gastric cancer. Briefly, the patient initially presented in April of this year to the [facility] emergency department with difficulty swallowing. Initial CT demonstrated a lesser curvature of the stomach mass with ascites and abdominal lymphadenopathy, as well as, multiple hepatic lesions, a right adrenal mass, and a sclerotic lesion in the left ischium. EGD performed on May 24, 2020 demonstrated a partially obstructing mass in the gastric cardia. Biopsies diagnosed early differentiated tubular adenocarcinoma with immunohistochemical staining positive for HER-2 and negative for PD-L1.she received palliative chemotherapy with modified FOLFOX beginning May 29, 2020. Her third cycle was administered on July 06, 2020. She received palliative radiotherapy to the left supraclavicular region receiving 33 Gy in 11 fractions completing on August 01, 2020. She presented on September 05, 2020 to the medical oncology office with worsening scalp nodules and headache. An MRI of the brain ordered on September 06, 2020 revealed numerous enhancing supratentorial and infratentorial metastatic lesions and held enhancement in the calvarium shipping assistant with the patient???s scalp nodules. I have been asked to evaluate the patient for cranial radiotherapy. The patient's past medical history is significant for CAD, depression, endocarditis, GERD, hepatitis C, MRSA bacteremia, obstructive sleep apnea, pulmonary hypertension, and sacral osteomyelitis. His past surgical interventions include cardiac surgery (age 6), foot surgery, Port-A-Cath placement, and colectomy. I have reviewed the patient's medication profile which is available in the electronic medical record. She reported drug allergies to codeine (night sweats) and Bextra (seizures). The patient was accompanied to this consultation by her daughter. She described a tobacco habit but denied alcohol intake. On review of systems, she did not report any constitutional complaints including fevers of unknown origin or unintentional weight loss. She did not detail any head neck complaints including diplopia, tinnitus, epistaxis, or dysphagia. She disavowed any enlarged lymph nodes of the neck, armpit, or groin. She did not disclose any cardiopulmonary symptoms such as angina or palpitations. On gastrointestinal review, she dismissed nausea and diarrhea. There were no genitourinary complaints such as dysuria or hematuria. She did not relate any musculoskeletal complaints including bone pain or muscle weakness. She described headaches, but she did not relate neurological symptoms including paresthesias or seizures, On physical examination, the patient has an ECOG performance status of 2. Her height was 5 ft 3 in tall and she weighed 123 lbs. The temperature was 97.8???F. The blood pressure was 115/76 mmHg. The pulse was 91 bpm and the respiratory rate of was 20. The head was normocephalic and atraumatic. A dominant subcutaneous nodule was present on the vertex. Ophthalmoscopy identified bilateral red reflexes without papilledema. The oral cavity had moist mucous membranes and no oropharyngeal exudate was present. There was no cervical adenopathy or thyromegaly. Normal fremitus was noted with resonance to percussion elicited. Bronchovesicular breath sounds were auscultated in the posterior lung rodriguez with basilar rails. Cardiac sounds were regular in rate and rhythm. A holosystolic murmur was present best heard in the left upper chest. No JVD noted. The abdomen had active bowel sounds. No tenderness to palpation. No evidence of organomegaly. No muscle weakness upon testing. No tenderness to deep palpation along the axial skeleton. Cranial nerves II through XII were intact. There were no sensory deficits no sensory deficits. Muscle strength was 4 -/5. Gait was unsteady thus requiring a wheelchair. In summary, the patient initially presented in April of this year to the [facility] emergency department with difficulty swallowing. Initial CT demonstrated a lesser curvature of the stomach mass with ascites and abdominal lymphadenopathy, as well as, multiple hepatic lesions, a right adrenal mass, and a sclerotic lesion in the left ischium. EGD performed on May 24, 2020 demonstrated a partially obstructing mass in the gastric cardia. Biopsies diagnosed early differentiated tubular adenocarcinoma with immunohistochemical staining positive for HER-2 and negative for PD-L1.she received palliative chemotherapy with modified FOLFOX beginning May 29, 2020. Her third cycle was administered on July 06, 2020. She received palliative radiotherapy to the left supraclavicular region receiving 33 Gy in 11 fractions completing on August 01, 2020. She presented on September 05, 2020 to the medical oncology office with worsening scalp nodules and headache. An MRI of the brain ordered on September 06, 2020 revealed numerous enhancing supratentorial and infratentorial metastatic lesions and held enhancement in the calvarium shipping assistant with the patient???s scalp nodules. I have been asked to evaluate the patient for cranial radiotherapy. I reviewed with the patient the role of radiotherapy in the management of cranial metastases. Potential toxicities of WBRT were reviewed. I anticipate a 2-week course of radiotherapy that will be administered following CT radiotherapy planning. The patient verbalized understanding and would like to proceed with whole brain radiotherapy. Signed by: Dr. Miko Wilburn 09/13/2020 11:56:18 AM
[2020-09-13] MEDS: acetaminophen 325 mg Tablet 650 MG PO (12:20)
[2020-09-13] MEDS: diphenhydrAMINE 25 mg Capsule PO (12:20)
[2020-09-13] MEDS: sodium chloride 0.9% 250 ML 75 ML IV (12:36)
--- NOTE | 2020-09-14 | CT_ITS ---
Radiation Therapy Planning CT images; total exam DLP: 636.82 mGy-cm MTDD
--- NOTE | 2020-09-17 23:58 | ONC FU_ITS ---
[facility] Patient Note Patient: Sarahi Menon Unit #: [id number]: 1960 Dictated By: Alina TaylorDate of Visit: Sep 13, 2020 Onc MED Follow-Up/Prog Note Chief Complaint: Gastric cancer. 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 On 05/22/2020 she was admitted to the hospital after presenting to the emergency room with pain and difficulty swallowing. CT scans of the chest, abdomen, and pelvis showed evidence of widespread malignancy including masslike focus along the lesser curvature of the stomach, along with left supraclavicular, left axillary, mediastinal, and abdominal lymphadenopathy, multiple metastatic lesions in the liver, and suspected right adrenal metastasis. There was a large volume of ascites. A new sclerotic lesion in the left ischium was suspicious for a metastatic focus. Her EGD on 05/24/2020 showed a partially obstructing, malignant appearing mass in the gastric cardia. Pathology showed poorly differentiated tubular adenocarcinoma, consistent with gastric primary. HER-2/diana and PD-L1 testing were requested, those results were initally not available. At the time she was very symptomatic, to the point that she was virtually unable to eat. However, she had indicated that she did want to attempt treatment. As such, she underwent placement of Port-A-Cath venous access device and she then began cycle 1 of modified FOLFOX chemotherapy on 05/29/2020. She was able to tolerate treatment with acceptable toxicity, and she continued with cycle 2 on 06/19/2020 and with cycle 3 on 07/06/2020. During that time, results of HER-2/diana testing became available, and the tumor did show overexpression of HER-2/diana, 3+ by IHC. She has multiple medical illnesses including coronary artery disease with previous coronary artery bypass, COPD, pulmonary hypertension, and obstructive sleep apnea. She has history of MRSA bacteremia, bacterial endocarditis, and osteomyelitis, and she also has a history of treated hepatitis C. She has been a smoker. She does not drink alcohol. INTERIM HISTORY: On 07/18/2020 she began palliative radiation to the left supraclavicular area due to worsening pain associated with her metastatic disease. She completed treatment on 08/01/2020 to a total dose of 3300 cGy. During that time, her pain had continued to worsen. A bone scan on 07/28/2020 showed evidence of diffuse osseous metastatic disease with involvement of the skull, upper extremities, spine, ribs, pelvis, and bilateral lower extremities. There is very intense uptake involving the left medial clavicle. Restaging CT scans of the chest, abdomen, and pelvis on 08/01/2020 showed improving adenopathy compared to the prior exam with no new or enlarging lymph nodes. A left-sided pleural effusion was noted to have increased, and there was new extensive bony metastatic disease noted involving all bones of the entire visualized skeleton with multiple new pathologic fractures. There was mixed response of metastatic disease in the liver. There was improved retroperitoneal adenopathy and mass/adenopathy along the lesser curvature of the stomach. There was continued but decreased omental carcinomatosis and decreased ascites. Ms. Menon is here today for followup. She is due for carboplatin/paclitaxel/Herceptin today. However she did recently have an MRI of the head for evaluation of subcutaneous nodules as well as headaches and poor performance status and intermittent nausea. This was obtained on September 06, 2020 and reported numerous enhancing metastatic lesions throughout the brain. Supratentorial and infratentorial areas of enhancement are identified. The largest lesion measures about 7 mm. The largest lesion is in the right anterior limb of the internal capsule. There is no midline shift or mass-effect. There were areas of mild enhancement in the clavicle area suspicious for metastatic sites involving the left frontal left parietal and right frontal bone. Her findings were discussed with Dr. Wilburn in radiation oncology. He advised that we could offer her whole brain radiation however this would most likely not alleviate her symptoms. It was elected not to start her on steroids as there was little to no edema. The MRI report and Dr. Wilburn' recommendations were discussed with Mrs. Menon over the phone. She verbalized understanding but states she wanted to pursue any avenues of possible treatment. She remains highly motivated to be treatment even though she is aware that her overall prognosis is very poor. She did meet with Dr. Wilburn earlier today and is elected to pursue whole brain radiation. Given that fact we will hold her chemotherapy because she is such a marginal performance status. However we will pursue her Herceptin. She denies any nausea or vomiting. She states that she is just weak in general but no worse than what has been normal for her. She denies any diarrhea or constipation. She continues to utilize wheelchair for ambulation due to generalized weakness. Her ECOG remains at 3. Past Medical History: Chronic obstructive pulmonary disease Coronary artery disease Depression Endocarditis Gastroesophageal reflux disease Hepatitis C MRSA bactermia HECTOR-obstructive sleep apnea Pulmonary HTN Sacral osteomyelitis Past Surgical History: Appendectomy Foot surgery Heart surgery at age 6 Tonsillectomy Right subclavian Port-A-Cath per Dr. Walters/[facility] in 2019 Allergies: Bextra and codeine. Medications: Albuterol Sulfate 1 Puff(s) (of (2.5 mg/3ml) 0.083%) Nebulization solution Inhalation PRN Dronabinol 1 Capsule (of 10 mg) Oral t.i.d. HYDROmorphone HCl 3 Tablet (of 4 mg) Oral q 4 hours PRN LORazepam 0.5 - 1 Tablet (of 1 mg) Oral t.i.d. PRN Metoprolol Tartrate 1 Tablet (of 25 mg) Oral b.i.d. Nicotine 1 Patch(es) (of 21-14-7 mg/24hr) Kit Transdermal daily oxyCODONE HCl ER 2 Tablet (of 60 mg) Tablet ER 12 HR Abuse-Deterrent Oral b.i.d. Spiriva HandiHaler 1 Capsule (of 18 mcg) Inhalation daily Family History: Social History: Ms. Menon is legally and she is an unknown. Ms. Menon no longer smokes. She is a former drinker. currently trying to quit smoking. Pt states she was a habitual drinker 11-12 years ago. Review Of Symptoms: Constitutional Denies fevers, chills, night sweats. Significant fatigue and poor appetite some days and better other days. Allergic/Immunologic No reactions. Eyes Denies significant visual changes. No diplopia. No amaurosis. ENMT Denies changes in hearing, sore throat, mouth sores, difficulty or changes in swallowing ability, and/or sinus drainage. Hematologic/Lymphatic Denies easy bruising or bleeding. The patient denies any tender or palpable lymph nodes. Respiratory Denies new or worsening dyspnea on exertion, chest pain, cough or hemoptysis. Denies orthopnea. Cardiovascular Denies anginal chest pain, palpitations or orthopnea. Gastrointestinal Denies worsening nausea, vomiting, diarrhea, GI bleeding. Denies heartburn or early satiety. Nausea controlled at present. Constipation improved with mag citrate. Genitourinary (F) No hematuria, hesitancy, incontinence, vaginal bleeding, discharge or other problems with urination. Musculoskeletal Denies joint pain, swelling or redness. No decreased range of motion. New knots on scalp. Integumentary Denies chronic rashes, inflammation, ulcerations or skin changes. Neurologic She continues to be somewhat lethargic but easily aroused our conversation. She also has slowed speech which is normal for her. Wheelchair for mobility-gait not assessed. See head assessment for more details. Psychiatric Denies insomnia, depression, zenon or mood swings. Vital Signs: Performed on Sep 13, 2020 11:28 Height - 63.00 in Weight - 122.8 lbs Temperature - 97.8 F Pulse - 91 Respiration - 20 BP - 115/76 mm(hg) O2 Sat - 94 % (LOW) Pain - 6 Performed on Sep 13, 2020 11:28 BMI - 21.753 kg/m2,3 - Capable of only limited self-care, confined to bed or chair more than 50% of waking hours. (ECOG) Physical Examination: Constitutional Alert, oriented, no acute distress. Skin pink, warm and dry. Head Normocephalic; atraumatic. She does have 3 nodules on her scalp that are firm, not discolored or open. There is no discharge or odor. The nodules are approximately 2 cm in diameter and are left side-anterior and posterior. Eyes Conjunctivae and sclerae are clear and without icterus. Pupils are reactive and equal. ENMT No oral exudates, ulcers, masses, thrush or mucositis. Oropharynx clear. Tongue normal. Neck Supple without masses or thyromegaly. No jugular venous distension. Hematologic/Lymphatic No petechiae or purpura. No tender or palpable lymph nodes in the cervical or supraclavicular areas. Respiratory Lungs were clear with deep breathing. No wheezing. Cardiovascular Regular rate and rhythm of heart with soft systolic murmur but no clicks, gallops or rubs. Chest Chest is symmetric without chest wall deformities. Right side port a cath insertion site is unremarkable. Extremities No visible deformities, no cyanosis, clubbing or edema. Musculoskeletal No tenderness or swelling, normal range of motion without obvious weakness. Integumentary No rashes or lesions. Neurologic No sensory or motor deficits, normal cerebellar function-normally slow speech and sleepy , in wheelchair today. Psychiatric Alert and oriented times three. Coherent speech. Verbalizes understanding of our discussions today. Laboratory:Test performed on Sep 13, 2020 10:40 Sodium 137 mmol/L Potassium 3.8 mmol/L Chloride 98 mmol/L CO2 26 mmol/L Anion Gap 16.8 BUN 8 mg/dL Creatinine 0.5 mg/dL Cr Clearance (Est) 109.4300 mL/min eGFR 126.7 mL/min Glucose 209 mg/dL Osmolality - Calculated 288 mOsm/kg Calcium 9.6 mg/dL Protein, Total 7.1 g/dL Albumin 3.4 g/dL Globulin 3.7 g/dL Bilirubin, Total 0.4 mg/dL ALT (SGPT) 6 U/L AST (SGOT) 44 U/L Alkaline Phosphatase 319 IU/L WBC 9.2 10 3/uL RBC 3.66 10 6/uL HGB 10.1 g/dL HCT 34.2 % MCV 93.4 fL MCH 27.6 pg MCHC 29.5 g/dL RDW 20.3 % Platelet Count 313 10 3/cmm MPV 9.8 fL Neutrophils 7.89 10 3/uL Lymphocytes 0.5 10 3/uL Monocytes 0.2 10 3/uL Eosinophils 0.1 10 3/uL Basophils 0.1 10 3/uL Neutrophil % 86.1 % Lymphocyte % 5.7 % Monocyte % 2.2 % Eosinophil % 1.5 % Basophils % 1.2 % NRBC % 0 % Test performed on Aug 17, 2020 00:00 Manual Diff DUPLICATE Test performed on Jul 20, 2020 12:59 CEA 85.8 ng/mL Test performed on Jul 13, 2020 11:48 Manual Lymphocytes 41.9 % Manual Monocytes 10.4 % Manual Eosinophils 4.0 % Manual Basophils 0.9 % NRBCs 0.0 /100 WBC Test performed on Jul 05, 2020 10:32 Magnesium 2.1 mg/dL Test performed on Jun 19, 2020 15:18 PT 13.70 SECONDS INR 1.02 Impression: 1. 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 2. She underwent EGD with gastric biopsy on 05/24/2020. HER-2/diana and PD-L1 studies were requested, but not reported. 3. She began trial of palliative chemotherapy with modified FOLFOX on 05/29/2020. Her other medical illnesses include: 4. Coronary artery disease with previous coronary artery bypass surgery. 5. COPD. 6. Pulmonary hypertension. 7. Obstructive sleep apnea. 8. GERD. 9. History of MRSA bacteremia, bacterial endocarditis, and osteomyelitis. 10. History of treated hepatitis C. 11. Anxiety/depression. She completed 3 cycles of modified FOLFOX chemotherapy. She was able to tolerated with acceptable toxicity. During that time, her tremor was determined to have overexpression of HER-2/diana (3+ by IHC). However, her pain in the left supraclavicular/left shoulder area had continued to worsen, and she was given palliative radiation to that area, completed on 08/01/2020 to a total dose of 3300 cGy. She does appear to have some response and symptomatic improvement with the radiation. However, her further staging with bone scan shows extensive, widespread bony metastatic disease. Her restaging CT scans show some areas of improvement in the abdominal area, but with a mixed response in the liver and with evidence of new and extensive bony metastatic disease. Ms Menon remains highly motivated to continue some form of treatment, though her disease has clearly progressed and her overall prognosis is poor. Nonetheless, with the IHC studies showing evidence of overexpression of HER-2/diana, she will be given further chemotherapy with weekly carboplatin/paclitaxel in combination with Herceptin. Ms. Menon began her first cycle of carboplatinum paclitaxel trastuzumab on 08/03/2020. She was unable to come for day 8 treatment because she was sick and presented to the emergency room later for constipation and a bowel obstruction was ruled out. She presented for day 15 of cycle 1 and was neutropenic. She was supported with 2 doses of Neupogen. Her blood counts have recovered and she has tolerated the Neupogen well. She has completed cycle 2-day 1 on 08/23/2020. She completed staging MRI of t he brain on 09/06/2020 and was found to have multiple enhancing lesions in the brain and calvarium nodules. She is motivated to continue to pursue active treatment and has been referred to radiation oncology for consideration of whole brain radiation therapy. Plan: 1. Metastatic gastric cardia HER 2 Diana + cancer with multiple enhancing lesions in the brain and calvarium nodules: She is actively pursuing whole brain radiation with Dr. Wilburn in ration oncology. After discussion with Dr Yun, her chemo therapy portion of her treatment plan for medical oncology will be held. This includes carboplatin and paclitaxel. We will proceed with her Herceptin. He denies mouth sores. She has very poor performance status and do not feel that she would tolerate the full chemotherapy regimen along with all brain radiation. 2. Persistent Pain in left supraclavicular/left shoulder area: Continue hydromorphone and oxycodone extended release as this is controlling her pain at present. 3. Labs from today were reviewed in detail discussed with Mrs. Menon and a copy was given to her. WBC 9.2 hemoglobin 10.1 platelets 3 and 13,000, ANC is 7900 potassium 3.8 random glucose 209 (she did take premed steroids). Creatinine 0.5 ALT is 6 AST is 44 alk phos is improved at 319. 4. Followup plan: We will see her back in 3 weeks for followup with CBC, CMP and possible resumption of her Carboplatin/Taxol post radation therapy. She will be due for Herceptin at that time as well. 5. Her initial echocardiogram for Herceptin monitoring was obtained on August 03, 2020 and reported normal left ventricular cavity size. She had left ventricular ejection fraction estimated at 56%. There was grade II of IV diastolic dysfunction calling moderately elevated filling pressures. Today will be her third Herceptin dose since that echocardiogram. 6. Ms. Menon was instructed to contact us in the interim should questions or problems arise. Signed By: Alina Taylor-, [facility] Helder Yun MD <<Signature on File>>
--- NOTE | 2020-09-19 15:17 | ONCRAD TMN_ITS ---
Radiation Oncology Weekly Treatment Management Patient: Sarahi Menon MR#: [id number] : 1960 Attending Physician: Miko Wilburn M.D. Date of Service: 09/19/2020 Sarahi Menon is a 60 year-old white female diagnosed with metastatic gastric cancer with newly diagnosed brain metastases. The patient has received 3 Gy of a prescribed 30 Rouse with a 3-dimensional conformal radiotherapy plan utilizing a half beam block treatment technique with opposed lateral portal rodriguez. Upon review of systems, she reported headaches and continued nausea. On physical examination, the patient weighed 115 lbs. Her temperature was 99.2???F with a blood pressure of 128/86 mmHg. The pulse was 88 bpm and the respiratory rate was 20. Cranial nerves were intact. There was no thrush in the oropharynx. Continue whole brain radiotherapy as prescribed. I will prescribe dexamethasone 4 mg bid and Nexium 20 mg qd to prevent gastritis. Signed by: Dr. Miko Wilburn 09/19/2020 3:15:40 PM
--- NOTE | 2020-09-26 15:43 | ONCRAD TMN_ITS ---
Treatment Management Note Patient Name: Sarahi Menon Date of : 1960 Date of Service: 09/26/2020 Attending Physician: Miko Wilburn M.D. Sarahi Menon is a 60 year-old white female diagnosed with metastatic gastric cancer with newly diagnosed brain metastases. The patient has received 12 Gy of a prescribed 30 Rouse with a 3-dimensional conformal radiotherapy plan utilizing a half beam block treatment technique with opposed lateral portal rodirguez. Upon review of systems, she reported headaches and nausea. She has not obtained the prescription for the glucocorticoid nor PPI. On physical examination, the patient weighed 118 lbs. Her temperature was 98.9???F with a blood pressure of 128/79 mmHg. The pulse was 106 bpm and the respiratory rate was 20. Cranial nerves were intact. There was no thrush in the oropharynx. Continue whole brain radiotherapy as planned. Signed by: Dr. Miko Wilburn 09/26/2020 3:41:33 PM
== END 2020-09-28 23:59 | disposition home or self-care (01) ==
LOC: ONCMED 05:45
PROVIDERS: Nurse Practitioner; PCP Family Medicine; Visit Provider Radiology Radiation Oncology
DX: Z51.0 Encounter for antineoplastic radiation therapy (principal); Z51.12 Encounter for antineoplastic immunotherapy; C79.31 Secondary malignant neoplasm of brain; C16.0 Malignant neoplasm of cardia; C79.51 Secondary malignant neoplasm of bone; R51.9 Headache, unspecified; R22.0 Localized swelling, mass and lump, head; R11.0 Nausea; I25.10 Atherosclerotic heart disease of native coronary artery without angina pectoris; J44.9 Chronic obstructive pulmonary disease, unspecified; G47.33 Obstructive sleep apnea (adult) (pediatric); Z79.899 Other long term (current) drug therapy; K21.9 Gastro-esophageal reflux disease without esophagitis; F41.8 Other specified anxiety disorders; I27.20 Pulmonary hypertension, unspecified; Z87.891 Personal history of nicotine dependence; Z79.891 Long term (current) use of opiate analgesic
CPT/HCPCS: 70553; 77280; 77290; 77295; 77300; 77334; 77336; 77412; 77417; 77470; 80053; 85025; 96413; 99214; 99215; A9579; J7050; J9355

== ENCOUNTER 2020-10-18 20:08 | Emergency (ER) | payer MEDICAID, SELFPAY ==
[2020-10-18] VITALS (9 sets, daily range): BP systolic 109–147; BP diastolic 62–92; PULSE 76–120; RESP 16–25; TEMP 36.7; O2SAT 95–98; BMI 19.3
--- NOTE | 2020-10-18 20:22 | ED_ITS ---
HPI - General Adult General: Chief complaint: General Medical Stated complaint: PAIN ALL OVER/BONE CANCER Time Seen by Provider: 10/18/20 20:09 Source: patient and EMS Mode of arrival: EMS Limitations: no limitations History of Present Illness: HPI narrative: 60-year-old female who has a history of gastric cancer with bone metastases. Patient states she started on hospice 2 days ago and a switch her meds and she states that she does not feel like it is working. She states she has severe pain tonight. She states pain is all over. Associated symptoms: Deny chest pain, dyspnea, headache(s), nausea, rash or vomiting Review of Systems Const: Denies: fever(s), chills, body aches or change in appetite Eyes: Denies: blurry vision or eye discomfort ENMT: Denies: throat pain or dental pain Card: Denies: chest pain Resp: Denies: dyspnea GI: Denies: abdominal pain, nausea, vomiting or diarrhea : Denies: dysuria Musc: Reports: extremity pain Skin/Breast: Denies: rash Neuro: Denies: headache(s) Psych: Denies: depression Donald/Lymph: Denies: easy bruising All/Imm: Denies: urticaria PFSH ED PFSH: Medical History (Updated 10/19/20 @ 03:12 by Dada Arteaga MD) Anxiety COPD (chronic obstructive pulmonary disease) Depression Gastric reflux Hepatitis C History of endocarditis History of MRSA infection HECTOR (obstructive sleep apnea) Pulmonary hypertension Sacral osteomyelitis Surgical History H/O foot surgery History of appendectomy History of heart surgery I had some type of heart surgery at age 6 Hx of tonsillectomy Family History Other CAD (coronary artery disease) Hypertension Social History Smoking and tobacco status: current every day smoker Alcohol intake: never Current gender identity: Female Physical Exam Const: COMMON NORMALS: no acute distress, patient oriented x3 and healthy appearing HENMT: COMMON NORMALS: normocephalic and atraumatic HEAD & SCALP: normocephalic and atraumatic Eye: COMMON NORMALS: Equal, round and reactive pupils present and EOMs intact bilaterally PUPIL: Yes Equal, round and reactive pupils present Neck/C-Spine: COMMON NORMALS: full ROM and supple Chest: COMMONS NORMALS: normal inspection of the chest and normal palpation of entire chest wall Resp: COMMON NORMALS: normal respiratory effort, No retractions, No use of accessory muscles and clear to auscultation bilaterally AUSCULTATION: clear to auscultation bilaterally Cardio: COMMON NORMALS: regular rate, regular rhythm and No murmurs present (Cardio) RATE: regular rate RHYTHM: regular rhythm GI: COMMON NORMALS: Normal to inspection, nondistended, normoactive bowel sounds present, Soft to palpation, non-tender and no masses PALPATION: Yes Soft to palpation Extremity: COMMON NORMALS: normal to inspection and full ROM Neuro: COMMON NORMALS: patient oriented x3, moves all extremities and no focal motor deficits Psych: COMMON NORMALS: mental status grossly normal, Normal thought process present and cooperative THOUGHT PROCESS: Normal thought process present Skin: COMMON NORMALS: no rashes or lesions noted and no wounds GENERAL SKIN EXAM: no rashes or lesions noted Course Vital Signs: Vital signs: Vital Signs Temperature 98.0 F 10/18/20 20:27 Pulse Rate 76 10/18/20 23:38 Respiratory Rate 18 10/19/20 04:10 Blood Pressure 109/62 10/18/20 23:38 Pulse Oximetry 100 10/19/20 04:10 MDM - General Adult MDM Narrative: Medical decision making narrative: Sarahi presents here with chronic pain from her cancer. Patient is wanting a new hospice service. Will have case management evaluate in the morning set her up with a new hospice. I not believe patient needs admission. She has been stable while here. Have been treating her pain with Dilaudid. Discharge Plan Discharge Patient Disposition: Home Clinical Impression: Cancer associated pain Condition: Stable Prescriptions: No Action lorazepam [Ativan] 1 mg tablet 1 mg PO Q8H PRN (Reason: anxiety) Qty: 30 RF: 2 dexamethasone 4 mg Tablet 20 mg PO BID RF: 0 hydromorphone [Dilaudid] 4 mg Tablet 4 mg PO Q6H PRN (Reason: Pain) RF: 0 morphine concentrate 100 mg/5 mL (20 mg/mL) solution See Rx Instructions .ROUTE .COMPLEX RF: 0 Compazine 10 mg Tablet 10 mg PO Q6H PRN (Reason: NAUSEA/VOMITING) RF: 0 morphine 30 mg tablet extended release 30 mg PO Q8H RF: 0 hyoscyamine sulfate 0.125 mg tablet,disintegrating 0.125 mg PO Q4H PRN (Reason: STOMACH SECRETIONS) RF: 0 bisacodyl 10 mg Suppository 10 mg CA DAILY PRN (Reason: Constipation) RF: 0 oxybutynin chloride 5 mg tablet 5 mg PO DAILY RF: 0 OxyContin 30 mg tablet,oral only,ext.rel.12 hr 30 mg PO BID RF: 0 Discharge Orders: Discharge ED (Routine); Ordered 10/19/20 Ordered By: Dada Arteaga Discharge Diet: Advance as tolerated Discharge Activity: Resume usual activity Patient Instructions: Chronic Pain (ED) Coding Level of Care Code ED Maintenance Scheduler for Fred Fwd Exam Comprehensive
[2020-10-18] MEDS: ondansetron 2 mg/ML SDV 2 mL 4 MG IVP (20:38)
[2020-10-18] MEDS: HYDROmorphone 1 mg/mL INJ 1 mL 2 MG IVP ×2 (20:39→21:49)
[2020-10-18] MEDS: sodium chloride 0.9% 1,000 ML 999 ML IV (20:39)
--- NOTE | 2020-10-18 23:39 | PC.NURSE ---
pt placed in inpatient hospital bed for comfort and safety
[2020-10-19] VITALS (11 sets, daily range): BP systolic 104–122; BP diastolic 66–84; PULSE 78–116; RESP 14–20; O2SAT 96–110
[2020-10-19] MEDS: ondansetron 2 mg/ML SDV 2 mL 4 MG IVP (01:55)
[2020-10-19] MEDS: HYDROmorphone 1 mg/mL INJ 1 mL 2 MG IVP (02:00)
[2020-10-19] MEDS: metoclopramide 5 mg/mL SDV 2 mL 10 MG IVP (04:00)
[2020-10-19] MEDS: diphenhydrAMINE 50 mg/mL SDV 1mL IVP (04:05)
[2020-10-19] MEDS: HYDROmorphone 1 mg/mL INJ 1 mL IVP ×4 (04:10→12:04)
[2020-10-19] MEDS: LORazepam 2 mg/mL INJ 1 mL 1 MG IVP (05:05)
--- NOTE | 2020-10-19 06:59 | PC.NURSE ---
Given report on pt. Waiting for Case Management to search for new Hospice care. Also waiting for daughter to arrive for a ride home. Resting with lights off. NO family or sitter with pt.
--- NOTE | 2020-10-19 07:15 | PC.NURSE ---
Pt asleep. Respiration even and unlabored. No family or sitter present. Continue to monitor while waiting for Case Management and family
--- NOTE | 2020-10-19 08:41 | PC.NURSE ---
Cleaned mouth, emptied aparicio bag-1000 dark yellow urine. Repositioned head.
--- NOTE | 2020-10-19 09:29 | PC.NURSE ---
Resting with lights off. No family or sitter in room. Waiting for daughter to arrive for further evaluation for Hospice
[2020-10-19] MEDS: oxyCODONE 20 mg ER (12 HR) Tablet PO (10:23)
[2020-10-19] MEDS: oxyCODONE 10 mg ER (12 HR) Tablet PO (10:24)
--- NOTE | 2020-10-19 11:07 | DCPLANNER ---
traffic incident management manager was asked to work on hospice placement for patient. Patients daughter called field case manager, stated that patient and family wanted patient to be admitted to hospital so that patient would have round the clock care until patient passes away. traffic incident management manager explained that field case manager was told that patient did not meet criteria to be admitted to hospital. traffic incident management manager explained that the only option that patient has for round the clock care is family, a fdc, or private pay for nursing. traffic incident management manager called [facility] and spoke with Janette about possible placement for patient at [facility]. Patient has [place] medicaid, that will not pay in [place], so if patient wanted to go to a fdc in [place] then it will be private pay. If patient went to [facility] than patient would be put into quarantine for 14 days before anyone would be allowed to see patient. There is a custodial facility in [place], [place] that patient could go to. traffic incident management manager called and spoke with patients daughter, informed the daughter what field case manager had been told about fdc. traffic incident management manager called [facility], for private pay nursing. This company does not go into [place]. traffic incident management manager was given the number to [facility] which is a company that will go [place], number was provided to patients daughter. Patient was on [facility] hospice, patients daughter stated that the family would like to switch companies to [facility]. traffic incident management manager faxed patients information to [facility], and daughters phone number so that the company could get information from family. When daughter arrived to see patient, field case manager and daughter spoke with patient and gave patient her options. traffic incident management manager explained that she could go to a fdc in [place], but that it would be private pay because [place] medicaid [place] not [place] for a fdc in [place]. Patient could go to a fdc in [place] and have her medicaid pay for it. traffic incident management manager also gave patient the option of switching hospice companies. Patient stated that she would like to go with [facility] company. Patient also explained that patients daughter was given the phone number to [facility] where patient can pay for nursing services round the clock. traffic incident management manager asked daughter if she would be able to transport patient home, daughter stated that she would not be able to transport patient home. traffic incident management manager made arrangements for family with [facility] transport to transport patient home with stretcher services. It would cost family 265.00 for transportation, daughter stated that she would pay it. traffic incident management manager informed patients daughter, nurse and charge nurse that transportation would be to pick patient up before 12:30.
--- NOTE | 2020-10-19 12:07 | PC.NURSE ---
Pt resting in bed, family at bedside. Pt screams Ow! Ow! any time she is touched or moved. Pt given pain medication. Pt family updated on wait for ride back to her residence. Pt resting with 2LNC, call light in reach, and no needs at this time.
== END 2020-10-19 14:07 | disposition home or self-care (01) ==
PROVIDERS: Emergency Provider Emergency Medicine
DX: G89.3 Neoplasm related pain (acute) (chronic) (principal); C16.9 Malignant neoplasm of stomach, unspecified; C79.51 Secondary malignant neoplasm of bone; J44.9 Chronic obstructive pulmonary disease, unspecified; Z86.19 Personal history of other infectious and parasitic diseases; F17.210 Nicotine dependence, cigarettes, uncomplicated
CPT/HCPCS: 12345; 96374; 96375; 96376; 99282; 99284; C1751; J1170; J1200; J2060; J2405; J2765; J7030